=== PATIENT | male | born 1950 | race Caucasian/White ===

== ENCOUNTER → 2016-04-30 | Outpatient (CLI) | payer MEDICARE ==
[2016-04-30 11:48] LABS: Blood Urea Nitrogen 32 mg/dL (9-20); Non-African American GFR(MDRD) >60 (>60 ml/min/1.73 sqM)
--- NOTE | 2016-04-30 13:31 | CT ---
EXAMINATION TYPE: CT ChestAbdPelvis w con DATE OF EXAM: 04/30/2016 1:18 PM INDICATION: cough and LUQ pain COMPARISON: CT chest 09/12/2014, CT abdomen pelvis 06/18/2014 CT DLP: 1750.4 mGycm CONTRAST: Performed with Oral Contrast and with IV Contrast, patient injected with 100 mL of Omnipaque 300. TECHNIQUE: Axial images at 5 mm thick sections. Reconstructed images in the coronal plane. Delayed images through the kidneys. FINDINGS: CT CHEST: Portion of the thyroid visualized is normal. Very minimal subsegmental atelectasis may be present within the lung bases dependent portions. Lungs otherwise appear clear. No enlarged mediastinal or hilar adenopathy is evident. The ascending aorta diameter at the level of the main pulmonary artery is 3.5 cm. The main pulmonary artery diameter at the bifurcation is 2.[address] ABDOMEN: Liver: There is a 0.8 cm cyst superior left lobe liver medially Spleen: Normal Pancreas: Normal Adrenal glands: The adrenal glands are normal. Gallbladder: Normal Kidneys: No masses are evident. No hydronephrosis is present. No cysts are present. Delayed images were obtained through the kidneys, which remain unremarkable. Aorta: Vascular calcification is within the aorta. Inferior vena cava: Normal. CT PELVIS: Loops of bowel within the abdomen and pelvis are normal. Diverticular changes are within the sigm oid colon. There are loops of bowel without contrast limiting their evaluation. Appendix: Not visualized Urinary bladder: Normal. Genitourinary structures: Prostate is slightly prominent Osseous structures: No suspicious lytic or sclerotic lesions. IMPRESSIONS: 1. Minimal subsegmental atelectasis lung bases. 2. Diverticulosis sigmoid colon.
== END | disposition home or self-care (01) ==
LOC: RADCTMAIN 11:05
PROVIDERS: ATTEND Internal Medicine Hematology & Oncology
DX: J98.11 Atelectasis (principal); K57.30 Diverticulosis of large intestine without perforation or abscess without bleeding
CPT/HCPCS: 82565; 84520; 71260; 74177; Q9967

== ENCOUNTER → 2016-06-16 | Outpatient (CLI) | payer MEDICARE ==
[2016-06-16 12:48] LABS: Appearance,Urine Clear (Clear); Bilirubin,Urine Negative (Negative); Glucose,Urine (UA) 4+ (Negative); Ketones,Urine Negative (Negative); Leukocyte Esterase,Urine Negative (Negative); Nitrite,Urine Negative (Negative); PH, Urine 5.5 (5.0-8.0); Protein,Urine Negative (Negative); Specific Gravity,Urine 1.018 (1.001-1.035); UA Billing (MACRO vs. MICRO) CHEM; Urobilinogen,Urine <2.0 mg/dL (<2.0)
[2016-06-16 13:04] LABS: Magnesium 1.8 mg/dL (1.6-2.3); Phosphorous 3.3 mg/dL (2.5-4.5); Uric Acid 4.4 mg/dL (3.5-8.5)
== END | disposition home or self-care (01) ==
LOC: LABWHC1 11:59
PROVIDERS: ATTEND Internal Medicine
DX: N18.3 Chronic kidney disease, stage 3 (moderate) (principal); N39.0 Urinary tract infection, site not specified; R80.9 Proteinuria, unspecified; E21.3 Hyperparathyroidism, unspecified; E55.9 Vitamin D deficiency, unspecified; M10.9 Gout, unspecified
CPT/HCPCS: 36415; 81003; 82043; 82306; 83735; 83970; 84100; 84550

== ENCOUNTER 2016-10-01 23:34 | Inpatient (IN) | payer MEDICARE ==
[2016-10-02] MEDS ORDERED: SODIUM CHLORIDE 0.9% 1,000 ML IV STA (00:07)
[2016-10-02] MEDS ORDERED: IV VANCOMYCIN PER PHARMACY 1 EACH MISC MISCELLANE PRN (00:07)
[2016-10-02] MEDS ORDERED: VANCOMYCIN 1,500 MG in SODIUM CHLORIDE 0.9% 250 ML IVPB STA (00:20)
--- NOTE | 2016-10-02 00:21 | ED ---
General Adult HPI - General Chief complaint: Wound/Laceration Stated complaint: Leg Wound Time Seen by Provider: 10/01/16 23:55 Source: patient, RN notes reviewed Mode of arrival: ambulatory Limitations: no limitations - History of Present Illness Initial comments: 65-year-old male presents to the emergency department with the chief complaint of right leg wound. Patient states that on he hit his leg with an object and caused a cut. Patient states today he went to change his bandage and Dilaudid. Come out of the wound. Patient denies any fever or chills. There is some redness and swelling to the leg. Patient states that he was concerned due to the purulent discharge states that that he should be evaluated. Patient denies any other symptoms. Patient denies pain.Patient denies any recent fever, chills, shortness of breath, chest pain, back pain, abdominal pain, nausea vomiting, numbness or tingling, dysuria or hematuria, constipation or diarrhea, headaches or visual changes, or any other current symptoms. - Related Data Home Medications Medication Instructions Recorded Confirmed Unable To Assess [Unable to Assess] 06/18/14 06/18/14 Allergies Allergy/AdvReac Type Severity Reaction Status Date / Time No Known Allergies Allergy Verified 10/01/16 23:48 Review of Systems ROS Statement: Those systems with pertinent positive or pertinent negative responses have been documented in the HPI. ROS Other: All systems not noted in ROS Statement are negative. Past Medical History Past Medical History: Diabetes Mellitus History of Any Multi-Drug Resistant Organisms: None Reported Past Surgical History: No Surgical Hx Reported Past Psychological History: No Psychological Hx Reported Smoking Status: Never smoker Past Alcohol Use History: None Reported Past Drug Use History: None Reported General Exam - General Exam Comments Initial Comments: General: The patient is awake and alert, in no distress, and does not appear acutely ill. Neck: The neck is supple, there is no tenderness. Cardiovascular: There is a regular rate and rhythm. No murmur, rub or gallop is appreciated. Respiratory: Lungs are clear to auscultation, respirations are non-labored, breath sounds are equal. No wheezes, stridor, rales, or rhonchi. Musculoskeletal: Sensation intact with 2+ pulses. Right extremity. Full range of motion of right knee and ankle. Patient does appear to have a circular- sized wound to the anterior right dejesus that does show tendon visible. There is some purulent-like discharge from the area. It is this. Associated induration and swelling surrounding the area. Neurological: CN II-XII intact, There are no obvious motor or sensory deficits. Coordination appears grossly intact. Speech is normal. Skin: Skin is warm and dry and no rashes or lesions are noted. Psychiatric: Normal mood and affect. Limitations: no limitations Course Vital Signs 10/01/16 23:46 Temperature 98.9 F Pulse Rate 80 Respiratory 18 Rate Blood Pressure 215/102 O2 Sat by Pulse 96 Oximetry Medical Decision Making - Medical Decision Making 65-year-old male presents with what appears to be a wound with associated cellulitis to the right leg. At this time patient's wound does appear to be excessive and he does also appear to have a right dejesus cellulitis does appear to be open with tendon exposed. At this time we did start vancomycin. We will the patient to director of early childhood education. Patient is agree with this plan all questions have been answered. - Radiology Data Radiology results: report reviewed, image reviewed Disposition Clinical Impression: Cellulitis of right leg, Open wound of right ankle, Type II diabetes mellitus Disposition: ADMITTED IP TO THIS [facility] Condition: Stable Referrals: Madeline Aldana MD [Primary Care Provider] - 1-2 days Time of Disposition: 01:25 Decision Date: 10/02/16 Decision Time: 01:25
--- NOTE | 2016-10-02 01:02 | XR ---
EXAM: XR Right Tib/Fib CLINICAL HISTORY: Reason: Pain TECHNIQUE: X-ray right tib/fib. COMPARISON: No relevant prior studies available. FINDINGS/IMPRESSION: Soft tissue defect in the anterior calf best appreciated on lateral view. Soft tissue edema. Periosteal thickening, example distal tibia. No acute fracture is identified.
[2016-10-02] MEDS ORDERED: NALOXONE 0.4 MG/ML 1 ML VIAL IV PRN (01:26)
[2016-10-02] MEDS ORDERED: ACETAMINOPHEN TAB 325 MG TAB PO PRN (01:26)
[2016-10-02] MEDS ORDERED: ONDANSETRON 4 MG/2 ML VIAL IVP PRN (01:26)
[2016-10-02] MEDS ORDERED: IBUPROFEN 400 MG TAB PO PRN (01:26)
[2016-10-02 01:31] LABS: INR 1.1 (<1.1); Partial Thromboplastin Time 22.9 sec (22.0-30.0); Prothrombin Time 10.7 sec (9.0-12.0)
[2016-10-02 01:32] LABS: Basophils % (A) 1 %; CH 29.5; CHCM 36.4; Eosinophils # (A) 0.3 k/uL (0-0.7); Eosinophils % (A) 3 %; HCT 35.2 % (39.0-53.0); HDW 3.63; HGB 13.1 gm/dL (13.0-17.5); Hyperchromasia Slight; Luc # (Auto) 0.12; Luc % (Auto) 1; Lymphocytes # (A) 1.7 k/uL (1.0-4.8); Lymphocytes % (A) 20 %; MCH 30.4 pg (25.0-35.0); MCHC 37.3 g/dL (31.0-37.0); MCV 81.6 fL (80.0-100.0); Mean Platelet Volume 7.2; Monocytes # (A) 0.6 k/uL (0-1.0); Monocytes % (A) 7 %; Neutrophils # (A) 5.7 k/uL (1.3-7.7); Neutrophils % (A) 68 %; Poikilocytosis Slight; RBC 4.32 m/uL (4.30-5.90); RDW 14.3 % (11.5-15.5); WBC 8.3 k/uL (3.8-10.6); WBC (Perox) 7.94
[2016-10-02 01:35] LABS: ALT 34 U/L (21-72); AST 14 U/L (17-59); Alkaline Phosphatase 87 U/L (38-126); Anion Gap 12 mmol/L; Blood Urea Nitrogen 25 mg/dL (9-20); Calcium 9.5 mg/dL (8.4-10.2); Carbon Dioxide 22 mmol/L (22-30); Chloride 104 mmol/L (98-107); Glucose 228 mg/dL (74-99); Non-African American GFR(MDRD) >60 (>60 ml/min/1.73 sqM); Potassium 4.2 mmol/L (3.5-5.1); Sodium 138 mmol/L (137-145); Total Bilirubin 0.8 mg/dL (0.2-1.3); Total Protein 6.9 g/dL (6.3-8.2)
[2016-10-02] MEDS ORDERED: ENALAPRILAT 1.25 MG/ML 1 ML VIAL IVP STA (02:44)
[2016-10-02] MEDS: SODIUM CHLORIDE 0.9% 1,000 ML IV SCH ×2 (03:02→13:06)
[2016-10-02 04:31] VITALS: BMI 28.5
[2016-10-02 07:15] LABS: Glucose,Whole Blood 212 mg/dL (75-99)
[2016-10-02] MEDS: VANCOMYCIN 1,500 MG in SODIUM CHLORIDE 0.9% 250 ML IVPB SCH ×2 (08:22→21:38)
[2016-10-02] MEDS: INSULIN LISPRO (humaLOG) 300 UNIT/3 ML VIAL SQ SCH ×4 (08:23→21:38)
[2016-10-02 09:03] LABS: Hemoglobin A1C 9.1 % (4.2-6.1)
[2016-10-02 11:43] LABS: Glucose,Whole Blood 231 mg/dL (75-99)
--- NOTE | 2016-10-02 12:01 | P.HPIM ---
History of Present Illness 65-year-old male presents to the emergency department with the chief complaint of right leg wound. Patient states that on he hit his leg with an object and caused a cut. Patient does have an open wound and stays 3-4 ulcer on the right anterior aspect of the leg/dejesus ulcer is about 7X 7 cm Patient states today he went to change his bandage, is probable worsening of redness around the wound. Come out of the wound. Patient denies any fever or chills. Pain. Patient states that he was concerned due to the purulent discharge states that that he should be evaluated. Patient denies any other symptoms. Patient denies pain.Patient denies any recent fever, chills, shortness of breath , chest pain, back pain, abdominal pain, nausea vomiting, numbness or tingling, dysuria or hematuria, constipation or diarrhea, headaches or visual changes, or any other current symptoms. Patient was not on any antibiotics before admission. Patient was started on IV vancomycin. Review of Systems REVIEW OF SYSTEMS: CONSTITUTIONAL: No fever, no malaise, no fatigue. HEENT: No recent visual problems or hearing problems. Denied any sore throat. CARDIOVASCULAR: No chest pain, orthopnea, PND, no palpitations, no syncope. PULMONARY: No shortness of breath, no cough, no hemoptysis. GASTROINTESTINAL: No diarrhea, no nausea, no vomiting, no abdominal pain. Normoactive bowel sounds. NEUROLOGICAL: No headaches, no weakness, no numbness. HEMATOLOGICAL: Denies any bleeding or petechiae. GENITOURINARY: Denies any burning micturition, frequency, or urgency. MUSCULOSKELETAL/RHEUMATOLOGICAL: Denies any joint pain, swelling, or any muscle pain. ENDOCRINE: Denies any polyuria or polydipsia. The rest of the 14-point review of systems is negative. 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 Son(s) Family Medical History: Cancer Additional Family Medical History / Comment(s): Down syndrome Medications and Allergies Home Medications Medication Instructions Recorded Confirmed Type glipiZIDE [Glucotrol] 10 mg PO AC-TID 10/02/16 10/02/16 History Allergies Allergy/AdvReac Type Severity Reaction Status Date / Time No Known Allergies Allergy Verified 10/02/16 08:14 Physical Exam Vitals: Vital Signs Temp Pulse Pulse Resp BP BP Pulse Ox 10/02/16 08:00 58 L 18 10/02/16 07:00 97 F L 58 L 18 156/81 95 10/02/16 04:17 96.6 F L 66 20 169/80 96 10/02/16 03:46 97.2 F L 60 18 152/69 98 10/02/16 03:04 56 L 18 211/97 96 10/02/16 01:25 66 18 173/74 99 10/01/16 23:46 98.9 F 80 18 215/102 96 Intake and Output 10/01/16 10/02/16 10/02/16 22:59 06:59 14:59 Other: # Voids 1 Weight 109 kg PHYSICAL EXAMINATION: GENERAL: The patient is alert and oriented x3, not in any acute distress. Well developed, well nourished. HEENT: Pupils are round and equally reacting to light. EOMI. No scleral icterus. No conjunctival pallor. Normocephalic, atraumatic. No pharyngeal erythema. No thyromegaly. CARDIOVASCULAR: S1 and S2 present. No murmurs, rubs, or gallops. PULMONARY: Chest is clear to auscultation, no wheezing or crackles. ABDOMEN: Soft, nontender, nondistended, normoactive bowel sounds. No palpable organomegaly. MUSCULOSKELETAL: No joint swelling or deformity. EXTREMITIES: No cyanosis, clubbing, or pedal edema. NEUROLOGICAL: Gross neurological examination did not reveal any focal deficits. SKIN: And has stage 3-4 also in the anterior dejesus area as mentioned above 7X7 cm with a clean base with out any purulent discharge or pus pockets. Patient has redness extending few centimeters surrounding the ulcer without any localized but does have some edema. Results CBC & Chem 7: 10/02/16 01:08 10/02/16 01:08 Labs: Abnormal Lab Results - Last 24 Hours (Table) 10/02/16 10/02/16 10/02/16 Range/Units 01:08 01:08 01:08 Hct 35.2 L (39.0-53.0) % MCHC 37.3 H (31.0-37.0) g/dL BUN 25 H (9-20) mg/dL Glucose 228 H (74-99) mg/dL POC Glucose (mg/dL) (75-99) mg/dL Hemoglobin A1c 9.1 H (4.2-6.1) % AST 14 L (17-59) U/L 10/02/16 10/02/16 Range/Units 07:13 11:36 Hct (39.0-53.0) % MCHC (31.0-37.0) g/dL BUN (9-20) mg/dL Glucose (74-99) mg/dL POC Glucose (mg/dL) 212 H 231 H (75-99) mg/dL Hemoglobin A1c (4.2-6.1) % AST (17-59) U/L Thrombosis Risk Factor Assmnt - Choose All That Apply Any of the Below Risk Factors Present?: Yes Each Factor Represents 1 point: Varicose veins Other Risk Factors: Yes Each Risk Factor Represents 2 Points: Age 61-74 years Thrombosis Risk Factor Assessment Total Risk Factor Score: 3 Thrombosis Risk Factor Assessment Level: Moderate Risk Assessment and Plan Plan: 1 infected traumatic ulcer in the right anterior dejesus area: We need to rule out osteo-myelitis although I cannot appreciate any bone exposed clinically on palpation. We pain a MRI of the to rule out ostiomyelitis. Infectious disease will be consulted and IV vancomycin will be continued and IV fluids will be continued. 2 type 2 diabetes mellitus uncontrolled blood sugars for now will continue with his home regimen along with sliding scale insulin we may need to add metformin upon discharge 3 diabetes mellitus neuropathy. 4 rule out ostiomyelitis.
[2016-10-02] MEDS: COLLAGENASE 250 UNIT/GM OINTMENT 30 GM TUBE TOPICAL SCH (17:51)
--- NOTE | 2016-10-02 17:52 | CONS ---
DATE OF CONSULTATION: 10/02/2016 REASON FOR CONSULTATION: Right lower extremity wound and cellulitis. HISTORY OF PRESENT ILLNESS: The patient is a 65 year old male who did have an object fall on his right leg about four days ago that has left to ulceration of his right dejesus and some bruise to his foot and toes. The patient says he has been applying some Neosporin on it and applying some bandage. The other day when he tried to take one of the bandages off, some of the skin came off of it, ( ) ulcer formation. The area is blackish with some surrounding redness. The patient is diabetic and neuropathy, denies significant pain. The patient denies any high grade fever, rigors or chills. No significant chest pain or shortness of breath or cough. No abdominal pain or diarrhea. With these symptoms, the patient presented to [facility] ER. The patient being evaluated by the ER physician. He did have x-rays of the right leg which did show some soft tissue edema but no bony changes. The patient was started on Vancomycin. ID was consulted for further recommendations regarding antibiotic therapy. REVIEW OF SYSTEMS Constitutional: Positive for weakness but no high grade fever. EYES: No complaint. ENT: No complaint. Respiratory: No complaint. Cardiovascular: No complaint. Genitourinary: No complaint. Gastrointestinal: No complaint. Musculoskeletal: As per HPI. Integumentary: As per HPI. Psychological: No complaint. Endocrine: No complaint. Neurological: No complaint. Past medical history significant for diabetes mellitus. Past surgical history: No major surgeries. SOCIAL HISTORY: No history of smoking, drinking or drug use. FAMILY HISTORY: No pertinent findings were noticed. ALLERGIES: No known drug allergies. Medications currently include the patient is on: 1. Tylenol. 2. Motrin. 3. Humalog. 4. Narcan. 5. Zofran. 6. Vancomycin, pharmacy to dose. On examination, blood pressure is 148/72 with a pulse of 79. Temperature 97.0. He is 92% on room air. General description is an elderly male lying in bed in no distress. No tachypnea or accessory muscles of respiration use. HEENT: Examination shows ( ) scleral icterus. Oral mucous membranes dry. NECK: Trachea is central. No thyromegaly. LUNGS: Unlabored breathing. Clear to auscultation anteriorly. No wheeze or crackles. HEART: S1, S2 regular rate and rhythm ( ). ABDOMEN: Soft, no tenderness. No guarding or rigidity. EXTREMITIES: Right leg with a wound on the dejesus area with some black eschar and some surrounding erythema, very minimal foul smelling. Some bruising of the toe but no open wound. NEUROLOGICALLY: The patient is awake, alert and oriented times three. Mood and affect normal. LABS: Hemoglobin 13.1, white count 8.3 with a BUN 25, creatinine 1.10. The patient did have blood cultures obtained which are currently pending and ( ) cultures obtained. DIAGNOSTIC IMPRESSION AND PLAN: Patient with right leg wound traumatic with secondary cellulitis likely from gram positive skin jayson (Staph) and Strep in a patient who does not have any risk factors. For MRSA infection, we will continue ( ) clinical suspicion is low for gram negative infection and clinically doubt a deep bony infection. PLAN: 1. Recommend obtaining vascular surgery evaluation and the patient needs to have debridement of this wound followed by deep wound cultures. 2. Local wound care with Santyl followed by moist dressing. 3. Vancomycin pharmacy to dose, target of 15, ( ). 4. We will follow up on his clinical condition and cultures to further adjust medications if needed. Thank you for this consultation. We will follow this patient along with you. JERAMY
[2016-10-02 18:04] LABS: Glucose,Whole Blood 183 mg/dL (75-99)
[2016-10-02 20:43] LABS: Glucose,Whole Blood 171 mg/dL (75-99)
--- NOTE | 2016-10-02 21:40 | MR ---
EXAMINATION TYPE: MR tib fib RT wo/w con DATE OF EXAM: 10/02/2016 COMPARISON: NONE HISTORY: Pt is Diabetic, Open Wound Right Lower Leg CONTRAST: Standard multiplanar, multisequence MRI departmental protocol utilizing 20 mL intravenous MultiHance gadolinium contrast. FINDINGS: There is soft tissue edema involving the right lower extremity. Correlate for cellulitis. Appears to be an open ulceration or wound involving the right lower extremity epidermal thickening seen. There is periosteal thickening. There is no abnormal signal within the marrow to suggest osteomyeliti s. Numerous subcutaneous varicosities are seen in the muscular atrophy. There is enhancement along the lateral musculature of the distal lower extremity which may represent myositis. Infectious involvement not excluded. IMPRESSION: No evidence of osteomyelitis. There is chronic periosteal thickening of the distal tibia. Underlying cellulitis is with open ulceration noted. There does appear to be some enhancement of the adjacent mu sculature beneath the ulceration along the anterior lateral margin of the lower extremity. This sugge st myositis. Infectious involvement of the muscle in the differential diagnosis. Correlate clinically .
[2016-10-03] MEDS: SODIUM CHLORIDE 0.9% 1,000 ML IV SCH ×2 (00:21→09:07)
[2016-10-03 07:18] LABS: Glucose,Whole Blood 266 mg/dL (75-99)
--- NOTE | 2016-10-03 07:38 | P.GSCN ---
History of Present Illness History of present illness: 65 old white male, history of diabetes, Anastasia has easy to his right lower leg. Martines area about 4 days ago with sharp object he has a open wound of 7 x 7 cm with some ulcer formation noted with some necrotic tissue present at the base of the wound scheduled to have a wound debridement Medical history history of diabetes controlled with medication Personal history no known ALLERGY On examination neck is supple Chest is clear auscultation first and second sound normal Abdomen soft nontender vascular examination femoral pulses are palpable bilateral patient has a wound on the right lower extremity 7 was 7 with some ulceration noted with some necrotic tissue Plan is debridement of the wound risk and complication discussed thank you very much Past Medical History Past Medical History: Diabetes Mellitus Additional Past Medical History / Comment(s): Neuropathy in bilat feet and bilat hands History of Any Multi-Drug Resistant Organisms: None Reported Past Surgical History: No Surgical Hx Reported Additional Past Surgical History / Comment(s): Vericose vein surgery Past Psychological History: No Psychological Hx Reported Smoking Status: Never smoker - Past Family History Father Family Medical History: CVA/TIA Additional Family Medical History / Comment(s): Father passed from stroke at age 62. Son(s) Family Medical History: Cancer Additional Family Medical History / Comment(s): Down syndrome Medications and Allergies Home Medications Medication Instructions Recorded Confirmed Type glipiZIDE [Glucotrol] 10 mg PO AC-TID 10/02/16 10/02/16 History Allergies Allergy/AdvReac Type Severity Reaction Status Date / Time No Known Allergies Allergy Verified 10/02/16 08:14 Surgical - Exam Vital Signs Temp Pulse Resp BP Pulse Ox 98.9 F 80 18 215/102 96 10/01/16 23:46 10/01/16 23:46 10/01/16 23:46 10/01/16 23:46 10/01/16 23:46 Results - Labs 10/02/16 01:08 10/02/16 01:08 Abnormal Lab Results - Last 24 Hours (Table) 10/02/16 10/02/16 10/02/16 Range/Units 01:08 11:36 17:38 POC Glucose (mg/dL) 231 H 183 H (75-99) mg/dL Hemoglobin A1c 9.1 H (4.2-6.1) % 10/02/16 10/03/16 Range/Units 20:41 07:07 POC Glucose (mg/dL) 171 H 266 H (75-99) mg/dL Hemoglobin A1c (4.2-6.1) % Microbiology - Last 24 Hours (Table) 10/02/16 01:08 Blood Culture - Preliminary Blood No Growth after 24 hours Diabetes panel 10/02/16 Range/Units 01:08 Hemoglobin A1c 9.1 H (4.2-6.1) %
[2016-10-03] MEDS: VANCOMYCIN 1,500 MG in SODIUM CHLORIDE 0.9% 250 ML IVPB SCH ×2 (07:41→21:14)
[2016-10-03] MEDS: COLLAGENASE 250 UNIT/GM OINTMENT 30 GM TUBE TOPICAL SCH (07:44)
[2016-10-03] MEDS: INSULIN LISPRO (humaLOG) 300 UNIT/3 ML VIAL SQ SCH ×4 (08:22→21:15)
[2016-10-03 08:42] LABS: Basophils % (A) 1 %; CH 29.7; CHCM 35.3; Eosinophils # (A) 0.2 k/uL (0-0.7); Eosinophils % (A) 3 %; HCT 35.5 % (39.0-53.0); HDW 3.58; HGB 12.4 gm/dL (13.0-17.5); Luc # (Auto) 0.09; Luc % (Auto) 1; Lymphocytes # (A) 1.3 k/uL (1.0-4.8); Lymphocytes % (A) 18 %; MCH 29.5 pg (25.0-35.0); MCHC 34.8 g/dL (31.0-37.0); MCV 84.6 fL (80.0-100.0); Monocytes # (A) 0.4 k/uL (0-1.0); Monocytes % (A) 6 %; Neutrophils # (A) 5.2 k/uL (1.3-7.7); Neutrophils % (A) 72 %; Poikilocytosis Slight; RDW 14.2 % (11.5-15.5); WBC 7.3 k/uL (3.8-10.6); WBC (Perox) 6.85
[2016-10-03 09:03] LABS: ALT 28 U/L (21-72); AST 12 U/L (17-59); Alkaline Phosphatase 73 U/L (38-126); Anion Gap 7 mmol/L; Blood Urea Nitrogen 18 mg/dL (9-20); Calcium 8.9 mg/dL (8.4-10.2); Carbon Dioxide 24 mmol/L (22-30); Chloride 106 mmol/L (98-107); Glucose 256 mg/dL (74-99); Non-African American GFR(MDRD) >60 (>60 ml/min/1.73 sqM); Potassium 4.4 mmol/L (3.5-5.1); Sodium 137 mmol/L (137-145); Total Bilirubin 0.5 mg/dL (0.2-1.3); Total Protein 5.6 g/dL (6.3-8.2)
[2016-10-03 12:04] LABS: Glucose,Whole Blood 241 mg/dL (75-99)
[2016-10-03] MEDS ORDERED: LIDOCAINE 1% 20 ML VIAL (10MG/ML) FOR IV START INTRADERMA PRN (12:56)
[2016-10-03] MEDS ORDERED: HYDROmorphone 1 MG/ML 1 ML SYRINGE IVP PRN (12:56)
[2016-10-03] MEDS ORDERED: METOCLOPRAMIDE 5 MG/ML 2 ML VIAL IVP PRN (12:56)
[2016-10-03] MEDS ORDERED: LACTATED RINGERS 1,000 ML IV SCH (13:00)
[2016-10-03] MEDS ORDERED: SODIUM CHLORIDE 0.9% 1,000 ML IV ONE ×2 (13:10)
[2016-10-03] MEDS ORDERED: LIDOCAINE 1% INJ 10MG/ML (20 ML MDV) ONE (13:55)
[2016-10-03] MEDS ORDERED: fentaNYL (PF) 50 MCG/ML 2 ML AMP ONE (13:55)
[2016-10-03] MEDS ORDERED: PROPOFOL 10 MG/ML 20 ML VIAL IV ONE (13:55)
[2016-10-03] MEDS ORDERED: KETAMINE 10 MG/ML 20 ML VIAL ONE (13:55)
[2016-10-03] MEDS ORDERED: MIDAZOLAM 2 MG/2 ML VIAL ONE (13:55)
[2016-10-03] MEDS ORDERED: LIDOCAINE 1% 20 ML VIAL (10MG/ML) FOR IV START SQ ONE (14:06)
--- NOTE | 2016-10-03 14:10 | P.PN ---
Subjective Is admitted for left leg wound with cellulitis. Patient's MRA is negative for prostatitis and patient is undergoing debridement today. Patient on IV antibiotics. REVIEW OF SYSTEMS: CARDIOVASCULAR: No chest pain, no orthopnea, no PND, no palpitations. PULMONARY: Denied any shortness of breath. No cough or hemoptysis. GASTROINTESTINAL: No diarrhea, nausea or vomiting. No abdominal pain. Normoactive bowel sounds. NEUROLOGIC: No headaches, no weakness, no numbness. Objective - Vital Signs Vital signs: Vital Signs Temp 96.9 F L 10/03/16 07:00 Pulse 56 L 10/03/16 07:00 Resp 18 10/03/16 07:00 BP 162/79 10/03/16 07:00 Pulse Ox 94 L 10/03/16 07:00 Intake & Output 10/02/16 10/03/16 10/03/16 18:59 06:59 18:59 Intake Total 950 Balance 950 Weight 109 kg Intake: IV 950 Other: Voiding Method Toilet Toilet Urinal # Voids 4 1 1 - Exam GENERAL: The patient is alert and oriented x3, not in any acute distress. Well developed, well nourished. HEENT: Pupils are round and equally reacting to light. EOMI. No scleral icterus. No conjunctival pallor. Normocephalic, atraumatic. No pharyngeal erythema. No thyromegaly. CARDIOVASCULAR: S1 and S2 present. No murmurs, rubs, or gallops. PULMONARY: Chest is clear to auscultation, no wheezing or crackles. ABDOMEN: Soft, nontender, nondistended, normoactive bowel sounds. No palpable organomegaly. MUSCULOSKELETAL: No joint swelling or deformity. EXTREMITIES: No cyanosis, clubbing, or pedal edema. NEUROLOGICAL: Gross neurological examination did not reveal any focal deficits. SKIN: And has stage 3-4 also in the anterior dejesus area as mentioned above 7X7 cm with out any purulent discharge or pus pockets. Patient has redness extending few centimeters surrounding the ulcer without any localized but does have some edema. - Labs CBC & Chem 7: 10/03/16 07:51 10/03/16 07:51 Labs: Abnormal Lab Results - Last 24 Hours (Table) 10/02/16 10/02/16 10/03/16 Range/Units 17:38 20:41 07:07 RBC (4.30-5.90) m/uL Hgb (13.0-17.5) gm/dL Hct (39.0-53.0) % Glucose (74-99) mg/dL POC Glucose (mg/dL) 183 H 171 H 266 H (75-99) mg/dL AST (17-59) U/L Total Protein (6.3-8.2) g/dL Albumin (3.5-5.0) g/dL 10/03/16 10/03/16 10/03/16 Range/Units 07:51 07:51 12:01 RBC 4.20 L (4.30-5.90) m/uL Hgb 12.4 L (13.0-17.5) gm/dL Hct 35.5 L (39.0-53.0) % Glucose 256 H (74-99) mg/dL POC Glucose (mg/dL) 241 H (75-99) mg/dL AST 12 L (17-59) U/L Total Protein 5.6 L (6.3-8.2) g/dL Albumin 3.1 L (3.5-5.0) g/dL Microbiology - Last 24 Hours (Table) 10/02/16 01:08 Blood Culture - Preliminary Blood No Growth after 24 hours Assessment and Plan Plan: 1 infected traumatic ulcer in the right anterior dejesus area: . No ostiomyelitis on MRI. Infectious disease will be consulted and IV vancomycin will be continued and IV fluids will be continued. 2 type 2 diabetes mellitus uncontrolled blood sugars for now will continue with his home regimen along with sliding scale insulin we may need to add metformin upon discharge 3 diabetes mellitus neuropathy. 4 rule out ostiomyelitis.
[2016-10-03 14:34] LABS: Glucose,Whole Blood 170 mg/dL (75-99)
[2016-10-03 17:22] LABS: Glucose,Whole Blood 141 mg/dL (75-99)
--- NOTE | 2016-10-03 18:40 | PCN ---
PREOPERATIVE DIAGNOSIS: Traumatic wound right lower extremity. Measurement is 6 x 5 cm. PROCEDURE: Debridement of the wound down to subcutaneous tissue. ANESTHESIA: Local and IV sedation. This patient had traumatic wound to the right lower extremity. The patient has a wound on the anterior aspect of the right dejesus 6 x 5 with some flap necrosis of the skin. Using a sharp knife, we excised the necrotic tissue down to subcutaneous tissue and the fat. All the necrotic tissue was removed along with necrotic skin. Muscles were viable. There was some old blood clot noted under the knee which was removed by curette. The wound was irrigated with saline. Hemostasis was well controlled. Dressings applied. Plan is we will start Santyl cream. IV antibiotic. No bleeding was noted. MTDD
[2016-10-03 21:16] LABS: Glucose,Whole Blood 201 mg/dL (75-99)
[2016-10-04 07:18] LABS: Glucose,Whole Blood 256 mg/dL (75-99)
[2016-10-04] MEDS ORDERED: VANCOMYCIN TROUGH DUE 1 EACH MISC MISCELLANE ONE (08:00)
[2016-10-04] MEDS: INSULIN LISPRO (humaLOG) 300 UNIT/3 ML VIAL SQ SCH ×4 (08:10→21:51)
[2016-10-04] MEDS: COLLAGENASE 250 UNIT/GM OINTMENT 30 GM TUBE TOPICAL SCH ×2 (08:12→09:44)
[2016-10-04] MEDS: VANCOMYCIN 1,500 MG in SODIUM CHLORIDE 0.9% 250 ML IVPB SCH (08:13)
--- NOTE | 2016-10-04 08:51 | P.PN ---
Progress Note - Text 65-year-old gentleman who had a traumatic wound right lower extremity yesterday went to the wound debridement today we'll check the wound wound was subsequently no discharge noted dressing was changed central cream applied we will continue with IV antibiotic when patient goes home we'll follow in the wound clinic
[2016-10-04 12:29] LABS: Glucose,Whole Blood 271 mg/dL (75-99)
[2016-10-04] MEDS ORDERED: INSULIN LISPRO (humaLOG) 300 UNIT/3 ML VIAL SQ ONE (12:51)
--- NOTE | 2016-10-04 15:51 | P.PN ---
Subjective Is admitted for left leg wound with cellulitis. Patient's MRA is negative for prostatitis and patient is undergoing debridement today. Patient on IV antibiotics. 10/04/2016 no Overnightevents. REVIEW OF SYSTEMS: CARDIOVASCULAR: No chest pain, no orthopnea, no PND, no palpitations. PULMONARY: Denied any shortness of breath. No cough or hemoptysis. GASTROINTESTINAL: No diarrhea, nausea or vomiting. No abdominal pain. Normoactive bowel sounds. NEUROLOGIC: No headaches, no weakness, no numbness. Objective - Vital Signs Vital signs: Vital Signs Temp 98.3 F 10/04/16 14:17 Pulse 63 10/04/16 14:17 Resp 16 10/04/16 14:17 BP 143/69 10/04/16 14:17 Pulse Ox 93 L 10/04/16 14:17 Intake & Output 10/03/16 10/04/16 10/04/16 18:59 06:59 18:59 Intake Total 1100 800 Output Total 5 Balance 1095 800 Intake: IV 1100 Oral 800 Output: Estimated Blood Loss 5 Other: Voiding Method Toilet Toilet Urinal Urinal # Voids 2 1 2 - Exam GENERAL: The patient is alert and oriented x3, not in any acute distress. Well developed, well nourished. HEENT: Pupils are round and equally reacting to light. EOMI. No scleral icterus. No conjunctival pallor. Normocephalic, atraumatic. No pharyngeal erythema. No thyromegaly. CARDIOVASCULAR: S1 and S2 present. No murmurs, rubs, or gallops. PULMONARY: Chest is clear to auscultation, no wheezing or crackles. ABDOMEN: Soft, nontender, nondistended, normoactive bowel sounds. No palpable organomegaly. MUSCULOSKELETAL: No joint swelling or deformity. EXTREMITIES: No cyanosis, clubbing, or pedal edema. NEUROLOGICAL: Gross neurological examination did not reveal any focal deficits. SKIN: And has stage 3-4 also in the anterior dejesus area as mentioned above 7X7 cm with out any purulent discharge or pus pockets. Patient has redness extending few centimeters surrounding the ulcer without any localized but does have some edema. - Labs CBC & Chem 7: 10/03/16 07:51 10/03/16 07:51 Labs: Abnormal Lab Results - Last 24 Hours (Table) 10/03/16 10/03/1610/04/17 Range/Units 17:07 21:03 07:09 POC Glucose (mg/dL) 141 H 201 H 256 H (75-99) mg/dL 10/04/16 Range/Units 12:25 POC Glucose (mg/dL) 271 H (75-99) mg/dL Microbiology - Last 24 Hours (Table) 10/03/16 14:07 Gram Stain - Preliminary Leg - Right Wound Culture - Preliminary 10/03/16 14:07 Anaerobic Culture - Preliminary Leg - Right 10/02/16 01:08 Blood Culture - Preliminary Blood No Growth after 48 hours Assessment and Plan Plan: 1 infected traumatic ulcer in the right anterior dejesus area: . No ostiomyelitis on MRI. Infectious disease will be consulted and IV vancomycin will be continued and IV fluids will be continued. Patient underwent a debridement, wound cultures are positive for gram-positive cocci. 2 type 2 diabetes mellitus uncontrolled blood sugars for now will continue with his home regimen along with sliding scale insulin we may need to add metformin upon discharge 3 diabetes mellitus neuropathy. 4 rule out ostiomyelitis.
[2016-10-04] MEDS: glipiZIDE 10 MG TAB PO SCH (17:25)
[2016-10-04 17:26] LABS: Glucose,Whole Blood 110 mg/dL (75-99)
[2016-10-04 20:54] LABS: Glucose,Whole Blood 222 mg/dL (75-99)
[2016-10-05] MEDS: VANCOMYCIN 1,500 MG in SODIUM CHLORIDE 0.9% 250 ML IVPB SCH ×2 (00:01→16:55)
[2016-10-05 06:57] LABS: Glucose,Whole Blood 159 mg/dL (75-99)
[2016-10-05] MEDS: glipiZIDE 10 MG TAB PO SCH ×3 (07:44→17:36)
[2016-10-05] MEDS: INSULIN LISPRO (humaLOG) 300 UNIT/3 ML VIAL SQ SCH ×4 (07:44→22:23)
[2016-10-05] MEDS: COLLAGENASE 250 UNIT/GM OINTMENT 30 GM TUBE TOPICAL SCH (07:45)
--- NOTE | 2016-10-05 09:18 | PN ---
DATE OF SERVICE: 10/04/2016 REASON FOR FOLLOW UP: A right leg wound infection. INTERVAL HISTORY: The patient is afebrile. Patient did have bedside debridement with wound by Dr. Kramer on Wednesday. Wound culture showing presumptive staph aureus. Blood culture remains negative. The patient denies significant chest pain. No shortness of breath and no cough. No abdominal pain or any diarrhea. On examination, blood pressure 143/69 with a pulse 53, temperature 98.3. He is 93% on room air. General description is an elderly male in no distress. RESPIRATORY: Unlabored breathing. Clear to auscultation anteriorly. HEART: Regular rate and rhythm. ABDOMEN: Soft, no tenderness. Right leg wound is currently dressed up with no obvious drainage on the dressing. LABS: White count normal at 7.3. Wound culture with staph aureus. Blood culture has been negative. DIAGNOSTIC IMPRESSION AND PLAN: Patient with right leg wound infection with secondary cellulitis. culture with staph aureus. Currently on vancomycin. Will continue. Awaiting for the culture to finalize to determine his discharge antibiotics. continue Supportive care. JERAMY
--- NOTE | 2016-10-05 12:07 | P.PN ---
Progress Note - Text 65 old white male, patient has a regular grade 4 ulcer right lower extremity patient had a wound debridement and on examination today. The wound is clean and is healing we will continue with IV antibiotic and local wound care
--- NOTE | 2016-10-05 12:30 | PN ---
DATE OF SERVICE: 10/05/2016 Reason for followup is right leg infected wound. INTERVAL HISTORY: The patient is afebrile. Has been breathing comfortably. Denies any significant change. No shortness of breath, no abdominal pain or any worsening pain in the right leg area. On examination, blood pressure is 186/97 with a pulse of 62, temperature is 97.1 , he is 93% on room air. General description is an elderly male, lying in bed in no distress. RESPIRATORY SYSTEM: Unlabored breathing, clear to auscultation anteriorly. HEART: S1, S2, regular rate and rhythm. ABDOMEN: Soft, no tenderness. LABS: Wound culture with staph aureus with sensitivity is pending. Blood culture is negative. DIAGNOSTIC IMPRESSION AND PLAN: Patient with right leg infected wound with Staph aureus, status post debridement of the wound. Patient at this time will continue vancomycin. We are waiting for the culture to finalize to determine discharge antibiotic. Local wound care to continue in the form of wound VAC and continue with supportive care. JERAMY
[2016-10-05 12:40] LABS: Glucose,Whole Blood 190 mg/dL (75-99)
--- NOTE | 2016-10-05 14:43 | P.PN ---
Subjective Is admitted for left leg wound with cellulitis. Patient's MRAI is negative for Osteomyelitis and patient is undergoing debridement today. Patient on IV antibiotics. 10/05/2016 no Overnightevents. Wound cultures are positive for MRSA. Sensitivities are still pending. REVIEW OF SYSTEMS: CARDIOVASCULAR: No chest pain, no orthopnea, no PND, no palpitations. PULMONARY: Denied any shortness of breath. No cough or hemoptysis. GASTROINTESTINAL: No diarrhea, nausea or vomiting. No abdominal pain. Normoactive bowel sounds. NEUROLOGIC: No headaches, no weakness, no numbness. Objective - Vital Signs Vital signs: Vital Signs Temp 97.1 F L 10/05/16 07:00 Pulse 62 10/05/16 07:00 Resp 18 10/05/16 08:00 BP 186/97 10/05/16 07:00 Pulse Ox 93 L 10/05/16 07:00 Intake & Output 10/04/16 10/05/16 10/05/16 18:59 06:59 18:59 Intake Total 920 200 Balance 920 200 Weight 109 kg Intake: Intake, IV Titration 800 Amount Sodium Chloride 0.9% 1, 800 000 ml As IV .[employer] ONE Rx#:[id number] Oral 120 200 Other: Voiding Method Toilet Toilet Urinal Urinal # Voids 2 1 1 - Labs CBC & Chem 7: 10/03/16 07:51 10/03/16 07:51 Labs: Abnormal Lab Results - Last 24 Hours (Table) 10/04/16 10/04/16 10/05/16 Range/Units 17:14 20:48 06:46 POC Glucose (mg/dL) 110 H 222 H 159 H (75-99) mg/dL 10/05/16 Range/Units 12:26 POC Glucose (mg/dL) 190 H (75-99) mg/dL Microbiology - Last 24 Hours (Table) 10/02/16 01:08 Blood Culture - Preliminary Blood No Growth after 72 hours 10/03/16 14:07 Gram Stain - Preliminary Leg - Right Wound Culture - Preliminary Presumptive Staph aureus Assessment and Plan Plan: 1 infected traumatic ulcer in the right anterior dejesus area: . No ostiomyelitis on MRI. Infectious disease will be consulted and IV vancomycin will be continued and IV fluids will be continued. Patient underwent a debridement, wound cultures are positive for MRSA possible discharge tomorrow once we get the cultures and studies 2 type 2 diabetes mellitus uncontrolled blood sugars for now will continue with his home regimen along with sliding scale insulin we may need to add metformin upon discharge 3 diabetes mellitus neuropathy. 4 rule out ostiomyelitis.
[2016-10-05 17:28] LABS: Glucose,Whole Blood 195 mg/dL (75-99)
[2016-10-05] MEDS: ceFAZolin 2 GM in SODIUM CHLORIDE 0.9% 100 ML IVPB SCH (20:18)
[2016-10-05 21:30] LABS: Glucose,Whole Blood 144 mg/dL (75-99)
[2016-10-06] MEDS: ceFAZolin 2 GM in SODIUM CHLORIDE 0.9% 100 ML IVPB SCH ×2 (04:16→11:43)
[2016-10-06 07:15] LABS: Glucose,Whole Blood 203 mg/dL (75-99)
[2016-10-06 07:27] VITALS: BP 143/70; PULSE 62; RESP 14; TEMP 98.4
[2016-10-06] MEDS: glipiZIDE 10 MG TAB PO SCH ×2 (08:45→12:07)
[2016-10-06] MEDS: INSULIN LISPRO (humaLOG) 300 UNIT/3 ML VIAL SQ SCH ×2 (08:45→12:07)
[2016-10-06 09:00] LABS: Anion Gap 9 mmol/L; Blood Urea Nitrogen 24 mg/dL (9-20); Calcium 9.4 mg/dL (8.4-10.2); Carbon Dioxide 26 mmol/L (22-30); Chloride 103 mmol/L (98-107); Glucose 195 mg/dL (74-99); Non-African American GFR(MDRD) 58 (>60 ml/min/1.73 sqM); Potassium 4.3 mmol/L (3.5-5.1); Sodium 138 mmol/L (137-145)
[2016-10-06] MEDS: COLLAGENASE 250 UNIT/GM OINTMENT 30 GM TUBE TOPICAL SCH (10:00)
[2016-10-06 12:10] LABS: Glucose,Whole Blood 284 mg/dL (75-99)
--- NOTE | 2016-10-06 13:11 | PN ---
DATE OF SERVICE: 10/06/2016 Reason for follow up is right leg wound with significant cellulitis. INTERVAL HISTORY: The patient is afebrile. He is breathing comfortably. Denies any significant chest pain or shortness of breath. No cough, abdominal pain or any worsening pain in the right leg area. On examination, blood pressure is 143/70 with a pulse of 62, temperature 98.4. He is 93% on room air. General description is an elderly male lying in bed in no distress. RESPIRATORY SYSTEM: Unlabored breathing, clear to auscultation anteriorly. HEART: S1, S2, regular rate and rhythm. ABDOMEN: Soft, no tenderness. Right leg wound surrounding redness has improved. Would base looks clean. Labs are BUN of 24 with a creatinine of 1.24. Would cultures are with MSSA. DIAGNOSTIC IMPRESSION AND PLAN: Patient with methicillin-susceptible Staphylococcus aureus right leg infected hematoma, status post drainage of the hematoma. Culture has been positive for methicillin-susceptible Staphylococcus aureus. Antibiotics in the form of Keflex. Local wound care with Santyl. Follow up in the office next week. Continue supportive care. JERAMY
--- NOTE | 2016-10-06 15:35 | P.DS ---
Providers Date of admission: 10/02/16 01:30 Expected date of discharge: 10/06/16 Attending physician: Shirley Dooley Consults: 10/02/16 11:09 Consult Physician Routine Consulting Provider: Azra Matias Consult Reason/Comments: lower extremity wound care, antibiotics Do you want consulting provider notified?: Yes 10/02/16 13:26 Consult Physician Routine Consulting Provider: Mart Kramer Consult Reason/Comments: debridement Do you want consulting provider notified?: Yes Primary care physician: [facility] Hospital Course: Final Diagnoses: 1MSSA infected traumatic ulcer in the right anterior dejesus area with hematoma: No osteomyelitis on MRI. S/P debridement/drainage of hematoma. 2 type 2 diabetes mellitus uncontrolled blood sugars, Januvia added to med regime. 3 diabetes mellitus neuropathy. Hospital course:This is a 65year old gentleman admitted for left leg wound with cellulitis. Patient's MRI is negative for Osteomyelitis. Evaluated by surgery. Status post debridement. Evaluated by infectious disease. Wound cultures positive for MSSA . Maintained on IV antibiotics. Significant clinical improvement. Patient has been cleared by vascular surgery, infectious disease for discharge. Patient is being discharged home in a stable condition with guarded prognosis. Patient will follow-up next week in wound care center with vascular surgery. Microbiology 10/02/16 01:08 Blood Blood Culture - Preliminary No Growth after 96 hours 10/03/16 14:07 Leg - Right Gram Stain - Final 10/03/16 14:07 Leg - Right Wound Culture - Final Staphylococcus aureus 10/03/16 14:07 Leg - Right Anaerobic Culture - Preliminary The impression and plan of care has been dictated as directed as a scribe. : I performed a H&P examination of this patient and discussed the same with the dictator. I agree with the dictator's note. Any additional findings/opinions/ etc. will be noted. Patient Condition at Discharge: Stable Plan - Discharge Summary New Discharge Prescriptions: New Cephalexin [Keflex] 500 mg PO Q6HR #48 cap Collagenase [Santyl] 1 applic TOPICAL DAILY dose sitaGLIPtin PHOSPHATE [Januvia] 50 mg PO DAILY #30 tab Continue glipiZIDE [Glucotrol] 10 mg PO AC-TID Discharge Medication List glipiZIDE [Glucotrol] 10 mg PO AC-TID 10/02/16 [History] Cephalexin [Keflex] 500 mg PO Q6HR #48 cap 10/05/16 [Rx] Collagenase [Santyl] 1 applic TOPICAL DAILY dose 10/06/16 [Rx] sitaGLIPtin PHOSPHATE [Januvia] 50 mg PO DAILY #30 tab 10/06/16 [Rx] Follow up Appointment(s)/Referral(s): Madeline Aldana MD [Primary Care Provider] - 10/09/16 1:00 pm [facility] [[facility]FF] - As Needed () Azra Matias MD [STAFF PHYSICIAN] - 10/15/16 10:00 am Ambulatory/Diagnostic Orders: Complete Blood Count w/diff [LAB.AMB] Time Frame: 3 Days, Location: Determined By Patient Patient Instructions/Handouts: Type 2 Diabetes in Adults (DC), Debridement (DC) Activity/Diet/Wound Care/Special Instructions: Diet: Consistent carb Accu-Cheks before meals and at bedtime, maintain log and take to follow-up visit with PCP for further recommendations. Activity: as rec. per vascular surgery Discharge Disposition: HOME SELF-CARE
== END 2016-10-06 14:53 | disposition home or self-care (01) | DRG 571 ==
LOC: EC 23:34 → 4MS4W 10-02 01:30
PROVIDERS: ADMIT Hospitalist; ATTEND Hospitalist
PROC: 0JBN0ZZ Excision of Right Lower Leg Subcutaneous Tissue and Fascia, Open Approach (ICD-10-PCS; principal; 2016-10-03 13:00)
DX: S81.811A Laceration without foreign body, right lower leg, initial encounter (principal); L03.115 Cellulitis of right lower limb; E11.40 Type 2 diabetes mellitus with diabetic neuropathy, unspecified; E11.65 Type 2 diabetes mellitus with hyperglycemia; B95.61 Methicillin susceptible Staphylococcus aureus infection as the cause of diseases classified elsewhere; Z79.84 Long term (current) use of oral hypoglycemic drugs; W22.8XXA Striking against or struck by other objects, initial encounter
CPT/HCPCS: 36415; 80048; 80053; 80202; 83036; 83605; 85025; 85610; 85730; 87040; 87070; 87075; 87077; 87186; 87205; 96361; 96374; 99285

== ENCOUNTER → 2017-02-16 | Outpatient (CLI) | payer MEDICARE ==
[2017-02-16 10:34] LABS: Appearance,Urine Clear (Clear); Bilirubin,Urine Negative (Negative); Glucose,Urine (UA) Negative (Negative); Ketones,Urine Negative (Negative); Leukocyte Esterase,Urine Negative (Negative); Nitrite,Urine Negative (Negative); Protein,Urine Trace (Negative); Specific Gravity,Urine 1.018 (1.001-1.035); UA Billing (MACRO vs. MICRO) CHEM
[2017-02-16 10:39] LABS: CHCM 33.9; HCT 43.4 % (39.0-53.0); HDW 3.06; HGB 14.7 gm/dL (13.0-17.5); MCH 29.2 pg (25.0-35.0); MCV 86.1 fL (80.0-100.0); Mean Platelet Volume 7.7; RBC 5.04 m/uL (4.30-5.90); RDW 15.5 % (11.5-15.5); WBC 9.9 k/uL (3.8-10.6)
[2017-02-16 10:54] LABS: Anion Gap 10 mmol/L; Blood Urea Nitrogen 31 mg/dL (9-20); Calcium 9.6 mg/dL (8.4-10.2); Carbon Dioxide 28 mmol/L (22-30); Chloride 99 mmol/L (98-107); Glucose 240 mg/dL (74-99); Magnesium 1.7 mg/dL (1.6-2.3); Non-African American GFR(MDRD) 51 (>60 ml/min/1.73 sqM); Phosphorus 3.7 mg/dL (2.5-4.5); Potassium 4.8 mmol/L (3.5-5.1); Sodium 137 mmol/L (137-145); Uric Acid 5.4 mg/dL (3.5-8.5)
[2017-02-16 17:11] LABS: Iron Saturation 44.61 (15.00-50.00)
== END | disposition home or self-care (01) ==
LOC: LABWHC1 09:57
PROVIDERS: ATTEND Nurse Practitioner Family
DX: D64.9 Anemia, unspecified (principal); E11.22 Type 2 diabetes mellitus with diabetic chronic kidney disease; N18.3 Chronic kidney disease, stage 3 (moderate); N39.0 Urinary tract infection, site not specified; R80.9 Proteinuria, unspecified; E21.3 Hyperparathyroidism, unspecified; E55.9 Vitamin D deficiency, unspecified; M10.9 Gout, unspecified
CPT/HCPCS: 36415; 80048; 81003; 82040; 82043; 82306; 82570; 82728; 83036; 83540; 83550; 83735; 83970; 84100; 84550; 85027

== ENCOUNTER → 2017-06-10 | Outpatient (CLI) | payer MEDICARE ==
[2017-06-10 14:43] LABS: Appearance,Urine Clear (Clear); Bilirubin,Urine Negative (Negative); Blood,Urine Negative (Negative); Color,Urine Light Yellow; Glucose,Urine (UA) 4+ (Negative); HCT 42.4 % (39.0-53.0); HGB 14.1 gm/dL (13.0-17.5); Ketones,Urine Negative (Negative); Leukocyte Esterase,Urine Negative (Negative); MCH 28.7 pg (25.0-35.0); MCHC 33.3 g/dL (31.0-37.0); Mean Platelet Volume 7.3; Nitrite,Urine Negative (Negative); Platelet Count 197 k/uL (150-450); Protein,Urine Trace (Negative); RBC 4.93 m/uL (4.30-5.90); Specific Gravity,Urine 1.025 (1.001-1.035); Urobilinogen,Urine <2.0 mg/dL (<2.0); WBC 8.8 k/uL (3.8-10.6)
[2017-06-10 15:05] LABS: Albumin 4.1 g/dL (3.5-5.0); Calcium 9.7 mg/dL (8.4-10.2); Magnesium 1.9 mg/dL (1.6-2.3); Phosphorus 4.1 mg/dL (2.5-4.5); Uric Acid 4.2 mg/dL (3.5-8.5)
[2017-06-10 15:19] LABS: Potassium 4.8 mmol/L (3.5-5.1)
[2017-06-10 19:53] LABS: Iron Saturation 18.32 (15.00-50.00)
[2017-06-10 20:01] LABS: Vitamin D 25 Hydroxy 18.8 ng/mL (30.0-100.0)
[2017-06-10 21:25] LABS: Hemoglobin A1C 10.4 % (4.0-6.0)
== END | disposition home or self-care (01) ==
LOC: LABWHC1 14:19
PROVIDERS: ATTEND Nurse Practitioner Family
DX: R80.9 Proteinuria, unspecified (principal); E21.3 Hyperparathyroidism, unspecified; D63.1 Anemia in chronic kidney disease; N18.3 Chronic kidney disease, stage 3 (moderate); E11.22 Type 2 diabetes mellitus with diabetic chronic kidney disease
CPT/HCPCS: 36415; 80048; 81003; 82040; 82043; 82306; 82570; 82728; 83036; 83540; 83550; 83735; 83970; 84100; 84550; 85027

== ENCOUNTER 2017-06-26 10:59 | Emergency (ER) | payer MEDICARE ==
[2017-06-26] MEDS ORDERED: cloNIDine HCL 0.1 MG TAB PO STA (12:33)
--- NOTE | 2017-06-26 12:52 | ED ---
General Adult HPI - General Chief complaint: Extremity Problem,Nontraumatic Stated complaint: Rash on Leg Time Seen by Provider: 06/26/17 12:03 Source: patient, RN notes reviewed Mode of arrival: ambulatory Limitations: no limitations - History of Present Illness Initial comments: 66-year-old male presents to the emergency department for a chief complaint of redness of the right leg. Patient states he noticed this redness and swelling yesterday. Patient states he wears stockings for swelling throughout the day and takes them off at night. Usually the swelling does not occur when he is sleeping as his legs are elevated. However when he woke up this morning he states the swelling was worse. Patient states he had an infection in that leg last year for which he was admitted. He had a wound at that time. Patient denies any fevers or chills. Patient denies any pain in that leg but states he has significant neuropathy and has no feeling in the lower legs. Patient states he is a diabetic. Patient states he has been taking his insulin. - Related Data Home Medications Medication Instructions Recorded Confirmed Atenolol [Tenormin] 12.5 mg PO BID 06/26/17 06/26/17 Atorvastatin [Lipitor] 20 mg PO HS 06/26/17 06/26/17 Finasteride [Proscar] 5 mg PO DAILY 06/26/17 06/26/17 INSULIN LISPRO (HumaLOG) [HumaLOG] See Protocol SQ ACHS 06/26/17 06/26/17 Insulin Glargine [Lantus] 25 unit SQ BID 06/26/17 06/26/17 Lisinopril [Zestril] 5 mg PO DAILY 06/26/17 06/26/17 Tamsulosin HCl [Flomax] 0.4 mg PO BID 06/26/17 06/26/17 amLODIPine [Norvasc] 5 mg PO BID 06/26/17 06/26/17 Previous Rx's Medication Instructions Recorded Sulfamethox-Tmp 800-160Mg [Bactrim 2 tab PO Q12HR #40 tab 06/26/17 DS 800-160 mg] Allergies Allergy/AdvReac Type Severity Reaction Status Date / Time No Known Allergies Allergy Verified 06/26/17 13:01 Review of Systems ROS Statement: Those systems with pertinent positive or pertinent negative responses have been documented in the HPI. ROS Other: All systems not noted in ROS Statement are negative. Past Medical History Past Medical History: Diabetes Mellitus Additional Past Medical History / Comment(s): Neuropathy in bilat feet and bilat hands History of Any Multi-Drug Resistant Organisms: None Reported Past Surgical History: No Surgical Hx Reported Additional Past Surgical History / Comment(s): Vericose vein surgery, irrigation to right leg Past Psychological History: No Psychological Hx Reported Smoking Status: Never smoker Past Alcohol Use History: None Reported Past Drug Use History: None Reported - Past Family History Father Family Medical History: CVA/TIA Additional Family Medical History / Comment(s): Father passed from stroke at age 62. Son(s) Family Medical History: Cancer Additional Family Medical History / Comment(s): Down syndrome General Exam Limitations: no limitations General appearance: alert, in no apparent distress Respiratory exam: Present: normal lung sounds bilaterally. Absent: respiratory distress, wheezes, rales, rhonchi, stridor Cardiovascular Exam: Present: regular rate, normal rhythm, normal heart sounds. Absent: systolic murmur, diastolic murmur, rubs, gallop, clicks Extremities exam: Present: normal inspection, full ROM, normal capillary refill (Refill less than 2 seconds in the right lower extremity nailbeds.), pedal edema (Edema on noted of the right lower leg and foot.), other (There are no wounds or exudative drainage on the right lower leg. Right lower leg appears erythematous and edematous. There is a small wound at the distal fifth metatarsal that appears to be scabbed and healing. No drainage from this area. No redness around the small wound on the foot. Pedal pulse 2+ in the right lower extremity.). Absent: tenderness (Patient has neuropathy and has no tenderness), joint swelling, calf tenderness Neurological exam: Present: alert, oriented X3, CN II-XII intact Course Vital Signs 06/26/17 06/26/17 06/26/17 11:00 12:39 14:16 Temperature 97.9 F 98.2 F Pulse Rate 68 85 Respiratory 18 16 Rate Blood Pressure 190/80 198/97 194/80 O2 Sat by Pulse 95 98 Oximetry Medical Decision Making - Medical Decision Making 66-year-old male presents to the emergency determine for chief complaint of right lower leg redness and swelling. Patient was admitted for a wound in that leg last year. Patient has a history of diabetes and peripheral neuropathy. Patient states the swelling is worse today. Patient denies any fevers or chills. Patient is afebrile in the emergency department and is not tachycardia. Temp 97.9, pulse 68, respirations 18, blood pressure 190/80, pulse ox 95 on room air. Patient was given Catapres in the emergency department as well as labetalol. He normally takes his blood pressure medication in the morning but did not take it today. He does not remember what it is. Patient denies any spreading redness of the right lower extremity. Patient denies any history of DVT. Ultrasound was performed of the right lower extremity which was negative for DVT. Patient was told she could be admitted to the hospital for IV antibiotics. Patient declined admission because he states he has a son care for at home who is mentally ill and cannot be admitted. He has an appointment with his primary care provider next week and he will follow up with her. He will get a shot of Rocephin in the emergency department. He did not take his blood pressure medications today so it is elevated. He will take Bactrim DS for 10 days. He will return to the emergency department if he has spreading redness, drainage from the extremity, develops fevers, or has worsening symptoms. I stressed the need to return if any of these occur or any other worsening symptoms of infection. Patient understands this. Disposition Clinical Impression: Cellulitis of right leg Disposition: HOME SELF-CARE Condition: Good Instructions: Cellulitis (ED) Additional Instructions: Please take antibiotic as directed. Please follow-up with primary care provider at her scheduled appointment or earlier. Please return to the emergency department if you develop fevers, have spreading redness, have worsening signs of infection, or have worsening symptoms. Prescriptions: Sulfamethox-Tmp 800-160Mg [Bactrim DS 800-160 mg] 2 tab PO Q12HR #40 tab Referrals: Madeline Aldana MD [Primary Care Provider] - 1-2 days Time of Disposition: 14:45
--- NOTE | 2017-06-26 14:04 | US ---
EXAMINATION TYPE: US venous doppler duplex LE RT DATE OF EXAM: 06/26/2017 1:55 PM COMPARISON: Previous study dated 09/14/2013. CLINICAL HISTORY: Pain. Edema right lower leg. Redness, discoloration right lower leg, recent wound SIDE PERFORMED: Right TECHNIQUE: The lower extremity deep venous system is examined utilizing real time linear array sonog bebeto with graded compression, doppler sonography and color-flow sonography. VESSELS IMAGED: External Iliac Vein (EIV) Common Femoral Vein Deep Femoral Vein Greater Saphenous Vein * Femoral Vein Popliteal Vein Small Saphenous Vein * Proximal Calf Veins (* superficial vessels) Right Leg: No evidence of DVT. Normal-sized lymph nodes right groin No popliteal fossa lesion was identified. IMPRESSION: THIS EXAMINATION IS NEGATIVE FOR DVT WITHIN THE RIGHT LEG.
[2017-06-26] MEDS ORDERED: LABETALOL 5 MG/ML VIAL MDV IVP STA ×2 (14:26→14:36)
[2017-06-26] MEDS ORDERED: cefTRIAXone IN SWFI 1,000 MG/10 ML SYRINGE IVP STA ×2 (14:27→14:38)
[2017-06-26 15:06] VITALS: BP 157/69; PULSE 67; RESP 18; TEMP 98.1
== END 2017-06-26 15:06 | disposition home or self-care (01) ==
LOC: EC 10:59
DX: L03.115 Cellulitis of right lower limb (principal); E11.9 Type 2 diabetes mellitus without complications; Z79.4 Long term (current) use of insulin; Z79.899 Other long term (current) drug therapy
CPT/HCPCS: 93971; 99283; 96374; 96375; J0696

== ENCOUNTER → 2017-07-13 | Outpatient (CLI) | payer MEDICARE ==
[2017-07-13 14:25] LABS: Basophils % (A) 0 %; Eosinophils # (A) 0.2 k/uL (0-0.7); Eosinophils % (A) 2 %; HCT 43.2 % (39.0-53.0); HGB 14.7 gm/dL (13.0-17.5); Lymphocytes # (A) 1.3 k/uL (1.0-4.8); Lymphocytes % (A) 16 %; MCH 28.6 pg (25.0-35.0); Mean Platelet Volume 7.5; Monocytes # (A) 0.6 k/uL (0-1.0); Monocytes % (A) 7 %; Neutrophils # (A) 6.2 k/uL (1.3-7.7); Neutrophils % (A) 74 %; Platelet Count 202 k/uL (150-450); RBC 5.15 m/uL (4.30-5.90); RDW 14.2 % (11.5-15.5); WBC 8.4 k/uL (3.8-10.6)
[2017-07-13 22:51] LABS: Hemoglobin A1C 8.2 % (4.0-6.0)
== END | disposition home or self-care (01) ==
LOC: LABWHC1 13:46
PROVIDERS: ATTEND Podiatrist
DX: E11.621 Type 2 diabetes mellitus with foot ulcer (principal); L97.529 Non-pressure chronic ulcer of other part of left foot with unspecified severity; L97.519 Non-pressure chronic ulcer of other part of right foot with unspecified severity
CPT/HCPCS: 36415; 83036; 84134; 85025

== ENCOUNTER → 2017-07-22 | Outpatient (CLI) | payer MEDICARE ==
--- NOTE | 2017-07-23 14:10 | MR ---
EXAMINATION TYPE: MR foot RT wo/w con DATE OF EXAM: 07/22/2017 COMPARISON: MRI of the right tibia and fibula dated 10/02/2016 HISTORY: soft tissue lesion of foot, open wound of right foot, history of diabetes. CONTRAST: Standard multiplanar, multisequence MRI departmental protocol utilizing 11.5 mL intravenous Gadavist gadolinium contrast. FINDINGS: In the area of concern on T1 nonfat sat weighted sagittal and axial images 17 and 2 respect ively there is a focal area of plantar T1 hypointensity and minimal T2/IR hyperintensity measuring 2. 4 x 1.3 cm in anterior posterior by transverse dimension. This is seen deep to the fifth metatarsal p halangeal joint. Within the fifth metatarsal distal head there is a small subchondral cyst, however t here does not appear to be cortical osseous erosion or periosteal reaction. Additionally there is no bone marrow edema surrounding this and therefore this cyst is likely degenerative with no convincing evidence of osteomyelitis. Additionally there is no bone marrow replacing process, no T1 hypointensit y within the fifth metatarsal or proximal phalanx superficial to the abnormal subcutaneous soft tissu e focus. There is very mild enhancement of the soft tissues in this region with and without abnormal enhancement of the bone marrow. There is generalized edema of the plantar musculature and mild subcutaneous soft tissue swelling. The re is a small tibiotalar joint effusion. No gross evidence of acute fracture or dislocation. IMPRESSION: 1. Noncircumscribed focal area of subcutaneous edema in the region of the known right foot wound at t he plantar aspect of the distal fifth metatarsal and proximal metatarsal phalangeal joint. Findings a re most compatible with focal cellulitis in the area of the known ulceration without evidence of unde rlying osteomyelitis. 2. Generalized myositis of the plantar right foot musculature. 3. Small tibiotalar joint effusion. 4. Mild generalized right foot subcutaneous edema.
== END | disposition home or self-care (01) ==
LOC: RADMRIMAIN 12:28
PROVIDERS: ATTEND Family Medicine
DX: M60.871 Other myositis, right ankle and foot (principal); S91.104D Unspecified open wound of right lesser toe(s) without damage to nail, subsequent encounter; E11.65 Type 2 diabetes mellitus with hyperglycemia; Z79.4 Long term (current) use of insulin
CPT/HCPCS: 73720; A9581

== ENCOUNTER → 2017-10-08 | Outpatient (CLI) | payer MEDICARE ==
[2017-10-08 16:07] LABS: Appearance,Urine Clear (Clear); Bilirubin,Urine Negative (Negative); Blood,Urine Negative (Negative); Color,Urine Light Yellow; Glucose,Urine (UA) 4+ (Negative); Ketones,Urine Negative (Negative); Leukocyte Esterase,Urine Negative (Negative); Nitrite,Urine Negative (Negative); PH, Urine 6.5 (5.0-8.0); Protein,Urine Negative (Negative); Specific Gravity,Urine 1.016 (1.001-1.035); Urobilinogen,Urine <2.0 mg/dL (<2.0)
[2017-10-08 16:09] LABS: HCT 42.1 % (39.0-53.0); HGB 14.4 gm/dL (13.0-17.5); MCH 29.2 pg (25.0-35.0); MCHC 34.2 g/dL (31.0-37.0); MCV 85.3 fL (80.0-100.0); Mean Platelet Volume 7.4; Platelet Count 147 k/uL (150-450); RBC 4.94 m/uL (4.30-5.90); RDW 14.2 % (11.5-15.5); WBC 7.6 k/uL (3.8-10.6)
[2017-10-08 16:17] LABS: Albumin 4.5 g/dL (3.5-5.0); Calcium 9.6 mg/dL (8.4-10.2); Magnesium 1.9 mg/dL (1.6-2.3); Phosphorus 3.5 mg/dL (2.5-4.5); Potassium 5.1 mmol/L (3.5-5.1); Uric Acid 5.3 mg/dL (3.5-8.5)
[2017-10-09 00:50] LABS: Iron Saturation 26.18 (15.00-50.00)
[2017-10-09 01:13] LABS: Hemoglobin A1C 10.5 % (4.0-6.0)
== END | disposition home or self-care (01) ==
LOC: LABWHC1 15:29
PROVIDERS: ATTEND Nurse Practitioner Family
DX: E11.22 Type 2 diabetes mellitus with diabetic chronic kidney disease (principal); N18.3 Chronic kidney disease, stage 3 (moderate); D63.1 Anemia in chronic kidney disease; E55.9 Vitamin D deficiency, unspecified; N25.81 Secondary hyperparathyroidism of renal origin
CPT/HCPCS: 36415; 80048; 81003; 82040; 82043; 82306; 82570; 82728; 83036; 83540; 83550; 83735; 83970; 84100; 84550; 85027

== ENCOUNTER → 2018-01-25 | Outpatient (CLI) | payer MEDICARE ==
[2018-01-25 17:44] LABS: Basophils % (A) 0 %; Eosinophils # (A) 0.2 k/uL (0-0.7); Eosinophils % (A) 2 %; HCT 41.5 % (39.0-53.0); HGB 13.9 gm/dL (13.0-17.5); Lymphocytes # (A) 1.2 k/uL (1.0-4.8); Lymphocytes % (A) 17 %; MCH 29.3 pg (25.0-35.0); MCHC 33.5 g/dL (31.0-37.0); MCV 87.5 fL (80.0-100.0); Mean Platelet Volume 7.3; Monocytes # (A) 0.5 k/uL (0-1.0); Monocytes % (A) 6 %; Neutrophils # (A) 5.4 k/uL (1.3-7.7); Neutrophils % (A) 73 %; Platelet Count 152 k/uL (150-450); RBC 4.75 m/uL (4.30-5.90); RDW 14.1 % (11.5-15.5); WBC 7.3 k/uL (3.8-10.6)
[2018-01-25 17:52] LABS: ALT 31 U/L (21-72); AST 19 U/L (17-59); Albumin 4.2 g/dL (3.5-5.0); Albumin/Globulin Ratio 1.4; Alkaline Phosphatase 78 U/L (38-126); Anion Gap 11 mmol/L; Blood Urea Nitrogen 37 mg/dL (9-20); Calcium 9.5 mg/dL (8.4-10.2); Carbon Dioxide 25 mmol/L (22-30); Chloride 99 mmol/L (98-107); Globulin 2.9 g/dL; Potassium 5.4 mmol/L (3.5-5.1); Sodium 135 mmol/L (137-145); Total Bilirubin 0.9 mg/dL (0.2-1.3); Total Protein 7.1 g/dL (6.3-8.2)
[2018-01-25 18:00] LABS: Glucose 453 mg/dL (74-99)
[2018-01-26 04:44] LABS: Hemoglobin A1C 11.2 % (4.0-6.0)
== END | disposition home or self-care (01) ==
LOC: LABWHC1 16:16
PROVIDERS: ATTEND Family Medicine
DX: E11.65 Type 2 diabetes mellitus with hyperglycemia (principal); I10 Essential (primary) hypertension
CPT/HCPCS: 36415; 80053; 82009; 83036; 85025

== ENCOUNTER 2021-01-31 13:11 | Inpatient (IN) | payer MEDICARE ==
--- NOTE | 2021-01-31 14:07 | XR ---
EXAMINATION TYPE: XR foot complete LT DATE OF EXAM: 01/31/2021 CLINICAL HISTORY: Infected sore of left foot TECHNIQUE: Frontal, lateral, and oblique images of the left foot are obtained. COMPARISON: None FINDINGS: There is no acute fracture/dislocation evident in the left foot. There are degenerative ch anges of the first metatarsal-phalangeal joint and midfoot. Calcaneal spur is noted. Vascular calcifi cations are seen. There is a soft tissue defect adjacent to the fifth metatarsophalangeal joint. No definite plain radi ographic evidence for osteomyelitis, however, MRI is more sensitive. IMPRESSION: There is no acute fracture/dislocation evident in the left foot. There are degenerative changes of th e first metatarsal-phalangeal joint and midfoot. Calcaneal spur is noted. Vascular calcifications are seen. There is a soft tissue defect adjacent to the fifth metatarsophalangeal joint. No definite plain radi ographic evidence for osteomyelitis, however, MRI is more sensitive.
--- NOTE | 2021-01-31 19:15 | ED ---
General Adult HPI - General Chief complaint: Extremity Problem,Nontraumatic Stated complaint: L foot sore Time Seen by Provider: 01/31/21 18:45 Source: patient, family, RN notes reviewed, old records reviewed Mode of arrival: ambulatory Limitations: no limitations - History of Present Illness Initial comments: 70-year-old well-appearing male presents to the emergency room with complaints of left foot ulcer worsening over the past 4 days. He did see his primary care doctor today and she put a dressing on the wound and directed him to come to the emergency room for IV antibiotics. He does have a history of diabetes and neuropathy. He states no pain at this time. He has had increased swelling to the lower leg with some redness. He states that there was pain 8 out of 10 but it has resolved with elevation. He denies any fevers, nausea vomiting or diarrhea. He states he has had some constipation and did drink mag citrate and had a good bowel movement yesterday. -: days(s) (4) Location: left, lower extremity (Foot) Radiation: non-radiation Severity scale (1-10): 8 Consistency: now resolved Associated Symptoms: denies other symptoms Treatments Prior to Arrival: other (dressing) - Related Data Home Medications Medication Instructions Recorded Confirmed Aspirin EC [Ecotrin] 325 mg PO DAILY 01/31/21 01/31/21 Cholecalciferol [Vitamin D3 (25 25 mcg PO DAILY 01/31/21 01/31/21 Mcg = 1000 Iu)] Cranberry Fruit Extract [Cranberry] 500 mg PO DAILY 01/31/21 01/31/21 Allergies Allergy/AdvReac Type Severity Reaction Status Date / Time No Known Allergies Allergy Verified 01/31/21 20:50 Review of Systems ROS Statement: Those systems with pertinent positive or pertinent negative responses have been documented in the HPI. ROS Other: All systems not noted in ROS Statement are negative. Past Medical History Past Medical History: Diabetes Mellitus Additional Past Medical History / Comment(s): Neuropathy in bilat feet and bilat hands History of Any Multi-Drug Resistant Organisms: None Reported Past Surgical History: No Surgical Hx Reported Additional Past Surgical History / Comment(s): Vericose vein surgery, irrigation to right leg Past Psychological History: No Psychological Hx Reported Smoking Status: Never smoker Past Alcohol Use History: None Reported Past Drug Use History: None Reported - Past Family History Father Family Medical History: CVA/TIA Additional Family Medical History / Comment(s): Father passed from stroke at age 62. Son(s) Family Medical History: Cancer Additional Family Medical History / Comment(s): Down syndrome General Exam Limitations: no limitations General appearance: alert, in no apparent distress Head exam: Present: atraumatic, normocephalic, normal inspection Eye exam: Present: normal appearance, PERRL, EOMI. Absent: scleral icterus, conjunctival injection, periorbital swelling ENT exam: Present: normal exam, normal oropharynx, mucous membranes moist Neck exam: Present: normal inspection, full ROM. Absent: tenderness, meningis mus, lymphadenopathy Respiratory exam: Present: normal lung sounds bilaterally. Absent: respiratory distress, wheezes, rales, rhonchi, stridor Cardiovascular Exam: Present: regular rate, normal rhythm, normal heart sounds. Absent: systolic murmur, diastolic murmur, rubs, gallop, clicks GI/Abdominal exam: Present: soft, normal bowel sounds. Absent: distended, tenderness, guarding, rebound, rigid Left Lower Leg exam: Present: tenderness, swelling, erythema Ankle exam: Present: tenderness, swelling, erythema Foot/Toe exam: Present: tenderness, swelling, erythema (There is an open area with blistering and peeling skin to the left metatarsal with a yellow discharge) Neurovascular tendon exam: Absent: abnormal cap refill, extremity cold to touch, foot drop Back exam: Present: normal inspection, full ROM. Absent: tenderness, CVA tenderness (R), CVA tenderness (L), rash noted Neurological exam: Present: alert, oriented X3 Psychiatric exam: Present: normal affect, normal mood Skin exam: Present: warm, dry, intact, normal color. Absent: rash, cyanosis, diaphoretic Course Vital Signs 01/31/21 13:46 Temperature 98.9 F Pulse Rate 72 Respiratory 20 Rate Blood Pressure 162/80 O2 Sat by Pulse 99 Oximetry Medical Decision Making - Medical Decision Making This is a 70-year-old male, alert and oriented 4, presents to the emergency room with complaints of the left foot ulcer with left lower leg swelling and erythema. He was sent by his primary care doctor for IV antibiotics. X-ray of the left foot shows soft tissue defect adjacent to the metatarsophalangeal joint. There is no definite evidence of osteomyelitis. Patient was started on antibiotics after blood cultures and wound culture was obtained. Patient will be admitted for IV antibiotics to treat his cellulitis. Infectious disease will be placed on consult as recommended by [facility]. Patient is agreeable to this plan of care. I discussed this case with Dr. Lares. - Lab Data Result diagrams: 01/31/21 19:42 01/31/21 19:42 Lab Results 01/31/21 01/31/21 Range/Units 19:42 19:42 WBC 11.4 H (3.8-10.6) k/uL RBC 4.14 L (4.30-5.90) m/uL Hgb 12.4 L (13.0-17.5) gm/dL Hct 35.3 L (39.0-53.0) % MCV 85.2 (80.0-100.0) fL MCH 30.0 (25.0-35.0) pg MCHC 35.2 (31.0-37.0) g/dL RDW 12.8 (11.5-15.5) % Plt Count 273 (150-450) k/uL MPV 6.9 Neutrophils % 78 % Lymphocytes % 14 % Monocytes % 5 % Eosinophils % 1 % Basophils % 1 % Neutrophils # 8.9 H (1.3-7.7) k/uL Lymphocytes # 1.6 (1.0-4.8) k/uL Monocytes # 0.6 (0-1.0) k/uL Eosinophils # 0.1 (0-0.7) k/uL Basophils # 0.1 (0-0.2) k/uL Hyperchromasia Slight Poikilocytosis Slight Sodium 133 L (137-145) mmol/L Potassium 3.9 (3.5-5.1) mmol/L Chloride 96 L (98-107) mmol/L Carbon Dioxide 28 (22-30) mmol/L Anion Gap 9 mmol/L BUN 23 H (9-20) mg/dL Creatinine 1.11 (0.66-1.25) mg/dL Est GFR (CKD-EPI)AfAm 77 (>60 ml/min/1.73 sqM) Est GFR (CKD-EPI)NonAf 67 (>60 ml/min/1.73 sqM) Glucose 381 H (74-99) mg/dL Calcium 9.3 (8.4-10.2) mg/dL Total Bilirubin 0.6 (0.2-1.3) mg/dL AST 20 (17-59) U/L ALT 15 (4-49) U/L Alkaline Phosphatase 102 (38-126) U/L Total Protein 6.7 (6.3-8.2) g/dL Albumin 3.4 L (3.5-5.0) g/dL Disposition Clinical Impression: Cellulitis and abscess of foot Clinical Impression: (Ruled Out): Type II diabetes mellitus Disposition: ADMITTED IP TO THIS [facility] Condition: Good Decision Date: 01/31/21 Decision Time: 20:31
[2021-01-31 19:57] LABS: Albumin 3.4 g/dL (3.5-5.0); Calcium 9.3 mg/dL (8.4-10.2); Potassium 3.9 mmol/L (3.5-5.1); Total Bilirubin 0.6 mg/dL (0.2-1.3); Total Protein 6.7 g/dL (6.3-8.2)
[2021-01-31 20:13] LABS: Basophils # (A) 0.1 k/uL (0-0.2); Basophils % (A) 1 %; Eosinophils # (A) 0.1 k/uL (0-0.7); Eosinophils % (A) 1 %; HCT 35.3 % (39.0-53.0); HGB 12.4 gm/dL (13.0-17.5); Hyperchromasia Slight; Lymphocytes # (A) 1.6 k/uL (1.0-4.8); Lymphocytes % (A) 14 %; MCHC 35.2 g/dL (31.0-37.0); MCV 85.2 fL (80.0-100.0); Mean Platelet Volume 6.9; Monocytes # (A) 0.6 k/uL (0-1.0); Monocytes % (A) 5 %; Neutrophils # (A) 8.9 k/uL (1.3-7.7); Neutrophils % (A) 78 %; Platelet Count 273 k/uL (150-450); Poikilocytosis Slight; RBC 4.14 m/uL (4.30-5.90); RDW 12.8 % (11.5-15.5); WBC 11.4 k/uL (3.8-10.6)
[2021-01-31] MEDS ORDERED: NALOXONE 0.4 MG/ML 1 ML VIAL IV PRN (20:27)
[2021-01-31] MEDS ORDERED: IBUPROFEN 400 MG TAB PO PRN (20:27)
[2021-01-31] MEDS ORDERED: AMPICILLIN-SULBACTAM 3 GM in SODIUM CHLORIDE 0.9% 100 ML IVPB STA (20:27)
[2021-01-31] MEDS ORDERED: VANCOMYCIN IV PER PHARMACY 1 EACH MISC MISCELLANE PRN (20:27)
[2021-01-31] MEDS ORDERED: ACETAMINOPHEN TAB 325 MG TAB PO PRN (20:27)
[2021-01-31] MEDS: SODIUM CHLORIDE 0.9% 1,000 ML IV SCH (20:44)
[2021-01-31] MEDS ORDERED: VANCOMYCIN 1,750 MG in SODIUM CHLORIDE 0.9% 500 ML 500 ML IVPB ONE (21:30)
[2021-02-01] MEDS ORDERED: hydrALAZINE HCL 20 MG/ML 1 ML VIAL IVP STA (02:14)
[2021-02-01 02:51] LABS: Glucose,Whole Blood 277 mg/dL (75-99)
[2021-02-01] MEDS ORDERED: INSULIN ASPART (NovoLOG) 100 UNIT/ML VIAL SQ ONE (03:00)
[2021-02-01 07:12] LABS: African American GFR (CKD) 78 (>60 ml/min/1.73 sqM); Anion Gap 6 mmol/L; Blood Urea Nitrogen 20 mg/dL (9-20); Calcium 8.9 mg/dL (8.4-10.2); Carbon Dioxide 27 mmol/L (22-30); Chloride 102 mmol/L (98-107); Glucose 217 mg/dL (74-99); Non-African American GFR(CKD) 67 (>60 ml/min/1.73 sqM); Potassium 3.5 mmol/L (3.5-5.1); Sodium 135 mmol/L (137-145)
[2021-02-01 07:18] LABS: Glucose,Whole Blood 242 mg/dL (75-99)
[2021-02-01] MEDS: ASPIRIN 325 MG TAB PO SCH (08:20)
[2021-02-01] MEDS: amLODIPine 5 MG TAB PO SCH (08:20)
[2021-02-01] MEDS: CHOLECALCIFEROL 25 MCG (1000 IU) TABLET PO SCH (08:20)
[2021-02-01] MEDS: SODIUM CHLORIDE 0.9% 1,000 ML IV SCH ×2 (08:20→21:55)
[2021-02-01] MEDS: INSULIN ASPART (NovoLOG) 100 UNIT/ML VIAL SQ SCH ×4 (08:20→21:00)
[2021-02-01] MEDS: VANCOMYCIN 1,500 MG in SODIUM CHLORIDE 0.9% 250 ML IVPB SCH ×2 (09:11→21:01)
[2021-02-01 17:10] LABS: Glucose,Whole Blood 272 mg/dL (75-99)
[2021-02-01 20:22] LABS: Glucose,Whole Blood 398 mg/dL (75-99)
--- NOTE | 2021-02-01 21:35 | P.HPIM ---
History of Present Illness H&P Date: 02/01/21 Chief Complaint: Left foot infection Patient is a 70-year-old male with a known history of diabetes type 2, diabetic peripheral neuropathy, hypertension presents to ER with complaints of left foot ulcer. Patient states that he started with a scratch and worsened forming an ulcer in the last 4 days. Patient was seen by his primary care physician and did wound care dressing, sent to ER for possible IV antibiotics. Patient is also having increased redness of the foot, swelling around the wound. Complains of pain 8/10 in severity. Patient did have some chills. No fever at home. No complaints of chest pain or shortness breath. No cough or sputum production. No headache or dizziness or lightheadedness. No dysuria or hematuria. On admission blood pressure is 162/80 pulse 72, respiration 20 and pulse ox 99% on room air. Laboratory data showed WBC 11.2 hemoglobin 12.4 and platelets 273 Sodium 133 potassium 3.9 chloride 96 bicarb is 28 BUN 23 and creatinine 1.11 and blood sugar is 381 on admission. Liver enzymes is not elevated. Review of Systems Constitutional: Patient denies any fever or chills . No generalized weakness or weight loss. Abdomen: Patient denied nausea vomiting and diarrhea and abdominal pain. Cardiovascular: Patient denies any chest pain or short of breath no palpitations. Respiratory: patient denied any cough or sputum production. No shortness of breath Neurologic: Patient denied any numbness or tingling headache. Musculoskeletal: Patient denies any complaints of joint swelling or deformity. Patient does complain of left foot infection and pain. Skin: Negative Psychiatric: Negative Endocrine: No heat or cold intolerance. No recent weight gain. Genitourinary: No dysuria or hematuria. All other 14 point ROS negative except the above Past Medical History Past Medical History: Diabetes Mellitus Additional Past Medical History / Comment(s): Neuropathy in bilat feet and bilat hands History of Any Multi-Drug Resistant Organisms: None Reported Past Surgical History: No Surgical Hx Reported Additional Past Surgical History / Comment(s): Varicose vein surgery, irrigation to right leg Past Anesthesia/Blood Transfusion Reactions: No Reported Reaction Past Psychological History: No Psychological Hx Reported Smoking Status: Never smoker Past Alcohol Use History: None Reported Past Drug Use History: None Reported - Past Family History Father Family Medical History: CVA/TIA Additional Family Medical History / Comment(s): Father passed from stroke at age 62. Son(s) Family Medical History: Cancer Additional Family Medical History / Comment(s): Down syndrome Medications and Allergies Home Medications Medication Instructions Recorded Confirmed Type Aspirin EC [Ecotrin] 325 mg PO DAILY 01/31/21 01/31/21 History Cholecalciferol [Vitamin D3 (25 25 mcg PO DAILY 01/31/21 01/31/21 History Mcg = 1000 Iu)] Cranberry Fruit Extract [Cranberry] 500 mg PO DAILY 01/31/21 01/31/21 History Allergies Allergy/AdvReac Type Severity Reaction Status Date / Time No Known Allergies Allergy Verified 01/31/21 20:50 Physical Exam Vitals: Vital Signs Temp Pulse Pulse Resp BP BP BP 02/01/21 08:00 16 02/01/21 07:00 98 F 70 16 158/70 02/01/21 06:00 64 126/70 02/01/21 02:00 97.9 F 68 17 216/91 02/01/21 01:56 20 02/01/21 00:00 72 20 164/84 01/31/21 21:00 77 20 167/84 01/31/21 13:46 98.9 F 72 20 162/80 Pulse Ox 02/01/21 08:00 02/01/21 07:00 97 02/01/21 06:00 02/01/21 02:00 94 L 02/01/21 01:56 02/01/21 00:00 96 01/31/21 21:00 96 01/31/21 13:46 99 Intake and Output 01/31/21 02/01/21 02/01/21 22:59 06:59 14:59 Intake Total 240 Output Total 700 Balance -700 240 Intake: Oral 240 Output: Urine 700 Other: Voiding Method External Catheter External Catheter Weight 79.832 kg PHYSICAL EXAMINATION: Patient is lying in the bed comfortably, no acute distress, awake alert and oriented.. HEENT: Normocephalic. Neck is supple. Pupils reactive. Nostrils clear. Oral cavity is moist. Neck reveals no JVD, carotid bruits, or thyromegaly. CHEST EXAMINATION: Trachea is central. Symmetrical expansion. Lung curry clear to auscultation and percussion. CARDIAC: Normal S1, S2 with no gallops. No murmurs ABDOMEN: Soft. Bowel sounds normal. No organomegaly. No abdominal bruits. Extremities: reveal no edema. No clubbing or cyanosis Neurologically awake, alert, oriented x3 with well-coordinated movements. No focal deficits noted Skin: No rash or skin lesions. Left lateral diabetic foot ulcer with surrounding redness and swelling. 2 x 4 cm in size Psychiatric: Cooperative. Nonsuicidal Musculoskeletal: No joint swelling or deformity. Normal range of motion. Results CBC & Chem 7: 01/31/21 19:42 02/01/21 06:00 Labs: Abnormal Lab Results - Last 24 Hours (Table) 01/31/21 01/31/21 02/01/21 Range/Units 19:42 19:42 02:49 WBC 11.4 H (3.8-10.6) k/uL RBC 4.14 L (4.30-5.90) m/uL Hgb 12.4 L (13.0-17.5) gm/dL Hct 35.3 L (39.0-53.0) % Neutrophils # 8.9 H (1.3-7.7) k/uL Sodium 133 L (137-145) mmol/L Chloride 96 L (98-107) mmol/L BUN 23 H (9-20) mg/dL Glucose 381 H (74-99) mg/dL POC Glucose (mg/dL) 277 H (75-99) mg/dL Albumin 3.4 L (3.5-5.0) g/dL 02/01/21 02/01/21 Range/Units 06:00 06:59 WBC (3.8-10.6) k/uL RBC (4.30-5.90) m/uL Hgb (13.0-17.5) gm/dL Hct (39.0-53.0) % Neutrophils # (1.3-7.7) k/uL Sodium 135 L (137-145) mmol/L Chloride (98-107) mmol/L BUN (9-20) mg/dL Glucose 217 H (74-99) mg/dL POC Glucose (mg/dL) 242 H (75-99) mg/dL Albumin (3.5-5.0) g/dL Microbiology - Last 24 Hours (Table) 01/31/21 19:42 Wound Culture - Preliminary Foot - Left Thrombosis Risk Factor Assmnt - DVT/VTE Prophylaxis DVT/VTE Prophylaxis: Pharmacologic Prophylaxis ordered - Choose All That Apply Each Factor Represents 1 point: Swollen legs (current) Each Risk Factor Represents 2 Points: Age 61-74 years Thrombosis Risk Factor Assessment Total Risk Factor Score: 3 Thrombosis Risk Factor Assessment Level: Moderate Risk Assessment and Plan Assessment: Left diabetic foot ulcer with surrounding cellulitis Diabetes type 2 with hyperglycemia uncontrolled. Diabetic peripheral neuropathy Hypovolemic hyponatremia Hypertension uncontrolled. Previous history of right foot infection DVT prophylaxis with heparin subcu. Plan: Patient will be continued on IV hydration with normal saline and antibiotics with vancomycin. Follow-up wound culture report. A1c was ordered. Patient will be started on insulin sliding scale and titrate dose as needed. ID service will be consulted. Continue to follow closely. Time with Patient: Greater than 30
[2021-02-01] MEDS: INSULIN DETEMIR (LEVEMIR) 100 UNIT/ML SYR SQ SCH (21:55)
[2021-02-02] MEDS: HEPARIN SODIUM,PORCINE/PF 5,000 UNIT/0.5 ML SYRINGE SQ SCH ×3 (00:12→17:04)
[2021-02-02 07:00] LABS: Glucose,Whole Blood 180 mg/dL (75-99)
[2021-02-02] MEDS: INSULIN ASPART (NovoLOG) 100 UNIT/ML VIAL SQ SCH ×4 (07:07→20:56)
[2021-02-02] MEDS: amLODIPine 5 MG TAB PO SCH (07:07)
[2021-02-02] MEDS: ASPIRIN 325 MG TAB PO SCH (07:07)
[2021-02-02] MEDS: CHOLECALCIFEROL 25 MCG (1000 IU) TABLET PO SCH (07:07)
[2021-02-02 07:43] LABS: African American GFR (CKD) 84 (>60 ml/min/1.73 sqM); Anion Gap 4 mmol/L; Blood Urea Nitrogen 19 mg/dL (9-20); Calcium 8.4 mg/dL (8.4-10.2); Carbon Dioxide 27 mmol/L (22-30); Chloride 102 mmol/L (98-107); Glucose 174 mg/dL (74-99); Non-African American GFR(CKD) 72 (>60 ml/min/1.73 sqM); Potassium 3.8 mmol/L (3.5-5.1); Sodium 133 mmol/L (137-145)
[2021-02-02 07:53] LABS: Basophils % (A) 0 %; Eosinophils # (A) 0.2 k/uL (0-0.7); Eosinophils % (A) 2 %; HGB 11.2 gm/dL (13.0-17.5); Hyperchromasia Slight; Lymphocytes # (A) 1.5 k/uL (1.0-4.8); Lymphocytes % (A) 15 %; MCH 29.8 pg (25.0-35.0); MCHC 35.2 g/dL (31.0-37.0); MCV 84.9 fL (80.0-100.0); Mean Platelet Volume 6.7; Monocytes # (A) 0.5 k/uL (0-1.0); Monocytes % (A) 5 %; Neutrophils # (A) 7.8 k/uL (1.3-7.7); Neutrophils % (A) 77 %; Platelet Count 273 k/uL (150-450); Poikilocytosis Slight; RBC 3.77 m/uL (4.30-5.90); RDW 12.9 % (11.5-15.5); WBC 10.2 k/uL (3.8-10.6)
[2021-02-02] MEDS ORDERED: VANCOMYCIN TROUGH DUE 1 EACH MISC MISCELLANE ONE (08:00)
[2021-02-02] MEDS: COLLAGENASE 250 UNIT/GM OINTMENT 30 GM TUBE TOPICAL SCH (08:58)
[2021-02-02] MEDS ORDERED: LIDOCAINE 1% INJ 10MG/ML (20 ML MDV) SQ SCH (09:00)
[2021-02-02] MEDS: VANCOMYCIN 1,250 MG in SODIUM CHLORIDE 0.9% 250 ML IVPB SCH ×2 (09:18→20:56)
--- NOTE | 2021-02-02 09:31 | P.GSCN ---
History of Present Illness History of present illness: 70-year-old white male, patient has history of 4 wound left foot plantar aspect for the last 4 days. Complaining of pain and discomfort. No history of trauma patient has been admitted to an IV in divided was consulted for wound debridement. Past history patient had a similar wound on the right lower extremity which was treated primarily by her local wound care Medical history history of diabetes peripheral neuropathy Neck examination neck is supple no bruit appreciated Chest is clear first and second sound normal good entry both lungs Abdomen is soft nontender Vascular femoral pulses are palpable bilateral there is a wound on the plantar aspect of the left foot Allis formation measurement is 3 x 0.5 cm with callus formation and some drainage noted Plan is debridement of the wound and a deep culture we will arrange thank you Past Medical History Past Medical History: Diabetes Mellitus Additional Past Medical History / Comment(s): Neuropathy in bilat feet and bilat hands History of Any Multi-Drug Resistant Organisms: None Reported Past Surgical History: No Surgical Hx Reported Additional Past Surgical History / Comment(s): Varicose vein surgery, irrigation to right leg Past Anesthesia/Blood Transfusion Reactions: No Reported Reaction Past Psychological History: No Psychological Hx Reported Smoking Status: Never smoker Past Alcohol Use History: None Reported Past Drug Use History: None Reported - Past Family History Father Family Medical History: CVA/TIA Additional Family Medical History / Comment(s): Father passed from stroke at age 62. Son(s) Family Medical History: Cancer Additional Family Medical History / Comment(s): Down syndrome Medications and Allergies Home Medications Medication Instructions Recorded Confirmed Type Aspirin EC [Ecotrin] 325 mg PO DAILY 01/31/21 01/31/21 History Cholecalciferol [Vitamin D3 (25 25 mcg PO DAILY 01/31/21 01/31/21 History Mcg = 1000 Iu)] Cranberry Fruit Extract [Cranberry] 500 mg PO DAILY 01/31/21 01/31/21 History Allergies Allergy/AdvReac Type Severity Reaction Status Date / Time No Known Allergies Allergy Verified 01/31/21 20:50 Surgical - Exam Vital Signs Temp Pulse Resp BP Pulse Ox 98.9 F 72 20 162/80 99 01/31/21 13:46 01/31/21 13:46 01/31/21 13:46 01/31/21 13:46 01/31/21 13:46 Results - Labs 02/02/21 07:18 02/02/21 07:18 Abnormal Lab Results - Last 24 Hours (Table) 02/01/21 02/01/21 02/02/21 Range/Units 17:06 20:18 06:58 RBC (4.30-5.90) m/uL Hgb (13.0-17.5) gm/dL Hct (39.0-53.0) % Neutrophils # (1.3-7.7) k/uL Sodium (137-145) mmol/L Glucose (74-99) mg/dL POC Glucose (mg/dL) 272 H 398 H 180 H (75-99) mg/dL 02/02/21 02/02/21 Range/Units 07:18 07:18 RBC 3.77 L (4.30-5.90) m/uL Hgb 11.2 L (13.0-17.5) gm/dL Hct 32.0 L (39.0-53.0) % Neutrophils # 7.8 H (1.3-7.7) k/uL Sodium 133 L (137-145) mmol/L Glucose 174 H (74-99) mg/dL POC Glucose (mg/dL) (75-99) mg/dL Microbiology - Last 24 Hours (Table) 01/31/21 19:25 Blood Culture - Preliminary Blood No Growth after 24 hours 01/31/21 19:40 Blood Culture - Preliminary Blood No Growth after 24 hours Diabetes panel 02/02/21 Range/Units 07:18 Sodium 133 L (137-145) mmol/L Potassium 3.8 (3.5-5.1) mmol/L Chloride 102 (98-107) mmol/L Carbon Dioxide 27 (22-30) mmol/L BUN 19 (9-20) mg/dL Creatinine 1.04 (0.66-1.25) mg/dL Glucose 174 H (74-99) mg/dL Calcium 8.4 (8.4-10.2) mg/dL Calcium panel 02/02/21 Range/Units 07:18 Calcium 8.4 (8.4-10.2) mg/dL Pituitary panel 02/02/21 Range/Units 07:18 Sodium 133 L (137-145) mmol/L Potassium 3.8 (3.5-5.1) mmol/L Chloride 102 (98-107) mmol/L Carbon Dioxide 27 (22-30) mmol/L BUN 19 (9-20) mg/dL Creatinine 1.04 (0.66-1.25) mg/dL Glucose 174 H (74-99) mg/dL Calcium 8.4 (8.4-10.2) mg/dL Adrenal panel 02/02/21 Range/Units 07:18 Sodium 133 L (137-145) mmol/L Potassium 3.8 (3.5-5.1) mmol/L Chloride 102 (98-107) mmol/L Carbon Dioxide 27 (22-30) mmol/L BUN 19 (9-20) mg/dL Creatinine 1.04 (0.66-1.25) mg/dL Glucose 174 H (74-99) mg/dL Calcium 8.4 (8.4-10.2) mg/dL
--- NOTE | 2021-02-02 09:34 | P.PCN ---
Description of Procedure: Preoperative diagnoses is infected callus left foot plantar aspect measurement is 3 x 0.5 cm Postoperative wound measurement is 3 x 1 x 1 cm Procedure left foot was prepped and draped as a sterile manner 1% lidocaine for infected. Using knife we made elliptical incision on the plantar aspect of the foot deepened through skin fat and fascia is a callus which was excised tissue was sent for a deep culture aerobic and anaerobic hemostasis were well controlled wound was irrigated with saline central cream applied to the wound. Dressing applied patient are to the procedure well plan is we'll change the dressing with Santyl cream daily
--- NOTE | 2021-02-02 11:23 | P.CONS ---
History of Present Illness - Reason for Consult Consult date: 02/01/21 left diabetic foot infection Requesting physician: Mark Smyth - Chief Complaint left foot non healing wound x days - History of Present Illness History of present illness : Patient is 70-year-old male presenting to the ER last evening for evaluation of left foot ulcer that been getting worse for the last 4 days before presentation to the hospital patient did have history of diabetic neuropathy has denies any pain to the left foot wound area patient did have increasing swelling and redness and some drainage for the patient came to the hospital patient has a high-grade fever or chills no nausea no vomiting no abdominal pain no diarrhea or presentation the hospital patient was afebrile had no fever has been recorded subsequently patient did have white count 11.4 with a left shift kidney function was normal patient did have x-rays of the foot no acute fracture dislocation degenerative changes some soft tissue defect adjacent to the fifth metatarsal joint patient was started on vancomycin infectious was consulted for further management of antibiotic therapy Review of system: CONSTITUTIONAL: Positive for weakness denies fever. EYES: No complaint. ENT: No complaint. RESPIRATORY: No complaint. CARDIOVASCULAR: No complaint. GENITOURINARY: No complaint. GASTROINTESTINAL: No complaint. MUSCULOSKELETAL: As per history of present illness. INTEGUMENTARY: No complaint. PSYCHOLOGIC: No complaint. ENDOCRINE: No complaint. NEUROLOGIC: No complaint. Past medical history : Reviewed, documented below Past surgical history : Reviewed, documented below Social history: Reviewed, documented below Medications: Reviewed, as documented below EXAMINATION: Vital sigans= Reviewed and documented below GENERAL DESCRIPTION: Elderly male lying in bed, no distress. No tachypnea or accessory muscle of respiration use. HEENT: Shows Pallor , no scleral icterus. Oral mucous membrane is dry. NECK: Trachea central, no thyromegaly. LUNGS: Unlabored breathing. Clear to auscultation anteriorly. No wheeze or crackle. HEART: S1, S2, regular rate and rhythm. ABDOMEN: Soft, no tenderness , guarding or rigidity EXTREMITIES: No edema of feet. Left foot plantar aspect at the base of the fifth metatarsal did have a infected callus with surrounding swelling redness minimal drainage SKIN: No rash, no masses palpable. NEUROLOGICAL: The patient is awake, alert, oriented x3, mood and affect normal. LABS AND RADIOLOGY: Reviewed results see below Assessment : Patient with left diabetic foot infection with infected callus on the plantar aspect at the base of the left fifth metatarsal head likely from a gram-positive skin jayson underlying chronic infection not entirely excluded Plan: 1-we will get vascular/evaluation for debridement of the ulcer and deep culture 2-vancomycin pharmacy to dose with a target trough of 15 while watching kidney function and Vanco trough closely. 3-we will add Unasyn 3 g every 6 hours We will follow on clinical condition and cultures to further adjust medication if needed Thank you for this consultation we will follow the patient along with you Past Medical History Past Medical History: Diabetes Mellitus Additional Past Medical History / Comment(s): Neuropathy in bilat feet and bilat hands History of Any Multi-Drug Resistant Organisms: None Reported Past Surgical History: No Surgical Hx Reported Additional Past Surgical History / Comment(s): Varicose vein surgery, irrigation to right leg Past Anesthesia/Blood Transfusion Reactions: No Reported Reaction Past Psychological History: No Psychological Hx Reported Smoking Status: Never smoker Past Alcohol Use History: None Reported Past Drug Use History: None Reported - Past Family History Father Family Medical History: CVA/TIA Additional Family Medical History / Comment(s): Father passed from stroke at age 62. Son(s) Family Medical History: Cancer Additional Family Medical History / Comment(s): Down syndrome Medications and Allergies Home Medications Medication Instructions Recorded Confirmed Type Aspirin EC [Ecotrin] 325 mg PO DAILY 01/31/21 01/31/21 History Cholecalciferol [Vitamin D3 (25 25 mcg PO DAILY 01/31/21 01/31/21 History Mcg = 1000 Iu)] Cranberry Fruit Extract [Cranberry] 500 mg PO DAILY 01/31/21 01/31/21 History Allergies Allergy/AdvReac Type Severity Reaction Status Date / Time No Known Allergies Allergy Verified 01/31/21 20:50 Physical Exam Vitals: Vital Signs Temp Pulse Pulse Resp BP BP BP 02/01/21 15:00 98.3 F 69 16 163/73 02/01/21 14:04 16 02/01/21 08:00 16 02/01/21 07:00 98 F 70 16 158/70 02/01/21 06:00 64 126/70 02/01/21 02:00 97.9 F 68 17 216/91 02/01/21 01:56 20 02/01/21 00:00 72 20 164/84 01/31/21 21:00 77 20 167/84 Pulse Ox 02/01/21 15:00 99 02/01/21 14:04 02/01/21 08:00 02/01/21 07:00 97 02/01/21 06:00 02/01/21 02:00 94 L 02/01/21 01:56 02/01/21 00:00 96 01/31/21 21:00 96 Intake and Output 02/01/21 02/01/21 02/01/21 06:59 14:59 22:59 Intake Total 1163 Output Total 700 Balance -700 1163 Intake: IV 450 Sodium Chloride 0.9% 1, 450 000 ml @ 75 mls/hr IV . [id number] [facility] Rx#:[id number] Oral 713 Output: Urine 700 Other: Voiding Method External Catheter External Catheter Weight 79.832 kg Results CBC & Chem 7: 02/02/21 07:18 02/02/21 07:18 Labs: Abnormal Lab Results - Last 24 Hours (Table) 01/31/21 01/31/21 02/01/21 Range/Units 19:42 19:42 02:49 WBC 11.4 H (3.8-10.6) k/uL RBC 4.14 L (4.30-5.90) m/uL Hgb 12.4 L (13.0-17.5) gm/dL Hct 35.3 L (39.0-53.0) % Neutrophils # 8.9 H (1.3-7.7) k/uL Sodium 133 L (137-145) mmol/L Chloride 96 L (98-107) mmol/L BUN 23 H (9-20) mg/dL Glucose 381 H (74-99) mg/dL POC Glucose (mg/dL) 277 H (75-99) mg/dL Albumin 3.4 L (3.5-5.0) g/dL 02/01/21 02/01/21 Range/Units 06:00 06:59 WBC (3.8-10.6) k/uL RBC (4.30-5.90) m/uL Hgb (13.0-17.5) gm/dL Hct (39.0-53.0) % Neutrophils # (1.3-7.7) k/uL Sodium 135 L (137-145) mmol/L Chloride (98-107) mmol/L BUN (9-20) mg/dL Glucose 217 H (74-99) mg/dL POC Glucose (mg/dL) 242 H (75-99) mg/dL Albumin (3.5-5.0) g/dL Microbiology - Last 24 Hours (Table) 01/31/21 19:42 Wound Culture - Preliminary Foot - Left
[2021-02-02] MEDS: AMPICILLIN-SULBACTAM 3 GM in SODIUM CHLORIDE 0.9% 100 ML IVPB SCH ×2 (12:05→17:04)
[2021-02-02] MEDS: SODIUM CHLORIDE 0.9% 1,000 ML IV SCH (12:05)
[2021-02-02 12:07] LABS: Glucose,Whole Blood 287 mg/dL (75-99)
[2021-02-02] MEDS: lisinopriL 10 MG TAB PO SCH (13:38)
[2021-02-02 16:56] LABS: Glucose,Whole Blood 274 mg/dL (75-99)
[2021-02-02 20:26] LABS: Glucose,Whole Blood 300 mg/dL (75-99)
[2021-02-02] MEDS: INSULIN DETEMIR (LEVEMIR) 100 UNIT/ML SYR SQ SCH (20:56)
--- NOTE | 2021-02-02 22:58 | P.PN ---
Subjective Progress Note Date: 02/02/21 Patient is a 70-year-old male with a known history of diabetes type 2, diabetic peripheral neuropathy, hypertension presents to ER with complaints of left foot ulcer. Patient states that he started with a scratch and worsened forming an ulcer in the last 4 days. Patient was seen by his primary care physician and did wound care dressing, sent to ER for possible IV antibiotics. Patient is also having increased redness of the foot, swelling around the wound. Complains of pain 8/10 in severity. Patient did have some chills. No fever at home. No complaints of chest pain or shortness breath. No cough or sputum production. No headache or dizziness or lightheadedness. No dysuria or hematuria. On admission blood pressure is 162/80 pulse 72, respiration 20 and pulse ox 99% on room air. Laboratory data showed WBC 11.2 hemoglobin 12.4 and platelets 273 Sodium 133 potassium 3.9 chloride 96 bicarb is 28 BUN 23 and creatinine 1.11 and blood sugar is 381 on admission. Liver enzymes is not elevated. 02/02/2021 Patient is lying in the bed. Awake alert 1x3. Denied any complaints of fever. No cough or sputum production. Patient underwent wound debridement of the left foot. Follow-up wound culture report. Patient is being current on antibiotics involve Unasyn and vancomycin. ID is on board. Denied nausea vomiting abdominal pain diarrhea. Blood sugars elevated and preprandial dose will be added and titrate dose as needed. Follow-up A1c level. Blood pressure is also elevated. Continue with Norvasc and lisinopril was added. Current medications reviewed. Objective - Vital Signs Vital signs: Vital Signs Temp 98.4 F 02/02/21 14:00 Pulse 65 02/02/21 16:14 Resp 16 02/02/21 14:00 BP 186/92 02/02/21 16:14 Pulse Ox 98 02/02/21 14:00 Intake & Output 02/01/21 02/02/21 02/02/21 18:59 06:59 18:59 Intake Total 1163 800 Output Total 850 900 Balance 313 -100 Intake: IV 450 Sodium Chloride 0.9% 1, 450 000 ml @ 75 mls/hr IV . [id number] [facility] Rx#:[id number] Oral 713 800 Output: Urine 850 900 Other: Voiding Method External Catheter External Catheter External Catheter # Voids 1 - Exam PHYSICAL EXAMINATION: Patient is lying in the bed comfortably, no acute distress, awake alert and orie nted.. HEENT: Normocephalic. Neck is supple. Pupils reactive. Nostrils clear. Oral cavity is moist. Neck reveals no JVD, carotid bruits, or thyromegaly. CHEST EXAMINATION: Trachea is central. Symmetrical expansion. Lung curry clear to auscultation and percussion. CARDIAC: Normal S1, S2 with no gallops. No murmurs ABDOMEN: Soft. Bowel sounds normal. No organomegaly. No abdominal bruits. Extremities: reveal no edema. No clubbing or cyanosis Neurologically awake, alert, oriented x3 with well-coordinated movements. No focal deficits noted Skin: No rash or skin lesions. Left lateral diabetic foot ulcer -dressed Psychiatric: Cooperative. Nonsuicidal Musculoskeletal: No joint swelling or deformity. Normal range of motion. - Labs CBC & Chem 7: 02/02/21 07:18 02/02/21 07:18 Labs: Abnormal Lab Results - Last 24 Hours (Table) 02/01/21 02/01/21 02/02/21 Range/Units 17:06 20:18 06:58 RBC (4.30-5.90) m/uL Hgb (13.0-17.5) gm/dL Hct (39.0-53.0) % Neutrophils # (1.3-7.7) k/uL Sodium (137-145) mmol/L Glucose (74-99) mg/dL POC Glucose (mg/dL) 272 H 398 H 180 H (75-99) mg/dL Hemoglobin A1c (4.0-6.0) % 02/02/21 02/02/21 02/02/21 Range/Units 07:18 07:18 07:18 RBC 3.77 L (4.30-5.90) m/uL Hgb 11.2 L (13.0-17.5) gm/dL Hct 32.0 L (39.0-53.0) % Neutrophils # 7.8 H (1.3-7.7) k/uL Sodium 133 L (137-145) mmol/L Glucose 174 H (74-99) mg/dL POC Glucose (mg/dL) (75-99) mg/dL Hemoglobin A1c 9.9 H (4.0-6.0) % 02/02/21 Range/Units 12:05 RBC (4.30-5.90) m/uL Hgb (13.0-17.5) gm/dL Hct (39.0-53.0) % Neutrophils # (1.3-7.7) k/uL Sodium (137-145) mmol/L Glucose (74-99) mg/dL POC Glucose (mg/dL) 287 H (75-99) mg/dL Hemoglobin A1c (4.0-6.0) % Microbiology - Last 24 Hours (Table) 02/02/21 09:05 Anaerobic Culture - Preliminary Foot - Left 02/02/21 09:05 Tissue Culture - Preliminary Foot - Left 01/31/21 19:25 Blood Culture - Preliminary Blood No Growth after 24 hours 01/31/21 19:40 Blood Culture - Preliminary Blood No Growth after 24 hours Assessment and Plan Assessment: Left diabetic foot ulcer with surrounding cellulitis.Status post debridement. Diabetes type 2 with hyperglycemia uncontrolled. Diabetic peripheral neuropathy Hypovolemic hyponatremia Hypertension uncontrolled. Previous history of right foot infection DVT prophylaxis with heparin subcu. Plan: PatientStatus post debridement. will be continued on IV hydration with normal saline and antibiotics with Unasyn and vancomycin. Follow-up wound culture report. A1c was ordered. Patient will be started on insulin sliding scale and titrate dose as needed. ID service will be consulted. Continue to follow closely.
--- NOTE | 2021-02-02 23:41 | PN ---
PROGRESS NOTE DATE OF SERVICE: 02/02/2021 REASON FOR FOLLOWUP: Left foot infected callus and diabetic foot infection. INTERVAL HISTORY: The patient was evaluated by Vascular Surgery. The patient is status post left foot lateral border wound debridement. Patient tolerated the procedure. Culture has been obtained which is currently pending. The patient denies having any chest pain or shortness of breath or cough. No abdominal pain or diarrhea. PHYSICAL EXAMINATION: Blood pressure 178/78 with a pulse of 68, temperature 98.5. He is 97% on room air. General description is an elderly male lying in bed in no distress. Respiratory system: Unlabored breathing, clear to auscultation anteriorly. Heart S1, S2. Regular rate and rhythm. Abdomen soft, no tenderness. Left foot is currently dressed. No obvious drainage on the dressing. LABS: Hemoglobin is 11.2 with white count 10.2, creatinine 1.04. DIAGNOSTIC IMPRESSION AND PLAN: Patient with left diabetic foot infection with an infected callus, culture with Staph aureus. Patient is covered with vancomycin and Zosyn; to continue with discharge antibiotics based on the culture report and clinical response. Continue with supportive care. MMODL / IJN: [id number] /
[2021-02-03] MEDS: AMPICILLIN-SULBACTAM 3 GM in SODIUM CHLORIDE 0.9% 100 ML IVPB SCH ×5 (01:33→23:37)
[2021-02-03] MEDS: HEPARIN SODIUM,PORCINE/PF 5,000 UNIT/0.5 ML SYRINGE SQ SCH ×4 (01:33→23:36)
[2021-02-03] MEDS: SODIUM CHLORIDE 0.9% 1,000 ML IV SCH ×2 (03:38→16:12)
[2021-02-03 07:03] LABS: Glucose,Whole Blood 215 mg/dL (75-99)
[2021-02-03] MEDS: INSULIN ASPART (NovoLOG) 100 UNIT/ML VIAL SQ SCH ×7 (08:15→21:30)
[2021-02-03] MEDS: COLLAGENASE 250 UNIT/GM OINTMENT 30 GM TUBE TOPICAL SCH (08:16)
[2021-02-03] MEDS: lisinopriL 10 MG TAB PO SCH (08:16)
[2021-02-03] MEDS: CHOLECALCIFEROL 25 MCG (1000 IU) TABLET PO SCH (08:16)
[2021-02-03] MEDS: amLODIPine 5 MG TAB PO SCH (08:16)
[2021-02-03] MEDS: ASPIRIN 325 MG TAB PO SCH (08:16)
[2021-02-03] MEDS: VANCOMYCIN 1,250 MG in SODIUM CHLORIDE 0.9% 250 ML IVPB SCH ×2 (08:20→21:30)
[2021-02-03 12:25] LABS: Glucose,Whole Blood 164 mg/dL (75-99)
--- NOTE | 2021-02-03 13:45 | P.PN ---
Subjective Progress Note Date: 02/03/21 Patient is a 70-year-old male with a known history of diabetes type 2, diabetic peripheral neuropathy, hypertension presents to ER with complaints of left foot ulcer. Patient states that he started with a scratch and worsened forming an ulcer in the last 4 days. Patient was seen by his primary care physician and did wound care dressing, sent to ER for possible IV antibiotics. Patient is also having increased redness of the foot, swelling around the wound. Complains of pain 8/10 in severity. Patient did have some chills. No fever at home. No complaints of chest pain or shortness breath. No cough or sputum production. No headache or dizziness or lightheadedness. No dysuria or hematuria. On admission blood pressure is 162/80 pulse 72, respiration 20 and pulse ox 99% on room air. Laboratory data showed WBC 11.2 hemoglobin 12.4 and platelets 273 Sodium 133 potassium 3.9 chloride 96 bicarb is 28 BUN 23 and creatinine 1.11 and blood sugar is 381 on admission. Liver enzymes is not elevated. 02/02/2021 Patient is lying in the bed. Awake alert 1x3. Denied any complaints of fever. No cough or sputum production. Patient underwent wound debridement of the left foot. Follow-up wound culture report. Patient is being current on antibiotics involve Unasyn and vancomycin. ID is on board. Denied nausea vomiting abdominal pain diarrhea. Blood sugars elevated and preprandial dose will be added and titrate dose as needed. Follow-up A1c level. Blood pressure is also elevated. Continue with Norvasc and lisinopril was added. 02/03/2021 Patient was oriented 3, has no current complaints. He had a wound debridement yesterday, weight-bearing status per patient is to not bear totally on the left foot, and only for transferring. PT OT consultation is pending patient will most likely require rehab on discharge. He is currently on IV Unasyn and IV vancomycin per ID. We're pending finalized cultures for antibiotic recommendations on discharge. Patient states that he was not taking any medications for his diabetes at home and was not checking his blood sugar. A1c is 9.9. Vital show a blood pressure 160/84, afebrile, heart rate 59 and he is 97% on room air. Current medications reviewed. ROS Constitutional: Denied any fatigue denied any fever. Cardio vascular: denied any chest pain, palpitations Gastrointestinal denied any nausea vomiting Pulmonary: Denied any shortness of breath cough Neurologic denied any new focal deficits All inpatient medications were reviewed and appropriate changes in these medications as dictated in the interval history and assessment and plan. PHYSICAL EXAMINATION: GENERAL: The patient is alert and oriented x3, not in any acute distress. Well developed, well nourished. HEENT: Pupils are round and equally reacting to light. EOMI. No scleral icterus. No conjunctival pallor. Normocephalic, atraumatic. No pharyngeal erythema. No t hyromegaly. CARDIOVASCULAR: S1 and S2 present. No murmurs, rubs, or gallops. PULMONARY: Chest is clear to auscultation, no wheezing or crackles. ABDOMEN: Soft, nontender, nondistended, normoactive bowel sounds. No palpable organomegaly. MUSCULOSKELETAL: No joint swelling or deformity. EXTREMITIES: No cyanosis, clubbing, or pedal edema. NEUROLOGICAL: Gross neurological examination did not reveal any focal deficits. SKIN: No rashes. Wound to left foot is wrapped in Kerlix. Assessment and plan Assessment Left diabetic foot ulcer with surrounding cellulitis status post debridement. Diabetes type 2 with hyperglycemia uncontrolled. Diabetic peripheral neuropathy Hypovolemic hyponatremia Hypertension uncontrolled. Previous history of right foot infection DVT prophylaxis with heparin subcu. Plan: Continue on antibiotics with Unasyn and vancomycin. Follow-up wound culture report. Discharge antibiotics per ID PT OT consultation patient most likely require rehab on discharge probably tomorrow. Repeat labs in the morning A1c 9.9, continue Levemir and NovoLog. Objective - Vital Signs Vital signs: Vital Signs Temp 98.2 F 02/03/21 06:43 Pulse 59 L 02/03/21 06:43 Resp 16 02/03/21 06:43 BP 168/84 02/03/21 06:43 Pulse Ox 97 02/03/21 06:43 Intake & Output 02/02/21 02/03/21 02/03/21 18:59 06:59 18:59 Intake Total 950 Balance 950 Intake: IV 950 Ampicillin-Sulbactam 3 gm 100 In Sodium Chloride 0.9% 100 ml @ 200 mls/hr IVPB Q6HR [facility] Rx#:[id number] Sodium Chloride 0.9% 1, 600 000 ml @ 75 mls/hr IV . [id number] [facility] Rx#:[id number] Vancomycin 1,250 mg In 250 Sodium Chloride 0.9% 250 ml @ 125 mls/hr IVPB Q12H [facility] Rx#:[id number] Other: Voiding Method External Catheter Diaper Incontinent # Voids 1 3 - Labs CBC & Chem 7: 02/02/21 07:18 02/03/21 05:09 Labs: Abnormal Lab Results - Last 24 Hours (Table) 02/02/21 02/02/21 02/02/21 Range/Units 07:18 07:18 12:05 RBC 3.77 L (4.30-5.90) m/uL Hgb 11.2 L (13.0-17.5) gm/dL Hct 32.0 L (39.0-53.0) % Neutrophils # 7.8 H (1.3-7.7) k/uL POC Glucose (mg/dL) 287 H (75-99) mg/dL Hemoglobin A1c 9.9 H (4.0-6.0) % 02/02/21 02/02/21 02/03/21 Range/Units 16:55 20:24 06:45 RBC (4.30-5.90) m/uL Hgb (13.0-17.5) gm/dL Hct (39.0-53.0) % Neutrophils # (1.3-7.7) k/uL POC Glucose (mg/dL) 274 H 300 H 215 H (75-99) mg/dL Hemoglobin A1c (4.0-6.0) % Microbiology - Last 24 Hours (Table) 02/02/21 09:05 Gram Stain - Preliminary Foot - Left Tissue Culture - Preliminary 01/31/21 19:25 Blood Culture - Preliminary Blood No Growth after 48 hours 01/31/21 19:40 Blood Culture - Preliminary Blood No Growth after 48 hours 01/31/21 19:42 Gram Stain - Preliminary Foot - Left Wound Culture - Preliminary Beta Hemolytic Strep Group C Strep agalactiae - (group b) Presumptive Staph aureus 02/02/21 09:05 Anaerobic Culture - Preliminary Foot - Left Assessment and Plan Time with Patient: Greater than 30
[2021-02-03 14:42] VITALS: BMI 20.8
[2021-02-03 17:42] LABS: Glucose,Whole Blood 194 mg/dL (75-99)
--- NOTE | 2021-02-03 19:42 | PN ---
PROGRESS NOTE DATE OF SERVICE: 02/03/2021 REASON FOR FOLLOWUP: Left diabetic foot infection. INTERVAL HISTORY: The patient is afebrile. The patient is currently breathing comfortably. Pain to the left foot is currently controlled. No chest pain, shortness of breath or cough. No abdominal pain or diarrhea. PHYSICAL EXAMINATION: Blood pressure 164/83, pulse of 64, temperature 97.8. He is 97% on room air. General description is an elderly male lying in bed in no distress. Respiratory system: Unlabored breathing, clear to auscultation anteriorly. Heart S1, S2. Regular rate and rhythm. Abdomen soft, no tenderness. Left foot lateral wound is currently dressed. No obvious drainage on the dressing. LABS: No new labs have been obtained today. Culture with strep, presumptive Staphylococcus aureus. DIAGNOSTIC IMPRESSION AND PLAN: Patient with with left diabetic foot infection with infected callus, status post debridement. Culture shows Staph aureus and strep. Patient to continue with vancomycin, with discharge antibiotics based on the culture report. Continue with supportive care. MMODL / IJN: [id number] /
[2021-02-03 20:11] LABS: Glucose,Whole Blood 210 mg/dL (75-99)
--- NOTE | 2021-02-03 20:51 | PN ---
PROGRESS NOTE This is a 70-year-old gentleman who had an infected callus, left foot plantar aspect. Patient had excision of the callus and debridement. Patient is on IV antibiotic under care of Infectious Disease. We have been using Santyl cream. Today we have changed the dressing. No drainage noted. We continue the Santyl cream daily. MMODL / IJN: [id number] /
[2021-02-03] MEDS: INSULIN DETEMIR (LEVEMIR) 100 UNIT/ML SYR SQ SCH (21:30)
[2021-02-04] MEDS: SODIUM CHLORIDE 0.9% 1,000 ML IV SCH (05:58)
[2021-02-04] MEDS: AMPICILLIN-SULBACTAM 3 GM in SODIUM CHLORIDE 0.9% 100 ML IVPB SCH ×2 (05:58→12:01)
[2021-02-04 08:06] LABS: African American GFR (CKD) 83 (>60 ml/min/1.73 sqM); Anion Gap 5 mmol/L; Blood Urea Nitrogen 15 mg/dL (9-20); C Reactive Protein 1.6 mg/dL (<1.0); Carbon Dioxide 31 mmol/L (22-30); Chloride 101 mmol/L (98-107); Glucose 93 mg/dL (74-99); Non-African American GFR(CKD) 72 (>60 ml/min/1.73 sqM); Potassium 3.8 mmol/L (3.5-5.1); Sodium 137 mmol/L (137-145)
[2021-02-04 08:13] LABS: Glucose,Whole Blood 102 mg/dL (75-99)
[2021-02-04] MEDS: INSULIN ASPART (NovoLOG) 100 UNIT/ML VIAL SQ SCH ×5 (08:24→18:09)
[2021-02-04] MEDS: CHOLECALCIFEROL 25 MCG (1000 IU) TABLET PO SCH (08:26)
[2021-02-04] MEDS: ASPIRIN 325 MG TAB PO SCH (08:26)
[2021-02-04] MEDS: amLODIPine 5 MG TAB PO SCH (08:27)
[2021-02-04] MEDS: HEPARIN SODIUM,PORCINE/PF 5,000 UNIT/0.5 ML SYRINGE SQ SCH ×2 (08:27→16:44)
[2021-02-04] MEDS: lisinopriL 10 MG TAB PO SCH (08:27)
[2021-02-04] MEDS: COLLAGENASE 250 UNIT/GM OINTMENT 30 GM TUBE TOPICAL SCH (08:45)
[2021-02-04] MEDS: VANCOMYCIN 1,250 MG in SODIUM CHLORIDE 0.9% 250 ML IVPB SCH (09:37)
[2021-02-04 12:23] LABS: Glucose,Whole Blood 225 mg/dL (75-99)
--- NOTE | 2021-02-04 15:27 | PN ---
PROGRESS NOTE This is a 70-year-old gentleman who came in with an infected callus, left foot. We did deep debridement and sent for culture. Patient is under the care of Infectious Disease. We are using Santyl cream for the wound. Patient will be on IV antibiotic and local wound care using Santyl cream. MMODL / IJN: [id number] /
[2021-02-04 16:16] VITALS: PULSE 64; RESP 16; TEMP 97.7
[2021-02-04 16:18] VITALS: BP 164/77
[2021-02-04 17:34] LABS: Glucose,Whole Blood 201 mg/dL (75-99)
--- NOTE | 2021-02-04 19:03 | PN ---
PROGRESS NOTE DATE OF SERVICE: 02/04/2021 REASON FOR FOLLOWUP: Left diabetic foot infection. INTERVAL HISTORY: The patient is afebrile. The patient is breathing comfortably. No chest pain, shortness of breath or cough. No abdominal pain. Pain to the left foot is currently controlled. PHYSICAL EXAMINATION: Blood pressure 164/77, pulse of 54, temperature 97.7. He is 99% on room air. General description is an elderly male lying in bed in no distress. Respiratory system: Unlabored breathing, clear to auscultation anteriorly. Heart S1, S2. Regular rate and rhythm. Abdomen soft, no tenderness. Left foot is currently dressed. No obvious drainage on the dressing. LABS: Creatinine 1.05 76. CRP is 1.6. Local culture positive for MSSA strep. DIAGNOSTIC IMPRESSION AND PLAN: Patient with left diabetic foot infection with infected callus, status post debridement. Per discussion with the vascular surgeon, it was a superficial infection with no probing down to the bone. Plan is local wound care with antibiotic adjusted to Augmentin 875 b.i.d. for 2 weeks. He has been advised to follow up with me in the [facility] in one week. Questions and concerns were answered. Discussed with the nurse practitioner working on discharge. MMODL / IJN: [id number] /
[2021-02-05] MEDS ORDERED: VANCOMYCIN TROUGH DUE 1 EACH MISC MISCELLANE ONE (08:00)
--- NOTE | 2021-02-05 15:25 | P.DS ---
Providers Date of admission: 02/01/21 16:43 Attending physician: Shirley Peña Consults: 01/31/21 20:28 Consult Physician Routine Consulting Provider: Azra Lee Consult Reason/Comments: Cellulitis Do you want consulting provider notified?: Yes 02/01/21 17:01 Consult Physician Routine Consulting Provider: Mart Kramer Consult Reason/Comments: Left foot wound debridement Do you want consulting provider notified?: Already Contacted Primary care physician: Madeline Aldana [facility] Course: Final Diagnosis Left diabetic foot ulcer with surrounding cellulitis status post debridement. Diabetes type 2 with hyperglycemia uncontrolled. Diabetic peripheral neuropathy Hypovolemic hyponatremia Hypertension uncontrolled. Previous history of right foot infection Discharge Disposition Patient is discharged home with home care. Patient is provided with a walker. Patient does not have a prescription coverage. He apparently had a Lantus prescription was sent from Dr. Aldana's office has been ready for the last week that he has not picked up. Upon admission blood sugar was in the high 200s. We did discharge patient on medications that were sent to the [facility] pharmacy and we used [employer] [facility] [employer] funds to assist. He will need to follow-up with Dr. Lee in the wound care center in one week. Daily wound care dressing changes with Santyl and moist dressings. Hospital course This is a pleasant 78-year-old man presented to the with known history of diabetes mellitus type 2, noncompliant, diabetic peripheral neuropathy, hypertension. Patient has a diabetic foot ulcer to the left foot. Per patient is started as a scratch and has worsened over the last 4 days. Patient was seen by his PCP who did a dressing change there and sent the patient to the ER for possible IV antibiotics. Patient is also having increased redness of the foot, swelling around the room. He does complain of pain 8/10. Patient did have some chills he's had no fever home. Patient denies chest pain and shortness of breath. There is no cough or sputum production. There is no headache or light headedness or dizziness. Patient denies dysuria or hematuria. Blood pressure on admission is 152/80, pulse 72, respirations 20 and pulse ox is 99% on room air. Labs on admission showed white count of 11.2, hemoglobin 12.4. Sodium is 133, potassium 3.9, chloride 96, bicarb 28, BUN 27, creatinine 1.11 blood sugar on admission is 381. His liver enzymes are not elevated. Patient was seen by ID and vascular surgery. Cultures were taken which shows beta hemolytic strep group B, cervical lactate group B and staph aureus. There is some resistance. Patient was treated with IV Vanco this admission and was discharged on a 14 day course of Augmentin. Additionally patient had a wound debridement with Dr. Kramer. He is to follow-up with Dr. gee in the wound care clinic, and he willl continue with Santyl followed by moist dressings daily. Patient does not have prescription coverage this poses a problem as he is a diabetic and needs to take long-acting insulin. We did discharge the patient on Lantus, NovoLog and metformin. Additionally started the patient on lisinopril and amlodipine for blood pressures. We used [employer] funds to cover this for him. He will need assistance going forward to afford his insulin. Patient is noncompliant due to the cost of his medications and his fixed income. He does live at home and cares for a disabled son. He states that he will be compliant with the wound care clinic and PT outpatient. 02/04/2021 Patient is evaluated today sitting up in the bed. He is anxious to go home. He states that he feels well. He is minimal weight-bearing status to his left lower extremity. Medical sensitivities were available today he is cleared by ID for discharge home. We did discuss of Danielle the cost of his medications and made adjustments in order to be able to cover these prescriptions for the patient at discharge. He is also given a walker for discharge. Patient needs ongoing education regarding compliance to his diabetic medication. Patient is afebrile, sinus rhythm, blood pressure was 164/77, he is 99% pulse ox on room air. Lungs are clear to auscultation, S1-S2 auscultated, abdomen is soft nontender, patient denies nausea vomiting or diarrhea. Patient denies any chest pain, chest pressure, cough or shortness of breath. He stated the pain to his left lower extremity is improving greatly. Patient is agreeable to discharge today with follow-up in the wound care clinic. Patient Condition at Discharge: Good Plan - Discharge Summary New Discharge Prescriptions: New Amoxic-Pot Clav 875-125Mg [Augmentin 875-125] 1 tab PO Q12HR 14 Days #28 tab lisinopriL 10 mg PO DAILY #30 tablet amLODIPine [Norvasc] 5 mg PO DAILY #30 tab Pioglitazone [Actos] 15 mg PO DAILY #30 tab Insulin Glargine,Hum.rec.anlog [Lantus Solostar Pen] 15 unit SQ DAILY #3 each Insulin Aspart [NovoLOG Flexpen] 5 units SQ AC-TID #6 each Collagenase [Santyl] 1 applic TOPICAL DAILY #30 gm Continue Aspirin EC [Ecotrin] 325 mg PO DAILY Cranberry Fruit Extract [Cranberry] 500 mg PO DAILY Cholecalciferol [Vitamin D3 (25 Mcg = 1000 Iu)] 25 mcg PO DAILY Discharge Medication List Aspirin EC [Ecotrin] 325 mg PO DAILY 01/31/21 [History] Cholecalciferol [Vitamin D3 (25 Mcg = 1000 Iu)] 25 mcg PO DAILY 01/31/21 [History] Cranberry Fruit Extract [Cranberry] 500 mg PO DAILY 01/31/21 [History] Amoxic-Pot Clav 875-125Mg [Augmentin 875-125] 1 tab PO Q12HR 14 Days #28 tab 02/04/21 [Rx] Collagenase [Santyl] 1 applic TOPICAL DAILY #30 gm 02/04/21 [Rx] Insulin Aspart [NovoLOG Flexpen] 5 units SQ AC-TID #6 each 02/04/21 [Rx] Insulin Glargine,Hum.rec.anlog [Lantus Solostar Pen] 15 unit SQ DAILY #3 each 02/04/21 [Rx] Pioglitazone [Actos] 15 mg PO DAILY #30 tab 02/04/21 [Rx] amLODIPine [Norvasc] 5 mg PO DAILY #30 tab 02/04/21 [Rx] lisinopriL 10 mg PO DAILY #30 tablet 02/04/21 [Rx] Follow up Appointment(s)/Referral(s): Madeline Aldana MD [Primary Care Provider] - 1-2 days Azra Lee MD [STAFF PHYSICIAN] - 1 Week Ambulatory/Diagnostic Orders: Basic Metabolic Panel [LAB.AMB] Time Frame: 3 Days, Location: None Selected Complete Blood Count w/diff [LAB.AMB] Time Frame: 3 Days, Location: None Selected Patient Instructions/Handouts: Cellulitis (DC) Activity/Diet/Wound Care/Special Instructions: LOCAL WOUND CARE with santyl followed by moist dressing , change daily , follow up with Dr lee in wound care 1 week call [phone] to make an appointment Discharge Disposition: HOME WITH HOME HEALTH SERVICES
== END 2021-02-04 18:30 | disposition home health service (06) | DRG 623 ==
LOC: EC 13:11 → 1SOBS 20:23 → 6NMEDSUR 20:49 → OBSVTOIN 02-01 16:43
PROVIDERS: ADMIT Hospitalist; ATTEND Hospitalist
PROC: 0JBR0ZZ Excision of Left Foot Subcutaneous Tissue and Fascia, Open Approach (ICD-10-PCS; principal; 2021-02-02)
DX: E11.621 Type 2 diabetes mellitus with foot ulcer (principal); L02.619 Cutaneous abscess of unspecified foot; E87.1 Hypo-osmolality and hyponatremia; L03.116 Cellulitis of left lower limb; E11.628 Type 2 diabetes mellitus with other skin complications; E11.65 Type 2 diabetes mellitus with hyperglycemia; E11.42 Type 2 diabetes mellitus with diabetic polyneuropathy; E86.1 Hypovolemia; I10 Essential (primary) hypertension; Z20.822 Contact with and (suspected) exposure to COVID-19; G62.9 Polyneuropathy, unspecified; I83.90 Asymptomatic varicose veins of unspecified lower extremity
CPT/HCPCS: 36415; 80048; 80053; 80202; 82565; 83036; 85025; 85652; 86140; 87040; 87070; 87075; 87077; 87186; 87205; 99284

== ENCOUNTER → 2021-02-28 | Outpatient (CLI) | payer MEDICARE ==
--- NOTE | 2021-02-28 16:30 | US ---
EXAMINATION TYPE: US kidneys/renal and bladder DATE OF EXAM: 02/28/2021 COMPARISON: NONE CLINICAL HISTORY: E78.2 mixed hyperlipidemia, N18.31 CKD stage 3. EXAM MEASUREMENTS: Right Kidney: 12.1x7.1x6.6 cm Left Kidney: 12.9x6.1x6.1 cm Post Void Residual Volume: 354 mL Dilated Left ureter seen adjacent to the bladder Right Kidney: Moderate hydro Left Kidney: Moderate hydro Bladder: Very large, Trabeculation of bladder wall Bilateral Jets seen: No Normal Post Void Residual: No There is moderate bilateral hydronephrosis. Some right hydroureter appears to be present. Trabeculati on may be within the urinary bladder which suggests outlet obstruction. Additional workup is recommen ded IMPRESSION: 1. Moderate bilateral hydronephrosis. 2. trabeculation of bladder. Correlate for outlet obstruction
== END | disposition home or self-care (01) ==
LOC: RADUSWWP 13:08
PROVIDERS: ATTEND Family Medicine
DX: N13.30 Unspecified hydronephrosis (principal); N32.89 Other specified disorders of bladder; N18.31 Chronic kidney disease, stage 3a
CPT/HCPCS: 76770

== ENCOUNTER → 2021-07-11 | Outpatient (CLI) | payer MEDICARE ==
--- NOTE | 2021-07-11 10:05 | CT ---
EXAMINATION TYPE: CT abdomen pelvis wo con DATE OF EXAM: 07/11/2021 COMPARISON: CT 04/30/2016 HISTORY: Frequent UTIs CT DLP: 524.3 mGycm Automated exposure control for dose reduction was used. TECHNIQUE: Helical acquisition of images from the lung bases through the pelvis. FINDINGS: Lack of intravenous contrast could compromise the exam.There are coronary calcifications. LUNG BASES: No significant abnormality is appreciated. AORTA: No significant abnormality is appreciataed. LIVER/GB: Punctate calcification within the liver noted, no evident mass. Gallbladder unremarkable.. PANCREAS: No significant abnormality is seen. SPLEEN: No significant abnormality is seen. ADRENALS: No significant abnormality is seen. KIDNEYS: No significant abnormality is seen. REPRODUCTIVE ORGANS: No significant abnormality is seen. URINARY BLADDER: Washington catheter is in place. Urinary bladder shows a thickened wall, air is present within the bladder likely due to post catheterization change. BOWEL: Colonic interposition noted anterior to the liver. There is elevation of right hemidiaphragm. Diverticular changes associated especially in the sigmoid colon. FREE AIR: No Free Air is visible. ASCITES: None visible. PELVIC ADENOPATHY: None visualized. RETROPERITONEAL ADENOPATHY: No Retroperitoneal Adenopathy visible. OSSEOUS STRUCTURES: Slight spinal curvature. Some degenerative disc changes are present.. IMPRESSION: CORRELATE FOR CYSTITIS. DIVERTICULOSIS AND NONCONTRAST EXAM.
== END | disposition home or self-care (01) ==
LOC: RADCTMAIN 08:39
PROVIDERS: ATTEND Urology
DX: K57.30 Diverticulosis of large intestine without perforation or abscess without bleeding (principal)
CPT/HCPCS: 74176

== ENCOUNTER → 2021-09-01 | Outpatient (CLI) | payer MEDICARE ==
--- NOTE | 2021-09-01 21:52 | CT ---
EXAMINATION TYPE: CT abdomen pelvis w con DATE OF EXAM: 09/01/2021 COMPARISON: CT dated 420 HISTORY: Abnormal weight loss over past month. Pt does have a cath due to weak bladder. CT DLP: 2164 mGycm Automated exposure control for dose reduction was used. TECHNIQUE: Helical acquisition of images was performed from the lung bases through the pelvis. CONTRAST: Performed with Oral Contrast and with IV Contrast, patient injected with 80 mL of Isovue 300. FINDINGS: LUNG BASES: Left atrial enlargement, please correlate with echocardiographic results. Coronary arteri al calcifications. LIVER/GB: Left hepatic lobe cyst, appreciated previously. Tiny calcification is seen in the right hep atic dome, stable. No other definite hepatic focal lesion identified. Grossly unremarkable gallbladde r. PANCREAS: No significant abnormality is seen. SPLEEN: Increased AP dimension of the spleen measuring 15.1 cm. No definite splenic focal lesion. ADRENALS: No significant abnormality is seen. KIDNEYS: Mild dilatation of the ureters without definite obstructing radiodense stone, possibly secon jesus manuel to the urinary bladder distention/wall thickening. No hydronephrosis bilaterally. No definite re nal lesion identified. Bilateral perinephric fat stranding and reactive fluid, nonspecific. FREE AIR: No free air is visualized. RETROPERITONEAL ADENOPATHY: None visualized REPRODUCTIVE ORGANS: Markedly enlarged prostate, please correlate with PSA level. Unremarkable semina l vesicles. URINARY BLADDER: Washington catheter and air are seen within the urinary bladder. Significant wall thicke sang of the posterior aspect of the urinary bladder, urothelial lesion can't be excluded, please bryan elate with urinalysis results including cytology. Further cystoscopy can be considered. PELVIC ADENOPATHY: Prominent bilateral inguinal and external iliac lymph nodes, nonspecific and pepper sly stable. OSSEOUS STRUCTURES: No gross aggressive bone lesion. BOWEL: Grossly unremarkable stomach, duodenum and small bowel. Fecal loading of the rectum. Scattere d uncomplicated colonic diverticulosis. Scattered segments of mild colonic wall thickening, nonspecif ic. Recommend correlation with colonoscopy results. OTHER: Bilateral fat-containing inguinal hernias. Mild arterial atherosclerotic calcifications. No si zable ascites. IMPRESSION: Posterior wall thickening of the urinary bladder, underlying urothelial lesion cannot be excluded. Re commend correlation with urinalysis results including cytology. Further cystoscopy can be considered. Mild dilatation of the ureters, likely secondary to the urinary bladder wall thickening. Other incid ental findings as described above.
== END | disposition home or self-care (01) ==
LOC: RADCTMAIN 14:45
PROVIDERS: ATTEND Internal Medicine Gastroenterology
DX: N28.82 Megaloureter (principal); R63.4 Abnormal weight loss
CPT/HCPCS: 74177; Q9967 ×2

== ENCOUNTER 2021-10-03 05:59 | Day surgery (SDC) | payer MEDICARE ==
[2021-10-01 16:06] VITALS: BMI 21.3
[~2021-10-03 05:59] MED LIST: LACTATED RINGERS 1,000 ML IV SCH
[2021-10-03 06:46] VITALS: TEMP 98.1
[2021-10-03 06:54] LABS: Glucose,Whole Blood 188 mg/dL (70-110)
[2021-10-03] MEDS ORDERED: PROPOFOL 10 MG/ML 20 ML VIAL IV ONE (07:18)
[2021-10-03] MEDS ORDERED: LIDOCAINE 2% INJ 20 MG/ML (2 ML VIAL) ONE (07:18)
--- NOTE | 2021-10-03 07:47 | P.PCN ---
Date of Procedure: 10/03/21 Procedure(s) Performed: Brief history: Patient is a pleasant 70-year-old white male scheduled for an elective upper endoscopy as well as colonoscopy as a part of evaluation of abdominal pain, change in bowel habits and progressive weight loss of response in the last 1 year duration. Procedure performed: Esophagogastroduodenoscopy with biopsy Colonoscopy Preoperative diagnosis: Abdominal pain, change in bowel habits and progressive weight Anesthesia: [facility] [place] Procedure: After informed consent was obtained from the patient was brought into the endoscopy unit and IV sedation was administered by anesthesia under continuous monitoring. Initially upper endoscopy was done. The Olympus GF 160 video endoscope was inserted inserted into the mouth and esophagus intubated without any difficulty and was gradually advanced into the stomach and duodenum and carefully examined. The bulb and second part of the duodenum appeared normal. There was done from the duodenum to rule out celiac disease. The scope was then withdrawn into the stomach adequately insufflated with air and upon careful examination the antrum and body, cardia and fundus appeared normal. Large amount of food in the stomach suggestive of diabetic gastroparesis. No evidence of gastric outlet obstruction. The scope was then withdrawn into the esophagus. The GE junction was located at 40 cm to the incisors. It appeared regular with circumferential erythema consistent with LA grade a reflux esophagitis. Rest of the esophagus appeared normal. Patient tolerated the procedure well. At this time the patient continued to remain sedation. Initial digital rectal examination was normal. Olympus CF 160 video colonoscope was then inserted into the rectum and gradually advanced to the cecum without any difficulty. Careful examination was performed as the scope was gradually being withdrawn. The prep was extremely poor and several areas of the colon. Most of the cecum had solid stool. There was a 1 cm polyp noted in the cecum that was removed by snare polypectomy.in the ascending colon there was a 5 mm and a 6 mm sessile polyps removed by snare polypectomy. In the transverse colon there was a 5 mm and 7 mm polyp removed by snare polypectomy. Rest of the , transverse colon, descending colon, sigmoid colon and rectum appeared normal several areas of of the colon could not be adequately visualized because of the poor prep. Retroflexion was performed in the rectum and no lesions were noted. Patient tolerated the procedure well. Impression: 1. Upper endoscopy revealed retained food in the stomach suggestive of diabetic gastroparesis 2. Colonoscopy revealed a) 1 cm cecal polyp status post polypectomy b) 5 mm 2 ascending colon polyp status post polypecmy c) 5 mm and 7 mm ransverse polyp status post polypectomy Recommendations: Findings of this examination were discussed with the patient as well as his family. He was advised to follow with the biopsy results. he was advised to have a repeat colonoscopy in 3 years.
[2021-10-03 08:10] LABS: Glucose,Whole Blood 205 mg/dL (70-110)
[2021-10-03] MEDS ORDERED: hydrALAZINE HCL 20 MG/ML 1 ML VIAL ONE (08:25)
[2021-10-03] MEDS ORDERED: hydrALAZINE HCL 20 MG/ML 1 ML VIAL IVP ONE (08:32)
[2021-10-03] MEDS ORDERED: INSULIN ASPART (NovoLOG) 100 UNIT/ML VIAL SQ ONE (08:32)
[2021-10-03 08:53] VITALS: BP 178/91; PULSE 71; RESP 17
== END 2021-10-03 09:10 | disposition home or self-care (01) ==
LOC: ORWHC2ENDO 05:59
PROVIDERS: ATTEND Internal Medicine Gastroenterology
DX: D12.2 Benign neoplasm of ascending colon (principal); D12.0 Benign neoplasm of cecum; D12.3 Benign neoplasm of transverse colon; R10.9 Unspecified abdominal pain; R63.4 Abnormal weight loss; Z68.21 Body mass index [BMI] 21.0-21.9, adult; I10 Essential (primary) hypertension; E11.9 Type 2 diabetes mellitus without complications; G62.9 Polyneuropathy, unspecified; Z79.4 Long term (current) use of insulin; Z79.82 Long term (current) use of aspirin; Z79.899 Other long term (current) drug therapy; Z80.51 Family history of malignant neoplasm of kidney; Z82.3 Family history of stroke
CPT/HCPCS: 88305; 45385; 43239; J0360; J2704; J2001

== ENCOUNTER 2022-02-24 17:19 | Inpatient (IN) | payer MEDICARE, OTHER ==
[2022-02-24 18:52] LABS: Amorphous Sediment,Urine Few /hpf; Appearance,Urine Turbid (Clear); Bacteria,Urine Many /hpf; Bilirubin,Urine Negative (Negative); Blood,Urine Moderate (Negative); Color,Urine Yellow; Glucose,Urine (UA) Negative (Negative); Hyaline Casts,Urine 70 /lpf (0-2); Ketones,Urine Trace (Negative); Leukocyte Esterase,Urine Large (Negative); Mucus,Urine Few /hpf; Nitrite,Urine Negative (Negative); Protein,Urine 3+ (Negative); RBC,Urine 14 /hpf (0-5); Specific Gravity,Urine 1.017 (1.001-1.035); Urobilinogen,Urine <2.0 mg/dL (<2.0); WBC,Urine >182 /hpf (0-5)
[2022-02-24 19:28] LABS: Basophils # (A) 0.1 k/uL (0-0.2); Basophils % (A) 1 %; Eosinophils # (A) 0.3 k/uL (0-0.7); Eosinophils % (A) 4 %; HCT 41.3 % (39.0-53.0); HGB 14.9 gm/dL (13.0-17.5); Lymphocytes # (A) 1.3 k/uL (1.0-4.8); Lymphocytes % (A) 16 %; MCH 31.2 pg (25.0-35.0); MCHC 36.1 g/dL (31.0-37.0); MCV 86.3 fL (80.0-100.0); Mean Platelet Volume 7.6; Monocytes # (A) 0.4 k/uL (0-1.0); Monocytes % (A) 5 %; Neutrophils # (A) 5.9 k/uL (1.3-7.7); Neutrophils % (A) 73 %; Platelet Count 198 k/uL (150-450); Poikilocytosis Slight; RBC 4.78 m/uL (4.30-5.90); RDW 15.2 % (11.5-15.5); WBC 8.1 k/uL (3.8-10.6)
[2022-02-24 19:37] LABS: Albumin 3.6 g/dL (3.5-5.0); Potassium 4.9 mmol/L (3.5-5.1); Total Protein 6.3 g/dL (6.3-8.2)
--- NOTE | 2022-02-24 19:38 | XR ---
EXAMINATION TYPE: XR chest 2V DATE OF EXAM: 02/24/2022 COMPARISON: 03/30/2014 HISTORY: Short of breath TECHNIQUE: 2 views FINDINGS: There is blunting of the costophrenic angles. There is mild cardiomegaly. There are no renee r masses. Mediastinum is intact. Bony thorax is intact. IMPRESSION: There are bilateral pleural effusions and minimal congestion. This could be some mild chr onic congestive heart failure and is a change compared to the old exam.
[2022-02-24 19:50] LABS: Partial Thromboplastin Time 23.8 sec (22.0-30.0); Prothrombin Time 10.8 sec (9.0-12.0)
[2022-02-24] MEDS ORDERED: FUROSEMIDE 10 MG/ML 4 ML VIAL IV STA (20:23)
[2022-02-24] MEDS ORDERED: NITROGLYCERIN OINT 1 INCH/GM PACKET TOPICAL STA (20:23)
--- NOTE | 2022-02-24 20:28 | ED ---
SOB HPI - General Chief Complaint: Shortness of Breath Stated Complaint: SOB,Sent by PCP Time Seen by Provider: 02/24/22 20:17 Source: patient, RN notes reviewed Mode of arrival: ambulatory Limitations: no limitations - History of Present Illness Initial Comments: . This is a pleasant 71-year-old male presents arise prior complaining of shortness of breath. Patient states she started getting leg swelling on Wednesday after developing a cough on . He states he was coughing up some sputum. No fever. Denying any chest pain. No history of congestive heart failure. No headache, no fever or chills, no changes in vision or hearing, no sore throat or difficulty with speech, no neck pain, no chest pain, no abdominal pain, no nausea or vomiting, no changes in urination or bowel movements, no numbness or tingling, no extremity pain, no skin rashes or lesions. Past medical, surgical, social, and family history reviewed. Patient sent in by his PMD MD Complaint: shortness of breath - Related Data Home Medications Medication Instructions Recorded Confirmed Cranberry Fruit Extract [Cranberry] 500 mg PO DAILY 01/31/21 02/24/22 Insulin Glargine,Hum.rec.anlog 10 unit SQ DAILY@1200 09/30/21 02/24/22 [Lantus Solostar Pen] Aspirin EC [Ecotrin Low Dose] 81 mg PO DAILY 02/24/22 02/24/22 Insulin Lispro [humaLOG Kwikpen] 2 unit SQ AC-TID 02/24/22 02/24/22 Insulin Lispro [humaLOG Kwikpen] See Protocol SQ AC-TID 02/24/22 02/24/22 Metoprolol Succinate (ER) [Toprol 25 mg PO DAILY 02/24/22 02/24/22 Xl] Pioglitazone [Actos] 15 mg PO DAILY 02/24/22 02/24/22 lisinopriL [Zestril] 10 mg PO DAILY 02/24/22 02/24/22 Previous Rx's Medication Instructions Recorded amLODIPine [Norvasc] 5 mg PO DAILY #30 tab 02/04/21 Allergies Allergy/AdvReac Type Severity Reaction Status Date / Time No Known Allergies Allergy Verified 02/24/22 20:52 Review of Systems ROS Statement: Those systems with pertinent positive or pertinent negative responses have been documented in the HPI. ROS Other: All systems not noted in ROS Statement are negative. Past Medical History Past Medical History: Chest Pain / Angina, Diabetes Mellitus, Hypertension, Pneumonia Additional Past Medical History / Comment(s): Neuropathy in bilat feet and bilat hands. CHRONIC UTI History of Any Multi-Drug Resistant Organisms: None Reported Past Surgical History: No Surgical Hx Reported Additional Past Surgical History / Comment(s): Varicose vein surgery, irrigation to right leg Past Anesthesia/Blood Transfusion Reactions: No Reported Reaction Past Psychological History: No Psychological Hx Reported Smoking Status: Never smoker - Past Family History Father Family Medical History: CVA/TIA Additional Family Medical History / Comment(s): Father passed from stroke at age 62. Son(s) Family Medical History: Cancer Additional Family Medical History / Comment(s): Down syndrome, KIDNEY CANCER General Exam - General Exam Comments Initial Comments: Patient in no acute distress at rest. Capillary refill less than 2 seconds. No mottling. No increased work of breathing. Limitations: no limitations General appearance: alert, in no apparent distress Head exam: Present: atraumatic, normocephalic, normal inspection Eye exam: Present: normal appearance, PERRL, EOMI. Absent: scleral icterus, conjunctival injection, periorbital swelling ENT exam: Present: normal exam, normal oropharynx, mucous membranes moist, eugenia l external ear exam. Absent: mucous membranes dry Neck exam: Present: normal inspection, full ROM. Absent: tenderness, meningismus, lymphadenopathy Respiratory exam: Present: rales (Bibasilar). Absent: respiratory distress, wheezes, rhonchi, stridor, chest wall tenderness, accessory muscle use, decreased breath sounds, prolonged expiratory Cardiovascular Exam: Present: normal rhythm, bradycardia, normal heart sounds. Absent: systolic murmur, diastolic murmur, rubs, gallop, clicks GI/Abdominal exam: Present: soft, normal bowel sounds. Absent: distended, tenderness, guarding, rebound, rigid Extremities exam: Present: normal inspection, full ROM, normal capillary refill, pedal edema (Pitting edema bilateral lower extremities, no evidence of infectious etiology or vascular insult). Absent: tenderness, joint swelling, calf tenderness Back exam: Present: normal inspection Neurological exam: Present: alert, oriented X3, CN II-XII intact Psychiatric exam: Present: normal affect, normal mood Skin exam: Present: warm, dry, intact, normal color. Absent: rash Course Vital Signs 02/24/22 17:48 Temperature 98.7 F Pulse Rate 50 L Respiratory 20 Rate Blood Pressure 178/89 O2 Sat by Pulse 95 Oximetry - Reevaluation(s) Reevaluation #1: 02/24/22 20:53 02/24/22 20:53 Reevaluation #2: 02/24/22 21:35 Medical record is reviewed Symptoms are improved here in the emergency department Patient is informed of results and questions answered Patient in no distress Medical Decision Making - Medical Decision Making Given the patient's pleural effusions, bibasilar rales, peripheral edema, congestive heart failure exacerbation is most likely culprit. Patient also has some evidence of acute kidney injury. Creatinine 1.8, baseline was 1.0 last check. Does not appear to be consistent with cardiac ischemia. Does not appear to be consistent with pulmonary embolism. We'll plan for admission. Lasix ordered. Topical nitroglycerin ordered. Long-term Washington catheter, evidence of acute kidney injury with urinary tract infection Case discussed in detail with Mai from the . Patient admitted to that group for new-onset congestive heart failure. The case was discussed in detail with ED attending physician. Presentation, findings, treatment plan discussed in detail. Manager Drive Dr. Murphy - Lab Data Result diagrams: 02/24/22 19:18 02/24/22 19:18 Lab Results 02/24/22 02/24/22 02/24/22 Range/Units 18:21 19:18 19:18 WBC 8.1 (3.8-10.6) k/uL RBC 4.78 (4.30-5.90) m/uL Hgb 14.9 (13.0-17.5) gm/dL Hct 41.3 (39.0-53.0) % MCV 86.3 (80.0-100.0) fL MCH 31.2 (25.0-35.0) pg MCHC 36.1 (31.0-37.0) g/dL RDW 15.2 (11.5-15.5) % Plt Count 198 (150-450) k/uL MPV 7.6 Neutrophils % 73 % Lymphocytes % 16 % Monocytes % 5 % Eosinophils % 4 % Basophils % 1 % Neutrophils # 5.9 (1.3-7.7) k/uL Lymphocytes # 1.3 (1.0-4.8) k/uL Monocytes # 0.4 (0-1.0) k/uL Eosinophils # 0.3 (0-0.7) k/uL Basophils # 0.1 (0-0.2) k/uL Poikilocytosis Slight PT 10.8 (9.0-12.0) sec INR 1.0 (<1.2) APTT 23.8 (22.0-30.0) sec Sodium (137-145) mmol/L Potassium (3.5-5.1) mmol/L Chloride (98-107) mmol/L Carbon Dioxide (22-30) mmol/L Anion Gap mmol/L BUN (9-20) mg/dL Creatinine (0.66-1.25) mg/dL Est GFR (CKD-EPI)AfAm (>60 ml/min/1.73 sqM) Est GFR (CKD-EPI)NonAf (>60 ml/min/1.73 sqM) Glucose (74-99) mg/dL Calcium (8.4-10.2) mg/dL Total Bilirubin (0.2-1.3) mg/dL AST (17-59) U/L ALT (4-49) U/L Alkaline Phosphatase (38-126) U/L Troponin I (0.000-0.034) ng/mL NT-Pro-B Natriuret Pep pg/mL Total Protein (6.3-8.2) g/dL Albumin (3.5-5.0) g/dL Urine Color Yellow Urine Appearance Turbid (Clear) Urine pH 6.0 (5.0-8.0) Ur Specific Hampton 1.017 (1.001-1.035) Urine Protein 3+ H (Negative) Urine Glucose (UA) Negative (Negative) Urine Ketones Trace H (Negative) Urine Blood Moderate H (Negative) Urine Nitrite Negative (Negative) Urine Bilirubin Negative (Negative) Urine Urobilinogen <2.0 (<2.0) mg/dL Ur Leukocyte Esterase Large H (Negative) Urine RBC 14 H (0-5) /hpf Urine WBC >182 H (0-5) /hpf Urine WBC Clumps Many H (None) /hpf Amorphous Sediment Few H (None) /hpf Urine Bacteria Many H (None) /hpf Hyaline Casts 70 H (0-2) /lpf Urine Mucus Few H (None) /hpf 02/24/22 02/24/22 02/24/22 Range/Units 19:18 19:18 19:18 WBC (3.8-10.6) k/uL RBC (4.30-5.90) m/uL Hgb (13.0-17.5) gm/dL Hct (39.0-53.0) % MCV (80.0-100.0) fL MCH (25.0-35.0) pg MCHC (31.0-37.0) g/dL RDW (11.5-15.5) % Plt Count (150-450) k/uL MPV Neutrophils % % Lymphocytes % % Monocytes % % Eosinophils % % Basophils % % Neutrophils # (1.3-7.7) k/uL Lymphocytes # (1.0-4.8) k/uL Monocytes # (0-1.0) k/uL Eosinophils # (0-0.7) k/uL Basophils # (0-0.2) k/uL Poikilocytosis PT (9.0-12.0) sec INR (<1.2) APTT (22.0-30.0) sec Sodium 139 (137-145) mmol/L Potassium 4.9 (3.5-5.1) mmol/L Chloride 107 (98-107) mmol/L Carbon Dioxide 29 (22-30) mmol/L Anion Gap 3 mmol/L BUN 22 H (9-20) mg/dL Creatinine 1.80 H (0.66-1.25) mg/dL Est GFR (CKD-EPI)AfAm 43 (>60 ml/min/1.73 sqM) Est GFR (CKD-EPI)NonAf 37 (>60 ml/min/1.73 sqM) Glucose 120 H (74-99) mg/dL Calcium 9.0 (8.4-10.2) mg/dL Total Bilirubin 1.0 (0.2-1.3) mg/dL AST 27 (17-59) U/L ALT 22 (4-49) U/L Alkaline Phosphatase 101 (38-126) U/L Troponin I 0.024 (0.000-0.034) ng/mL NT-Pro-B Natriuret Pep 61052 pg/mL Total Protein 6.3 (6.3-8.2) g/dL Albumin 3.6 (3.5-5.0) g/dL Urine Color Urine Appearance (Clear) Urine pH (5.0-8.0) Ur Specific Hampton (1.001-1.035) Urine Protein (Negative) Urine Glucose (UA) (Negative) Urine Ketones (Negative) Urine Blood (Negative) Urine Nitrite (Negative) Urine Bilirubin (Negative) Urine Urobilinogen (<2.0) mg/dL Ur Leukocyte Esterase (Negative) Urine RBC (0-5) /hpf Urine WBC (0-5) /hpf Urine WBC Clumps (None) /hpf Amorphous Sediment (None) /hpf Urine Bacteria (None) /hpf Hyaline Casts (0-2) /lpf Urine Mucus (None) /hpf - EKG Data -: EKG Interpreted by Me EKG Comments: EKG done at 1807 and read by the ED attending physician reveals sinus bradycardia at a rate of 57, chloride R-wave progression. Normal intervals. Normal axis. Normal QS morphologies otherwise. No comparison study. - Radiology Data Radiology results: report reviewed, image reviewed Two-view chest x-ray interpreted by me reveals evidence of bilateral pleural effusion with cephalization. No evidence of lobar pneumonia. Radiology report reviewed. Disposition Clinical Impression: Congestive heart failure, Acute kidney injury, Urinary tract infection Narrative: New-onset congestive heart failure Disposition: ADMITTED IP TO THIS HOSP Condition: Fair Referrals: Madeline Aldana MD [Primary Care Provider] - 1-2 days Time of Disposition: 20:27 Decision to Admit Reason: Admit from EC Decision Time: 20:27
[2022-02-24] MEDS ORDERED: PIPERACILLIN-TAZOBACTAM 3.375 GM in SODIUM CHLORIDE 0.9% 100 ML IVPB STA (20:30)
[2022-02-24] MEDS ORDERED: ASPIRIN 325 MG TAB PO STA (21:29)
[2022-02-24] MEDS ORDERED: DEXTROSE 50% SYRINGE 50 ML IVP PRN ×2 (21:35)
[2022-02-24] MEDS: FUROSEMIDE 10 MG/ML 4 ML VIAL IV SCH (21:43)
[2022-02-24] MEDS ORDERED: lisinopriL 10 MG TAB PO STA (21:56)
[2022-02-24] MEDS ORDERED: METOPROLOL TARTRATE 25 MG TAB PO STA (21:57)
[2022-02-24] MEDS: NITROGLYCERIN OINT 1 INCH/GM PACKET TOPICAL SCH (22:48)
[2022-02-25] MEDS: HEPARIN SODIUM,PORCINE/PF 5,000 UNIT/0.5 ML SYRINGE SQ SCH ×3 (00:07→16:47)
[2022-02-25] MEDS: INSULIN ASPART (NovoLOG) 100 UNIT/ML VIAL SQ SCH ×4 (07:37→21:04)
[2022-02-25 07:49] LABS: Glucose,Whole Blood 122 mg/dL (70-110)
--- NOTE | 2022-02-25 08:04 | P.HPIM ---
History of Present Illness This is a pleasant 71 years old male with past medical history of hypertension, diabetes mellitus, chronic UTI Presents because of shortness of breath and increased leg swelling. Patient states that he's having shortness of breath since last , about 6 days ago. Associated with a dry cough present. He says that he has some chest pain when he comes No significant pain without coughing. Patient says that he never had heart problems before. This is an you for him. Also patient has indwelling [place] catheter for about 3 months and he follows up with Dr. Rees office. He denies any specific symptoms regarding his urinary tract. No abdominal pain or vomiting or diarrhea. No headache or dizziness or weakness or numbness He denies smoking alcohol or illicit drugs Patient's mildly bradycardic on admission, heart rate 56 this morning. Blood pressure is elevated 201/89, currently 188/74. Patient is afebrile. Labs show an unremarkable CBC, INR, liver enzymes. BNP is elevated 10 700 Creatinine is high at 1.8, baseline is 1.0-1.3 EKG showing sinus bradycardia at [address] T changes Chest x-ray: There is bilateral pleural effusion and minimal congestion. Possible mild chronic congestive heart failure which is a new change. Urine analysis suspicious for infection Patient is started on Zosyn and emergency room as well as IV Lasix Review of Systems Review of systems CONSTITUTIONAL: No fever, no malaise, no fatigue. HEENT: No recent visual problems or hearing problems. Denied any sore throat. CARDIOVASCULAR: No orthopnea, PND, no palpitations, no syncope. PULMONARY: No chest wall tenderness , no hemoptysis. GASTROINTESTINAL: No diarrhea, no nausea, no vomiting, no abdominal pain. Normoactive bowel sounds. NEUROLOGICAL: No headaches, no weakness, no numbness. HEMATOLOGICAL: Denies any bleeding or petechiae. GENITOURINARY: Denies any burning micturition, frequency, or urgency. MUSCULOSKELETAL/RHEUMATOLOGICAL: Denies any joint pain, swelling, or any muscle pain. ENDOCRINE: Denies any polyuria or polydipsia. Past Medical History Past Medical History: Chest Pain / Angina, Diabetes Mellitus, Hypertension, Pneumonia Additional Past Medical History / Comment(s): Neuropathy in bilat feet and bilat hands. CHRONIC UTI History of Any Multi-Drug Resistant Organisms: None Reported Past Surgical History: No Surgical Hx Reported Additional Past Surgical History / Comment(s): Varicose vein surgery, irrigation to right leg Past Anesthesia/Blood Transfusion Reactions: No Reported Reaction Past Psychological History: No Psychological Hx Reported Smoking Status: Never smoker - Past Family History Father Family Medical History: CVA/TIA Additional Family Medical History / Comment(s): Father passed from stroke at age 62. Son(s) Family Medical History: Cancer Additional Family Medical History / Comment(s): Down syndrome, KIDNEY CANCER Medications and Allergies Home Medications Medication Instructions Recorded Confirmed Type Cranberry Fruit Extract [Cranberry] 500 mg PO DAILY 01/31/21 02/24/22 History amLODIPine [Norvasc] 5 mg PO DAILY #30 tab 02/04/21 02/24/22 Rx Insulin Glargine,Hum.rec.anlog 10 unit SQ DAILY@1200 09/30/21 02/24/22 History [Lantus Solostar Pen] Aspirin EC [Ecotrin Low Dose] 81 mg PO DAILY 02/24/22 02/24/22 History Insulin Lispro [humaLOG Kwikpen] 2 unit SQ AC-TID 02/24/22 02/24/22 History Insulin Lispro [humaLOG Kwikpen] See Protocol SQ AC-TID 02/24/22 02/24/22 History Metoprolol Succinate (ER) [Toprol 25 mg PO DAILY 02/24/22 02/24/22 History Xl] Pioglitazone [Actos] 15 mg PO DAILY 02/24/22 02/24/22 History lisinopriL [Zestril] 10 mg PO DAILY 02/24/22 02/24/22 History Allergies Allergy/AdvReac Type Severity Reaction Status Date / Time No Known Allergies Allergy Verified 02/24/22 20:52 Physical Exam Vitals: Vital Signs Temp Pulse Resp BP Pulse Ox 02/25/22 04:28 56 L 18 188/74 93 L 02/25/22 00:06 55 L 18 201/89 95 02/24/22 21:44 55 L 20 205/95 94 L 02/24/22 17:48 98.7 F 50 L 20 178/89 95 Intake and Output 02/24/22 02/25/22 02/25/22 22:59 06:59 14:59 Other: Weight 81.647 kg GENERAL: The patient is alert and oriented x3, not in any acute distress. Well developed, well nourished. HEENT: Pupils are round and equally reacting to light. EOMI. No scleral icterus. No conjunctival pallor. Normocephalic, atraumatic. No pharyngeal erythema. No thyromegaly. CARDIOVASCULAR: S1 and S2 present. No murmurs, rubs, or gallops. -PULMONARY: Chest is clear to auscultation, no wheezing. bilaterally basal crackles. -ABDOMEN: Soft, nontender, nondistended, normoactive bowel sounds. No palpable organomegaly. Indwelling Washington catheter in place.(Patient Examination of his genital area states that everything is fine) MUSCULOSKELETAL: No joint swelling or deformity. -EXTREMITIES: No cyanosis, clubbing, bilateral pitting leg edema NEUROLOGICAL: Gross neurological examination did not reveal any focal deficits. SKIN: No rashes. no petechiae. Results CBC & Chem 7: 02/24/22 19:18 02/24/22 19:18 Labs: Abnormal Lab Results - Last 24 Hours (Table) 02/24/22 02/24/22 02/24/22 Range/Units 18:21 19:18 19:18 BUN 22 H (9-20) mg/dL Creatinine 1.80 H (0.66-1.25) mg/dL Glucose 120 H (74-99) mg/dL Hemoglobin A1c 6.7 H (0.0-6.0) % Urine Protein 3+ H (Negative) Urine Ketones Trace H (Negative) Urine Blood Moderate H (Negative) Ur Leukocyte Esterase Large H (Negative) Urine RBC 14 H (0-5) /hpf Urine WBC >182 H (0-5) /hpf Urine WBC Clumps Many H (None) /hpf Amorphous Sediment Few H (None) /hpf Urine Bacteria Many H (None) /hpf Hyaline Casts 70 H (0-2) /lpf Urine Mucus Few H (None) /hpf Microbiology - Last 24 Hours (Table) 02/24/22 18:21 Urine Culture - Preliminary Urine,Voided Assessment and Plan Assessment: Acute congestive heart failure, new onset. Unknown ejection fraction Hypertension, with urgency acute urinary tract infection associated with [place] catheter, present on admission Acute on chronic kidney injury, stage II Diabetes mellitus History of chronic UTI Plan: Continue with aspirin and cardiology. Check echocardiogram Continue with IV Lasix Monitor creatinine and input and output. Continue with antibiotic and follow-up urine culture. Currently he is on Zosyn Labs and medication were reviewed.. Continue same treatment. Continue with symptomatic treatment. Resume home medication. Monitor labs and vitals. DVT and GI prophylaxis. Further recommendations as per clinical course of the patient DVT prophylaxis: Subcutaneous heparin GI Prophylaxis: Pepcid PT/OT: Pending Prognosis is guarded
[2022-02-25] MEDS: FUROSEMIDE 10 MG/ML 4 ML VIAL IV SCH ×2 (08:38→16:47)
[2022-02-25] MEDS ORDERED: hydrALAZINE HCL 20 MG/ML 1 ML VIAL IVP PRN (08:38)
[2022-02-25] MEDS: lisinopriL 10 MG TAB PO SCH (08:38)
[2022-02-25] MEDS: NITROGLYCERIN OINT 1 INCH/GM PACKET TOPICAL SCH ×4 (08:38→21:05)
[2022-02-25] MEDS ORDERED: FAMOTIDINE 20 MG/2 ML VIAL IV SCH (09:00)
[2022-02-25] MEDS ORDERED: ASPIRIN 325 MG TAB PO SCH (09:00)
[2022-02-25] MEDS ORDERED: lisinopriL 10 MG TAB PO SCH (09:00)
[2022-02-25] MEDS ORDERED: PIPERACILLIN-TAZOBACTAM 3.375 GM in SODIUM CHLORIDE 0.9% 100 ML IVPB SCH (09:00)
[2022-02-25] MEDS ORDERED: METOPROLOL SUCCINATE (ER) 25 MG TAB.ER.24H PO SCH (09:00)
[2022-02-25] MEDS ORDERED: amLODIPine 5 MG TAB PO SCH ×2 (09:00)
[2022-02-25 12:27] LABS: Glucose,Whole Blood 166 mg/dL (70-110)
[2022-02-25] MEDS: INSULIN DETEMIR (LEVEMIR) 100 UNIT/ML SYR SQ SCH (12:48)
[2022-02-25] MEDS: hydrALAZINE HCL 25 MG TAB PO PRN ×2 (12:48→16:57)
--- NOTE | 2022-02-25 12:59 | CA ---
Transthoracic Echo Report Name: Matthew Vu Age: 71 Gender: M : 1950 Exam Date: 02/25/2022 09:21 Exam Location: [facility] Ht (in): 72 Wt (lb): 180 Ordering Physician: Shirley Peña MD Attending/Referring Phys: Loom Starter Bettina Zarco RDCS Procedure CPT: Indications: chg Cardiac Hx: Technical Quality: Contrast 1: Total Dose (mL): Contrast 2: Total Dose (mL): MEASUREMENTS (Male / Female) Normal Values 2D ECHO LV Diastolic Diameter PLAX 4.8 cm 4.2 - 5.9 / 3.9 - 5.3 cm LV Systolic Diameter PLAX 4.6 cm IVS Diastolic Thickness 1.1 cm 0.6 - 1.0 / 0.6 - 0.9 cm LVPW Diastolic Thickness 1.3 cm 0.6 - 1.0 / 0.6 - 0.9 cm LV Relative Wall Thickness 0.5 LA Systolic Diameter LX 4.8 cm 3.0 - 4.0 / 2.7 - 3.8 cm LA Volume 75.7 cm??? 18 - 58 / 22 - 52 cm??? M-MODE Aortic Root Diameter MM 3.1 cm LA Systolic Diameter MM 3.8 cm LA Ao Ratio MM 1.2 MV E Point Septal Separation 1.8 cm AV Cusp Separation MM 1.5 cm DOPPLER MV Area PHT 4.6 cm??? Mitral E Point Velocity 54.0 cm/s Mitral A Point Velocity 57.8 cm/s Mitral E to A Ratio 0.9 MV Deceleration Time 163.9 ms MV E' Velocity 5.3 cm/s Mitral E to MV E' Ratio 10.2 TR Peak Velocity 220.0 cm/s TR Peak Gradient 19.4 mmHg Right Ventricular Systolic Press 23.0 mmHg FINDINGS Left Ventricle Left ventricular ejection fraction is estimated at 55 %. Left ventricular cavity size normal. Mildly increased left ventricular wall thickness. Right Ventricle Normal right ventricular size and function. Right ventricular systolic pressure within normal limits. Right Atrium Normal right atrial size. Left Atrium Moderately increased left atrial diameter. Moderately increased left atrial volume. Mitral Valve Structurally normal mitral valve. Mild mitral regurgitation. Aortic Valve Trileaflet aortic valve. Tricuspid Valve Structurally normal tricuspid valve. Pulmonic Valve Structurally normal pulmonic valve. Pericardium Normal pericardium. Aorta Normal size aortic root and proximal ascending aorta. CONCLUSIONS Preserved LV systolic function Previewed by: Dr. Nasir Arce MD (Electronically Signed) Final Date: 25 February 2022 12:58
--- NOTE | 2022-02-25 13:21 | P.CRDCN ---
History of Present Illness History of present illness: HISTORY OF PRESENTING ILLNESS This is a pleasant 71-year-old male past medical history significant for hypertension, type 2 diabetes. He does not follow with perinatal specialist. Primary is Dr. Aldana. We have been asked to see in consultation for CHF Patient presents emergency department with worsening shortness of breath. He states he's been having symptoms of worsening shortness of breath and bilateral lower extremity edema that began on Wednesday. He presented to his primary care prov ider's office was recommended patient be evaluated in the emergency department for acute heart failure. His blood pressures were also significant elevated when he was admitted with BP 200s/90s. He states he is compliant with his medications. He states he has not compliant with a low-salt diet. He denies any history of CAD, [place], stroke. He denies any tobacco, alcohol use, illicit drug use. DIAGNOSTICS * EKG reveals sinus bradycardia, heart rate 57, St-T wave abnormalities anteriorly, non-specific, no prior EKG to compare * Telemetry tracings indicate sinus rhythm * Chest xray bilateral pleural effusions and minimal congestion. * Echocardiogram revealed EF 55%, no significant wall motion or valvular abnormalities * Laboratory reviewed, troponin negative 3, sodium 139, potassium 4.9, BUN 22, serum creatinine 1.8, hemoglobin A1c 6.7, proBNP 10,700, TSH within normal limits, CBC unremarkable * Current home cardiac medications include aspirin 81 mg daily, lisinopril 10 mg daily, metoprolol succinate 25 mg daily, amlodipine 5 mg daily REVIEW OF SYSTEMS At the time of my exam: CONSTITUTIONAL: Denies fever or chills. CARDIOVASCULAR: Denies chest pain, +shortness of breath, +LE edema Denies orthopnea, PND or palpitations. RESPIRATORY: Denies cough. GASTROINTESTINAL: Denies abdominal pain, diarrhea, constipation, nausea or vomiting. MUSCULOSKELETAL: Denies myalgias. NEUROLOGIC: Denies numbness, tingling, headacbe or weakness. ENDOCRINE: Denies fatigue, weight change, polydipsia or polyurina. GENITOURINARY: Denies burning, hematuria or urgency with micturation. HEMATOLOGIC: Denies history of anemia or bleeding. PHYSICAL EXAMINATION Vitals reviewed CONSTITUTIONAL: No apparent distress. HEENT: Head is normocephalic. Pupils are equal, round. Sclerae anicteric. Mucous membranes of the mouth are moist. No JVD. No carotid bruit. CHEST EXAMINATION: Lungs mild crackles in the bases to auscultation. No chest wall tenderness is noted on palpation or with deep breathing. HEART EXAMINATION: Regular rate and rhythm. S1, S2 heard. No murmurs, gallops or rub. ABDOMEN: Soft, nontender. Positive bowel sounds. EXTREMITIES: 2+ peripheral pulses, 1-2+ bilateral lower extremity edema and no calf tenderness. NEUROLOGIC EXAMINATION: Patient is awake, alert and oriented x3. ASSESSMENT Hypertensive Emergency Acute heart failure with preserved ejection fraction Hypertension Type 2 diabetes PLAN IV Lasix 40mg Q8hr Monitor I/Os daily weights renal function and electrolytes Amlodipine increased 10mg daily Stop metoprolol succinate and start Carvediolol 6.25mg BID Continue lisinopril Further recommendations based on clinical course Nurse practitioner note has been reviewed by physician. Signing provider agrees with the documented findings, assessment, and plan of care. Past Medical History Past Medical History: Chest Pain / Angina, Diabetes Mellitus, Hypertension, Pneumonia Additional Past Medical History / Comment(s): Neuropathy in bilat feet and bilat hands. CHRONIC UTI History of Any Multi-Drug Resistant Organisms: None Reported Past Surgical History: No Surgical Hx Reported Additional Past Surgical History / Comment(s): Varicose vein surgery, irrigation to right leg Past Anesthesia/Blood Transfusion Reactions: No Reported Reaction Past Psychological History: No Psychological Hx Reported Smoking Status: Never smoker - Past Family History Father Family Medical History: CVA/TIA Additional Family Medical History / Comment(s): Father passed from stroke at age 62. Son(s) Family Medical History: Cancer Additional Family Medical History / Comment(s): Down syndrome, KIDNEY CANCER Medications and Allergies Home Medications Medication Instructions Recorded Confirmed Type Cranberry Fruit Extract [Cranberry] 500 mg PO DAILY 01/31/21 02/24/22 History amLODIPine [Norvasc] 5 mg PO DAILY #30 tab 02/04/21 02/24/22 Rx Insulin Glargine,Hum.rec.anlog 10 unit SQ DAILY@1200 09/30/21 02/24/22 History [Lantus Solostar Pen] Aspirin EC [Ecotrin Low Dose] 81 mg PO DAILY 02/24/22 02/24/22 History Insulin Lispro [humaLOG Kwikpen] 2 unit SQ AC-TID 02/24/22 02/24/22 History Insulin Lispro [humaLOG Kwikpen] See Protocol SQ AC-TID 02/24/22 02/24/22 History Metoprolol Succinate (ER) [Toprol 25 mg PO DAILY 02/24/22 02/24/22 History Xl] Pioglitazone [Actos] 15 mg PO DAILY 02/24/22 02/24/22 History lisinopriL [Zestril] 10 mg PO DAILY 02/24/22 02/24/22 History Allergies Allergy/AdvReac Type Severity Reaction Status Date / Time No Known Allergies Allergy Verified 02/24/22 20:52 Physical Exam Vitals: Vital Signs Temp Pulse Resp BP Pulse Ox 02/25/22 04:28 56 L 18 188/74 93 L 02/25/22 00:06 55 L 18 201/89 95 02/24/22 21:44 55 L 20 205/95 94 L 02/24/22 17:48 98.7 F 50 L 20 178/89 95 Intake and Output 02/24/22 02/25/22 02/25/22 22:59 06:59 14:59 Other: Weight 81.647 kg Results 02/24/22 19:18 02/24/22 19:18 Cardiac Enzymes 02/24/22 02/24/22 02/24/22 Range/Units 19:18 19:18 22:26 AST 27 (17-59) U/L Troponin I 0.024 0.019 (0.000-0.034) ng/mL 02/25/22 Range/Units 03:42 AST (17-59) U/L Troponin I 0.023 (0.000-0.034) ng/mL Coagulation 02/24/22 Range/Units 19:18 PT 10.8 (9.0-12.0) sec APTT 23.8 (22.0-30.0) sec CBC 02/24/22 Range/Units 19:18 WBC 8.1 (3.8-10.6) k/uL RBC 4.78 (4.30-5.90) m/uL Hgb 14.9 (13.0-17.5) gm/dL Hct 41.3 (39.0-53.0) % Plt Count 198 (150-450) k/uL Comprehensive Metabolic Panel 02/24/22 Range/Units 19:18 Sodium 139 (137-145) mmol/L Potassium 4.9 (3.5-5.1) mmol/L Chloride 107 (98-107) mmol/L Carbon Dioxide 29 (22-30) mmol/L BUN 22 H (9-20) mg/dL Creatinine 1.80 H (0.66-1.25) mg/dL Glucose 120 H (74-99) mg/dL Calcium 9.0 (8.4-10.2) mg/dL AST 27 (17-59) U/L ALT 22 (4-49) U/L Alkaline Phosphatase 101 (38-126) U/L Total Protein 6.3 (6.3-8.2) g/dL Albumin 3.6 (3.5-5.0) g/dL Current Medications Generic Name Dose Route Start Last Admin Trade Name Freq PRN Reason Stop Dose Admin Amlodipine Besylate 5 mg 02/25/22 09:00 Amlodipine 5 Mg Tab PO DAILY [facility] Amlodipine Besylate 5 mg 02/25/22 09:00 Amlodipine 5 Mg Tab PO DAILY [facility] Aspirin 325 mg 02/25/22 09:00 Aspirin 325 Mg Tab PO DAILY [facility] Dextrose/Water 25 ml 02/24/22 21:35 Dextrose 50% Syringe 50 Ml IVP PER PROTOCOL PRN Hypoglycemia Protocol Dextrose/Water 50 ml 02/24/22 21:35 Dextrose 50% Syringe 50 Ml IVP PER PROTOCOL PRN Hypoglycemia Protocol Furosemide 40 mg 02/24/22 21:30 02/24/22 21:43 Furosemide 10 Mg/Ml 4 Ml Vial IV Not Given Q12H [facility] Heparin Sodium (Porcine) 5,000 unit 02/25/22 00:00 02/25/22 00:07 Heparin Sodium,Porcine/Pf 5,000 Unit/0.5 Ml Syringe SQ 5,000 unit Q8HR [facility] Administration Piperacillin Sod/Tazobactam 100 mls @ 25 mls/hr 02/25/22 09:00 Sod 3.375 gm/ Sodium Chloride IVPB Q12HR [facility] Protocol Insulin Aspart 0 unit 02/25/22 07:30 Insulin Aspart (Novolog) 100 Unit/Ml Vial SQ ACHS [facility] Protocol Insulin Detemir 10 unit 02/25/22 12:00 Insulin Detemir (Levemir) 100 Unit/Ml Syr SQ DAILY@1200 [facility] Lisinopril 10 mg 02/25/22 09:00 Lisinopril 10 Mg Tab PO DAILY [facility] Metoprolol Succinate 25 mg 02/25/22 09:00 Metoprolol Succinate (Er) 25 Mg Tab.Er.24h PO DAILY [facility] Nitroglycerin 1 inch 02/24/22 22:00 02/24/22 22:48 Nitroglycerin Oint 1 Inch/Gm Packet TOPICAL Not Given QID [facility] Intake and Output 02/24/22 02/25/22 02/25/22 22:59 06:59 14:59 Other: Weight 81.647 kg 02/24/22 19:18 02/24/22 19:18
[2022-02-25] MEDS: carvediloL 6.25 MG TAB PO SCH (16:48)
[2022-02-25] MEDS: PIPERACILLIN-TAZOBACTAM 3.375 GM in SODIUM CHLORIDE 0.9% 100 ML IVPB SCH (16:48)
[2022-02-25 16:49] LABS: Glucose,Whole Blood 131 mg/dL (70-110)
[2022-02-25 19:49] LABS: Glucose,Whole Blood 180 mg/dL (70-110)
[2022-02-26] MEDS: HEPARIN SODIUM,PORCINE/PF 5,000 UNIT/0.5 ML SYRINGE SQ SCH ×3 (00:07→16:15)
[2022-02-26] MEDS: PIPERACILLIN-TAZOBACTAM 3.375 GM in SODIUM CHLORIDE 0.9% 100 ML IVPB SCH ×3 (00:07→16:15)
[2022-02-26] MEDS: FUROSEMIDE 10 MG/ML 4 ML VIAL IV SCH ×2 (00:07→08:14)
[2022-02-26 05:58] LABS: Glucose,Whole Blood 85 mg/dL (70-110)
[2022-02-26] MEDS: INSULIN ASPART (NovoLOG) 100 UNIT/ML VIAL SQ SCH ×4 (06:28→20:29)
[2022-02-26] MEDS: carvediloL 6.25 MG TAB PO SCH ×2 (06:45→17:21)
[2022-02-26 07:54] LABS: Basophils # (A) 0.1 k/uL (0-0.2); Basophils % (A) 1 %; Eosinophils # (A) 0.2 k/uL (0-0.7); Eosinophils % (A) 3 %; HCT 34.2 % (39.0-53.0); HGB 12.7 gm/dL (13.0-17.5); Lymphocytes # (A) 1.5 k/uL (1.0-4.8); Lymphocytes % (A) 22 %; MCH 31.5 pg (25.0-35.0); MCHC 37.2 g/dL (31.0-37.0); MCV 84.6 fL (80.0-100.0); Mean Platelet Volume 7.4; Monocytes # (A) 0.5 k/uL (0-1.0); Monocytes % (A) 7 %; Neutrophils # (A) 4.4 k/uL (1.3-7.7); Neutrophils % (A) 65 %; Platelet Count 168 k/uL (150-450); Poikilocytosis Slight; RBC 4.04 m/uL (4.30-5.90); RDW 14.7 % (11.5-15.5); WBC 6.7 k/uL (3.8-10.6)
[2022-02-26] MEDS: amLODIPine 10 MG TAB PO SCH (08:14)
[2022-02-26] MEDS: NITROGLYCERIN OINT 1 INCH/GM PACKET TOPICAL SCH ×4 (08:14→21:39)
[2022-02-26] MEDS: ASPIRIN 81 MG PO SCH (08:14)
[2022-02-26] MEDS: lisinopriL 10 MG TAB PO SCH (08:14)
[2022-02-26 08:34] LABS: Calcium 7.8 mg/dL (8.4-10.2); Magnesium 1.8 mg/dL (1.6-2.3); Potassium 3.1 mmol/L (3.5-5.1)
[2022-02-26] MEDS ORDERED: Potassium Replacement Protocol 1 EACH MISC MISCELLANE PRN (08:46)
[2022-02-26] MEDS ORDERED: FAMOTIDINE 20 MG/2 ML VIAL IV SCH (09:00)
[2022-02-26] MEDS ORDERED: SPIRONOLACTONE 25 MG TAB PO SCH (09:00)
[2022-02-26] MEDS: POTASSIUM CHLORIDE ER 20 MEQ TAB.ER PO SCH ×3 (10:16→14:35)
[2022-02-26 11:06] VITALS: BMI 24.5
--- NOTE | 2022-02-26 11:17 | P.PN ---
Subjective This is a pleasant 71-year-old male past medical history significant for hypertension, type 2 diabetes. He does not follow with event marketing assistant. Primary is Dr. Aldana. We have been asked to see in consultation for CHF Patient presents emergency department with worsening shortness of breath. He states he's been having symptoms of worsening shortness of breath and bilateral lower extremity edema that began on Wednesday. He presented to his primary care provider's office was recommended patient be evaluated in the emergency department for acute heart failure. His blood pressures were also significant elevated when he was admitted with BP 200s/90s. Patient seen and examined at bedside, no acute distress. Echocardiogram revealed EF 55%, no significant wall motion or valvular abnormalities/ troponin negative 3. Acute coronary syndrome ruled out. BP has improved. His breathing has improved. He denies any chest pain or shortness of breath. Blood pressure 159/70, heart rate 55, afebrile,91% on 2L nasal cannula GENERAL: Well-appearing, well-nourished and in no acute distress. NECK: Supple without JVD LUNGS: Breath sounds diminished to auscultation bilaterally. Respiration equal and unlabored. No wheezes, rales or rhonchi. HEART: Regular rate and rhythm without murmurs, rubs or gallops. S1 and S2 heard. EXTREMITIES: Normal range of motion, mild bilateral lower extremity edema. No clubbing or cyanosis. Peripheral pulses intact. ASSESSMENT Hypertensive Emergency Acute heart failure with preserved ejection fraction Hypertension Type 2 diabetes Hypokalemia PLAN Transition to PO Lasix Add Aldactone 25mg daily Replace potassium per protocol Continue lisinopril, amlodipine, aspirin and carvedilol From a cardiology perspective, if blood pressure is stable. Ok to discharge later today and follow up outpatient. Nurse Practitioner note has been reviewed, I agree with a documented findings and plan of care. Patient was seen and examined. Objective - Vital Signs Vital signs: Vital Signs Temp 98.2 F 02/26/22 08:09 Pulse 56 L 02/26/22 08:26 Resp 20 02/26/22 08:26 BP 159/70 02/26/22 08:09 Pulse Ox 91 L 02/26/22 08:26 FiO2 2 02/26/22 08:26 Intake & Output 02/25/22 02/26/22 02/26/22 18:59 06:59 18:59 Intake Total 240 118 Output Total 1425 1600 450 Balance -2906 -2361 -035 Weight 81.647 kg 93.8 kg 93.8 kg Intake: Oral 240 118 Output: Urine 1425 1600 450 Other: Voiding Method Indwelling Catheter Indwelling Catheter Indwelling Catheter - Labs CBC & Chem 7: 02/26/22 07:05 02/26/22 07:05 Labs: Abnormal Lab Results - Last 24 Hours (Table) 02/25/22 02/25/22 02/25/22 Range/Units 12:25 16:45 19:47 RBC (4.30-5.90) m/uL Hgb (13.0-17.5) gm/dL Hct (39.0-53.0) % MCHC (31.0-37.0) g/dL Potassium (3.5-5.1) mmol/L Carbon Dioxide (22-30) mmol/L BUN (9-20) mg/dL Creatinine (0.66-1.25) mg/dL POC Glucose (mg/dL) 166 H 131 H 180 H (70-110) mg/dL Calcium (8.4-10.2) mg/dL 02/26/22 02/26/22 Range/Units 07:05 07:05 RBC 4.04 L (4.30-5.90) m/uL Hgb 12.7 L (13.0-17.5) gm/dL Hct 34.2 L (39.0-53.0) % MCHC 37.2 H (31.0-37.0) g/dL Potassium 3.1 L (3.5-5.1) mmol/L Carbon Dioxide 32 H (22-30) mmol/L BUN 23 H (9-20) mg/dL Creatinine 2.06 H (0.66-1.25) mg/dL POC Glucose (mg/dL) (70-110) mg/dL Calcium 7.8 L (8.4-10.2) mg/dL Microbiology - Last 24 Hours (Table) 02/24/22 18:21 Urine Culture - Preliminary Urine,Voided Gram Neg Bacilli
[2022-02-26 11:39] LABS: Glucose,Whole Blood 112 mg/dL (70-110)
--- NOTE | 2022-02-26 12:06 | P.PN ---
Subjective This is a pleasant 71 years old male with past medical history of hypertension, diabetes mellitus, chronic UTI Presents because of shortness of breath and increased leg swelling. Patient states that he's having shortness of breath since last , about 6 days ago. Associated with a dry cough present. He says that he has some chest pain when he comes No significant pain without coughing. Patient says that he never had heart problems before. This is an you for him. Also patient has indwelling [place] catheter for about 3 months and he follows up with Dr. Rees office. He denies any specific symptoms regarding his urinary tract. No abdominal pain or vomiting or diarrhea. No headache or dizziness or weakness or numbness He denies smoking alcohol or illicit drugs Patient's mildly bradycardic on admission, heart rate 56 this morning. Blood pressure is elevated 201/89, currently 188/74. Patient is afebrile. Labs show an unremarkable CBC, INR, liver enzymes. BNP is elevated 10 700 Creatinine is high at 1.8, baseline is 1.0-1.3 EKG showing sinus bradycardia at [address] T changes Chest x-ray: There is bilateral pleural effusion and minimal congestion. Possible mild chronic congestive heart failure which is a new change. Urine analysis suspicious for infection Patient is started on Zosyn and emergency room as well as IV Lasix 02/26/2022 Patient sitting at the bedside, does not look in distress, who was admitted with possible CHF, he was started on IV Lasix 40 mg every 8 hours, based on abnormal chest x-ray which I looked at myself, there is no recent previous chest x-ray to compare with. 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 However patient remains hypoxic about 88 on room air, went up to 91% on 2 L oxygen nasal cannula. Patient was not on home oxygen. Because of this were going to consult pulmonary service for his low oxygen level. Also with some evidence of UTI, currently on Zosyn related to his [place] catheter infection and urine culture is still pending. Hemoglobin A1c is 6.7%, ejection fraction 55%, blood pressure is better controlled after adding Norvasc. Creatinine increased 1.8 up to 2.0. Objective - Vital Signs Vital signs: Vital Signs Temp 98.2 F 02/26/22 08:09 Pulse 56 L 02/26/22 08:26 Resp 20 02/26/22 08:26 BP 159/70 02/26/22 08:09 Pulse Ox 91 L 02/26/22 08:26 FiO2 2 02/26/22 08:26 Intake & Output 02/25/22 02/26/22 02/26/22 18:59 06:59 18:59 Intake Total 240 118 Output Total 1425 1600 450 Balance -1185 -1600 -332 Weight 81.647 kg 93.8 kg Intake: Oral 240 118 Output: Urine 1425 1600 450 Other: Voiding Method Indwelling Catheter Indwelling Catheter Indwelling Catheter - Exam GENERAL: The patient is alert and oriented x3, not in any acute distress. Well developed, well nourished. HEENT: Pupils are round and equally reacting to light. EOMI. No scleral icterus. No conjunctival pallor. Normocephalic, atraumatic. No pharyngeal erythema. No thyromegaly. CARDIOVASCULAR: S1 and S2 present. No murmurs, rubs, or gallops. -PULMONARY: Chest is clear to auscultation, no wheezing. Improving bilaterally basal crackles. -ABDOMEN: Soft, nontender, nondistended, normoactive bowel sounds. No palpable organomegaly. Indwelling [place] catheter in place.(Patient refused Examination of his genital area states that everything is fine) MUSCULOSKELETAL: No joint swelling or deformity. -EXTREMITIES: No cyanosis, clubbing, improving bilateral pitting leg edema NEUROLOGICAL: Gross neurological examination did not reveal any focal deficits. SKIN: No rashes. no petechiae. - Labs CBC & Chem 7: 02/26/22 07:05 02/26/22 07:05 Labs: Abnormal Lab Results - Last 24 Hours (Table) 02/25/22 02/25/22 02/25/22 Range/Units 12:25 16:45 19:47 RBC (4.30-5.90) m/uL Hgb (13.0-17.5) gm/dL Hct (39.0-53.0) % MCHC (31.0-37.0) g/dL Potassium (3.5-5.1) mmol/L Carbon Dioxide (22-30) mmol/L BUN (9-20) mg/dL Creatinine (0.66-1.25) mg/dL POC Glucose (mg/dL) 166 H 131 H 180 H (70-110) mg/dL Calcium (8.4-10.2) mg/dL 02/26/22 02/26/22 Range/Units 07:05 07:05 RBC 4.04 L (4.30-5.90) m/uL Hgb 12.7 L (13.0-17.5) gm/dL Hct 34.2 L (39.0-53.0) % MCHC 37.2 H (31.0-37.0) g/dL Potassium 3.1 L (3.5-5.1) mmol/L Carbon Dioxide 32 H (22-30) mmol/L BUN 23 H (9-20) mg/dL Creatinine 2.06 H (0.66-1.25) mg/dL POC Glucose (mg/dL) (70-110) mg/dL Calcium 7.8 L (8.4-10.2) mg/dL Microbiology - Last 24 Hours (Table) 02/24/22 18:21 Urine Culture - Preliminary Urine,Voided Gram Neg Bacilli Assessment and Plan Assessment: Acute hypoxic respiratory failure Acute diastolic congestive heart failure, new onset. Normal ejection fraction about 55% Hypertension, with urgency acute urinary tract infection associated with [place] catheter, present on admission Acute on chronic kidney injury, stage II Diabetes mellitus History of chronic UTI Plan: Continue with aspirin and oral Lasix Cardiology team. The patient for discharge Consult pulmonary for hypoxia Continue with Zosyn and follow-up urine culture Labs and medication were reviewed.. Continue same treatment. Continue with sym ptomatic treatment. Resume home medication. Monitor labs and vitals. DVT and GI prophylaxis. Further recommendations as per clinical course of the patient DVT prophylaxis: Subcutaneous heparin GI Prophylaxis: Pepcid PT/OT: Pending Prognosis is guarded
[2022-02-26] MEDS: INSULIN DETEMIR (LEVEMIR) 100 UNIT/ML SYR SQ SCH (12:59)
[2022-02-26 16:16] LABS: Glucose,Whole Blood 148 mg/dL (70-110)
[2022-02-26 20:15] LABS: Glucose,Whole Blood 193 mg/dL (70-110)
[2022-02-27] MEDS: HEPARIN SODIUM,PORCINE/PF 5,000 UNIT/0.5 ML SYRINGE SQ SCH ×3 (00:50→17:43)
[2022-02-27] MEDS: PIPERACILLIN-TAZOBACTAM 3.375 GM in SODIUM CHLORIDE 0.9% 100 ML IVPB SCH ×2 (00:50→09:24)
[2022-02-27 06:27] LABS: Glucose,Whole Blood 142 mg/dL (70-110)
[2022-02-27] MEDS: INSULIN ASPART (NovoLOG) 100 UNIT/ML VIAL SQ SCH ×4 (06:35→20:57)
[2022-02-27] MEDS: carvediloL 6.25 MG TAB PO SCH ×2 (06:35→17:43)
[2022-02-27] MEDS ORDERED: hydrALAZINE HCL 25 MG TAB PO SCH (09:00)
[2022-02-27] MEDS ORDERED: FUROSEMIDE 40 MG TAB PO SCH (09:00)
[2022-02-27 09:12] LABS: Basophils % (A) 1 %; Eosinophils # (A) 0.3 k/uL (0-0.7); Eosinophils % (A) 4 %; HCT 35.5 % (39.0-53.0); Lymphocytes # (A) 1.8 k/uL (1.0-4.8); Lymphocytes % (A) 23 %; MCH 30.9 pg (25.0-35.0); MCHC 36.5 g/dL (31.0-37.0); MCV 84.7 fL (80.0-100.0); Mean Platelet Volume 7.7; Monocytes # (A) 0.6 k/uL (0-1.0); Monocytes % (A) 7 %; Neutrophils # (A) 4.9 k/uL (1.3-7.7); Neutrophils % (A) 64 %; Platelet Count 170 k/uL (150-450); Poikilocytosis Slight; RDW 14.5 % (11.5-15.5); WBC 7.7 k/uL (3.8-10.6)
[2022-02-27 09:16] LABS: Magnesium 1.8 mg/dL (1.6-2.3); Potassium 3.6 mmol/L (3.5-5.1)
[2022-02-27] MEDS: hydrALAZINE HCL 25 MG TAB PO SCH ×3 (09:23→20:57)
[2022-02-27] MEDS: ASPIRIN 81 MG PO SCH (09:23)
[2022-02-27] MEDS: FAMOTIDINE 20 MG TAB PO SCH (09:23)
[2022-02-27] MEDS: lisinopriL 10 MG TAB PO SCH (09:23)
[2022-02-27] MEDS: amLODIPine 10 MG TAB PO SCH (09:23)
[2022-02-27] MEDS ORDERED: POTASSIUM CHLORIDE ER 20 MEQ TAB.ER PO SCH (10:00)
[2022-02-27 12:14] LABS: Glucose,Whole Blood 151 mg/dL (70-110)
--- NOTE | 2022-02-27 12:50 | P.NPCON ---
History of Present Illness - Reason for Consult acute renal failure - History of Present Illness Reason for consultation: Acute kidney injury History of present illness: Patient is a 71-year-old male seen in consultation for acute kidney injury. Patient's creatinine and 2020 was near 1 and was elevated at 1.8 this admission. It is elevated at 2.4 today. Patient has been receiving Lasix this admission and was on 40 mg once daily as of this morning. Blood pressures have been on the higher side. Blood pressure was over 200 systolic on admission. He's on 2 L nasal cannula. Patient came to the hospital on 02/24/2022 due to short of breath. Patient states he developed edema in his lower extremity and also cough last week. He did see his primary care physician and was subsequently sent to the hospital. Patient states he has long-standing history of diabetes. UA shows E. coli UTI and is currently receiving antibiotics. he denies history of coronary artery disease. He denies regular use of nonsteroidals. Patient states he has a chronic [place] catheter due to urinary frequency and follows with urology outpatient patient states his [place] catheter was last changed 3 days ago. Nonoliguric. Echocardiogram showed preserved ejection fraction. He denies fever or chills. He is currently on 2 L nasal cannula. Oral intake is fair. He denies vomiting or diarrhea. Vital signs are stable. General: Awake. No acute distress. HEENT: Head exam is unremarkable. On nasal cannula. LUNGS: Breath sounds decreased. HEART: Rate and Rhythm are regular. ABDOMEN: Soft, no distention. EXTREMITITES: Trace edema. Past Medical History Past Medical History: Chest Pain / Angina, Diabetes Mellitus, Hypertension, Pneumonia Additional Past Medical History / Comment(s): Neuropathy in bilat feet and bilat hands. CHRONIC UTI History of Any Multi-Drug Resistant Organisms: None Reported Past Surgical History: No Surgical Hx Reported Additional Past Surgical History / Comment(s): Varicose vein surgery, irrigation to right leg Past Anesthesia/Blood Transfusion Reactions: No Reported Reaction Past Psychological History: No Psychological Hx Reported Smoking Status: Never smoker Past Alcohol Use History: None Reported Past Drug Use History: None Reported - Past Family History Father Family Medical History: CVA/TIA Additional Family Medical History / Comment(s): Father passed from stroke at age 62. Son(s) Family Medical History: Cancer Additional Family Medical History / Comment(s): Down syndrome, KIDNEY CANCER Medications and Allergies Home Medications Medication Instructions Recorded Confirmed Type Cranberry Fruit Extract [Cranberry] 500 mg PO DAILY 01/31/21 02/24/22 History amLODIPine [Norvasc] 5 mg PO DAILY #30 tab 02/04/21 02/24/22 Rx Insulin Glargine,Hum.rec.anlog 10 unit SQ DAILY@1200 09/30/21 02/24/22 History [Lantus Solostar Pen] Aspirin EC [Ecotrin Low Dose] 81 mg PO DAILY 02/24/22 02/24/22 History Insulin Lispro [humaLOG Kwikpen] 2 unit SQ AC-TID 02/24/22 02/24/22 History Insulin Lispro [humaLOG Kwikpen] See Protocol SQ AC-TID 02/24/22 02/24/22 History Metoprolol Succinate (ER) [Toprol 25 mg PO DAILY 02/24/22 02/24/22 History Xl] Pioglitazone [Actos] 15 mg PO DAILY 02/24/22 02/24/22 History lisinopriL [Zestril] 10 mg PO DAILY 02/24/22 02/24/22 History Allergies Allergy/AdvReac Type Severity Reaction Status Date / Time No Known Allergies Allergy Verified 02/24/22 20:52 Physical Exam Vitals: Vital Signs Temp Pulse Resp BP Pulse Ox 02/27/22 08:35 96 02/27/22 08:00 98.1 F 54 L 18 162/79 94 L 02/27/22 03:35 98.0 F 58 L 16 169/80 96 02/27/22 00:00 98.6 F 58 L 16 158/77 93 L 02/26/22 19:52 97.9 F 59 L 14 162/77 94 L 02/26/22 16:10 58 L 16 173/84 94 L 02/26/22 13:05 54 L 02/26/22 13:02 57 L 17 156/78 94 L Intake and Output 02/26/22 02/27/22 02/27/22 22:59 06:59 14:59 Intake Total 1000 Output Total 575 400 700 Balance -575 600 -700 Intake: Intake, IV Titration 200 Amount Piperacillin-Tazobactam 3 200 .375 gm In Sodium Chloride 0.9% 100 ml @ 25 mls/hr IVPB Q8HR [facility]PLACED [facility] Rx# :[id number] Oral 800 Output: Urine 575 400 700 Other: Voiding Method Indwelling Catheter Indwelling Catheter Indwelling Catheter Weight 93.5 kg 93.6 kg Results - Lab Results Most recent lab results Calcium 8.0 mg/dL (8.4-10.2) L 02/27/22 08:38 Magnesium 1.8 mg/dL (1.6-2.3) 02/27/22 08:38 02/27/22 08:38 02/27/22 08:38 Assessment and Plan Plan: Assessment: 1. Acute kidney injury secondary to hemodynamic ATN and component of cardiorenal syndrome. Creatinine was 1.8 on admission and is 2.4 today. Nonoliguric. Creatinine in 2020 was near 1. 2. Hypokalemia from diuresis. Replace. Better. 3. Acute on chronic diastolic CHF. 4. Volume overload. Improved with diuresis. 5. Hypertensive urgency. Improved. 6. E. coli UTI on antibiotics. 7. Chronic [place] catheter due to urinary frequency per patient. He follows with urology outpatient. Patient states [place] catheter was changed about 3 days ago. Plan: Lasix stopped this morning. Encourage oral intake. Maintain antihypertensives. Continue with lisinopril as blood pressure is on the higher side. Will need to be discontinued renal function further worsens. Hydralazine was added today. Avoid nephrotoxins. Check renal ultrasound. Repeat labs in the morning. Thank you for the consultation. I will continue to follow the patient with you during his hospital stay.
[2022-02-27] MEDS: INSULIN DETEMIR (LEVEMIR) 100 UNIT/ML SYR SQ SCH (13:10)
--- NOTE | 2022-02-27 14:28 | P.PN ---
Subjective This is a pleasant 71-year-old male past medical history significant for hypertension, type 2 diabetes. 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 Primary is Dr. Aldana. We have been asked to see in consultation for CHF Patient presents emergency department with worsening shortness of breath. He states he's been having symptoms of worsening shortness of breath and bilateral lower extremity edema that began on Wednesday. He presented to his primary care provider's office was recommended patient be evaluated in the emergency department for acute heart failure. His blood pressures were also significant elevated when he was admitted with BP 200s/90s. Patient seen and examined at bedside, no acute distress. Echocardiogram revealed EF 55%, no significant wall motion or valvular abnormalities/ troponin negative 3. Acute coronary syndrome ruled out. BP has improved. His breathing has improved. He denies any chest pain or shortness of breath. His renal function worsened yesterday and potassium low, Aldactone was added. However renal funct ion worsened today up to 2.4. Nephrology was consulted Blood pressure 159/70, heart rate 55, afebrile,91% on 2L nasal cannula GENERAL: Well-appearing, well-nourished and in no acute distress. NECK: Supple without JVD LUNGS: Breath sounds diminished to auscultation bilaterally. Respiration equal and unlabored. No wheezes, rales or rhonchi. HEART: Regular rate and rhythm without murmurs, rubs or gallops. S1 and S2 heard. EXTREMITIES: Normal range of motion, mild bilateral lower extremity edema. No clubbing or cyanosis. Peripheral pulses intact. ASSESSMENT Hypertensive Emergency Acute kidney injury Acute heart failure with preserved ejection fraction Hypertension Type 2 diabetes Hypokalemia PLAN Hold PO Lasix Discontinue Aldactone 25mg daily Continue lisinopril, amlodipine, aspirin and carvedilol Monitor renal function Patient staying overnight to evaluate improvement in renal function BP has improved Potential discharge if renal function has improved Nurse Practitioner note has been reviewed, I agree with a documented findings and plan of care. Patient was seen and examined. Objective - Vital Signs Vital signs: Vital Signs Temp 98.2 F 02/27/22 12:00 Pulse 58 L 02/27/22 12:00 Resp 18 02/27/22 12:00 BP 166/78 02/27/22 12:00 Pulse Ox 96 02/27/22 12:00 FiO2 Intake & Output 02/26/22 02/27/22 02/27/22 18:59 06:59 18:59 Intake Total 658 1000 Output Total 2225 400 700 Balance -1567 600 -700 Weight 93.5 kg 93.6 kg Intake: Intake, IV Titration 200 Amount Piperacillin-Tazobactam 3 200 .375 gm In Sodium Chloride 0.9% 100 ml @ 25 mls/hr IVPB Q8HR [facility] Rx# :[id number] Oral 658 800 Output: Urine 2225 400 700 Other: Voiding Method Indwelling Catheter Indwelling Catheter Indwelling Catheter - Labs CBC & Chem 7: 02/27/22 08:38 02/27/22 08:38 Labs: Abnormal Lab Results - Last 24 Hours (Table) 02/26/22 02/26/22 02/27/22 Range/Units 16:15 20:14 06:26 RBC (4.30-5.90) m/uL Hct (39.0-53.0) % Sodium (137-145) mmol/L Carbon Dioxide (22-30) mmol/L BUN (9-20) mg/dL Creatinine (0.66-1.25) mg/dL Glucose (74-99) mg/dL POC Glucose (mg/dL) 148 H 193 H 142 H (70-110) mg/dL Calcium (8.4-10.2) mg/dL 02/27/22 02/27/22 02/27/22 Range/Units 08:38 08:38 12:09 RBC 4.20 L (4.30-5.90) m/uL Hct 35.5 L (39.0-53.0) % Sodium 136 L (137-145) mmol/L Carbon Dioxide 33 H (22-30) mmol/L BUN 25 H (9-20) mg/dL Creatinine 2.41 H (0.66-1.25) mg/dL Glucose 126 H (74-99) mg/dL POC Glucose (mg/dL) 151 H (70-110) mg/dL Calcium 8.0 L (8.4-10.2) mg/dL Microbiology - Last 24 Hours (Table) 02/24/22 18:21 Urine Culture - Final Urine,Voided Escherichia coli
--- NOTE | 2022-02-27 14:53 | US ---
EXAMINATION TYPE: US kidneys/renal and bladder DATE OF EXAM: 02/27/2022 COMPARISON: CT September 01, 2021 & US CLINICAL HISTORY: dieter. DIETER EXAM MEASUREMENTS: Right Kidney: 12.6 x 6.1 x 5.8 cm Left Kidney: 13.1 x 5.6 x 5.5 cm Right Kidney: Appeared wnl, lower pole gassed out Left Kidney: Appeared wnl Bladder: Pt has cath in place There is no evidence for hydronephrosis at this point in time. No nephrolithiasis is seen. No lalitha s are identified. [place] catheter decompresses bladder. IMPRESSION: No hydronephrosis seen bilaterally on current study.
[2022-02-27 17:03] LABS: Glucose,Whole Blood 150 mg/dL (70-110)
[2022-02-27] MEDS: CEPHALEXIN 500 MG CAP PO SCH ×2 (17:43→20:57)
--- NOTE | 2022-02-27 17:50 | P.PN ---
Subjective Progress Note Date: 02/27/22 71 years old male with past medical history of hypertension, diabetes mellitus, chronic UTI Presents because of shortness of breath and increased leg swelling. Patient states that he's having shortness of breath since last , about 6 days ago. Associated with a dry cough present. He says that he has some chest pain when he comes No significant pain without coughing. Patient says that he never had heart problems before. This is an you for him. Also patient has indwelling [place] catheter for about 3 months and he follows up with Dr. Rees office. He denies any specific symptoms regarding his urinary tract. No abdominal pain or vomiting or diarrhea. No headache or dizziness or weakness or numbness He denies smoking alcohol or illicit drugs Patient's mildly bradycardic on admission, heart rate 56 this morning. Blood pressure is elevated 201/89, currently 188/74. Patient is afebrile. Labs show an unremarkable CBC, INR, liver enzymes. BNP is elevated 10 700 Creatinine is high at 1.8, baseline is 1.0-1.3 EKG showing sinus bradycardia at [address] T changes Chest x-ray: There is bilateral pleural effusion and minimal congestion. Possible mild chronic congestive heart failure which is a new change. Urine analysis suspicious for infection Patient is started on Zosyn and emergency room as well as IV Lasix Objective - Vital Signs Vital signs: Vital Signs Temp 98.1 F 02/27/22 08:00 Pulse 54 L 02/27/22 08:00 Resp 18 02/27/22 08:00 BP 162/79 02/27/22 08:00 Pulse Ox 96 02/27/22 08:35 FiO2 Intake & Output 02/26/22 02/27/22 02/27/22 18:59 06:59 18:59 Intake Total 658 1000 Output Total 2225 400 700 Balance -1567 600 -700 Weight 93.5 kg 93.6 kg Intake: Intake, IV Titration 200 Amount Piperacillin-Tazobactam 3 200 .375 gm In Sodium Chloride 0.9% 100 ml @ 25 mls/hr IVPB Q8HR [facility] Rx# :[id number] Oral 658 800 Output: Urine 2225 400 700 Other: Voiding Method Indwelling Catheter Indwelling Catheter Indwelling Catheter - Exam GENERAL: The patient is alert and oriented x3, not in any acute distress. Well developed, well nourished. HEENT: Pupils are round and equally reacting to light. EOMI. No scleral icterus. No conjunctival pallor. Normocephalic, atraumatic. No pharyngeal erythema. No thyromegaly. CARDIOVASCULAR: S1 and S2 present. No murmurs, rubs, or gallops. -PULMONARY: Chest is clear to auscultation, no wheezing. Improving bilaterally basal crackles. -ABDOMEN: Soft, nontender, nondistended, normoactive bowel sounds. No palpable organomegaly. Indwelling [place] catheter in place.(Patient refused Examination of his genital area states that everything is fine) MUSCULOSKELETAL: No joint swelling or deformity. -EXTREMITIES: No cyanosis, clubbing, improving bilateral pitting leg edema NEUROLOGICAL: Gross neurological examination did not reveal any focal deficits. SKIN: No rashes. no petechiae. - Labs CBC & Chem 7: 02/27/22 08:38 02/27/22 08:38 Labs: Abnormal Lab Results - Last 24 Hours (Table) 02/26/22 02/26/22 02/27/22 Range/Units 16:15 20:14 06:26 RBC (4.30-5.90) m/uL Hct (39.0-53.0) % Sodium (137-145) mmol/L Carbon Dioxide (22-30) mmol/L BUN (9-20) mg/dL Creatinine (0.66-1.25) mg/dL Glucose (74-99) mg/dL POC Glucose (mg/dL) 148 H 193 H 142 H (70-110) mg/dL Calcium (8.4-10.2) mg/dL 02/27/22 02/27/22 02/27/22 Range/Units 08:38 08:38 12:09 RBC 4.20 L (4.30-5.90) m/uL Hct 35.5 L (39.0-53.0) % Sodium 136 L (137-145) mmol/L Carbon Dioxide 33 H (22-30) mmol/L BUN 25 H (9-20) mg/dL Creatinine 2.41 H (0.66-1.25) mg/dL Glucose 126 H (74-99) mg/dL POC Glucose (mg/dL) 151 H (70-110) mg/dL Calcium 8.0 L (8.4-10.2) mg/dL Microbiology - Last 24 Hours (Table) 02/24/22 18:21 Urine Culture - Final Urine,Voided Escherichia coli Assessment and Plan Assessment: Acute hypoxic respiratory failure Acute diastolic congestive heart failure, new onset. Normal ejection fraction about 55% Hypertension, with urgency acute urinary tract infection associated with [place] catheter, present on admission Acute on chronic kidney injury, stage II Diabetes mellitus History of chronic UTI Plan: Continue with aspirin and oral Lasix Cardiology team. The patient for discharge Consult pulmonary for hypoxia Continue with Zosyn and follow-up urine culture Labs and medication were reviewed.. Continue same treatment. Continue with symptomatic treatment. Resume home medication. Monitor labs and vitals. DVT and GI prophylaxis. Further recommendations as per clinical course of the patient DVT prophylaxis: Subcutaneous heparin GI Prophylaxis: Pepcid PT/OT: Pending Prognosis is guarded
[2022-02-27 20:33] LABS: Glucose,Whole Blood 244 mg/dL (70-110)
[2022-02-28] MEDS: HEPARIN SODIUM,PORCINE/PF 5,000 UNIT/0.5 ML SYRINGE SQ SCH ×3 (00:23→17:16)
[2022-02-28] MEDS ORDERED: hydrALAZINE HCL 25 MG TAB PO SCH (05:09)
--- NOTE | 2022-02-28 05:10 | P.PN ---
Subjective Progress Note Date: 02/28/22 Principal diagnosis: Hypertension emergency The patient is a pleasant 69-year-old gentleman with diabetes and hypertension who was admitted to the hospital with hypertension emergency complicated by congestive heart failure related to heart failure with preserved ejection fracti on. February 282021 The patient was seen this morning. He remains asymptomatic. He remains eu volemic on examination. Yesterday he did have acute renal failure and for that reason was stopped her Lasix and was stopped the Aldactone. The pressure today still elevated. I'm going to increase the dose of hydralazine to 50 mg by mouth 3 times a day. Still awaiting for the results of the blood work. Potentially the patient can be discharged home in the next 12-24 hours. We'll follow-up wit h a blood work from the morning. Objective - Vital Signs Vital signs: Vital Signs Temp 97.9 F 02/28/22 04:00 Pulse 57 L 02/28/22 04:00 Resp 18 02/28/22 04:00 BP 173/76 02/28/22 04:00 Pulse Ox 95 02/28/22 04:00 FiO2 Intake & Output 02/27/22 02/27/22 02/28/22 06:59 18:59 06:59 Intake Total 1000 960 Output Total 400 1400 Balance 600 -440 Weight 93.6 kg 93.8 kg Intake: Intake, IV Titration 200 Amount Piperacillin-Tazobactam 3 200 .375 gm In Sodium Chloride 0.9% 100 ml @ 25 mls/hr IVPB Q8HR [facility] Rx# :[id number] Oral 800 960 Output: Urine 400 1400 Other: Voiding Method Indwelling Catheter Indwelling Catheter Indwelling Catheter - Constitutional General appearance: Present: no acute distress - Respiratory Respiratory: bilateral: diminished - Cardiovascular Rhythm: regular - Labs CBC & Chem 7: 02/27/22 08:38 02/27/22 08:38 Labs: Abnormal Lab Results - Last 24 Hours (Table) 02/27/22 02/27/22 02/27/22 Range/Units 06:26 08:38 08:38 RBC 4.20 L (4.30-5.90) m/uL Hct 35.5 L (39.0-53.0) % Sodium 136 L (137-145) mmol/L Carbon Dioxide 33 H (22-30) mmol/L BUN 25 H (9-20) mg/dL Creatinine 2.41 H (0.66-1.25) mg/dL Glucose 126 H (74-99) mg/dL POC Glucose (mg/dL) 142 H (70-110) mg/dL Calcium 8.0 L (8.4-10.2) mg/dL 02/27/22 02/27/22 02/27/22 Range/Units 12:09 16:59 20:32 RBC (4.30-5.90) m/uL Hct (39.0-53.0) % Sodium (137-145) mmol/L Carbon Dioxide (22-30) mmol/L BUN (9-20) mg/dL Creatinine (0.66-1.25) mg/dL Glucose (74-99) mg/dL POC Glucose (mg/dL) 151 H 150 H 244 H (70-110) mg/dL Calcium (8.4-10.2) mg/dL Assessment and Plan Assessment: Assessment #1 hypertension crisis with hypertension emergency #2 heart failure secondary to hypertension emergency. The patient had heart failure exacerbation secondary to heart failure with preserved ejection fraction #3 acute renal failure #4 diabetes Plan #1 continue holding the diuretics and Aldactone #2 follow-up with a blood work from the morning #3 increase the dose of hydralazine Possible discharge in next 12-24 hour
[2022-02-28 06:01] LABS: Glucose,Whole Blood 161 mg/dL (70-110)
[2022-02-28] MEDS: INSULIN ASPART (NovoLOG) 100 UNIT/ML VIAL SQ SCH ×4 (06:38→20:56)
[2022-02-28] MEDS: carvediloL 6.25 MG TAB PO SCH ×2 (06:38→17:17)
[2022-02-28] MEDS: CEPHALEXIN 500 MG CAP PO SCH ×3 (08:55→21:13)
[2022-02-28] MEDS: amLODIPine 10 MG TAB PO SCH (08:55)
[2022-02-28] MEDS: lisinopriL 10 MG TAB PO SCH (08:55)
[2022-02-28] MEDS: FAMOTIDINE 20 MG TAB PO SCH (08:55)
[2022-02-28] MEDS: ASPIRIN 81 MG PO SCH (08:56)
[2022-02-28] MEDS: hydrALAZINE HCL 50 MG TAB PO SCH ×3 (08:56→21:14)
[2022-02-28 10:15] LABS: Calcium 7.7 mg/dL (8.4-10.2); Magnesium 1.8 mg/dL (1.6-2.3); Potassium 3.7 mmol/L (3.5-5.1)
--- NOTE | 2022-02-28 10:34 | P.PN ---
Subjective Patient is seen in follow-up for acute kidney injury. Renal function is a little better today. Denies chest pain or shortness of breath. On 2 L nasal cannula. Has chronic [place] catheter. Nonoliguric. Complaining of loose bowel movements today. Vital signs are stable. General: Awake. No acute distress. HEENT: Head exam is unremarkable. On nasal cannula. LUNGS: Breath sounds decreased. HEART: Rate and Rhythm are regular. ABDOMEN: Soft, no distention. EXTREMITITES: No edema. Objective - Vital Signs Vital signs: Vital Signs Temp 97.9 F 02/28/22 04:00 Pulse 57 L 02/28/22 04:00 Resp 18 02/28/22 04:00 BP 173/76 02/28/22 04:00 Pulse Ox 94 L 02/28/22 08:23 FiO2 Intake & Output 02/27/22 02/28/22 02/28/22 18:59 06:59 18:59 Intake Total 960 Output Total 1400 Balance -440 Weight 93.8 kg Intake: Oral 960 Output: Urine 1400 Other: Voiding Method Indwelling Catheter Indwelling Catheter - Labs CBC & Chem 7: 02/27/22 08:38 02/28/22 08:49 Labs: Abnormal Lab Results - Last 24 Hours (Table) 02/27/22 02/27/22 02/27/22 Range/Units 12: 16:59 20:32 Sodium (137-145) mmol/L Carbon Dioxide (22-30) mmol/L BUN (9-20) mg/dL Creatinine (0.66-1.25) mg/dL Glucose (74-99) mg/dL POC Glucose (mg/dL) 151 H 150 H 244 H (70-110) mg/dL Calcium (8.4-10.2) mg/dL 02/28/22 02/28/22 Range/Units 05:59 08:49 Sodium 134 L (137-145) mmol/L Carbon Dioxide 32 H (22-30) mmol/L BUN 29 H (9-20) mg/dL Creatinine 2.24 H (0.66-1.25) mg/dL Glucose 140 H (74-99) mg/dL POC Glucose (mg/dL) 161 H (70-110) mg/dL Calcium 7.7 L (8.4-10.2) mg/dL Assessment and Plan Plan: Assessment: 1. Acute kidney injury secondary to hemodynamic ATN and component of cardiorenal syndrome. Creatinine was 1.8 on admission and peaked at 2.41 this admission - 2.24 today. Creatinine in 2020 was near 1. No hydronephrosis noted on kidney ultrasound. 2. Hypokalemia from diuresis. Replaced. Better. 3. Acute on chronic diastolic CHF. 4. Volume overload. Improved with diuresis. 5. Hypertensive urgency. Improved. 6. E. coli UTI on antibiotics. 7. Chronic [place] catheter due to urinary frequency per patient. He follows with urology outpatient. Patient states [place] catheter was changed on 2021. Plan: Encouraged oral intake. Maintain antihypertensives. Continue with lisinopril as blood pressure is on the higher side. Dose of hydralazine increased. Avoid nephrotoxins. Continue to monitor renal function and urine output. Continue to hold diuretics at this time.
[2022-02-28 12:10] LABS: Glucose,Whole Blood 180 mg/dL (70-110)
[2022-02-28] MEDS: INSULIN DETEMIR (LEVEMIR) 100 UNIT/ML SYR SQ SCH (12:59)
[2022-02-28 17:08] LABS: Glucose,Whole Blood 161 mg/dL (70-110)
[2022-02-28 20:07] LABS: Glucose,Whole Blood 126 mg/dL (70-110)
[2022-03-01] MEDS: HEPARIN SODIUM,PORCINE/PF 5,000 UNIT/0.5 ML SYRINGE SQ SCH ×3 (00:02→16:53)
[2022-03-01] MEDS ORDERED: hydrALAZINE HCL 50 MG TAB PO STA (04:10)
[2022-03-01 04:17] LABS: Calcium 7.9 mg/dL (8.4-10.2); Magnesium 1.9 mg/dL (1.6-2.3); Potassium 3.8 mmol/L (3.5-5.1)
--- NOTE | 2022-03-01 05:46 | P.PN ---
Subjective Progress Note Date: 03/01/22 Principal diagnosis: Hypertension emergency The patient is a pleasant 69-year-old gentleman with diabetes and hypertension who was admitted to the hospital with hypertension emergency complicated by congestive heart failure related to heart failure with preserved ejection fracti on. Echocardiogram was repeated and showed preserved biventricular systolic function was mild left ventricular hypertrophy/hypertensive heart disease and no significant valvular abnormalities. February [id number] The patient was seen this morning. He remains asymptomatic. He remains euvolemic on examination. Yesterday he did have acute renal failure and for that reason was stopped her Lasix and was stopped the Aldactone. The pressure today still elevated. I'm going to increase the dose of hydralazine to 50 mg by mouth 3 times a day. Still awaiting for the results of the blood work. Po tentially the patient can be discharged home in the next 12-24 hours. We'll follow-up with a blood work from the morning. March [id number] The patient was seen and evaluated this morning. He is stable from a cardiovascular standpoint of view. He is asymptomatic as well was no chest pain or shortness of breath. He has good oxygen saturation on room air. He is euvolemic on examination as well with clear breathing sounds bilaterally and no lower extremities edema. The pressure continues to be elevated but definitely has been moving in the right direction. I'm going to increase the dose of hydralazine to 75 mg by mouth 3 times a day and continue the rest of the current medical regimen. The creatinine has been trending in the right direction. The patient can be discharged home in the next 12-24 hours. Objective - Vital Signs Vital signs: Vital Signs Temp 97.7 F 03/01/22 04:00 Pulse 56 L 03/01/22 04:00 Resp 16 03/01/22 04:00 BP 181/79 03/01/22 04:00 Pulse Ox 94 L 03/01/22 04:00 FiO2 Intake & Output 02/28/22 02/28/22 03/01/22 06:59 18:59 06:59 Intake Total 720 540 Output Total 600 1400 Balance 120 -860 Weight 93.8 kg 94.8 kg Intake: Oral 720 540 Output: Urine 600 1400 Other: Voiding Method Indwelling Catheter Indwelling Catheter Indwelling Catheter - Constitutional General appearance: Present: no acute distress - Respiratory Respiratory: bilateral: CTA - Cardiovascular Rhythm: regular Heart sounds: normal: S1, S2 - Labs CBC & Chem 7: 02/27/22 08:38 03/01/22 03:22 Labs: Abnormal Lab Results - Last 24 Hours (Table) 02/28/22 02/28/22 02/28/22 Range/Units 05:59 08:49 11:59 Sodium 134 L (137-145) mmol/L Carbon Dioxide 32 H (22-30) mmol/L BUN 29 H (9-20) mg/dL Creatinine 2.24 H (0.66-1.25) mg/dL Glucose 140 H (74-99) mg/dL POC Glucose (mg/dL) 161 H 180 H (70-110) mg/dL Calcium 7.7 L (8.4-10.2) mg/dL 02/28/22 02/28/22 03/01/22 Range/Units 16:47 20:06 03:22 Sodium 130 L (137-145) mmol/L Carbon Dioxide (22-30) mmol/L BUN 30 H (9-20) mg/dL Creatinine 2.18 H (0.66-1.25) mg/dL Glucose 173 H (74-99) mg/dL POC Glucose (mg/dL) 161 H 126 H (70-110) mg/dL Calcium 7.9 L (8.4-10.2) mg/dL Assessment and Plan Assessment: Assessment #1 hypertension crisis with hypertension emergency #2 heart failure secondary to hypertension emergency. The patient had heart failure exacerbation secondary to heart failure with preserved ejection fraction #3 acute renal failure which has been improved #4 diabetes Plan #1 continue holding the diuretics and Aldactone #2 increase the dose of hydralazine #3 discharged home in the next 12-24 hour
[2022-03-01 05:53] LABS: Glucose,Whole Blood 162 mg/dL (70-110)
[2022-03-01] MEDS: carvediloL 6.25 MG TAB PO SCH ×2 (06:14→18:13)
[2022-03-01] MEDS: INSULIN ASPART (NovoLOG) 100 UNIT/ML VIAL SQ SCH ×4 (06:14→21:17)
[2022-03-01] MEDS: ASPIRIN 81 MG PO SCH (08:58)
[2022-03-01] MEDS: CEPHALEXIN 500 MG CAP PO SCH ×3 (08:58→21:18)
[2022-03-01] MEDS: FAMOTIDINE 20 MG TAB PO SCH (08:59)
[2022-03-01] MEDS: amLODIPine 10 MG TAB PO SCH (08:59)
[2022-03-01] MEDS: lisinopriL 10 MG TAB PO SCH (08:59)
[2022-03-01] MEDS ORDERED: hydrALAZINE HCL 25 MG TAB PO SCH (09:00)
--- NOTE | 2022-03-01 10:19 | P.PN ---
Subjective Patient is seen in follow-up for acute kidney injury. Renal function fairly stable. Denies chest pain or shortness of breath. Currently on room air. Has chronic [place] catheter. Nonoliguric. Vital signs are stable. General: Awake. No acute distress. HEENT: Head exam is unremarkable. LUNGS: Breath sounds decreased. HEART: Rate and Rhythm are regular. ABDOMEN: Soft, no distention. EXTREMITITES: No edema. Objective - Vital Signs Vital signs: Vital Signs Temp 97.8 F 03/01/22 08:50 Pulse 58 L 03/01/22 08:50 Resp 16 03/01/22 08:50 BP 154/74 03/01/22 08:50 Pulse Ox 92 L 03/01/22 08:50 FiO2 Intake & Output 02/28/22 03/01/22 03/01/22 18:59 06:59 18:59 Intake Total 720 540 118 Output Total 600 1400 Balance 120 -860 118 Weight 94.8 kg Intake: Oral 720 540 118 Output: Urine 600 1400 Other: Voiding Method Indwelling Catheter Indwelling Catheter - Labs CBC & Chem 7: 02/27/22 08:38 03/01/22 03:22 Labs: Abnormal Lab Results - Last 24 Hours (Table) 02/28/22 02/28/22 02/28/22 Range/Units 11:59 16:47 20:06 Sodium (137-145) mmol/L BUN (9-20) mg/dL Creatinine (0.66-1.25) mg/dL Glucose (74-99) mg/dL POC Glucose (mg/dL) 180 H 161 H 126 H (70-110) mg/dL Calcium (8.4-10.2) mg/dL 03/01/22 03/01/22 Range/Units 03:22 05:52 Sodium 130 L (137-145) mmol/L BUN 30 H (9-20) mg/dL Creatinine 2.18 H (0.66-1.25) mg/dL Glucose 173 H (74-99) mg/dL POC Glucose (mg/dL) 162 H (70-110) mg/dL Calcium 7.9 L (8.4-10.2) mg/dL Assessment and Plan Plan: Assessment: 1. Acute kidney injury secondary to hemodynamic ATN and component of cardiorenal syndrome. Creatinine was 1.8 on admission and peaked at 2.41 this admission - 2.18 today. Creatinine in 2020 was near 1. No hydronephrosis noted on kidney ultrasound. 2. Hypokalemia from diuresis. Replaced. Better. 3. Acute on chronic diastolic CHF. 4. Volume overload. Improved with diuresis. 5. Hypertensive urgency. Improved. 6. E. coli UTI on antibiotics. 7. Chronic [place] catheter due to urinary frequency per patient. [facility]. Patient states [place] catheter was changed on 02/24/2022. Plan: Encouraged oral intake. Maintain antihypertensives. Continue with lisinopril as blood pressure is on the higher side. Increase dose of hydralazine to 100 mg 3 times daily. Avoid nephrotoxins. Continue to monitor renal function and urine output. Continue to hold diuretics at this time.
[2022-03-01 11:34] LABS: Glucose,Whole Blood 165 mg/dL (70-110)
--- NOTE | 2022-03-01 11:36 | P.PN ---
Subjective Progress Note Date: 02/28/22 Principal diagnosis: Acute hypoxic respiratory failure Acute diastolic congestive heart failure, new onset. Normal ejection fraction about 55% Hypertension, with urgency acute urinary tract infection associated with [place] catheter, present on admission Acute on chronic kidney injury, stage II 71 years old male with past medical history of hypertension, diabetes mellitus, chronic UTI Presents because of shortness of breath and increased leg swelling. Patient states that he's having shortness of breath since last , about 6 days ago. Associated with a dry cough present. He says that he has some chest pain when he comes No significant pain without coughing. Patient says that he never had heart problems before. This is an you for him. Also patient has indwelling [place] catheter for about 3 months and he follows up with Dr. Rees office. He denies any specific symptoms regarding his urinary tract. No abdominal pain or vomiting or diarrhea. No headache or dizziness or weakness or numbness He denies smoking alcohol or illicit drugs Patient's mildly bradycardic on admission, heart rate 56 this morning. Blood pressure is elevated 201/89, currently 188/74. Patient is afebrile. Labs show an unremarkable CBC, INR, liver enzymes. BNP is elevated 10 700 Creatinine is high at 1.8, baseline is 1.0-1.3 EKG showing sinus bradycardia at [address] T changes Chest x-ray: There is bilateral pleural effusion and minimal congestion. Possible mild chronic congestive heart failure which is a new change. Urine analysis suspicious for infection Patient is started on Zosyn and emergency room as well as IV Lasix 02/28/2022 Patient is seen and evaluated in room at bedside; reports stable breathing; no new complaints of chest shortness of breath Vital signs are reviewed and stable with temperature of 97.9, pulse 57,patient 18 and blood pressure 173/76 with O2 saturation above 95% Cardiology and board; patient is currently euvolemic and diuretics were held due to worsening renal injury; Lasix and Aldactone remain on hold Cardiology recommending to increase hydralazine to 50 mg 3 times a day with close observation and plan to make further adjustments as needed Objective - Vital Signs Vital signs: Vital Signs Temp 97.9 F 02/28/22 04:00 Pulse 57 L 02/28/22 04:00 Resp 18 02/28/22 04:00 BP 173/76 02/28/22 04:00 Pulse Ox 94 L 02/28/22 08:23 FiO2 Intake & Output 02/27/22 02/28/22 02/28/22 18:59 06:59 18:59 Intake Total 960 Output Total 1400 Balance -440 Weight 93.8 kg Intake: Oral 960 Output: Urine 1400 Other: Voiding Method Indwelling Catheter Indwelling Catheter - Exam GENERAL: The patient is alert and oriented x3, not in any acute distress. Well developed, well nourished. HEENT: Pupils are round and equally reacting to light. EOMI. No scleral icterus. No conjunctival pallor. Normocephalic, atraumatic. No pharyngeal erythema. No thyromegaly. CARDIOVASCULAR: S1 and S2 present. No murmurs, rubs, or gallops. -PULMONARY: Chest is clear to auscultation, no wheezing. Improving bilaterally basal crackles. -ABDOMEN: Soft, nontender, nondistended, normoactive bowel sounds. No palpable organomegaly. Indwelling Washington catheter in place.(Patient refused Examination of his genital area states that everything is fine) MUSCULOSKELETAL: No joint swelling or deformity. -EXTREMITIES: No cyanosis, clubbing, improving bilateral pitting leg edema NEUROLOGICAL: Gross neurological examination did not reveal any focal deficits. SKIN: No rashes. no petechiae. - Labs CBC & Chem 7: 02/27/22 08:38 03/01/22 03:22 Labs: Abnormal Lab Results - Last 24 Hours (Table) 02/27/22 02/27/22 02/27/22 Range/Units 12: 16:59 20:32 Sodium (137-145) mmol/L Carbon Dioxide (22-30) mmol/L BUN (9-20) mg/dL Creatinine (0.66-1.25) mg/dL Glucose (74-99) mg/dL POC Glucose (mg/dL) 151 H 150 H 244 H (70-110) mg/dL Calcium (8.4-10.2) mg/dL 02/28/22 02/28/22 Range/Units 05:59 08:49 Sodium 134 L (137-145) mmol/L Carbon Dioxide 32 H (22-30) mmol/L BUN 29 H (9-20) mg/dL Creatinine 2.24 H (0.66-1.25) mg/dL Glucose 140 H (74-99) mg/dL POC Glucose (mg/dL) 161 H (70-110) mg/dL Calcium 7.7 L (8.4-10.2) mg/dL Assessment and Plan Assessment: Acute hypoxic respiratory failure Acute diastolic congestive heart failure, new onset. Normal ejection fraction about 55% Hypertension, with urgency acute urinary tract infection associated with [place] catheter, present on admission Acute on chronic kidney injury, stage II Diabetes mellitus History of chronic UTI Plan: Continue with aspirin and oral Lasix Cardiology team. The patient for discharge Consult pulmonary for hypoxia Continue with Zosyn and follow-up urine culture Labs and medication were reviewed.. Continue same treatment. Continue with symptomatic treatment. Resume home medication. Monitor labs and vitals. DVT and GI prophylaxis. Further recommendations as per clinical course of the patient DVT prophylaxis: Subcutaneous heparin GI Prophylaxis: Pepcid PT/OT: Pending Prognosis is guarded
[2022-03-01] MEDS: INSULIN DETEMIR (LEVEMIR) 100 UNIT/ML SYR SQ SCH (12:37)
[2022-03-01] MEDS ORDERED: CYCLOBENZAPRINE 5 MG TAB PO PRN (16:35)
[2022-03-01 16:38] LABS: Glucose,Whole Blood 140 mg/dL (70-110)
[2022-03-01] MEDS: hydrALAZINE HCL 50 MG TAB PO SCH ×2 (16:53→21:18)
--- NOTE | 2022-03-01 17:16 | XR ---
Lumbar spine HISTORY: Sudden onset back pain COMPARISON: None. TECHNIQUE: 3 views lumbar spine were obtained. FINDINGS: The lumbar vertebral segments are normal in height and alignment and there is no fracture or subluxat ion. The disc spaces are well-maintained. There is mild spondylosis indicating mild degenerative disc dise ase. Facet joints appear grossly intact. Visualized sacrum and SI joints normal. IMPRESSION: Minimal degenerative disc disease with no other significant abnormality seen.
--- NOTE | 2022-03-01 17:32 | P.PN ---
Subjective Progress Note Date: 03/01/22 Principal diagnosis: Acute hypoxic respiratory failure Acute diastolic congestive heart failure, new onset. Normal ejection fraction about 55% Hypertension, with urgency acute urinary tract infection associated with [place] catheter, present on admission Acute on chronic kidney injury, stage II 71 years old male with past medical history of hypertension, diabetes mellitus, chronic UTI Presents because of shortness of breath and increased leg swelling. Patient states that he's having shortness of breath since last , about 6 days ago. Associated with a dry cough present. He says that he has some chest pain when he comes No significant pain without coughing. Patient says that he never had heart problems before. This is an you for him. Also patient has indwelling [place] catheter for about 3 months and he follows up with Dr. Rees office. He denies any specific symptoms regarding his urinary tract. No abdominal pain or vomiting or diarrhea. No headache or dizziness or weakness or numbness He denies smoking alcohol or illicit drugs Patient's mildly bradycardic on admission, heart rate 56 this morning. Blood pressure is elevated 201/89, currently 188/74. Patient is afebrile. Labs show an unremarkable CBC, INR, liver enzymes. BNP is elevated 10 700 Creatinine is high at 1.8, baseline is 1.0-1.3 EKG showing sinus bradycardia at [address] T changes Chest x-ray: There is bilateral pleural effusion and minimal congestion. Possible mild chronic congestive heart failure which is a new change. Urine analysis suspicious for infection Patient is started on Zosyn and emergency room as well as IV Lasix 02/28/2022 Patient is seen and evaluated in room at bedside; reports stable breathing; no new complaints of chest shortness of breath Vital signs are reviewed and stable with temperature of 97.9, pulse 57,patient 18 and blood pressure 173/76 with O2 saturation above 95% Cardiology and board; patient is currently euvolemic and diuretics were held due to worsening renal injury; Lasix and Aldactone remain on hold Cardiology recommending to increase hydralazine to 50 mg 3 times a day with close observation and plan to make further adjustments as needed 03/01/2022 The patient was seen and evaluated in room at bedside. Patient denies any complaint of chest pain or shortness of breath with stable oxygen saturation on room air. He is euvolemic on examination as well with clear breathing sounds bilaterally and no lower extremities edema. The pressure continues to be elevated but definitely has been moving in the right direction. Cardiology recommending to increase the dose of hydralazine to 75 mg by mouth 3 times a day and continue the rest of the current medical regimen. The creatinine has been trending in the right direction. The patient can be discharged home in the next 12-24 hours. Objective - Vital Signs Vital signs: Vital Signs Temp 97.8 F 03/01/22 08:50 Pulse 58 L 03/01/22 08:50 Resp 16 03/01/22 08:50 BP 154/74 03/01/22 08:50 Pulse Ox 92 L 03/01/22 08:50 FiO2 Intake & Output 02/28/22 03/01/22 03/01/22 18:59 06:59 18:59 Intake Total 720 540 118 Output Total 600 1400 550 Balance 120 860 -432 Weight 94.8 kg Intake: Oral 720 540 118 Output: Urine 600 1400 550 Other: Voiding Method Indwelling Catheter Indwelling Catheter - Exam GENERAL: The patient is alert and oriented x3, not in any acute distress. Well developed, well nourished. HEENT: Pupils are round and equally reacting to light. EOMI. No scleral icterus. No conjunctival pallor. Normocephalic, atraumatic. No pharyngeal erythema. No thyromegaly. CARDIOVASCULAR: S1 and S2 present. No murmurs, rubs, or gallops. -PULMONARY: Chest is clear to auscultation, no wheezing. Improving bilaterally basal crackles. -ABDOMEN: Soft, nontender, nondistended, normoactive bowel sounds. No palpable organomegaly. Indwelling [place] catheter in place.(Patient refused Examination of his genital area states that everything is fine) MUSCULOSKELETAL: No joint swelling or deformity. -EXTREMITIES: No cyanosis, clubbing, improving bilateral pitting leg edema NEUROLOGICAL: Gross neurological examination did not reveal any focal deficits. SKIN: No rashes. no petechiae. - Labs CBC & Chem 7: 02/27/22 08:38 03/01/22 03:22 Labs: Abnormal Lab Results - Last 24 Hours (Table) 02/28/22 02/28/22 02/28/22 Range/Units 11:59 16:47 20:06 Sodium (137-145) mmol/L BUN (9-20) mg/dL Creatinine (0.66-1.25) mg/dL Glucose (74-99) mg/dL POC Glucose (mg/dL) 180 H 161 H 126 H (70-110) mg/dL Calcium (8.4-10.2) mg/dL 03/01/22 03/01/22 03/01/22 Range/Units 03:22 05:52 11:32 Sodium 130 L (137-145) mmol/L BUN 30 H (9-20) mg/dL Creatinine 2.18 H (0.66-1.25) mg/dL Glucose 173 H (74-99) mg/dL POC Glucose (mg/dL) 162 H 165 H (70-110) mg/dL Calcium 7.9 L (8.4-10.2) mg/dL Assessment and Plan Assessment: Acute hypoxic respiratory failure Acute diastolic congestive heart failure, new onset. Normal ejection fraction about 55% Hypertension, with urgency acute urinary tract infection associated with [place] catheter, present on admission Acute on chronic kidney injury, stage II Diabetes mellitus History of chronic UTI Plan: Continue with aspirin and oral Lasix Cardiology team. The patient for discharge Consult pulmonary for hypoxia Continue with Zosyn and follow-up urine culture Labs and medication were reviewed.. Continue same treatment. Continue with symptomatic treatment. Resume home medication. Monitor labs and vitals. DVT and GI prophylaxis. Further recommendations as per clinical course of the patient DVT prophylaxis: Subcutaneous heparin GI Prophylaxis: Pepcid PT/OT: Pending Prognosis is guarded
[2022-03-01 20:34] LABS: Glucose,Whole Blood 188 mg/dL (70-110)
[2022-03-01 21:25] LABS: Amorphous Sediment,Urine Occasional /hpf; Appearance,Urine Cloudy (Clear); Bacteria,Urine Rare /hpf; Bilirubin,Urine Negative (Negative); Blood,Urine Negative (Negative); Color,Urine Yellow; Glucose,Urine (UA) 2+ (Negative); Hyaline Casts,Urine 25 /lpf (0-2); Ketones,Urine Negative (Negative); Leukocyte Esterase,Urine Negative (Negative); Mucus,Urine Rare /hpf; Nitrite,Urine Negative (Negative); Protein,Urine 4+ (Negative); RBC,Urine 3 /hpf (0-5); Specific Gravity,Urine 1.018 (1.001-1.035); Squamous Epithelial Cell,Urine <1 /hpf (0-4); WBC,Urine 5 /hpf (0-5)
[2022-03-02] MEDS: HEPARIN SODIUM,PORCINE/PF 5,000 UNIT/0.5 ML SYRINGE SQ SCH ×4 (00:04→23:45)
[2022-03-02 06:08] LABS: Glucose,Whole Blood 176 mg/dL (70-110)
[2022-03-02] MEDS: carvediloL 6.25 MG TAB PO SCH ×2 (06:31→16:39)
[2022-03-02] MEDS: INSULIN ASPART (NovoLOG) 100 UNIT/ML VIAL SQ SCH ×4 (06:31→20:39)
[2022-03-02] MEDS: CEPHALEXIN 500 MG CAP PO SCH ×3 (09:34→20:17)
[2022-03-02] MEDS: ASPIRIN 81 MG PO SCH (09:34)
[2022-03-02] MEDS: lisinopriL 10 MG TAB PO SCH ×2 (09:34→20:17)
[2022-03-02] MEDS: FAMOTIDINE 20 MG TAB PO SCH (09:34)
[2022-03-02] MEDS: hydrALAZINE HCL 50 MG TAB PO SCH ×3 (09:34→22:28)
[2022-03-02] MEDS: amLODIPine 10 MG TAB PO SCH (09:34)
--- NOTE | 2022-03-02 10:30 | P.PN ---
Subjective Progress Note Date: 03/02/22 PROGRESS NOTE The patient is a 71-year-old male who presented with acute dyspnea, elevated blood pressure and congestive heart failure with preserved systolic function. He continues to have mild dyspnea but he denies any chest discomfort or dizziness. He continues to be in sinus mechanism. He denies any nausea or vomiting. His echocardiogram showed an ejection fraction of 55% with mild LVH and mild mitral regurgitation. Medications: Coreg 6.25 mg twice a day, hydralazine 100 mg 3 times a day, lisinopril 10 mg daily, amlodipine 5 mg daily, aspirin once a day. PHYSICAL EXAMINATION: Blood pressure 160/70 heart rate 60 LUNGS: Clear to auscultation HEART: Regular rate and rhythm, S1, S2. No S3. systolic ejection murmur ABDOMEN: Soft, nontender, no organomegaly EXTREMETIES: No edema LAB: Pending IMPRESSION: 1. Uncontrolled hypertension 2. Heart failure with preserved systolic function 3. Acute renal injury, improving 4. History of diabetes PLAN: 1. Add nitrate 2. Add Farxiga 3. Follow renal functions 4. Increase physical activity and depending on his progress further recommendations will be made. Objective - Vital Signs Vital signs: Vital Signs Temp 98.3 F 03/02/22 08:00 Pulse 61 03/02/22 08:00 Resp 16 03/02/22 08:00 BP 160/71 03/02/22 08:00 Pulse Ox 90 L 03/02/22 08:00 FiO2 Intake & Output 03/01/22 03/02/22 03/02/22 18:59 06:59 18:59 Intake Total 736 300 0 Output Total 970 800 500 Balance -234 -500 -500 Weight 94.3 kg Intake: Oral 736 300 0 Output: Urine 970 800 500 Other: Voiding Method Indwelling Catheter Indwelling Catheter - Labs CBC & Chem 7: 02/27/22 08:38 03/01/22 03:22 Labs: Abnormal Lab Results - Last 24 Hours (Table) 03/01/22 03/01/22 03/01/22 Range/Units 11:32 16:34 19:49 POC Glucose (mg/dL) 165 H 140 H (70-110) mg/dL Urine Protein 4+ H (Negative) Urine Glucose (UA) 2+ H (Negative) Amorphous Sediment Occasional H (None) /hpf Urine Bacteria Rare H (None) /hpf Hyaline Casts 25 H (0-2) /lpf Urine Mucus Rare H (None) /hpf 03/01/22 03/02/22 Range/Units 20:34 06:07 POC Glucose (mg/dL) 188 H 176 H (70-110) mg/dL Urine Protein (Negative) Urine Glucose (UA) (Negative) Amorphous Sediment (None) /hpf Urine Bacteria (None) /hpf Hyaline Casts (0-2) /lpf Urine Mucus (None) /hpf
[2022-03-02] MEDS ORDERED: HYDROcodone/APAP 5-325MG 1 EACH TAB PO PRN (11:11)
--- NOTE | 2022-03-02 11:33 | P.PN ---
Subjective Patient is seen in follow-up for acute kidney injury. Renal function fairly stable as of yesterday. Denies chest pain or shortness of breath. Currently on room air. Has chronic [place] catheter. Nonoliguric. No active complaints. Vital signs are stable. General: Awake. No acute distress. HEENT: Head exam is unremarkable. LUNGS: Breath sounds decreased. HEART: Rate and Rhythm are regular. ABDOMEN: Soft, no distention. EXTREMITITES: No edema. Objective - Vital Signs Vital signs: Vital Signs Temp 98.3 F 03/02/22 08:00 Pulse 61 03/02/22 08:00 Resp 16 03/02/22 08:00 BP 160/71 03/02/22 08:00 Pulse Ox 90 L 03/02/22 08:00 FiO2 Intake & Output 03/01/22 03/02/22 03/02/22 18:59 06:59 18:59 Intake Total 736 300 0 Output Total 970 800 500 Balance -234 -500 -500 Weight 94.3 kg Intake: Oral 736 300 0 Output: Urine 970 800 500 Other: Voiding Method Indwelling Catheter Indwelling Catheter Indwelling Catheter - Labs CBC & Chem 7: 02/27/22 08:38 03/01/22 03:22 Labs: Abnormal Lab Results - Last 24 Hours (Table) 03/01/22 03/01/22 03/01/22 Range/Units 11:32 16:34 19:49 POC Glucose (mg/dL) 165 H 140 H (70-110) mg/dL Urine Protein 4+ H (Negative) Urine Glucose (UA) 2+ H (Negative) Amorphous Sediment Occasional H (None) /hpf Urine Bacteria Rare H (None) /hpf Hyaline Casts 25 H (0-2) /lpf Urine Mucus Rare H (None) /hpf 03/01/22 03/02/22 Range/Units 20:34 06:07 POC Glucose (mg/dL) 188 H 176 H (70-110) mg/dL Urine Protein (Negative) Urine Glucose (UA) (Negative) Amorphous Sediment (None) /hpf Urine Bacteria (None) /hpf Hyaline Casts (0-2) /lpf Urine Mucus (None) /hpf Assessment and Plan Plan: Assessment: 1. Acute kidney injury secondary to hemodynamic ATN and component of cardiorenal syndrome. Creatinine was 1.8 on admission and peaked at 2.41 this admission - 2.18 yesterday. Creatinine in 2020 was near 1. No hydronephrosis noted on kidney ultrasound. 2. Hypokalemia from diuresis. Replaced. Better. 3. Acute on chronic diastolic CHF. 4. Volume overload. Improved with diuresis. 5. Hypertensive urgency. Improved. 6. E. coli UTI on antibiotics. 7. Chronic [place] catheter due to urinary frequency per patient. He follows with urology outpatient. Patient states [place] catheter was changed on 02/24/2022. Plan: Encouraged oral intake. Maintain antihypertensives. Avoid nephrotoxins. Continue to monitor renal function and urine output. Continue to hold diuretics at this time. Increase lisinopril dose to 10 mg twice a day.
[2022-03-02 11:36] LABS: Glucose,Whole Blood 203 mg/dL (70-110)
[2022-03-02] MEDS: ISOSORBIDE MONONITRATE ER 30 MG TAB.ER.24H PO SCH (11:48)
[2022-03-02] MEDS: DAPAGLIFLOZIN PROPANEDIOL 10 MG TABLET PO SCH (11:48)
[2022-03-02] MEDS: ATORVASTATIN 40 MG TAB PO SCH (11:48)
[2022-03-02] MEDS: INSULIN DETEMIR (LEVEMIR) 100 UNIT/ML SYR SQ SCH (12:27)
[2022-03-02 16:30] LABS: Glucose,Whole Blood 154 mg/dL (70-110)
[2022-03-02 20:40] LABS: Glucose,Whole Blood 134 mg/dL (70-110)
--- NOTE | 2022-03-03 05:14 | P.PN ---
Subjective Progress Note Date: 03/02/22 Acute hypoxic respiratory failure Acute diastolic congestive heart failure, new onset. Normal ejection fraction about 55% Hypertension, with urgency acute urinary tract infection associated with [place] catheter, present on admission Acute on chronic kidney injury, stage II 71 years old male with past medical history of hypertension, diabetes mellitus, chronic UTI Presents because of shortness of breath and increased leg swelling. Patient states that he's having shortness of breath since last , about 6 days ago. Associated with a dry cough present. He says that he has some chest pain when he comes No significant pain without coughing. Patient says that he never had heart problems before. This is an you for him. Also patient has indwelling [place] catheter for about 3 months and he follows up with Dr. Rees office. He denies any specific symptoms regarding his urinary tract. No abdominal pain or vomiting or diarrhea. No headache or dizziness or weakness or numbness He denies smoking alcohol or illicit drugs Patient's mildly bradycardic on admission, heart rate 56 this morning. Blood pressure is elevated 201/89, currently 188/74. Patient is afebrile. Labs show an unremarkable CBC, INR, liver enzymes. BNP is elevated 10 700 Creatinine is high at 1.8, baseline is 1.0-1.3 EKG showing sinus bradycardia at [address] T changes Chest x-ray: There is bilateral pleural effusion and minimal congestion. Possible mild chronic congestive heart failure which is a new change. Urine analysis suspicious for infection Patient is started on Zosyn and emergency room as well as IV Lasix 02/28/2022 Patient is seen and evaluated in room at bedside; reports stable breathing; no new complaints of chest shortness of breath Vital signs are reviewed and stable with temperature of 97.9, pulse 57,patient 18 and blood pressure 173/76 with O2 saturation above 95% Cardiology and board; patient is currently euvolemic and diuretics were held due to worsening renal injury; Lasix and Aldactone remain on hold Cardiology recommending to increase hydralazine to 50 mg 3 times a day with close observation and plan to make further adjustments as needed 03/01/2022 The patient was seen and evaluated in room at bedside. Patient denies any complaint of chest pain or shortness of breath with stable oxygen saturation on room air. He is euvolemic on examination as well with clear breathing sounds bilaterally and no lower extremities edema. The pressure continues to be elevated but definitely has been moving in the right direction. Cardiology recommending to increase the dose of hydralazine to 75 mg by mouth 3 times a day and continue the rest of the current medical regimen. The creatinine has been trending in the right direction. The patient can be discharged home in the next 12-24 hours. 03/02/2022 Patient is seen and evaluated in follow-up reporting some pain. Patient reports he had some right-sided lower back pain and lumbar imaging was done which was negative for any acute fracture or process noted. Nephrology and cardiology following monitoring renal functions closely. Lisinopril being increased to twice daily and also cardiology making adjustments to medications. Patient with weakness will need PT/OT evaluation. Patient is to continue with [place] as this is chronic. Patient is afebrile denies chest pain or worsening shortness of breath. No reports of nausea or vomiting noted and patient is tolerating diet. Review of systems: Constitutional: No reports of fatigue, fever, or chills Cardiovascular: No reports of chest pain or palpitations Respiratory: No reports of worsening shortness of breath GI: No reports of nausea, vomiting, reports loose stools : No reports of dysuria or retention Neurovascular: reports of generalized weakness , reports back pain All medications have been reviewed Active Medications Hydrocodone Bitart/Acetaminophen (Hydrocodone/Apap 5-325mg 1 Each Tab) 1 each PO Q6HR PRN PRN Reason: Pain Last Admin: 03/02/22 11:47 Dose: 1 each Amlodipine Besylate (Amlodipine 10 Mg Tab) 10 mg PO DAILY [facility] Last Admin: 03/02/22 09:34 Dose: 10 mg Aspirin (Aspirin 81 Mg) 81 mg PO DAILY [facility] Last Admin: 03/02/22 09:34 Dose: 81 mg Atorvastatin Calcium (Atorvastatin 40 Mg Tab) 40 mg PO DAILY [facility] Last Admin: 03/02/22 11:48 Dose: 40 mg Carvedilol (Carvedilol 6.25 Mg Tab) 6.25 mg PO BID-W/MEALS [facility] Last Admin: 03/02/22 06:31 Dose: 6.25 mg Cephalexin (Cephalexin 500 Mg Cap) 500 mg PO TID [facility]; Protocol Last Admin: 03/02/22 09:34 Dose: 500 mg Cyclobenzaprine HCl (Cyclobenzaprine 5 Mg Tab) 5 mg PO TID PRN PRN Reason: Pain Last Admin: 03/01/22 18:13 Dose: 5 mg Dapagliflozin (Dapagliflozin Propanediol 10 Mg Tablet) 10 mg PO DAILY [facility] Last Admin: 03/02/22 11:48 Dose: 10 mg Dextrose/Water (Dextrose 50% Syringe 50 Ml) 25 ml IVP PER PROTOCOL PRN; Protocol PRN Reason: Hypoglycemia Dextrose/Water (Dextrose 50% Syringe 50 Ml) 50 ml IVP PER PROTOCOL PRN; Protocol PRN Reason: Hypoglycemia Famotidine (Famotidine 20 Mg Tab) 20 mg PO DAILY [facility] Last Admin: 03/02/22 09:34 Dose: 20 mg Heparin Sodium (Porcine) (Heparin Sodium,Porcine/Pf 5,000 Unit/0.5 Ml Syringe) 5,000 unit SQ Q8HR [facility] Last Admin: 03/02/22 09:33 Dose: 5,000 unit Hydralazine HCl (Hydralazine Hcl 50 Mg Tab) 100 mg PO TID [facility] Last Admin: 03/02/22 09:34 Dose: 100 mg Insulin Aspart (Insulin Aspart (Novolog) 100 Unit/Ml Vial) 0 unit SQ ACHS [facility]; Protocol Last Admin: 03/02/22 12:27 Dose: 6 unit Insulin Detemir (Insulin Detemir (Levemir) 100 Unit/Ml Syr) 10 unit SQ DAILY@1200 [facility] Last Admin: 03/02/22 12:27 Dose: 10 unit Isosorbide Mononitrate (Isosorbide Mononitrate Er 30 Mg Tab.Er.24h) 30 mg PO DAILY [facility] Last Admin: 03/02/22 11:48 Dose: 30 mg Lisinopril (Lisinopril 10 Mg Tab) 10 mg PO BID [facility] Miscellaneous Information (Potassium Replacement Protocol 1 Each Misc) 1 each MISCELLANE DAILY PRN; Protocol PRN Reason: Per Protocol Physical exam: GENERAL: The patient is alert and oriented x3, Well developed, well nourished. Elderly-appearing male HEENT: Pupils are round and equally reacting to light. EOMI. No scleral icterus. No conjunctival pallor. Normocephalic, atraumatic. No pharyngeal erythema. No thyromegaly. CARDIOVASCULAR: S1 and S2 muffled PULMONARY: Diminished breath sounds bilaterally with no wheezing. Improving bilaterally basal crackles. Some scattered rhonchi ABDOMEN: Soft, nontender, nondistended, normoactive bowel sounds. No palpable organomegaly. Indwelling [place] catheter in place MUSCULOSKELETAL: No joint swelling or deformity. EXTREMITIES: No cyanosis, clubbing, improving bilateral pitting leg edema NEUROLOGICAL: Gross neurological examination did not reveal any focal deficits. Diffusely weak SKIN: No rashes. no petechiae. Assessment: Acute hypoxic respiratory failure secondary to CHF exacerbation Acute diastolic congestive heart failure, new onset. Normal ejection fraction about 55% Hypertension, with urgency acute urinary tract infection associated with [place] catheter, present on admission Acute on chronic kidney injury, stage II Diabetes mellitus History of chronic UTI DVT prophylaxis: Subcutaneous heparin GI Prophylaxis: Pepcid Plan: Recommend continue with current medications per cardiology recommendations Cardiology following recommending outpatient follow-up Urine culture positive for E. coli and currently maintained on Keflex and will continue Patient did report some left lower back pain yesterday and an x-ray was done which was negative for any acute fractures Patient continues to report weakness recommending PT/OT evaluation Recommend follow-up labs in a.m. to monitor kidney functions closely Recommend to replace electrolytes per protocol Due to multiple complex medical issues, prognosis is guarded Possible discharge in the next 24-48 hours The impression and plan of care has been dictated by Mai Williamson, Nurse Practitioner as directed. Dr. Casey MD I have performed a history and examination and MDM of this patient, discussed the same with the dictator, and agree with the dictator's assessment and plan as written ,documented as a scribe. Based on total visit time, I have performed more than 50% of the visit. Objective - Vital Signs Vital signs: Vital Signs Temp 98.3 F 03/02/22 08:00 Pulse 61 03/02/22 08:00 Resp 16 03/02/22 08:00 BP 160/71 03/02/22 08:00 Pulse Ox 90 L 03/02/22 08:00 FiO2 Intake & Output 03/01/22 03/02/22 03/02/22 18:59 06:59 18:59 Intake Total 736 300 0 Output Total 970 800 500 Balance -234 -500 -500 Weight 94.3 kg Intake: Oral 736 300 0 Output: Urine 970 800 500 Other: Voiding Method Indwelling Catheter Indwelling Catheter - Labs CBC & Chem 7: 02/27/22 08:38 03/01/22 03:22 Labs: Abnormal Lab Results - Last 24 Hours (Table) 03/01/22 03/01/22 03/01/22 Range/Units 11:32 16:34 19:49 POC Glucose (mg/dL) 165 H 140 H (70-110) mg/dL Urine Protein 4+ H (Negative) Urine Glucose (UA) 2+ H (Negative) Amorphous Sediment Occasional H (None) /hpf Urine Bacteria Rare H (None) /hpf Hyaline Casts 25 H (0-2) /lpf Urine Mucus Rare H (None) /hpf 03/01/22 03/02/22 Range/Units 20:34 06:07 POC Glucose (mg/dL) 188 H 176 H (70-110) mg/dL Urine Protein (Negative) Urine Glucose (UA) (Negative) Amorphous Sediment (None) /hpf Urine Bacteria (None) /hpf Hyaline Casts (0-2) /lpf Urine Mucus (None) /hpf
[2022-03-03 06:08] LABS: Glucose,Whole Blood 128 mg/dL (70-110)
[2022-03-03] MEDS: INSULIN ASPART (NovoLOG) 100 UNIT/ML VIAL SQ SCH ×4 (06:09→21:04)
[2022-03-03] MEDS: carvediloL 6.25 MG TAB PO SCH ×2 (06:13→16:49)
[2022-03-03] MEDS: lisinopriL 10 MG TAB PO SCH ×2 (09:05→21:03)
[2022-03-03] MEDS: FAMOTIDINE 20 MG TAB PO SCH (09:05)
[2022-03-03] MEDS: ISOSORBIDE MONONITRATE ER 30 MG TAB.ER.24H PO SCH (09:05)
[2022-03-03] MEDS: ASPIRIN 81 MG PO SCH (09:05)
[2022-03-03] MEDS: hydrALAZINE HCL 50 MG TAB PO SCH ×3 (09:05→21:04)
[2022-03-03] MEDS: HEPARIN SODIUM,PORCINE/PF 5,000 UNIT/0.5 ML SYRINGE SQ SCH ×2 (09:05→16:49)
[2022-03-03] MEDS: CEPHALEXIN 500 MG CAP PO SCH ×3 (09:05→21:03)
[2022-03-03] MEDS: amLODIPine 10 MG TAB PO SCH (09:05)
[2022-03-03] MEDS: ATORVASTATIN 40 MG TAB PO SCH (09:05)
[2022-03-03] MEDS: DAPAGLIFLOZIN PROPANEDIOL 10 MG TABLET PO SCH (09:07)
[2022-03-03 11:21] LABS: Calcium 8.3 mg/dL (8.4-10.2); Magnesium 2.1 mg/dL (1.6-2.3); Potassium 4.2 mmol/L (3.5-5.1)
--- NOTE | 2022-03-03 11:28 | P.PN ---
Subjective Patient is seen for follow-up for acute kidney injury, mostly cardiorenal and component of hemodynamic ATN, He is status post diuresis for volume overload Patient has a chronic indwelling [place] catheter Serum creatinine staying stable at 2.1 mg/dL. No significant complaints today. Objective - Vital Signs Vital signs: Vital Signs Temp 98 F 03/03/22 09:01 Pulse 61 03/03/22 09:01 Resp 18 03/03/22 09:01 BP 154/96 03/03/22 09:01 Pulse Ox 96 03/03/22 09:01 FiO2 Intake & Output 03/02/22 03/03/22 03/03/22 18:59 06:59 18:59 Intake Total 1000 Output Total 900 750 400 Balance 100 -750 -400 Weight 93.9 kg Intake: Oral 1000 Output: Urine 900 750 400 Uretheral ([place]) 750 400 Other: Voiding Method Indwelling Catheter Indwelling Catheter Indwelling Catheter - Exam awake, comfortable, no acute distress Examination of the heart S1 and S2 Examination lungs bilateral breath sounds are heard Abdomen is soft nontender obese Examination of lower extremity shows chronic skin changes trace edema bilaterally [employer] exam grossly intact - Labs CBC & Chem 7: 02/27/22 08:38 03/03/22 10:11 Labs: Abnormal Lab Results - Last 24 Hours (Table) 03/02/22 03/02/22 03/02/22 Range/Units 11:33 16:29 20:36 Sodium (137-145) mmol/L BUN (9-20) mg/dL Creatinine (0.66-1.25) mg/dL Glucose (74-99) mg/dL POC Glucose (mg/dL) 203 H 154 H 134 H (70-110) mg/dL Calcium (8.4-10.2) mg/dL 03/03/22 03/03/22 Range/Units 06:07 10:11 Sodium 135 L (137-145) mmol/L BUN 35 H (9-20) mg/dL Creatinine 2.18 H (0.66-1.25) mg/dL Glucose 158 H (74-99) mg/dL POC Glucose (mg/dL) 128 H (70-110) mg/dL Calcium 8.3 L (8.4-10.2) mg/dL Assessment and Plan Assessment: 1. Acute kidney injury secondary to hemodynamic ATN and component of cardiorenal syndrome. Creatinine was 1.8 on admission and peaked at 2.41 this admission - 2.18 now. Creatinine in 2020 was near 1. No hydronephrosis noted on kidney ultrasound. 2. Hypokalemia from diuresis. Replaced. Better. 3. Acute on chronic diastolic CHF. 4. Volume overload. Improved with diuresis. 5. Hypertensive urgency. Improved. 6. E. coli UTI on antibiotics. 7. Chronic [place] catheter due to urinary frequency per patient. He follows [facility] urology outpatient. Patient states [place] catheter was changed on 02/24/2022. Plan: Continue with the KRISS inhibitors Continue to monitor for resuming loop diuretics.
[2022-03-03 11:35] LABS: Glucose,Whole Blood 170 mg/dL (70-110)
[2022-03-03] MEDS: INSULIN DETEMIR (LEVEMIR) 100 UNIT/ML SYR SQ SCH (12:27)
--- NOTE | 2022-03-03 13:45 | P.PN ---
Subjective Progress Note Date: 03/03/22 PROGRESS NOTE The patient is a 71-year-old male who presented with acute dyspnea, elevated blood pressure and congestive heart failure with preserved systolic function. He continues to have mild dyspnea but he denies any chest discomfort or dizziness. He continues to be in sinus mechanism. He denies any nausea or vomiting. His echocardiogram showed an ejection fraction of 55% with mild LVH and mild mitral regurgitation. March 03: He feels better today, his breathing is improving, he denies any chest discomfort, dizziness or palpitations. His blood pressure is under better control. He denies any nausea or vomiting. Medications: Coreg 6.25 mg twice a day, hydralazine 100 mg 3 times a day, lisinopril 10 mg twice a day, amlodipine 10 mg daily, aspirin once a day. Lipitor 40 mg daily, Imdur 30 mg daily, Farxiga 10 mg daily PHYSICAL EXAMINATION: Blood pressure 155/60 heart rate 63 LUNGS: Clear to auscultation HEART: Regular rate and rhythm, S1, S2. No S3. systolic ejection murmur ABDOMEN: Soft, nontender, no organomegaly EXTREMETIES: Chronic discoloration was trace edema on the right side LAB: BUN 35, creatinine 2.18 IMPRESSION: 1. Uncontrolled hypertension, improved 2. Heart failure with preserved systolic function 3. Acute renal injury, improving 4. History of diabetes PLAN: 1. Continue present therapy 2. Increase physical activity 3. Follow blood pressure and renal functions 4. Probable discharge in the next 24-48 hours Objective - Vital Signs Vital signs: Vital Signs Temp 97.9 F 03/03/22 12:27 Pulse 63 03/03/22 12:27 Resp 18 03/03/22 12:27 BP 155/69 03/03/22 12:27 Pulse Ox 95 03/03/22 12:27 FiO2 Intake & Output 03/02/22 03/03/22 03/03/22 18:59 06:59 18:59 Intake Total 1000 Output Total 900 750 400 Balance 100 -750 -400 Weight 93.9 kg Intake: Oral 1000 Output: Urine 900 750 400 Uretheral ([place]) 750 400 Other: Voiding Method Indwelling Catheter Indwelling Catheter Indwelling Catheter - Labs CBC & Chem 7: 02/27/22 08:38 03/03/22 10:11 Labs: Abnormal Lab Results - Last 24 Hours (Table) 03/02/22 03/02/22 03/03/22 Range/Units 16:29 20:36 06:07 Sodium (137-145) mmol/L BUN (9-20) mg/dL Creatinine (0.66-1.25) mg/dL Glucose (74-99) mg/dL POC Glucose (mg/dL) 154 H 134 H 128 H (70-110) mg/dL Calcium (8.4-10.2) mg/dL 03/03/22 03/03/22 Range/Units 10:11 11:33 Sodium 135 L (137-145) mmol/L BUN 35 H (9-20) mg/dL Creatinine 2.18 H (0.66-1.25) mg/dL Glucose 158 H (74-99) mg/dL POC Glucose (mg/dL) 170 H (70-110) mg/dL Calcium 8.3 L (8.4-10.2) mg/dL
--- NOTE | 2022-03-03 15:58 | P.PN ---
Subjective Progress Note Date: 03/03/22 Acute hypoxic respiratory failure Acute diastolic congestive heart failure, new onset. Normal ejection fraction about 55% Hypertension, with urgency acute urinary tract infection associated with Washington catheter, present on admission Acute on chronic kidney injury, stage II 71 years old male with past medical history of hypertension, diabetes mellitus, chronic UTI Presents because of shortness of breath and increased leg swelling. Patient states that he's having shortness of breath since last , about 6 days ago. Associated with a dry cough present. He says that he has some chest pain when he comes No significant pain without coughing. Patient says that he never had heart problems before. This is an you for him. Also patient has indwelling Washington catheter for about 3 months and he follows up with Dr. Rees office. He denies any specific symptoms regarding his urinary tract. No abdominal pain or vomiting or diarrhea. No headache or dizziness or weakness or numbness He denies smoking alcohol or illicit drugs Patient's mildly bradycardic on admission, heart rate 56 this morning. Blood pressure is elevated 201/89, currently 188/74. Patient is afebrile. Labs show an unremarkable CBC, INR, liver enzymes. BNP is elevated 10 700 Creatinine is high at 1.8, baseline is 1.0-1.3 EKG showing sinus bradycardia at [address] T changes Chest x-ray: There is bilateral pleural effusion and minimal congestion. Possible mild chronic congestive heart failure which is a new change. Urine analysis suspicious for infection Patient is started on Zosyn and emergency room as well as IV Lasix 02/28/2022 Patient is seen and evaluated in room at bedside; reports stable breathing; no new complaints of chest shortness of breath Vital signs are reviewed and stable with temperature of 97.9, pulse 57,patient 18 and blood pressure 173/76 with O2 saturation above 95% Cardiology and board; patient is currently euvolemic and diuretics were held due to worsening renal injury; Lasix and Aldactone remain on hold Cardiology recommending to increase hydralazine to 50 mg 3 times a day with close observation and plan to make further adjustments as needed 03/01/2022 The patient was seen and evaluated in room at bedside. Patient denies any complaint of chest pain or shortness of breath with stable oxygen saturation on room air. He is euvolemic on examination as well with clear breathing sounds bilaterally and no lower extremities edema. The pressure continues to be elevated but definitely has been moving in the right direction. Cardiology recommending to increase the dose of hydralazine to 75 mg by mouth 3 times a day and continue the rest of the current medical regimen. The creatinine has been trending in the right direction. The patient can be discharged home in the next 12-24 hours. 03/02/2022 Patient is seen and evaluated in follow-up reporting some pain. Patient reports he had some right-sided lower back pain and lumbar imaging was done which was negative for any acute fracture or process noted. Nephrology and cardiology following monitoring renal functions closely. Lisinopril being increased to twice daily and also cardiology making adjustments to medications. Patient with weakness will need PT/OT evaluation. Patient is to continue with [place] as this is chronic. Patient is afebrile denies chest pain or worsening shortness of breath. No reports of nausea or vomiting noted and patient is tolerating diet. 03/03/2022 Patient is seen and evaluated in follow-up today currently sitting up in the chair. Patient reports he did not work with physical therapy and has been up a nd walking on his own. Weakness is improving. Patient being followed by cardiology and adjustments to medications being done along with including starting farxiga. Encouraged increased activity as tolerated and encouraged oral intake. Patient also continued on oral Keflex for urinary tract infection and will continue short course outpatient to complete the course. Arrangements are being made to have Homecare in the outpatient setting. Patient is afebrile denies chest pain or worsening shortness of breath. No reports of nausea or vomiting noted and patient is tolerating diet. Review of systems: Constitutional: No reports of fatigue, fever, or chills Cardiovascular: No reports of chest pain or palpitations Respiratory: No reports of worsening shortness of breath GI: No reports of nausea, vomiting, reports less frequent loose stools : No reports of dysuria or retention Neurovascular: reports of generalized weakness , reports back pain that is improved All medications have been reviewed Active Medications Hydrocodone Bitart/Acetaminophen (Hydrocodone/Apap 5-325mg 1 Each Tab) 1 each PO Q6HR PRN PRN Reason: Pain Last Admin: 03/02/22 11:47 Dose: 1 each Amlodipine Besylate (Amlodipine 10 Mg Tab) 10 mg PO DAILY RISSA Last Admin: 03/03/22 09:05 Dose: 10 mg Aspirin (Aspirin 81 Mg) 81 mg PO DAILY ON LICENSE OF [facility] Last Admin: 03/03/22 09:05 Dose: 81 mg Atorvastatin Calcium (Atorvastatin 40 Mg Tab) 40 mg PO DAILY ON LICENSE OF [facility] Last Admin: 03/03/22 09:05 Dose: 40 mg Carvedilol (Carvedilol 6.25 Mg Tab) 6.25 mg PO BID-W/MEALS ON LICENSE OF [facility] Last Admin: 03/03/22 06:13 Dose: 6.25 mg Cephalexin (Cephalexin 500 Mg Cap) 500 mg PO TID ON LICENSE OF [facility]; Protocol Last Admin: 03/03/22 09:05 Dose: 500 mg Cyclobenzaprine HCl (Cyclobenzaprine 5 Mg Tab) 5 mg PO TID PRN PRN Reason: Pain Last Admin: 03/01/22 18:13 Dose: 5 mg Dapagliflozin (Dapagliflozin Propanediol 10 Mg Tablet) 10 mg PO DAILY ON LICENSE OF [facility] Last Admin: 03/03/22 09:07 Dose: 10 mg Dextrose/Water (Dextrose 50% Syringe 50 Ml) 25 ml IVP PER PROTOCOL PRN; Protocol PRN Reason: Hypoglycemia Dextrose/Water (Dextrose 50% Syringe 50 Ml) 50 ml IVP PER PROTOCOL PRN; Protocol PRN Reason: Hypoglycemia Famotidine (Famotidine 20 Mg Tab) 20 mg PO DAILY ON LICENSE OF [facility] Last Admin: 03/03/22 09:05 Dose: 20 mg Heparin Sodium (Porcine) (Heparin Sodium,Porcine/Pf 5,000 Unit/0.5 Ml Syringe) 5,000 unit SQ Q8HR ON LICENSE OF [facility] Last Admin: 03/03/22 09:05 Dose: 5,000 unit Hydralazine HCl (Hydralazine Hcl 50 Mg Tab) 100 mg PO TID ON LICENSE OF [facility] Last Admin: 03/03/22 09:05 Dose: 100 mg Insulin Aspart (Insulin Aspart (Novolog) 100 Unit/Ml Vial) 0 unit SQ ACHS ON LICENSE OF [facility]; Protocol Last Admin: 03/03/22 12:27 Dose: 3 unit Insulin Detemir (Insulin Detemir (Levemir) 100 Unit/Ml Syr) 10 unit SQ DAILY@1200 ON LICENSE OF [facility] Last Admin: 03/03/22 12:27 Dose: 10 unit Isosorbide Mononitrate (Isosorbide Mononitrate Er 30 Mg Tab.Er.24h) 30 mg PO DAILY ON LICENSE OF [facility] Last Admin: 03/03/22 09:05 Dose: 30 mg Lisinopril (Lisinopril 10 Mg Tab) 10 mg PO BID RISSA Last Admin: 03/03/22 09:05 Dose: 10 mg Miscellaneous Information (Potassium Replacement Protocol [facility] 1 each MISCELLANE DAILY PRN; Protocol PRN Reason: Per Protocol Physical exam: GENERAL: The patient is alert and oriented x3, Well developed, well nourished. Elderly-appearing male HEENT: Pupils are round and equally reacting to light. EOMI. No scleral icterus. No conjunctival pallor. Normocephalic, atraumatic. No pharyngeal erythema. No thyromegaly. CARDIOVASCULAR: S1 and S2 muffled PULMONARY: Diminished breath sounds bilaterally with no wheezing. Improving bilaterally basal crackles. Some scattered rhonchi ABDOMEN: Soft, nontender, nondistended, normoactive bowel sounds. No palpable organomegaly. Indwelling Washington catheter in place MUSCULOSKELETAL: No joint swelling or deformity. EXTREMITIES: No cyanosis, clubbing, improving bilateral pitting leg edema NEUROLOGICAL: Gross neurological examination did not reveal any focal deficits. Diffusely weak SKIN: No rashes. no petechiae. Assessment: Acute hypoxic respiratory failure secondary to CHF exacerbation Acute diastolic congestive heart failure, new onset. Normal ejection fraction about 55% Hypertension, with urgency acute urinary tract infection associated with [place] catheter, present on admission Acute on chronic kidney injury, stage II Diabetes mellitus History of chronic UTI DVT prophylaxis: Subcutaneous heparin GI Prophylaxis: Pepcid Plan: Recommend continue with current medications per cardiology recommendations, adjustments being made and patient has been started on farxiga and recommend monitoring overnight with possible discharge in 24 hours Cardiology following recommending outpatient follow-up Urine culture positive for E. coli and currently maintained on Keflex and will continue to complete the course Patient continues to report weakness although feeling slightly more strong and reports to being up and walking Recommend follow-up labs in a.m. to monitor kidney functions closely Recommend to replace electrolytes per protocol Due to multiple complex medical issues, prognosis is guarded Possible discharge in the next 24 hours The impression and plan of care has been dictated by Mai Williamson, Nurse Practitioner as directed. Dr. Casey MD I have performed a history and examination and MDM of this patient, discussed the same with the dictator, and agree with the dictator's assessment and plan as written ,documented as a scribe. Based on total visit time, I have performed more than 50% of the visit. Objective - Vital Signs Vital signs: Vital Signs Temp 97.9 F 03/03/22 12:27 Pulse 63 03/03/22 12:27 Resp 18 03/03/22 12:27 BP 155/69 03/03/22 12:27 Pulse Ox 95 03/03/22 12:27 FiO2 Intake & Output 03/02/22 03/03/22 03/03/22 18:59 06:59 18:59 Intake Total 1000 120 Output Total 900 750 550 Balance 100 -750 -430 Weight 93.9 kg Intake: Oral 1000 120 Output: Urine 900 750 550 Uretheral ([place]) 750 Other: Voiding Method Indwelling Catheter Indwelling Catheter Indwelling Catheter - Labs CBC & Chem 7: 02/27/22 08:38 03/03/22 10:11 Labs: Abnormal Lab Results - Last 24 Hours (Table) 03/02/22 03/02/22 03/03/22 Range/Units 16:29 20:36 06:07 Sodium (137-145) mmol/L BUN (9-20) mg/dL Creatinine (0.66-1.25) mg/dL Glucose (74-99) mg/dL POC Glucose (mg/dL) 154 H 134 H 128 H (70-110) mg/dL Calcium (8.4-10.2) mg/dL 03/03/22 03/03/22 Range/Units 10:11 11:33 Sodium 135 L (137-145) mmol/L BUN 35 H (9-20) mg/dL Creatinine 2.18 H (0.66-1.25) mg/dL Glucose 158 H (74-99) mg/dL POC Glucose (mg/dL) 170 H (70-110) mg/dL Calcium 8.3 L (8.4-10.2) mg/dL
[2022-03-03 16:29] LABS: Glucose,Whole Blood 122 mg/dL (70-110)
[2022-03-03 20:12] LABS: Glucose,Whole Blood 164 mg/dL (70-110)
[2022-03-04] MEDS: HEPARIN SODIUM,PORCINE/PF 5,000 UNIT/0.5 ML SYRINGE SQ SCH ×2 (00:06→09:12)
[2022-03-04 06:12] LABS: Glucose,Whole Blood 151 mg/dL (70-110)
[2022-03-04] MEDS: carvediloL 6.25 MG TAB PO SCH (06:23)
[2022-03-04] MEDS: INSULIN ASPART (NovoLOG) 100 UNIT/ML VIAL SQ SCH ×2 (06:23→11:58)
[2022-03-04 08:19] LABS: Calcium 8.3 mg/dL (8.4-10.2)
[2022-03-04] MEDS: CEPHALEXIN 500 MG CAP PO SCH (09:13)
[2022-03-04] MEDS: lisinopriL 10 MG TAB PO SCH (09:13)
[2022-03-04] MEDS: ISOSORBIDE MONONITRATE ER 30 MG TAB.ER.24H PO SCH (09:13)
[2022-03-04] MEDS: hydrALAZINE HCL 50 MG TAB PO SCH (09:13)
[2022-03-04] MEDS: ASPIRIN 81 MG PO SCH (09:13)
[2022-03-04] MEDS: DAPAGLIFLOZIN PROPANEDIOL 10 MG TABLET PO SCH (09:13)
[2022-03-04] MEDS: amLODIPine 10 MG TAB PO SCH (09:13)
[2022-03-04] MEDS: ATORVASTATIN 40 MG TAB PO SCH (09:13)
[2022-03-04] MEDS: FAMOTIDINE 20 MG TAB PO SCH (09:14)
[2022-03-04 11:44] LABS: Glucose,Whole Blood 170 mg/dL (70-110)
[2022-03-04] MEDS: INSULIN DETEMIR (LEVEMIR) 100 UNIT/ML SYR SQ SCH (11:59)
[2022-03-04 13:34] VITALS: BP 156/74; PULSE 61; RESP 18; TEMP 97.9
--- NOTE | 2022-03-04 14:12 | P.PN ---
Subjective Progress Note Date: 03/04/22 PROGRESS NOTE The patient is a 71-year-old male who presented with acute dyspnea, elevated blood pressure and congestive heart failure with preserved systolic function. He continues to have mild dyspnea but he denies any chest discomfort or dizziness. He continues to be in sinus mechanism. He denies any nausea or vomiting. His echocardiogram showed an ejection fraction of 55% with mild LVH and mild mitral regurgitation. March 03: He feels better today, his breathing is improving, he denies any chest discomfort, dizziness or palpitations. His blood pressure is under better control. He denies any nausea or vomiting. March 04: The patient is feeling better, he continues to have some elevation in blood pressure but better overall. His breathing is better. He denies any dizziness or palpitation, he denies any nausea. Medications: Coreg 6.25 mg twice a day, hydralazine 100 mg 3 times a day, lisinopril 10 mg twice a day, amlodipine 10 mg daily, aspirin once a day. Lipitor 40 mg daily, Imdur 30 mg daily, Farxiga 10 mg daily PHYSICAL EXAMINATION: Blood pressure 156/70 heart rate 60 LUNGS: Clear to auscultation HEART: Regular rate and rhythm, S1, S2. No S3. systolic ejection murmur ABDOMEN: Soft, nontender, no organomegaly EXTREMETIES: Chronic discoloration was trace edema on the right side LAB: BUN 38, creatinine 2.24 IMPRESSION: 1. Uncontrolled hypertension, improved 2. Heart failure with preserved systolic function 3. Acute renal injury, stable 4. History of diabetes PLAN: 1. Increase isosorbide 2. Increase physical activity 3. Follow blood pressure and renal functions 4. Probable discharge home soon and follow-up as an outpatient Objective - Vital Signs Vital signs: Vital Signs Temp 97.9 F 03/04/22 12:00 Pulse 61 03/04/22 12:00 Resp 18 03/04/22 12:00 BP 156/74 03/04/22 12:00 Pulse Ox 95 03/04/22 12:00 FiO2 Intake & Output 03/03/22 03/04/22 03/04/22 18:59 06:59 18:59 Intake Total 120 540 Output Total 550 1000 Balance -430 -1000 540 Weight 94.7 kg Intake: Oral 120 540 Output: Urine 550 1000 Uretheral ([place]) 1000 Other: Voiding Method Indwelling Catheter Indwelling Catheter Indwelling Catheter - Labs CBC & Chem 7: 02/27/22 08:38 03/04/22 07:21 Labs: Abnormal Lab Results - Last 24 Hours (Table) 03/03/22 03/03/22 03/04/22 Range/Units 16:28 20:11 06:10 Sodium (137-145) mmol/L BUN (9-20) mg/dL Creatinine (0.66-1.25) mg/dL Glucose (74-99) mg/dL POC Glucose (mg/dL) 122 H 164 H 151 H (70-110) mg/dL Calcium (8.4-10.2) mg/dL 03/04/22 03/04/22 Range/Units 07:21 11:42 Sodium 136 L (137-145) mmol/L BUN 38 H (9-20) mg/dL Creatinine 2.24 H (0.66-1.25) mg/dL Glucose 151 H (74-99) mg/dL POC Glucose (mg/dL) 170 H (70-110) mg/dL Calcium 8.3 L (8.4-10.2) mg/dL
--- NOTE | 2022-03-04 16:06 | P.PN ---
Subjective Patient is seen for follow-up for acute kidney injury, mostly cardiorenal and component of hemodynamic ATN, He is status post diuresis for volume overload Patient has a chronic indwelling [place] catheter Serum creatinine staying stable at 2.1-2.2 mg/dL. No significant complaints today. Objective - Vital Signs Vital signs: Vital Signs Temp 97.9 F 03/04/22 12:00 Pulse 61 03/04/22 12:00 Resp 18 03/04/22 12:00 BP 156/74 03/04/22 12:00 Pulse Ox 95 03/04/22 12:00 FiO2 Intake & Output 03/03/22 03/04/22 03/04/22 18:59 06:59 18:59 Intake Total 120 540 Output Total 550 1000 Balance -430 -1000 540 Weight 94.7 kg Intake: Oral 120 540 Output: Urine 550 1000 Uretheral ([place]) 1000 Other: Voiding Method Indwelling Catheter Indwelling Catheter Indwelling Catheter - Exam awake, comfortable, no acute distress Examination of the heart S1 and S2 Examination lungs bilateral breath sounds are heard Abdomen is soft nontender obese Examination of lower extremity shows chronic skin changes trace edema bilaterally CELL LEAD exam grossly intact - Labs CBC & Chem 7: 02/27/22 08:38 03/04/22 07:21 Labs: Abnormal Lab Results - Last 24 Hours (Table) 03/03/22 03/03/22 03/04/22 Range/Units 16:28 20:11 06:10 Sodium (137-145) mmol/L BUN (9-20) mg/dL Creatinine (0.66-1.25) mg/dL Glucose (74-99) mg/dL POC Glucose (mg/dL) 122 H 164 H 151 H (70-110) mg/dL Calcium (8.4-10.2) mg/dL 03/04/22 03/04/22 Range/Units 07:21 11:42 Sodium 136 L (137-145) mmol/L BUN 38 H (9-20) mg/dL Creatinine 2.24 H (0.66-1.25) mg/dL Glucose 151 H (74-99) mg/dL POC Glucose (mg/dL) 170 H (70-110) mg/dL Calcium 8.3 L (8.4-10.2) mg/dL Assessment and Plan Assessment: 1. Acute kidney injury secondary to hemodynamic ATN and component of cardiorenal syndrome. Creatinine was 1.8 on admission and peaked at 2.41 this admission - 2.1-2.2 now. Creatinine in 2020 was near 1. No hydronephrosis no sandy on kidney ultrasound. 2. Hypokalemia from diuresis. Replaced. Better. 3. Acute on chronic diastolic CHF. 4. Volume overload. Improved with diuresis. 5. Hypertensive urgency. Improved. 6. E. coli UTI on antibiotics. 7. Chronic [place] catheter due to urinary frequency per patient. He follows with urology outpatient. Patient states [place] catheter was changed on 02/24/2022. Plan: Continue with the KRISS inhibitors Continue to monitor for resuming loop diuretics. Follow up as op in 1-2 weeks
--- NOTE | 2022-03-05 03:06 | P.DS ---
Providers Date of admission: 02/24/22 21:52 Attending physician: Shirley Peña Consults: 02/24/22 21:29 Consult Physician Urgent Consulting Provider: Anastasia Fernandez Consult Reason/Comments: Congestive heart failure Do you want consulting provider notified?: Yes, Notify in am 02/27/22 12:15 Consult Physician Routine Consulting Provider: Edinson Wang Consult Reason/Comments: Ac on CKD/ CHF Do you want consulting provider notified?: Yes Primary care physician: Madeline Aldana Hospital Course: Final diagnosis Acute hypoxic respiratory failure secondary to CHF exacerbation Acute diastolic congestive heart failure, new onset. Normal ejection fraction about 55% Hypertension, with urgency acute urinary tract infection associated with [place] catheter, present on admission Acute on chronic kidney injury, stage II Diabetes mellitus History of chronic UTI DVT prophylaxis: Subcutaneous heparin GI Prophylaxis: Pepcid Discharge disposition Patient is being discharged in a stable condition with guarded prognosis to home with home care. Patient will follow-up with Dr. Anton Peña in the outpatient setting upon discharge. Patient is to also follow-up with consultations as scheduled. Patient will continue on oral Keflex for the next one week to complete the course. Total time taken is greater than 35 minutes. Hospital course This is a 71-year-old male who was recently admitted with increasing shortness of breath secondary to CHF exacerbation being closely monitored. Patient was also evaluated for an acute urinary tract infection secondary to chronic indwelling [place] catheter which was replaced and patient will continue on oral Keflex for 1 week to complete the course. Patient with generalized weakness and seen by physical therapy recommending home with home care. Home care is being arranged patient will be discharged today. Patient has been cleared by consultations with close outpatient follow-up with cardiology. Currently no reports of chest pain, shortness of breath, or palpitations. Patient is afebrile. No reports of nausea or vomiting and patient is tolerating diet. Patient will be discharged home today. Guarded prognosis and high risk for readmission Physical exam: Gen: This is a 71-year-old male awake, alert and oriented 3, thin built, elderly appearing HEENT: Head is atraumatic, normocephalic. Pupils equal, round. Sclerae is anicteric. NECK: Supple. No JVD. No lymphadenopathy. No thyromegaly. LUNGS: Clear to auscultation. No wheezes or rhonchi. No intercostal retractions. HEART: S1, S2 are muffled ABDOMEN: Soft. Bowel sounds are present. No masses. No tenderness. EXTREMITIES: No pedal edema. No calf tenderness. NEUROLOGICAL: Patient is awake, alert and oriented x3. Cranial nerves 2 through 12 are grossly intact. Please refer to medication reconciliation sheet for a list of medications. The impression and plan of care has been dictated by Mai Williamson, Nurse Practitioner as directed. Dr. Casey MD I have performed a history and examination and MDM of this patient, discussed the same with the dictator, and agree with the dictator's assessment and plan as written ,documented as a scribe. Based on total visit time, I have performed more than 50% of the visit. Patient Condition at Discharge: Fair Plan - Discharge Summary Discharge Rx Participant: No New Discharge Prescriptions: New Dapagliflozin Propanediol [Farxiga] 10 mg PO DAILY 30 Days #30 tab Cephalexin [Keflex] 500 mg PO TID 7 Days #21 cap Atorvastatin [Lipitor] 40 mg PO DAILY 30 Days #30 tab amLODIPine [Norvasc] 10 mg PO DAILY 30 Days #30 tab lisinopriL [Zestril] 10 mg PO BID 30 Days #60 tab Meclizine [Antivert] 6.25 mg PO TID #6 tablet hydrALAZINE HCL [Apresoline] 100 mg PO TID 30 Days #180 tab carvediloL [Coreg] 6.25 mg PO BID-W/MEALS 30 Days #60 tab Isosorbide Mononitrate ER [Imdur] 30 mg PO DAILY #30 tab Continue Cranberry Fruit Extract [Cranberry] 500 mg PO DAILY Insulin Glargine,Hum.rec.anlog [Lantus Solostar Pen] 10 unit SQ DAILY@1200 Aspirin EC [Ecotrin Low Dose] 81 mg PO DAILY Insulin Lispro [humaLOG Kwikpen] 2 unit SQ AC-TID Insulin Lispro [humaLOG Kwikpen] See Protocol SQ AC-TID Discontinued amLODIPine [Norvasc] 5 mg PO DAILY #30 tab Pioglitazone [Actos] 15 mg PO DAILY lisinopriL [Zestril] 10 mg PO DAILY Metoprolol Succinate (ER) [Toprol Xl] 25 mg PO DAILY Discharge Medication List Cranberry Fruit Extract [Cranberry] 500 mg PO DAILY 01/31/21 [History] Insulin Glargine,Hum.rec.anlog [Lantus Solostar Pen] 10 unit SQ DAILY@1200 09/30/21 [History] Aspirin EC [Ecotrin Low Dose] 81 mg PO DAILY 02/24/22 [History] Insulin Lispro [humaLOG Kwikpen] 2 unit SQ AC-TID 02/24/22 [History] Insulin Lispro [humaLOG Kwikpen] See Protocol SQ AC-TID 02/24/22 [History] Atorvastatin [Lipitor] 40 mg PO DAILY 30 Days #30 tab 03/03/22 [Rx] Cephalexin [Keflex] 500 mg PO TID 7 Days #21 cap 03/03/22 [Rx] Dapagliflozin Propanediol [Farxiga] 10 mg PO DAILY 30 Days #30 tab 03/03/22 [Rx] Isosorbide Mononitrate ER [Imdur] 30 mg PO DAILY #30 tab 03/03/22 [Rx] amLODIPine [Norvasc] 10 mg PO DAILY 30 Days #30 tab 03/03/22 [Rx] carvediloL [Coreg] 6.25 mg PO BID-W/MEALS 30 Days #60 tab 03/03/22 [Rx] hydrALAZINE HCL [Apresoline] 100 mg PO TID 30 Days #180 tab 03/03/22 [Rx] lisinopriL [Zestril] 10 mg PO BID 30 Days #60 tab 03/03/22 [Rx] Meclizine [Antivert] 6.25 mg PO TID #6 tablet 03/04/22 [Rx] Follow up Appointment(s)/Referral(s): Marilee Post MD [STAFF PHYSICIAN] - 04/13/22 2:20 pm Anastasia Fernandez MD [STAFF PHYSICIAN] - 1 Week (Office will call you to schedule follow up appoitment) Madeline Aldana MD [Primary Care Provider] - 1-2 days (PLEASE CALL AND MAKE APPOINMENT.) [facility] Visiting Nurse, [NON-STAFF] - (AGENCY WILL CONTACT YOU.) Ambulatory/Diagnostic Orders: Basic Metabolic Panel [LAB.AMB] Time Frame: 3 Days, Location: None Selected Patient Instructions/Handouts: Cephalexin (By mouth), Lisinopril (By mouth), Meclizine (By mouth), Amlodipine (By mouth), Isosorbide Mononitrate (By mouth), Atorvastatin (By mouth), Carvedilol (By mouth), Hydralazine (By injection), Dapagliflozin (By mouth), Heart Failure (DC), Urinary Tract Infection in Men (DC) Activity/Diet/Wound Care/Special Instructions: Activity Limited until follow-up Follow-up with cardiology outpatient Follow-up with nephrology outpatient Continue taking antibiotics until finished Continue monitoring blood sugars before meals and at bedtime and keep a diary of all readings for follow-up If blood sugars are 100 or less hold insulin Recommend repeat labs in the next 2-3 days Discharge Disposition: HOME WITH HOME HEALTH SERVICES
[2022-03-05] MEDS ORDERED: ISOSORBIDE MONONITRATE ER 60 MG TAB.ER.24H PO SCH (09:00)
== END 2022-03-04 15:50 | disposition home health service (06) | DRG 698 ==
LOC: EC 17:19 → 3SCARD 21:52
PROVIDERS: ADMIT Hospitalist; ATTEND Hospitalist
DX: T83.511A Infection and inflammatory reaction due to indwelling urethral catheter, initial encounter (principal); I50.33 Acute on chronic diastolic (congestive) heart failure; J96.01 Acute respiratory failure with hypoxia; N17.0 Acute kidney failure with tubular necrosis; I13.0 Hypertensive heart and chronic kidney disease with heart failure and stage 1 through stage 4 chronic kidney disease, or unspecified chronic kidney disease; E87.1 Hypo-osmolality and hyponatremia; I16.1 Hypertensive emergency; E11.22 Type 2 diabetes mellitus with diabetic chronic kidney disease; E11.42 Type 2 diabetes mellitus with diabetic polyneuropathy; I34.0 Nonrheumatic mitral (valve) insufficiency; B96.20 Unspecified Escherichia coli [E. coli] as the cause of diseases classified elsewhere; N18.2 Chronic kidney disease, stage 2 (mild); R00.1 Bradycardia, unspecified; E87.6 Hypokalemia; N39.0 Urinary tract infection, site not specified; M51.36 Other intervertebral disc degeneration, lumbar region; Y84.6 Urinary catheterization as the cause of abnormal reaction of the patient, or of later complication, without mention of misadventure at the time of the procedure; Z87.440 Personal history of urinary (tract) infections; Z79.4 Long term (current) use of insulin; Z79.82 Long term (current) use of aspirin; Z79.84 Long term (current) use of oral hypoglycemic drugs; Z79.899 Other long term (current) drug therapy
CPT/HCPCS: 36415; 71046; 72100; 76770; 80048; 80053; 81001; 83036; 83735; 83880; 84443; 84484; 85025; 85610; 85730; 87077; 87086; 87186; 93005; 93306; 94760; 96365; 96366; 96375; 96376; 99285

== ENCOUNTER 2022-03-23 10:29 | Emergency (ER) | payer MEDICARE, OTHER ==
[2022-03-23 10:40] VITALS: BP 166/74; PULSE 65; RESP 20; TEMP 98.4
--- NOTE | 2022-03-23 11:24 | XR ---
EXAMINATION TYPE: XR chest 2V DATE OF EXAM: 03/23/2022 11:14 AM COMPARISON: Chest radiographs from 02/24/2022 TECHNIQUE: XR chest 2V Frontal and lateral views of the chest. CLINICAL INDICATION:Male, 71 years old with history of Cough; FINDINGS: Lungs/Pleura: Prominent interstitial lung markings are seen scattered throughout the lungs. No eviden ce of focal consolidation, pneumothorax. Trace bilateral pleural effusions which have decreased from prior imaging. Pulmonary vascularity: Unremarkable. Heart/mediastinum: Cardiomediastinal silhouette is unremarkable. Musculoskeletal: No acute osseous pathology. IMPRESSION: 1. Coarsened interstitial lung markings without evidence for acute heart failure. Focal consolidatio n. 2. Decrease in bilateral pleural effusions compared to prior. Remains blunting of the costophrenic a ngles with small pleural effusion suggested.
--- NOTE | 2022-03-23 11:51 | ED ---
URI HPI - General Source: patient, RN notes reviewed Mode of arrival: ambulatory Limitations: no limitations <Edmund Sinha - Last Filed: 03/23/22 11:32> <Zane Gatica - Last Filed: 03/23/22 12:50> - General Chief Complaint: Upper Respiratory Infection Stated Complaint: cough, sob Time Seen by Provider: 03/23/22 11:32 - History of Present Illness Initial Comments: 71-year-old male presents emergency Department chief complaint of cough congestion. Patient states he's been sick for 4 days. Patient's complaint of body aches, possible fever. No chest pain. Patient states his breathing has been improving since his recent CHF exacerbation. Patient denies any GI symptoms. Patient offers no complaints. (Edmund Sinha) This is a 71-year-old male presents emergency Department complaining that he's had a four-day history of congestion and cough. Patient states he might of had a fever but never took his temperature. Patient also complains of body. Patient states when he is coughing and short of breath but other than that he is not short of breath. Patient states sitting here in the bed he is not short of breath. Patient states she has a history congestive heart failure but has been doing well since his last exacerbation. Patient denies any chest pain palpitations. He denies any abdominal pain patient denies any vomiting but states he is occasionally nauseous. Patient states currently he is mildly nauseated. Patient denies headache patient denies numbness weakness. Patient denies any lightheadedness or dizziness. (Zane Gatica) - Related Data Home Medications Medication Instructions Recorded Confirmed Cranberry Fruit Extract [Cranberry] 500 mg PO DAILY 01/31/21 02/24/22 Insulin Glargine,Hum.rec.anlog 10 unit SQ DAILY@1200 09/30/21 02/24/22 [Lantus Solostar Pen] Aspirin EC [Ecotrin Low Dose] 81 mg PO DAILY 02/24/22 02/24/22 Insulin Lispro [humaLOG Kwikpen] 2 unit SQ AC-TID 02/24/22 02/24/22 Insulin Lispro [humaLOG Kwikpen] See Protocol SQ AC-TID 02/24/22 02/24/22 Previous Rx's Medication Instructions Recorded Atorvastatin [Lipitor] 40 mg PO DAILY 30 Days #30 tab 03/03/22 Cephalexin [Keflex] 500 mg PO TID 7 Days #21 cap 03/03/22 Dapagliflozin Propanediol [Farxiga] 10 mg PO DAILY 30 Days #30 tab 03/03/22 Isosorbide Mononitrate ER [Imdur] 30 mg PO DAILY #30 tab 03/03/22 amLODIPine [Norvasc] 10 mg PO DAILY 30 Days #30 tab 03/03/22 carvediloL [Coreg] 6.25 mg PO BID-W/MEALS 30 Days #60 03/03/22 tab hydrALAZINE HCL [Apresoline] 100 mg PO TID 30 Days #180 tab 03/03/22 lisinopriL [Zestril] 10 mg PO BID 30 Days #60 tab 03/03/22 Meclizine [Antivert] 6.25 mg PO TID #6 tablet 03/04/22 Allergies Allergy/AdvReac Type Severity Reaction Status Date / Time No Known Allergies Allergy Verified 03/23/22 10:40 Review of Systems ROS Other: All systems not noted in ROS Statement are negative. <Edmund Sinha - Last Filed: 03/23/22 11:32> ROS Other: All systems not noted in ROS Statement are negative. <Zane Gatica - Last Filed: 03/23/22 12:50> ROS Statement: Those systems with pertinent positive or pertinent negative responses have been documented in the HPI. Past Medical History Past Medical History: Chest Pain / Angina, Diabetes Mellitus, Hypertension, Pneumonia Additional Past Medical History / Comment(s): Neuropathy in bilat feet and bilat hands. CHRONIC UTI History of Any Multi-Drug Resistant Organisms: None Reported Past Surgical History: No Surgical Hx Reported Additional Past Surgical History / Comment(s): Varicose vein surgery, irrigation to right leg Past Anesthesia/Blood Transfusion Reactions: No Reported Reaction Past Psychological History: No Psychological Hx Reported Smoking Status: Never smoker Past Alcohol Use History: None Reported Past Drug Use History: None Reported - Past Family History Father Family Medical History: CVA/TIA Additional Family Medical History / Comment(s): Father passed from stroke at age 62. Son(s) Family Medical History: Cancer Additional Family Medical History / Comment(s): Down syndrome, KIDNEY CANCER <Edmund Sinha - Last Filed: 03/23/22 11:32> General Exam Limitations: no limitations <Edmund Sinha - Last Filed: 03/23/22 11:32> <Zane Gatica - Last Filed: 03/23/22 12:50> - General Exam Comments Initial Comments: GENERAL: Patient is well-developed and well-nourished. Patient is nontoxic and well- hydrated and is in no acute distress. ENT: Neck is soft and supple. No significant lymphadenopathy is noted. Oropharynx is clear. Moist mucous membranes. Neck has full range of motion without eliciting any pain. EYES: The sclera were anicteric and conjunctiva were pink and moist. Extraocular movements were intact and pupils were equal round and reactive to light. Eyelids were unremarkable. PULMONARY: Unlabored respirations. Good breath sounds bilaterally. No audible rales rhonchi or wheezing was noted. CARDIOVASCULAR: There is a regular rate and rhythm without any murmurs gallops or rubs. ABDOMEN: Soft and nontender with normal bowel sounds. No palpable organomegaly was noted. There is no palpable pulsatile mass. SKIN: Skin is clear with no lesions or rashes and otherwise unremarkable. NEUROLOGIC: Patient is alert and oriented x3. Cranial nerves II through XII are grossly intact. Motor and sensory are also intact. Normal speech, volume and content. Symmetrical smile. MUSCULOSKELETAL: Normal extremities with adequate strength and full range of motion. Patient has edema bilateral legs right greater than left but patient states this isn't baseline is no worse than normal. LYMPHATICS: No significant lymphadenopathy is noted PSYCHIATRIC: Normal psychiatric evaluation. (Zane Gatica) Course Vital Signs 03/23/22 03/23/22 03/23/22 10:37 12:14 12:18 Temperature 98.4 F Pulse Rate 65 65 Respiratory 20 20 Rate Blood Pressure 166/74 O2 Sat by Pulse 95 94 L Oximetry Medical Decision Making <Zane Gatica - Last Filed: 03/23/22 12:50> - Medical Decision Making Was pt. sent in by a medical professional or institution? @ -No Did you speak to anyone other than the patient for history? @ -No Did you review nursing and triage notes? @ -I agree with the triage no Were old charts reviewed? @ -Old x-rays were looked at to compare Differential Diagnosis? @ -COVID, RSV, influenza A, B, upper respiratory infection, bronchitis, pneumonia EKG interpreted by me (3pts min.)? @ -None X-rays interpreted by me (1pt min.) @ -Chest x-ray was interpreted by myself. Chest x-ray shows no acute abnormality CHF or pulmonary edema CT interpreted by me (1pt min.)? @ - None U/S interpreted by me (1pt. min.)? @ -None What testing was considered but not performed? (CT, X-rays, U/S, labs)? Why? @ -None What meds were considered but not given? Why? @ -Known Did you discuss the management of the patient with other professionals? @ -None Did you reconcile home meds? @ -No Was smoking cessation discussed for >3mins.? @ -No Was critical care preformed (if so, how long)? @ -No Were th [facility] social determinants of health that impacted care today? How? (Homelessness, low income, unemployed, alcoholism, drug addiction, transportation, low edu. Level, literacy, decrease access to med. care, correction, rehab)? @ -No Was there de-escalation of care discussed even if they declined? (Discuss DNR or withdrawal of care, Hospice)? @ -No What co-morbidities impacted this encounter? (DM, HTN, Smoking, COPD, CAD, Cancer, CVA, Hep., AIDS, mental health diagnosis, sleep apnea, morbid obesity)? @ -Patient has a history of congestive heart failure which he to be taken into consideration since he was having hard time breathing and x-rays were done to evaluate that. Was patient admitted / discharged? @ -Patient be discharged home he was given Zofran for his nausea in the ER. Patient be giving some Zofran pills to take home. Undiagnosed new problem with uncertain prognosis? @ -No Drug Therapy requiring intensive monitoring for toxicity (Heparin, Nitro, Insulin, Cardizem)? @ -No Were any procedures done? @ -No Diagnosis/symptom? @ -Upper respiratory infection Acute, or Chronic, or Acute on Chronic? @ -Acute Uncomplicated (without systemic symptoms) or Complicated (systemic symptoms)? @ -Uncomplicated Side effects of treatment? @ -No Exacerbation, Progression, or Severe Exacerbation] @ -No Poses a threat to life or bodily function? @ -No Diagnosis/symptom? @ -Nausea Acute, or Chronic, or Acute on Chronic? @ -Acute Uncomplicated (without systemic symptoms) or Complicated (systemic symptoms)? @ -Uncomplicated Side effects of treatment? @ -None Exacerbation, Progression, or Severe Exacerbation] @ -No Poses a threat to life or bodily function? @ -No (Zane Gatica) - Lab Data Lab Results 03/23/22 Range/Units 10:42 Influenza Type A (PCR) Not Detected (Not Detectd) Influenza Type B (PCR) Not Detected (Not Detectd) RSV (PCR) Not Detected (Not Detectd) SARS-CoV-2 (PCR) Not Detected (Not Detectd) Disposition <Edmund Sinha - Last Filed: 03/23/22 11:32> Is patient prescribed a controlled substance at d/c from ED?: No Time of Disposition: 12:43 <Zane Gatica - Last Filed: 03/23/22 12:50> Clinical Impression: Acute upper respiratory infection, Acute nausea with nonbilious vomiting Disposition: HOME SELF-CARE Instructions (If sedation given, give patient instructions): Upper Respiratory Infection (ED) Additional Instructions: Patient will be given some Zofran pills to take home for any nausea. Referrals: Madeline Aldana MD [Primary Care Provider] - 1-2 days
[2022-03-23] MEDS ORDERED: ONDANSETRON ODT 4 MG TAB PO STA (12:45)
[2022-03-23] MEDS ORDERED: ONDANSETRON 4 MG ODT STARTER PACK 2 TAB BTL PO STA (12:45)
== END 2022-03-23 13:37 | disposition home or self-care (01) ==
LOC: EC 10:29
DX: J06.9 Acute upper respiratory infection, unspecified (principal); J90 Pleural effusion, not elsewhere classified; R11.2 Nausea with vomiting, unspecified; E11.40 Type 2 diabetes mellitus with diabetic neuropathy, unspecified; I11.0 Hypertensive heart disease with heart failure; I50.9 Heart failure, unspecified; Z20.822 Contact with and (suspected) exposure to COVID-19; Z79.4 Long term (current) use of insulin; Z79.82 Long term (current) use of aspirin; Z79.84 Long term (current) use of oral hypoglycemic drugs
CPT/HCPCS: 87636; 71046; 99285; S0119

== ENCOUNTER 2022-11-06 14:09 | Emergency (ER) | payer OTHER, MEDICARE ==
[2022-11-06] MEDS ORDERED: KETOROLAC 15 MG/ML 1 ML VIAL IM STA (16:13)
[2022-11-06] MEDS ORDERED: Acetaminophen-Codeine 300-30mg TAB PO STA (16:13)
--- NOTE | 2022-11-06 16:14 | ED ---
Neck Injury/Pain HPI - General Chief Complaint: Neck Pain/Injury Stated Complaint: Neck injury-Dizziness Time Seen by Provider: 11/06/22 15:22 Source: RN notes reviewed, old records reviewed Mode of arrival: ambulatory Limitations: no limitations - History of Present Illness Initial Comments: This is a 71-year-old male to the emergency department for evaluation today. Patient presents today for evaluation regards to neck pain. This occurred well doing his daily activities of cutting the grass. Patient does work for [employer] went over a bump and did feel control to the back of his neck. Pain is consistent and persistent here in the ER no neurological complaints no numbness and tingling of extremities. Patient is able to ambulate without headache or specific trauma MD Complaint: neck pain, neck injury -: minutes(s) Place: home Radiation: right lateral, left lateral (Midline) Severity: moderate Severity scale (1-10): 3 Quality: sharp Consistency: constant Improves With: none Worsens With: none Context: turning/bending Associated Symptoms: none Treatments Prior to Arrival: none - Related Data Home Medications Medication Instructions Recorded Confirmed Insulin Glargine,Hum.rec.anlog 10 unit SQ DAILY@1200 09/30/21 04/30/22 [Lantus Solostar Pen] Aspirin EC [Ecotrin Low Dose] 81 mg PO DAILY 02/24/22 04/30/22 Insulin Lispro [humaLOG Kwikpen] 2 unit SQ AC-TID 02/24/22 04/30/22 Insulin Lispro [humaLOG Kwikpen] See Protocol SQ AC-TID 02/24/22 04/30/22 Previous Rx's Medication Instructions Recorded Atorvastatin [Lipitor] 40 mg PO DAILY 30 Days #30 tab 03/03/22 carvediloL [Coreg] 6.25 mg PO BID-W/MEALS 30 Days #60 03/03/22 tab hydrALAZINE HCL [Apresoline] 100 mg PO TID 30 Days #180 tab 03/03/22 lisinopriL [Zestril] 10 mg PO BID 30 Days #60 tab 03/03/22 Cyanocobalamin [Vitamin B-12] 1,000 mcg PO DAILY #90 tablet 05/07/22 Isosorbide Mononitrate ER [Imdur] 60 mg PO DAILY 30 Days #30 tab 02/19/23 Torsemide [Demadex] 40 mg PO DAILY 30 Days #30 tab 05/10/22 amLODIPine [Norvasc] 5 mg PO DAILY 30 Days #30 tab 05/10/22 Allergies Allergy/AdvReac Type Severity Reaction Status Date / Time No Known Allergies Allergy Verified 11/06/22 14:22 Review of Systems ROS Statement: Those systems with pertinent positive or pertinent negative responses have been documented in the HPI. ROS Other: All systems not noted in ROS Statement are negative. Past Medical History Past Medical History: Heart Failure, Diabetes Mellitus, Hypertension, Pneumonia Additional Past Medical History / Comment(s): Neuropathy in bilat feet and bilat hands. CHRONIC UTI History of Any Multi-Drug Resistant Organisms: None Reported Past Surgical History: No Surgical Hx Reported Additional Past Surgical History / Comment(s): Varicose vein surgery, irrigation to right leg Past Anesthesia/Blood Transfusion Reactions: No Reported Reaction Past Psychological History: No Psychological Hx Reported Smoking Status: Never smoker Past Alcohol Use History: None Reported Past Drug Use History: None Reported - Past Family History Father Family Medical History: CVA/TIA Additional Family Medical History / Comment(s): Father passed from stroke at age 62. Son(s) Family Medical History: Cancer Additional Family Medical History / Comment(s): Down syndrome, KIDNEY CANCER General Exam - General Exam Comments Initial Comments: Midline C-spine tenderness Limitations: no limitations General appearance: alert, in no apparent distress Head exam: Present: atraumatic, normocephalic, normal inspection Eye exam: Present: normal appearance, PERRL, EOMI. Absent: scleral icterus, conjunctival injection, periorbital swelling ENT exam: Present: normal exam, mucous membranes moist Neck exam: Present: normal inspection. Absent: tenderness, meningismus, lymphadenopathy Respiratory exam: Present: normal lung sounds bilaterally. Absent: respiratory distress, wheezes, rales, rhonchi, stridor Cardiovascular Exam: Present: regular rate, normal rhythm, normal heart sounds. Absent: systolic murmur, diastolic murmur, rubs, gallop, clicks GI/Abdominal exam: Present: soft, normal bowel sounds. Absent: distended, tenderness, guarding, rebound, rigid Extremities exam: Present: normal inspection, full ROM, normal capillary refill. Absent: tenderness, pedal edema, joint swelling, calf tenderness Back exam: Present: normal inspection Neurological exam: Present: alert, oriented X3, CN II-XII intact Psychiatric exam: Present: normal affect, normal mood Skin exam: Present: warm, dry, intact, normal color. Absent: rash Course Vital Signs 11/06/22 11/06/22 11/06/22 14:17 14:45 15:00 Temperature 97.3 F L Pulse Rate 63 57 L 58 L Respiratory 18 17 18 Rate Blood Pressure 84/55 108/75 152/80 O2 Sat by Pulse 100 100 100 Oximetry 11/06/22 11/06/22 11/06/22 15:15 15:30 15:50 Temperature 97.4 F L Pulse Rate 59 L 57 L 61 Respiratory 16 17 16 Rate Blood Pressure 163/85 170/90 184/87 O2 Sat by Pulse 99 99 99 Oximetry 11/06/22 11/06/22 16:48 17:34 Temperature 97.6 F 97.7 F Pulse Rate 61 60 Respiratory 16 18 Rate Blood Pressure 170/74 168/91 O2 Sat by Pulse 100 99 Oximetry - Reevaluation(s) Reevaluation #1: 11/06/22 17:14 Record is reviewed Reevaluation #2: 11/06/22 17:14 Patient's pain is improved Reevaluation #3: 11/06/22 17:14 Patient informed results and questions answered Reevaluation #4: 11/06/22 17:14 Was pt. sent in by a medical professional or institution (, PA, LACROSSE COACH, urgent care, hospital, or usp...) When possible be specific @ -no Did you speak to anyone other than the patient for history (EMS, parent, family, police, friend...)? What history was obtained from this source @ -no Did you review nursing and triage notes (agree or disagree)? Why? @ -agree Are old charts reviewed (outside hosp., previous admission, EMS record, old EKG, old radiological studies, urgent care reports/EKG's, usp records)? Report findings @ -yes Differential Diagnosis (chest pain, altered mental status, abdominal pain women, abdominal pain men, vaginal bleeding, weakness, fever, dyspnea, syncope, headache, dizziness, GI bleed, back pain, seizure, CVA, palpatations, mental health, musculoskeletal)? @ -prior EKG interpreted by me (3pts min.). @ -no X-rays interpreted by me (1pt min.). @ -no CT interpreted by me (1pt min.). @ -yes U/S interpreted by me (1pt. min.). @ -no What testing was considered but not performed or refused? (CT, X-rays, U/S, labs)? Why? @ -none What meds were considered but not given or refused? Why? @ -none Did you discuss the management of the patient with other professionals (professionals i.e. , PA, LACROSSE COACH, lab, RT, psych nurse, social work case manager, jewel hole rough opener, teacher, rating officer, correctional case manager)? Give summary @ -no Was smoking cessation discussed for >3mins.? @ -no Was critical care preformed (if so, how long)? @ -no Were there social determinants of health that impacted care today? How? (Homelessness, low income, unemployed, alcoholism, drug addiction, transportation, low edu. Level, literacy, decrease access to med. care, assisted, rehab)? @ -none Was there de-escalation of care discussed even if they declined (Discuss DNR or withdrawal of care, Hospice)? DNR status @ -no What co-morbidities impacted this encounter? (DM, HTN, Smoking, COPD, CAD, Cancer, CVA, ARF, Chemo, Hep., AIDS, mental health diagnosis, sleep apnea, morbid obesity)? @ -none Was patient admitted / discharged? Hospital course, mention meds given and route, prescriptions, significant lab abnormalities, going to OR and other pertinent info. @ - 71 male to the emergency department for evaluation of neck sprain strain. No acute findings here in the ER pain is improved patient can be discharged home Discharge Undiagnosed new problem with uncertain prognosis? @ -no Drug Therapy requiring intensive monitoring for toxicity (Heparin, Nitro, Insulin, Cardizem)? @ -no Were any procedures done? @ -no Diagnosis/symptom? @ -Neck sprain Acute, or Chronic, or Acute on Chronic? @ -Acute Uncomplicated (without systemic symptoms) or Complicated (systemic symptoms)? @ -Complicated Side effects of treatment? @ -no Exacerbation, Progression, or Severe Exacerbation? @ -exacerbation Poses a threat to life or bodily function? How? (Chest pain, [place], [place], pneumonia, PE, COPD, DKA, ARF, appy, cholecystitis, CVA, Diverticulitis, Homicidal, Suicidal, threat to staff... and all critical care pts) @ -no Medical Decision Making - Medical Decision Making 71 male to the emergency department for evaluation of neck sprain strain. No acute findings here in the ER pain is improved patient can be discharged home - Radiology Data Radiology results: report reviewed (CT brain CT a had neck negative for acute disease), image reviewed Disposition Clinical Impression: Strain of neck muscle Disposition: HOME SELF-CARE Condition: Good Instructions (If sedation given, give patient instructions): Cervical Strain (ED), Cervical Sprain (ED) Is patient prescribed a controlled substance at d/c from ED?: No Referrals: Madeline Aldana MD [Primary Care Provider] - 1-2 days Time of Disposition: 17:05
--- NOTE | 2022-11-06 16:43 | CT ---
EXAMINATION TYPE: CT brain cspine wo con CT DLP: 1359.5 mGycm, Automated exposure control for dose reduction was used. DATE OF EXAM: 11/06/2022 4:36 PM COMPARISON: 06/01/2022 CLINICAL INDICATION:Male, 71 years old with history of pain; fall TECHNIQUE: Brain: Multiple axial CT images of the brain were obtained without IV contrast. Cspine: Axial CT images from the skull base to the inferior aspect of T2 we obtained without intraven ous contrast. Coronal and sagittal reformatted images were also reviewed. FINDINGS: Brain: Extra-axial spaces: No abnormal extra-axial fluid collections. Ventricular system: Within normal limits Cerebral parenchyma: No acute intraparenchymal hemorrhage or mass effect. The zapata-white junction is well differentiated. Scattered hypoattenuating areas are seen within the white matter. Cerebellum: Unremarkable. Mass effect: No evidence of midline shift. Intracranial vasculature: Atherosclerotic calcifications of the intracranial vessels. Soft tissues: Normal. Calvarium/osseous structures: No depressed skull fracture. Paranasal sinuses and mastoid air cells: Clear. Visualized orbits: Bilateral aphakia Cervical spine: Fracture: None. Osseous structures: Multilevel degenerative disc disease changes with endplate spurring and disc oste ophyte complex's. Large osteophytes anterior to the vertebral bodies impress upon the esophagus. Vertebral alignment: Within normal limits. Spinal canal/Neural Foramina: Disc osteophyte complexes at C3 C4 C5 C6 C6 C7 and C7-T1. With at least mild spinal canal stenosis. No evidence for significant neural foraminal stenosis. Neck soft tissues: Prevertebral soft tissues are within normal limits. Other: The airway is patent. The lung apices are clear. Atherosclerosis of the carotid bifurcations. IMPRESSION: 1. No acute intracranial process. 2. Nonspecific white matter changes, likely secondary to chronic small vessel ischemic disease. 3. No evidence of cervical spine fracture. 4. Mild multilevel degenerative disc disease.
[2022-11-06 17:31] VITALS: RESP 18; TEMP 97.7
[2022-11-06 17:34] VITALS: BP 168/91; PULSE 60
== END 2022-11-06 18:06 | disposition home or self-care (01) ==
LOC: EC 14:09
DX: S16.1XXA Strain of muscle, fascia and tendon at neck level, initial encounter (principal); I11.0 Hypertensive heart disease with heart failure; I50.9 Heart failure, unspecified; E11.40 Type 2 diabetes mellitus with diabetic neuropathy, unspecified; Z79.82 Long term (current) use of aspirin; Z79.4 Long term (current) use of insulin; X50.9XXA Other and unspecified overexertion or strenuous movements or postures, initial encounter; Y93.H2 Activity, gardening and landscaping
CPT/HCPCS: 72125; 70450; 99284; 96372; J1885

== ENCOUNTER → 2022-12-05 | Outpatient (CLI) | payer OTHER, MEDICARE ==
[2022-12-05 22:55] LABS: Basophils # (A) 0.08 X 10*3/uL (0.00-0.10); Basophils % (A) 0.8 %; Eosinophils # (A) 1.06 X 10*3/uL (0.04-0.35); HCT 27.2 % (39.6-50.0); HGB 9.1 d/dL (13.0-17.0); Lymphocytes # (A) 1.29 X 10*3/uL (0.90-5.00); Lymphocytes % (A) 13.4 %; MCH 29.4 pg (27.0-32.0); MCHC 33.5 d/dL (32.0-37.0); MCV 87.7 FL (80.0-97.0); Mean Platelet Volume 9.6 FL (9.5-12.2); Monocytes # (A) 0.76 X 10*3/uL (0.20-1.00); Monocytes % (A) 7.9 %; NRBC Per 100 WBC 0 X 10*3/uL (0.00-0.01); Neutrophils # (A) 6.43 X 10*3/uL (1.80-7.70); Neutrophils % (A) 66.5 %; Platelet Count 168 X 10*3/uL (140-440); RDW 15.4 % (11.5-14.5); WBC 9.66 X 10*3/uL (4.50-10.00)
[2022-12-05 23:37] LABS: % Iron Saturation 25.93 (15.00-50.00); ALT 24 U/L (10-49); AST 21 U/L (14-35); Albumin 3.7 d/dL (3.8-4.9); Albumin/Globulin Ratio 1.76 Ratio (1.60-3.17); Alkaline Phosphatase 91 U/L (41-126); BUN/Creat Ratio 21.09 Ratio (12.00-20.00); Blood Urea Nitrogen 48.5 mg/dL (9.0-27.0); Calcium 9.4 mg/dL (8.7-10.3); Carbon Dioxide 24.1 mmol/L (21.6-31.8); Chloride 110 mmol/L (96-109); Globulin 2.1 d/dL (1.6-3.3); Glucose 196 mg/dL (70-110); Iron 77 UG/DL (65-175); Phosphorus 3.7 mg/dL (2.4-5.1); Potassium 5.5 mmol/L (3.5-5.5); Sodium 144 mmol/L (135-145); Total Bilirubin 0.4 mg/dL (0.3-1.2); Total Iron Binding Capacity 297 UG/DL (228-460); Total Protein 5.8 d/dL (6.2-8.2); Uric Acid 7.3 mg/dL (3.7-8.7)
[2022-12-06 07:11] LABS: Appearance,Urine Cloudy (Clear); Bilirubin,Urine Negative (Negative); Blood,Urine Small (Negative); Color,Urine Yellow (Yellow); Ketones,Urine Negative (Negative); Nitrite,Urine Negative (Negative); PH, Urine 7.5; Specific Gravity,Urine 1.011 (1.001-1.030); Urobilinogen,Urine 0.2 E.U./DL
[2022-12-06 07:32] LABS: Urine Creatinine 35.5 mg/dL (39.0-259.0)
[2022-12-06 07:43] LABS: Bacteria,Urine 4+ (None Seen); UA Coarse Granular Casts 0-5 /LPF (None Seen)
== END | disposition home or self-care (01) ==
LOC: LABWHC1 11:40
PROVIDERS: ATTEND Internal Medicine
DX: E55.9 Vitamin D deficiency, unspecified (principal); N25.89 Other disorders resulting from impaired renal tubular function; N39.0 Urinary tract infection, site not specified; N18.4 Chronic kidney disease, stage 4 (severe); D63.1 Anemia in chronic kidney disease; R80.9 Proteinuria, unspecified; M10.9 Gout, unspecified
CPT/HCPCS: 36415; 80053; 81001; 82043; 82306; 82570; 82728; 83540; 83550; 83735; 83970; 84100; 84550; 85025

== ENCOUNTER → 2023-01-07 | Outpatient (CLI) | payer MEDICARE, OTHER ==
--- NOTE | 2023-01-08 10:57 | CT ---
EXAMINATION TYPE: CT abdomen pelvis wo con DATE OF EXAM: 01/07/2023 COMPARISON: May 01, 2022 HISTORY: Right groin pain x 1 week, r/o inguinal hernia CT DLP: 728.0 mGycm Examination of the solid and hollow viscera is limited given the lack of contrast. FINDINGS: LUNG BASES: No evidence for nodule. No evidence for infiltrate. Chronic elevation right hemidiaphragm . Cardiomegaly noted. LIVER/GB: The gallbladder is unremarkable. No space-occupying hepatic lesion. PANCREAS: No pancreatic mass identified. No inflammatory process seen. SPLEEN: No evidence for splenomegaly. No intrasplenic lesions seen. ADRENALS: No adrenal nodules identified. No evidence for thickening. KIDNEYS: No evidence for renal mass. No nephrolithiasis. No hydronephrosis. [place] catheter is noted t o be in place. BOWEL: Appendix has a normal appearance. No evidence of bowel obstruction. No inflammatory process. Lymph nodes: No evidence for adenopathy greater than 1 cm. Abdominal aorta: Atheromatous changes seen. No evidence for aneurysm. Genital organs: No significant abnormality. Other: Clinically. Small fat-containing left inguinal hernia seen. IMPRESSION: 1. Right inguinal hernia with a segment of small bowel noted. No evidence for strangulation.
== END | disposition home or self-care (01) ==
LOC: RADCTMAIN 16:46
PROVIDERS: ATTEND Family Medicine
DX: K40.90 Unilateral inguinal hernia, without obstruction or gangrene, not specified as recurrent (principal)
CPT/HCPCS: 74176

== ENCOUNTER 2023-01-14 17:29 | Inpatient (IN) | payer MEDICARE, OTHER ==
--- NOTE | 2023-01-14 17:59 | ED ---
General Adult HPI <Prabhjot Lares - Last Filed: 01/14/23 21:17> - General Source: RN notes reviewed <Ria Decker - Last Filed: 01/14/23 23:26> - General Stated complaint: Covid+ Time Seen by Provider: 01/14/23 17:58 - History of Present Illness Initial comments: Patient was sent in by Dr. Aldana for admission for dehydration, poor intake, coronavirus. She has had cough, sore throat, poor appetite over the past 4 days. He states he hasn't had much to eat or drink at all over the past 4 days. No chest pain or abdominal pain. (LudaPrabhjot Shalonda) 72 year old male with a past medical history significant for HTN, hyperlipidemia, and DM presents to the emergency department for COVID positive. Patient sent in by Dr. Pham. (Ria Decker) - Related Data Home Medications Medication Instructions Recorded Confirmed Insulin Glargine,Hum.rec.anlog 10 unit SQ DAILY@1200 09/30/21 01/14/23 [Lantus Solostar Pen] Insulin Lispro [humaLOG Kwikpen] See Protocol SQ TID-W/MEALS 02/24/22 01/14/23 Acetaminophen Tab [Tylenol Tab] 500 mg PO Q6H PRN 01/14/23 01/14/23 Ergocalciferol (Vitamin D2) 1,250 mcg PO COLEMAN 01/14/23 01/14/23 [Drisdol (50,000 Iu)] Isosorbide Mononitrate ER [Imdur] 30 mg PO DAILY 01/14/23 01/14/23 Magnesium Oxide [Mag-Ox] 400 mg PO BID 01/14/23 01/14/23 Potassium Chloride ER [K-Dur 10] 10 meq PO DAILY 01/14/23 01/14/23 Tamsulosin [Flomax] 0.4 mg PO DAILY 01/14/23 01/14/23 Torsemide [Demadex] 20 mg PO BID 01/14/23 01/14/23 amLODIPine [Norvasc] 10 mg PO DAILY 01/14/23 01/14/23 hydrALAZINE HCL [Apresoline] 50 mg PO TID 01/14/23 01/14/23 metOLazone [Zaroxolyn] 2.5 mg PO COLEMAN 01/14/23 01/14/23 Previous Rx's Medication Instructions Recorded Atorvastatin [Lipitor] 40 mg PO DAILY 30 Days #30 tab 03/03/22 carvediloL [Coreg] 6.25 mg PO BID-W/MEALS 30 Days #60 03/03/22 tab Allergies Allergy/AdvReac Type Severity Reaction Status Date / Time No Known Allergies Allergy Verified 01/14/23 22:35 Review of Systems ROS Other: All systems not noted in ROS Statement are negative. <Prabhjot Laers - Last Filed: 01/14/23 21:17> ROS Other: All systems not noted in ROS Statement are negative. <Ria Decker - Last Filed: 01/14/23 23:26> ROS Statement: Those systems with pertinent positive or pertinent negative responses have been documented in the HPI. Past Medical History Past Medical History: Heart Failure, Diabetes Mellitus, Hyperlipidemia, Hypertension, Pneumonia Additional Past Medical History / Comment(s): Neuropathy in bilat feet and bilat hands. CHRONIC UTI, CHF History of Any Multi-Drug Resistant Organisms: None Reported Past Surgical History: No Surgical Hx Reported Additional Past Surgical History / Comment(s): Varicose vein surgery, irrigation to right leg Past Anesthesia/Blood Transfusion Reactions: No Reported Reaction Smoking Status: Never smoker - Past Family History Father Family Medical History: CVA/TIA Additional Family Medical History / Comment(s): Father passed from stroke at age 62. Son(s) Family Medical History: Cancer Additional Family Medical History / Comment(s): Down syndrome, KIDNEY CANCER <Ria Decker - Last Filed: 01/14/23 23:26> General Exam General appearance: alert, in no apparent distress Head exam: Present: atraumatic, normocephalic Eye exam: Present: normal appearance, PERRL Neck exam: Present: normal inspection. Absent: meningismus Respiratory exam: Present: rhonchi. Absent: respiratory distress Cardiovascular Exam: Present: regular rate, normal rhythm GI/Abdominal exam: Present: soft. Absent: distended, tenderness, guarding Neurological exam: Present: alert. Absent: motor sensory deficit Psychiatric exam: Present: normal affect, normal mood Skin exam: Present: warm, dry, intact. Absent: cyanosis, diaphoretic <Prabhjot Lares - Last Filed: 01/14/23 21:17> <Ria Decker - Last Filed: 01/14/23 23:26> - General Exam Comments Initial Comments: Visual Physical Exam Vital signs reviewed General: Well-appearing, nontoxic, no acute distress. Head: Normocephalic, atraumatic Eyes: PERRLA, EOMI ENT: Airway patent Chest: Nonlabored breathing Skin: No visual rash, normal skin tone Neuro: Alert and oriented 3 Musculoskeletal: No gross abnormalities I performed the quick note portion of this exam, verbal signature Ria Decker PA-C (iRa Decker) Course Vital Signs 01/14/23 01/14/23 01/14/23 17:56 21:23 22:10 Temperature 98.4 F 98.8 F Pulse Rate 72 72 71 Respiratory 16 20 20 Rate Blood Pressure 116/68 178/81 166/67 O2 Sat by Pulse 94 L 95 94 L Oximetry Medical Decision Making - Lab Data Result diagrams: 01/14/23 19:16 01/14/23 19:16 <Prabhjot Lares - Last Filed: 01/14/23 21:17> - Lab Data Result diagrams: 01/14/23 19:16 01/14/23 19:16 <Ria Decker - Last Filed: 01/14/23 23:26> - Medical Decision Making Was pt. sent in by a medical professional or institution ([facility], [employer]INEER, urgent care, hospital, or [facility]...) When possible be specific @ -[No] Did you speak to anyone other than the patient for history (EMS, parent, family, police, friend...)? What history was obtained from this source @ -[No] Did you review nursing and triage notes (agree or disagree)? Why? @ -[I reviewed and agree with nursing and triage notes] Were old charts reviewed (outside hosp., previous admission, EMS record, old EKG, old radiological studies, urgent care reports/EKG's, [facility] records)? Report findings @ -[No old charts were reviewed] Differential Diagnosis (chest pain, altered mental status, abdominal pain women, abdominal pain men, vaginal bleeding, weakness, fever, dyspnea, syncope, headache, dizziness, GI bleed, back pain, seizure, CVA, palpatations, mental health, musculoskeletal)? @Coronavirus, influenza, dehydration EKG interpreted by me (3pts min.). @EKG: Sinus rhythm rate 71, NV interval 159, QS duration 97, QTC [address] segm ent elevation. X-rays interpreted by me (1pt min.). @ -Chest x-ray negative for focal pneumonia, no pneumothorax, no acute findings. CT interpreted by me (1pt min.). @ -[None done] U/S interpreted by me (1pt. min.). @ -[None done] What testing was considered but not performed or refused? (CT, X-rays, U/S, labs)? Why? @ -[None] What meds were considered but not given or refused? Why? @ -[None] Did you discuss the management of the patient with other professionals (professionals i.e. , PA, ORACLE ENGINEER, lab, RT, psych nurse, nursing home social worker, title i director, teacher, customs and immigration officer, case briefer)? Give summary @ -[No] Was smoking cessation discussed for >3mins.? @ -[No] Was critical care preformed (if so, how long)? @ -[No] Were there social determinants of health that impacted care today? How? (Homelessness, low income, unemployed, alcoholism, drug addiction, transportation, low edu. Level, literacy, decrease access to med. care, long-term, rehab)? @ -[No] Was there de-escalation of care discussed even if they declined (Discuss DNR or withdrawal of care, Hospice)? DNR status @ -[No] What co-morbidities impacted this encounter? (DM, HTN, Smoking, COPD, CAD, Cancer, CVA, ARF, Chemo, Hep., AIDS, mental health diagnosis, sleep apnea, morbid obesity)? @ -[Chronic kidney disease, hypertension, diabetes. Was patient admitted / discharged? Hospital course, mention meds given and route, prescriptions, significant lab abnormalities, going to OR and other pertinent info. @ -72-year-old male sent in by primary care provider with plan for admission for dehydration, current coronavirus per patient has been symptomatic for proximally for 5 days. He has no respiratory distress, no hypoxia. He has rhonchorous breath sounds bilaterally which I suspect his upper airway. There is no focal pneumonia on x-ray. His laboratory testing reveals mild leukocyt osis, mild worsening of chronic kidney disease. He'll be admitted to this institution for hydration. Undiagnosed new problem with uncertain prognosis? @ -[No] Drug Therapy requiring intensive monitoring for toxicity (Heparin, Nitro, Insulin, Cardizem)? @ -[No] Were any procedures done? @ -[No] Diagnosis/symptom? @Coronavirus, dehydration Acute, or Chronic, or Acute on Chronic? @Acute Uncomplicated (without systemic symptoms) or Complicated (systemic symptoms)? @ -[default] Side effects of treatment? @ -[No] Exacerbation, Progression, or Severe Exacerbation? @ -[No] Poses a threat to life or bodily function? How? (Chest pain, [place], [place], pneumonia, PE, COPD, DKA, ARF, appy, cholecystitis, CVA, Diverticulitis, Homicidal, Suicidal, threat to staff... and all critical care pts) @ -Low risk at this time. (Prabhjot Lares) - Lab Data Lab Results 01/14/23 01/14/23 01/14/23 Range/Units 19:16 19:16 19:16 WBC 13.5 H (3.8-10.6) k/uL RBC 3.47 L (4.30-5.90) m/uL Hgb 10.9 L (13.0-17.5) gm/dL Hct 31.1 L (39.0-53.0) % MCV 89.6 (80.0-100.0) fL MCH 31.5 (25.0-35.0) pg MCHC 35.1 (31.0-37.0) g/dL RDW 14.8 (11.5-15.5) % Plt Count 170 (150-450) k/uL MPV 8.1 Neutrophils % 88 % Lymphocytes % 6 % Monocytes % 5 % Eosinophils % 0 % Basophils % 0 % Neutrophils # 11.8 H (1.3-7.7) k/uL Lymphocytes # 0.8 L (1.0-4.8) k/uL Monocytes # 0.7 (0-1.0) k/uL Eosinophils # 0.1 (0-0.7) k/uL Basophils # 0.0 (0-0.2) k/uL Poikilocytosis Slight Sodium 137 (137-145) mmol/L Potassium 3.9 (3.5-5.1) mmol/L Chloride 102 (98-107) mmol/L Carbon Dioxide 20 L (22-30) mmol/L Anion Gap 15 mmol/L BUN 50 H (9-20) mg/dL Creatinine 2.80 H (0.66-1.25) mg/dL Est GFR (CKD-EPI)AfAm 25 (>60 ml/min/1.73 sqM) Est GFR (CKD-EPI)NonAf 21 (>60 ml/min/1.73 sqM) Glucose 186 H (74-99) mg/dL Calcium 8.7 (8.4-10.2) mg/dL Total Bilirubin 0.9 (0.2-1.3) mg/dL AST 23 (17-59) U/L ALT 19 (4-49) U/L Alkaline Phosphatase 111 (38-126) U/L Total Protein 6.3 (6.3-8.2) g/dL Albumin 3.5 (3.5-5.0) g/dL Influenza Type A (PCR) Not Detected (Not Detectd) Influenza Type B (PCR) Not Detected (Not Detectd) RSV (PCR) Not Detected (Not Detectd) SARS-CoV-2 (PCR) Detected A (Not Detectd) Disposition Is patient prescribed a controlled substance at d/c from ED?: No Time of Disposition: 21:22 <Prabhjot Lares - Last Filed: 01/14/23 21:17> <Ria Decker - Last Filed: 01/14/23 23:26> Clinical Impression: Acute kidney injury, COVID-19 Disposition: ADMITTED IP TO THIS HOSP Condition: Stable
[2023-01-14 19:28] LABS: Basophils % (A) 0 %; Eosinophils # (A) 0.1 k/uL (0-0.7); Eosinophils % (A) 0 %; HCT 31.1 % (39.0-53.0); HGB 10.9 gm/dL (13.0-17.5); Lymphocytes # (A) 0.8 k/uL (1.0-4.8); Lymphocytes % (A) 6 %; MCH 31.5 pg (25.0-35.0); MCHC 35.1 g/dL (31.0-37.0); MCV 89.6 fL (80.0-100.0); Mean Platelet Volume 8.1; Monocytes # (A) 0.7 k/uL (0-1.0); Monocytes % (A) 5 %; Neutrophils # (A) 11.8 k/uL (1.3-7.7); Neutrophils % (A) 88 %; Platelet Count 170 k/uL (150-450); Poikilocytosis Slight; RBC 3.47 m/uL (4.30-5.90); RDW 14.8 % (11.5-15.5); WBC 13.5 k/uL (3.8-10.6)
--- NOTE | 2023-01-14 19:32 | XR ---
EXAMINATION TYPE: XR chest 2V DATE OF EXAM: 01/14/2023 7:25 PM CLINICAL INDICATION:Male, 72 years old with history of cough; [facility] COMPARISON: Chest radiograph 04/29/2022. TECHNIQUE: XR chest 2V Frontal and lateral views of the chest. FINDINGS: Lungs/Pleura: There is no evidence of pleural effusion, focal consolidation, or pneumothorax. Pulmonary vascularity: Mildly prominent but stable compared to prior. Heart/mediastinum: Cardiomediastinal silhouette is unremarkable. Musculoskeletal: No acute osseous pathology. IMPRESSION: No acute cardiopulmonary disease/process.
[2023-01-14 19:40] LABS: ALT 19 U/L (4-49); AST 23 U/L (17-59); African American GFR (CKD) 25 (>60 ml/min/1.73 sqM); Albumin 3.5 g/dL (3.5-5.0); Alkaline Phosphatase 111 U/L (38-126); Anion Gap 15 mmol/L; Blood Urea Nitrogen 50 mg/dL (9-20); Calcium 8.7 mg/dL (8.4-10.2); Carbon Dioxide 20 mmol/L (22-30); Chloride 102 mmol/L (98-107); Glucose 186 mg/dL (74-99); Non-African American GFR(CKD) 21 (>60 ml/min/1.73 sqM); Potassium 3.9 mmol/L (3.5-5.1); Sodium 137 mmol/L (137-145); Total Bilirubin 0.9 mg/dL (0.2-1.3); Total Protein 6.3 g/dL (6.3-8.2)
[2023-01-14] MEDS ORDERED: SODIUM CHLORIDE 0.9% 500 ML 500 ML IV ONE (21:14)
[2023-01-14] MEDS ORDERED: NALOXONE 0.4 MG/ML 1 ML VIAL IV PRN (21:14)
[2023-01-14] MEDS ORDERED: ACETAMINOPHEN TAB 325 MG TAB PO PRN (21:14)
[2023-01-14] MEDS: SODIUM CHLORIDE 0.9% 1,000 ML IV SCH (21:23)
[2023-01-15 05:46] LABS: Glucose,Whole Blood 190 mg/dL (70-110)
[2023-01-15] MEDS ORDERED: DEXTROSE 50% SYRINGE 50 ML IVP PRN ×2 (07:45)
[2023-01-15] MEDS: ISOSORBIDE MONONITRATE ER 30 MG TAB.ER.24H PO SCH (09:09)
[2023-01-15] MEDS: TAMSULOSIN 0.4 MG CAP.ER.24H PO SCH (09:10)
[2023-01-15] MEDS: ATORVASTATIN 40 MG TAB PO SCH (09:10)
[2023-01-15] MEDS: amLODIPine 10 MG TAB PO SCH (09:10)
[2023-01-15] MEDS: ZINC SULFATE 220 MG CAP PO SCH (09:10)
[2023-01-15] MEDS: CHOLECALCIFEROL 25 MCG (1000 IU) TABLET PO SCH (09:10)
[2023-01-15] MEDS: hydrALAZINE HCL 50 MG TAB PO SCH ×3 (09:10→20:35)
[2023-01-15] MEDS: ASCORBIC ACID 500 MG TAB PO SCH (09:10)
[2023-01-15] MEDS: DEXAMETHASONE SOD PHOSPHATE 10 MG/ML 1 ML VIAL IVP SCH (09:11)
[2023-01-15] MEDS: FAMOTIDINE 20 MG/2 ML VIAL IV SCH ×2 (09:11→20:35)
[2023-01-15] MEDS: MAGNESIUM OXIDE 400 MG TAB PO SCH ×2 (09:11→20:35)
[2023-01-15] MEDS: ENOXAPARIN 30 MG/0.3 ML SYRINGE SQ SCH (09:12)
[2023-01-15] MEDS: SODIUM CHLORIDE 0.9% 1,000 ML IV SCH ×2 (09:13→23:34)
[2023-01-15] MEDS: BENZOCAINE/MENTHOL LOZENG 1 EACH LOZENGE MUCOUS MEM PRN (09:25)
[2023-01-15 09:30] LABS: C Reactive Protein 25.3 mg/dL (<1.0)
[2023-01-15 11:37] LABS: Glucose,Whole Blood 242 mg/dL (70-110)
[2023-01-15] MEDS: INSULIN ASPART (NovoLOG) 100 UNIT/ML VIAL SQ SCH ×3 (11:46→20:50)
--- NOTE | 2023-01-15 11:46 | P.HPIM ---
History of Present Illness This is a pleasant 72 years old male with multiple medical problems including Heart Failure, Diabetes Mellitus, Hyperlipidemia, Hypertension, Neuropathy in bilat feet and bilat hands. CHRONIC UTI Presents because of sore throat and achiness. Was sent from his PCP Dr. tarango for covid positive test. Patient states he wants to see Dr. tarango because of his sore throat severe that it javier and affects his is swallowing. He complains from little dyspnea and cough with phlegm but he denies chest pain. Diarrhea vomiting or abdominal pain. Has indwelling [place] catheter in the urinary bladder, his urologist is Dr. Oscar no dizziness weakness or numbness. Has mild headache. Denies smoking alcohol or illicit drug use Patient has fever of 102 this morning admission He is saturating 93% on room air. Blood pressure elevated 165/73 Labs showing leukocytosis of 13.5, hemoglobin 10.9 Creatinine mildly elevated at 2.8 with baseline 2.2-2.4 Liver enzymes not elevated Covid virus detected, however this is not EKG: Normal sinus rhythm at [address]-T changes Chest x-ray: No acute infiltrate Review of Systems Review of systems CONSTITUTIONAL: No fever, no malaise, no fatigue. HEENT: No recent visual problems or hearing problems. Denied any sore throat. CARDIOVASCULAR: No orthopnea, PND, no palpitations, no syncope. PULMONARY: No chest wall tenderness, no hemoptysis. GASTROINTESTINAL: No diarrhea, no nausea, no vomiting, no abdominal pain. Normoactive bowel sounds. NEUROLOGICAL: No headaches, no weakness, no numbness. HEMATOLOGICAL: Denies any bleeding or petechiae. GENITOURINARY: Denies any burning micturition, frequency, or urgency. MUSCULOSKELETAL/RHEUMATOLOGICAL: Denies any joint pain, swelling, or any muscle pain. ENDOCRINE: Denies any polyuria or polydipsia. Past Medical History Past Medical History: Heart Failure, Diabetes Mellitus, Hyperlipidemia, Hypertension, Pneumonia Additional Past Medical History / Comment(s): Neuropathy in bilat feet and bilat hands. CHRONIC UTI, CHF History of Any Multi-Drug Resistant Organisms: None Reported Past Surgical History: No Surgical Hx Reported Additional Past Surgical History / Comment(s): Varicose vein surgery, irrigation to right leg Past Anesthesia/Blood Transfusion Reactions: No Reported Reaction Smoking Status: Never smoker - Past Family History Father Family Medical History: CVA/TIA Additional Family Medical History / Comment(s): Father passed from stroke at age 62. Son(s) Family Medical History: Cancer Additional Family Medical History / Comment(s): Down syndrome, KIDNEY CANCER Medications and Allergies Home Medications Medication Instructions Recorded Confirmed Type Insulin Glargine,Hum.rec.anlog 10 unit SQ DAILY@1200 09/30/21 01/14/23 History [Lantus Solostar Pen] Insulin Lispro [humaLOG Kwikpen] See Protocol SQ TID-W/MEALS 02/24/22 01/14/23 History Atorvastatin [Lipitor] 40 mg PO DAILY 30 Days #30 tab 03/03/22 01/14/23 Rx carvediloL [Coreg] 6.25 mg PO BID-W/MEALS 30 Days #60 03/03/22 01/14/23 Rx tab Acetaminophen Tab [Tylenol Tab] 500 mg PO Q6H PRN 01/14/23 01/14/23 History Ergocalciferol (Vitamin D2) 1,250 mcg PO COLEMAN 01/14/23 01/14/23 History [Drisdol (50,000 Iu)] Isosorbide Mononitrate ER [Imdur] 30 mg PO DAILY 01/14/23 01/14/23 History Magnesium Oxide [Mag-Ox] 400 mg PO BID 01/14/23 01/14/23 History Potassium Chloride ER [K-Dur 10] 10 meq PO DAILY 01/14/23 01/14/23 History Tamsulosin [Flomax] 0.4 mg PO DAILY 01/14/23 01/14/23 History Torsemide [Demadex] 20 mg PO BID 01/14/23 01/14/23 History amLODIPine [Norvasc] 10 mg PO DAILY 01/14/23 01/14/23 History hydrALAZINE HCL [Apresoline] 50 mg PO TID 01/14/23 01/14/23 History metOLazone [Zaroxolyn] 2.5 mg PO COLEMAN 01/14/23 01/14/23 History Allergies Allergy/AdvReac Type Severity Reaction Status Date / Time No Known Allergies Allergy Verified 01/14/23 22:35 Physical Exam Vitals: Vital Signs Temp Pulse Pulse Resp BP BP Pulse Ox 01/15/23 02:34 100.2 F H 66 18 164/73 93 L 01/14/23 22:37 98.9 F 75 20 176/70 93 L 01/14/23 22:10 71 20 166/67 94 L 01/14/23 21:23 98.8 F 72 20 178/81 95 01/14/23 17:56 98.4 F 72 16 116/68 94 L Intake and Output 01/14/23 01/15/23 01/15/23 22:59 06:59 14:59 Output Total 500 Balance -500 Output: Urine 500 Other: Voiding Method Indwelling Catheter Weight 89.811 kg -GENERAL: The patient is alert and oriented x3, not in any acute distress. Well developed, well nourished. Generally HEENT: Pupils are round and equally reacting to light. EOMI. No scleral icterus. No conjunctival pallor. Normocephalic, atraumatic. No pharyngeal erythema. No thyromegaly. CARDIOVASCULAR: S1 and S2 present. No murmurs, rubs, or gallops. PULMONARY: Chest is clear to auscultation, no wheezing , no crackles. ABDOMEN: Soft, nontender, nondistended, normoactive bowel sounds. No palpable organomegaly. MUSCULOSKELETAL: No joint swelling or deformity. EXTREMITIES: No cyanosis, clubbing, or pedal edema. NEUROLOGICAL: Gross neurological examination did not reveal any focal deficits. SKIN: No rashes. no petechiae. Results CBC & Chem 7: 01/14/23 19:16 01/14/23 19:16 Labs: Abnormal Lab Results - Last 24 Hours (Table) 01/14/23 01/14/23 01/14/23 Range/Units 19:16 19:16 19:16 WBC 13.5 H (3.8-10.6) k/uL RBC 3.47 L (4.30-5.90) m/uL Hgb 10.9 L (13.0-17.5) gm/dL Hct 31.1 L (39.0-53.0) % Neutrophils # 11.8 H (1.3-7.7) k/uL Lymphocytes # 0.8 L (1.0-4.8) k/uL Carbon Dioxide 20 L (22-30) mmol/L BUN 50 H (9-20) mg/dL Creatinine 2.80 H (0.66-1.25) mg/dL Glucose 186 H (74-99) mg/dL POC Glucose (mg/dL) (70-110) mg/dL SARS-CoV-2 (PCR) Detected A (Not Detectd) 01/15/23 Range/Units 05:45 WBC (3.8-10.6) k/uL RBC (4.30-5.90) m/uL Hgb (13.0-17.5) gm/dL Hct (39.0-53.0) % Neutrophils # (1.3-7.7) k/uL Lymphocytes # (1.0-4.8) k/uL Carbon Dioxide (22-30) mmol/L BUN (9-20) mg/dL Creatinine (0.66-1.25) mg/dL Glucose (74-99) mg/dL POC Glucose (mg/dL) 190 H (70-110) mg/dL SARS-CoV-2 (PCR) (Not Detectd) Thrombosis Risk Factor Assmnt - Choose All That Apply Any of the Below Risk Factors Present?: No Other Risk Factors: Yes Each Risk Factor Represents 2 Points: Age 61-74 years Thrombosis Risk Factor Assessment Total Risk Factor Score: 2 Thrombosis Risk Factor Assessment Level: Low Risk Assessment and Plan Assessment: Bilateral Covid pneumonia Acute hypoxic respiratory failure, mild Increased inflammatory markers sepsis with fever and leukocytosis Mild acute kidney injury on chronic kidney disease stage III Chronic urinary retention status post indwelling [place] catheter Diabetes mellitus Hypertension, uncontrolled on admission Hyperlipidemia CHF History of osteoarthritis Hypothyroidism Plan: Start dexamethasone Continue with vitamin C, vitamin D and zinc Infectious disease consult Check and monitor her inflammatory markers, potential calcitonin Continue with IV hydration hold metalozone and demedex change in diet to soft Labs and medication were reviewed.. Continue same treatment. Continue with symptomatic treatment. Resume home medication. Monitor lytes and vitals. DVT and GI prophylaxis. Further recommendations depends on the clinical course of the patient DVT prophylaxis: Subcutaneous Lovenox GI Prophylaxis: Pepcid PT/OT: Pending Prognosis is guarded
[2023-01-15] MEDS ORDERED: BUTALB/APAP/CAFF 50-325-40MG TAB PO PRN (12:05)
[2023-01-15] MEDS ORDERED: HYDROcodone/APAP 5-325MG 1 EACH TAB PO PRN (12:05)
[2023-01-15] MEDS ORDERED: HYDROcodone/APAP 5-325MG 1 EACH TAB PO STA (12:05)
[2023-01-15 13:59] VITALS: BMI 23.4
[2023-01-15 16:12] LABS: Glucose,Whole Blood 254 mg/dL (70-110)
[2023-01-15] MEDS: carvediloL 6.25 MG TAB PO SCH (16:41)
[2023-01-15 20:34] LABS: Glucose,Whole Blood 374 mg/dL (70-110)
[2023-01-15] MEDS ORDERED: AZITHROMYCIN 500 MG TAB PO STA (22:19)
--- NOTE | 2023-01-15 22:19 | P.CONS ---
History of Present Illness - Reason for Consult Consult date: 01/15/23 - History of Present Illness Patient is a 72-year-old male with a past medical history significant for diabetes mellitus hypertension hyperlipidemia pneumonia patient presenting to the ER for evaluation of weakness decreased oral intake cough and sore throat patient symptom has been going on for about 4 days and the patient has not eaten much or drink over the same duration patient did tested positive for COVID-19 in the outpatient setting about 4 days ago with the same and the patient was brought to the hospital on presentation to hospital patient was afebrile however he did spike a fever 100.2 F after midnight patient was not tachycardic hypotensive and no significant hypoxemia or need for supplemental oxygen patient did have white count of 13.5 with a left shift did have elevated BUN/creatinine levels are normal patient did tested positive for COVID-19 chest x-ray no acute cardiopulmonary disease process patient was admitted to hospital started on dexamethasone zinc ascorbic acid infectious disease was consulted for further management Past Medical History Past Medical History: Heart Failure, Diabetes Mellitus, Hyperlipidemia, Hypertension, Pneumonia Additional Past Medical History / Comment(s): Neuropathy in bilat feet and bilat hands. CHRONIC UTI, CHF History of Any Multi-Drug Resistant Organisms: None Reported Past Surgical History: No Surgical Hx Reported Additional Past Surgical History / Comment(s): Varicose vein surgery, irrigation to right leg Past Anesthesia/Blood Transfusion Reactions: No Reported Reaction Smoking Status: Never smoker - Past Family History Father Family Medical History: CVA/TIA Additional Family Medical History / Comment(s): Father passed from stroke at age 62. Son(s) Family Medical History: Cancer Additional Family Medical History / Comment(s): Down syndrome, KIDNEY CANCER Medications and Allergies Home Medications Medication Instructions Recorded Confirmed Type Insulin Glargine,Hum.rec.anlog 10 unit SQ DAILY@1200 09/30/21 01/14/23 History [Lantus Solostar Pen] Insulin Lispro [humaLOG Kwikpen] See Protocol SQ TID-W/MEALS 02/24/22 01/14/23 History Atorvastatin [Lipitor] 40 mg PO DAILY 30 Days #30 tab 03/03/22 01/14/23 Rx carvediloL [Coreg] 6.25 mg PO BID-W/MEALS 30 Days #60 03/03/22 01/14/23 Rx tab Acetaminophen Tab [Tylenol Tab] 500 mg PO Q6H PRN 01/14/23 01/14/23 History Ergocalciferol (Vitamin D2) 1,250 mcg PO COLEMAN 01/14/23 01/14/23 History [Drisdol (50,000 Iu)] Isosorbide Mononitrate ER [Imdur] 30 mg PO DAILY 01/14/23 01/14/23 History Magnesium Oxide [Mag-Ox] 400 mg PO BID 01/14/23 01/14/23 History Potassium Chloride ER [K-Dur 10] 10 meq PO DAILY 01/14/23 01/14/23 History Tamsulosin [Flomax] 0.4 mg PO DAILY 01/14/23 01/14/23 History Torsemide [Demadex] 20 mg PO BID 01/14/23 01/14/23 History amLODIPine [Norvasc] 10 mg PO DAILY 01/14/23 01/14/23 History hydrALAZINE HCL [Apresoline] 50 mg PO TID 01/14/23 01/14/23 History metOLazone [Zaroxolyn] 2.5 mg PO COLEMAN 01/14/23 01/14/23 History Allergies Allergy/AdvReac Type Severity Reaction Status Date / Time No Known Allergies Allergy Verified 01/14/23 22:35 Physical Exam Vitals: Vital Signs Temp Pulse Pulse Resp BP BP Pulse Ox 01/15/23 07:21 99.9 F H 63 16 165/73 93 L 01/15/23 02:34 100.2 F H 66 18 164/73 93 L 01/14/23 22:37 98.9 F 75 20 176/70 93 L 01/14/23 22:10 71 20 166/67 94 L 01/14/23 21:23 98.8 F 72 20 178/81 95 01/14/23 17:56 98.4 F 72 16 116/68 94 L Intake and Output 01/14/23 01/15/23 01/15/23 22:59 06:59 14:59 Output Total 500 Balance -500 Output: Urine 500 Other: Voiding Method Indwelling Catheter Indwelling Catheter Weight 89.811 kg Results CBC & Chem 7: 01/14/23 19:16 01/14/23 19:16 Labs: Abnormal Lab Results - Last 24 Hours (Table) 10/01/14/23 01/14/23 Range/Units 19:16 19:16 19:16 WBC 13.5 H (3.8-10.6) k/uL RBC 3.47 L (4.30-5.90) m/uL Hgb 10.9 L (13.0-17.5) gm/dL Hct 31.1 L (39.0-53.0) % Neutrophils # 11.8 H (1.3-7.7) k/uL Lymphocytes # 0.8 L (1.0-4.8) k/uL D-Dimer (<0.60) mg/L FEU Carbon Dioxide 20 L (22-30) mmol/L BUN 50 H (9-20) mg/dL Creatinine 2.80 H (0.66-1.25) mg/dL Glucose 186 H (74-99) mg/dL POC Glucose (mg/dL) (70-110) mg/dL C-Reactive Protein (<1.0) mg/dL SARS-CoV-2 (PCR) Detected A (Not Detectd) 01/15/23 01/15/23 01/15/23 Range/Units 05:45 07:57 07:57 WBC (3.8-10.6) k/uL RBC (4.30-5.90) m/uL Hgb (13.0-17.5) gm/dL Hct (39.0-53.0) % Neutrophils # (1.3-7.7) k/uL Lymphocytes # (1.0-4.8) k/uL D-Dimer 1.25 H (<0.60) mg/L FEU Carbon Dioxide (22-30) mmol/L BUN (9-20) mg/dL Creatinine (0.66-1.25) mg/dL Glucose (74-99) mg/dL POC Glucose (mg/dL) 190 H (70-110) mg/dL C-Reactive Protein 25.3 H (<1.0) mg/dL SARS-CoV-2 (PCR) (Not Detectd) Assessment and Plan Plan: 1patient was in the hospital with generalized weakness not feeling well did have some sore throat and a cough and this patient has been diagnosed with COVID-19 about 4 days ago patient is currently not requiring any supplemental oxygen chest x-ray was reported negative for acute infiltrate both these factors will disqualify him for remdesivir per [facility] policy 2-we will wait for the procalcitonin and CRP to be finalized 3-continue with Lovenox zinc and ascorbic acid 4-droplet isolation We will follow on clinical condition and cultures to further adjust medication if needed Thank you for this consultation we will follow the patient along with you Dictation was produced using [employer] dictation software. please excuse any grammatical, word or spelling errors. Time with Patient: Greater than 30
[2023-01-16 06:12] LABS: Glucose,Whole Blood 248 mg/dL (70-110)
[2023-01-16] MEDS: INSULIN ASPART (NovoLOG) 100 UNIT/ML VIAL SQ SCH ×4 (06:57→22:03)
[2023-01-16] MEDS: INSULIN DETEMIR (LEVEMIR) 100 UNIT/ML SYR SQ SCH (06:57)
[2023-01-16] MEDS: carvediloL 6.25 MG TAB PO SCH ×2 (06:58→17:27)
[2023-01-16] MEDS: ENOXAPARIN 30 MG/0.3 ML SYRINGE SQ SCH (09:41)
[2023-01-16] MEDS: TAMSULOSIN 0.4 MG CAP.ER.24H PO SCH (09:41)
[2023-01-16] MEDS: ZINC SULFATE 220 MG CAP PO SCH (09:41)
[2023-01-16] MEDS: hydrALAZINE HCL 50 MG TAB PO SCH ×3 (09:41→22:07)
[2023-01-16] MEDS: ASCORBIC ACID 500 MG TAB PO SCH (09:41)
[2023-01-16] MEDS: amLODIPine 10 MG TAB PO SCH (09:41)
[2023-01-16] MEDS: ATORVASTATIN 40 MG TAB PO SCH (09:42)
[2023-01-16] MEDS: MAGNESIUM OXIDE 400 MG TAB PO SCH ×2 (09:42→22:02)
[2023-01-16] MEDS: ISOSORBIDE MONONITRATE ER 30 MG TAB.ER.24H PO SCH (09:42)
[2023-01-16] MEDS: CHOLECALCIFEROL 25 MCG (1000 IU) TABLET PO SCH (09:42)
[2023-01-16] MEDS: FAMOTIDINE 20 MG/2 ML VIAL IV SCH ×2 (09:57→22:03)
[2023-01-16] MEDS: DEXAMETHASONE SOD PHOSPHATE 10 MG/ML 1 ML VIAL IVP SCH (09:57)
--- NOTE | 2023-01-16 10:01 | NM ---
EXAMINATION TYPE: NM pul perfusion DATE OF EXAM: 01/16/2023 COMPARISON: 2V chest x-ray 01/14/2023 CLINICAL INDICATION: Male, 72 years old with history of high d-dimer; TECHNIQUE: Following IV administration of 5.1 mCi Tc 99m MAA. Perfusion images obtained post injectio n in various projections. FINDINGS: Slightly heterogeneous radiotracer distribution, could be related to background COPD. No definite foc al perfusion defect is seen. If there is persistent clinical concern, CTA chest may be considered for further evaluation. IMPRESSION: No definite focal pulmonary perfusion defect is seen.
[2023-01-16 10:13] LABS: Basophils # (A) 0.01 X 10*3/uL (0.00-0.10); Basophils % (A) 0.1 %; Eosinophils # (A) 0 X 10*3/uL (0.04-0.35); Eosinophils % (A) 0 %; HCT 25.7 % (39.6-50.0); HGB 8.6 d/dL (13.0-17.0); Lymphocytes # (A) 0.68 X 10*3/uL (0.90-5.00); Lymphocytes % (A) 7.7 %; MCH 29.9 pg (27.0-32.0); MCHC 33.5 d/dL (32.0-37.0); MCV 89.2 FL (80.0-97.0); Mean Platelet Volume 9.6 FL (9.5-12.2); Monocytes # (A) 0.61 X 10*3/uL (0.20-1.00); Monocytes % (A) 6.9 %; NRBC Per 100 WBC 0 X 10*3/uL (0.00-0.01); Neutrophils # (A) 7.47 X 10*3/uL (1.80-7.70); Neutrophils % (A) 84.5 %; Platelet Count 154 X 10*3/uL (140-440); RBC 2.88 X 10*6/uL (4.40-5.60); RDW 14.6 % (11.5-14.5); WBC 8.84 X 10*3/uL (4.50-10.00)
--- NOTE | 2023-01-16 10:13 | P.PN ---
Subjective This is a pleasant 72 years old male with multiple medical problems including Heart Failure, Diabetes Mellitus, Hyperlipidemia, Hypertension, Neuropathy in bilat feet and bilat hands. CHRONIC UTI Presents because of sore throat and achiness. Was sent from his PCP Dr. tarango for covid positive test. Patient states he wants to see Dr. tarango because of his sore throat severe that it javier and affects his is swallowing. He complains from little dyspnea and cough with phlegm but he denies chest pain. Diarrhea vomiting or abdominal pain. Has indwelling [place] catheter in the urinary bladder, his urologist is Dr. Oscar no dizziness weakness or numbness. Has mild headache. Denies smoking alcohol or illicit drug use Patient has fever of 102 this morning admission He is saturating 93% on room air. Blood pressure elevated 165/73 Labs showing leukocytosis of 13.5, hemoglobin 10.9 Creatinine mildly elevated at 2.8 with baseline 2.2-2.4 Liver enzymes not elevated Covid virus detected, however this is not EKG: Normal sinus rhythm at [address]-T changes Chest x-ray: No acute infiltrate 01/16/2023 Patient's is mildly tachypneic only at rest. She still complaining of from coughing. No chest pain. History have fair appetite but still has diarrhea about 4 times yesterday. His production, snoring is elevated 0.96 and most likely patient has bacterial pneumonia and she is covered with Zithromax and ceftriaxone. Is currently on room air and saturation 96% therefore we going to lower his dexamethasone 4 mg and for 2 more days and then can be stopped. We'll give Norvasc for 3 days while he is on steroids. Repeat labs from this morning is pending. This allowed normal saline 75 mL/h, diuretics on hold. 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 Case was discussed with the staff and bedside nurse Active Medications Generic Name Dose Route Start Last Admin Trade Name Freq PRN Reason Stop Dose Admin Acetaminophen 650 mg 01/14/23 21:14 Acetaminophen Tab 325 Mg Tab PO Q6HR PRN Mild Pain or Fever > 100.5 Amlodipine Besylate 10 mg 01/15/23 09:00 01/16/23 09:41 Amlodipine 10 Mg Tab PO 10 mg DAILY RISSA Administration Ascorbic Acid 1,000 mg 01/15/23 09:00 01/16/23 09:41 Ascorbic Acid 500 Mg Tab PO 1,000 mg DAILY RISSA Administration Atorvastatin Calcium 40 mg 01/15/23 09:00 01/16/23 09:42 Atorvastatin 40 Mg Tab PO 40 mg DAILY RISSA Administration Azithromycin 250 mg 01/16/23 21:00 Azithromycin 250 Mg Tab PO 01/19/23 21:01 HS RISSA Protocol Benzocaine/Menthol 1 each 01/15/23 08:58 01/15/23 09:25 Benzocaine/Menthol Lozeng 1 Each Lozenge MUCOUS MEM 1 each Q4HR PRN Administration Sore Throat Carvedilol 6.25 mg 01/15/23 17:30 01/16/23 06:58 Carvedilol 6.25 Mg Tab PO 6.25 mg BID-W/MEALS RISSA Administration Cholecalciferol 50 mcg 01/15/23 09:00 01/16/23 09:42 Cholecalciferol 25 Mcg (1000 Iu) Tablet PO 50 mcg DAILY RISSA Administration Dexamethasone Sodium Phosphate 4 mg 01/17/23 09:00 Dexamethasone Sod Phosphate 10 Mg/Ml 1 Ml Vial IVP 01/19/23 09:01 DAILY RISSA Dextrose/Water 25 ml 01/15/23 07:45 Dextrose 50% Syringe 50 Ml IVP PER PROTOCOL PRN Hypoglycemia Protocol Dextrose/Water 50 ml 01/15/23 07:45 Dextrose 50% Syringe 50 Ml IVP PER PROTOCOL PRN Hypoglycemia Protocol Enoxaparin Sodium 30 mg 01/15/23 09:00 01/16/23 09:41 Enoxaparin 30 Mg/0.3 Ml Syringe SQ 30 mg DAILY RISSA Administration Famotidine 10 mg 01/15/23 09:00 01/16/23 09:57 Famotidine 20 Mg/2 Ml Vial IV 10 mg Q12HR RISSA Administration Hydralazine HCl 50 mg 01/15/23 09:00 01/16/23 09:41 Hydralazine Hcl 50 Mg Tab PO 50 mg TID RISSA Administration Sodium Chloride 1,000 mls @ 75 mls/hr 01/14/23 21:15 01/15/23 23:34 Saline 0.9% IV Not Given .[id number] [facility] Ceftriaxone Sodium 1 gm/ 50 mls @ 100 mls/hr 01/15/23 22:30 01/15/23 23:33 Sodium Chloride IVPB 100 mls/hr HS RISSA Administration Protocol Insulin Aspart 0 unit 01/15/23 12:30 01/16/23 06:57 Insulin Aspart (Novolog) 100 Unit/Ml Vial SQ 2 unit ACHS RISSA Administration Protocol Insulin Detemir 10 unit 01/16/23 07:00 01/16/23 06:57 Insulin Detemir (Levemir) 100 Unit/Ml Syr SQ 10 unit DAILY@0700 RISSA Administration Isosorbide Mononitrate 30 mg 01/15/23 09:00 01/16/23 09:42 Isosorbide Mononitrate Er 30 Mg Tab.Er.24h PO 30 mg DAILY RISSA Administration Magnesium Oxide 400 mg 01/15/23 09:00 01/16/23 09:42 Magnesium Oxide 400 Mg Tab PO 400 mg BID RISSA Administration Naloxone HCl 0.2 mg 01/14/23 21:14 Naloxone 0.4 Mg/Ml 1 Ml Vial IV Q2M PRN Opioid Reversal Ondansetron HCl 4 mg 01/14/23 21:14 Ondansetron 4 Mg/2 Ml Vial IVP Q8HR PRN Nausea And Vomiting Tamsulosin HCl 0.4 mg 01/15/23 09:00 01/16/23 09:41 Tamsulosin 0.4 Mg Cap.Er.24h PO 0.4 mg DAILY RISSA Administration Zinc Sulfate 220 mg 01/15/23 09:00 01/16/23 09:41 Zinc Sulfate 220 Mg Cap PO 220 mg DAILY RISSA Administration Objective - Vital Signs Vital signs: Vital Signs Temp 98.6 F 01/16/23 07:40 Pulse 62 01/16/23 07:40 Resp 16 01/16/23 07:40 BP 170/69 01/16/23 07:40 Pulse Ox 96 01/16/23 07:40 FiO2 Intake & Output 01/15/23 01/16/23 01/16/23 18:59 06:59 18:59 Output Total 800 650 Balance -800 -650 Weight 89.811 kg Output: Urine 800 650 Other: Voiding Method Indwelling Catheter Indwelling Catheter - Exam GENERAL: The patient is alert and oriented x3, not in any acute distress. Well developed, well nourished. HEENT: Pupils are round and equally reacting to light. EOMI. No scleral icterus. No conjunctival pallor. Normocephalic, atraumatic. No pharyngeal erythema. No thyromegaly. CARDIOVASCULAR: S1 and S2 present. No murmurs, rubs, or gallops. -PULMONARY: Chest is clear to auscultation, no wheezing ,bilateral crackles. ABDOMEN: Soft, nontender, nondistended, normoactive bowel sounds. No palpable organomegaly. MUSCULOSKELETAL: No joint swelling or deformity. EXTREMITIES: No cyanosis, clubbing, or pedal edema. NEUROLOGICAL: Gross neurological examination did not reveal any focal deficits. SKIN: No rashes. no petechiae. - Labs CBC & Chem 7: 01/14/23 19:16 01/14/23 19:16 Labs: Abnormal Lab Results - Last 24 Hours (Table) 01/15/23 01/15/23 01/15/23 Range/Units 07:57 11:35 16:10 POC Glucose (mg/dL) 242 H 254 H (70-110) mg/dL Procalcitonin 0.96 H (0.02-0.09) ng/mL 01/15/23 01/16/23 Range/Units 20:32 06:11 POC Glucose (mg/dL) 374 H 248 H (70-110) mg/dL Procalcitonin (0.02-0.09) ng/mL Assessment and Plan Assessment: Bilateral Covid pneumonia (mild) with bacterial superinfection and pneumonia Acute hypoxic respiratory failure, mild, improving Increased inflammatory markers sepsis with fever and leukocytosis Mild acute kidney injury on chronic kidney disease stage III Chronic urinary retention status post indwelling [place] catheter Diabetes mellitus Hypertension, uncontrolled on admission Hyperlipidemia CHF History of osteoarthritis Hypothyroidism Plan: Continue with ceftriaxone and Zithromax Start dexamethasone , 4 mg for 2 more days Continue with vitamin C, vitamin D and zinc Infectious disease consult Check and monitor her inflammatory markers, potential calcitonin Continue with IV hydration hold metalozone and demedex change in diet to soft Labs and medication were reviewed.. Continue same treatment. Continue with symptomatic treatment. Resume home medication. Monitor lytes and vitals. DVT and GI prophylaxis. Further recommendations depends on the clinical course of the patient DVT prophylaxis: Subcutaneous Lovenox GI Prophylaxis: Pepcid PT/OT: Pending Prognosis is guarded
[2023-01-16 10:22] LABS: BUN/Creat Ratio 22.71 Ratio (12.00-20.00); Blood Urea Nitrogen 70.4 mg/dL (9.0-27.0); Calcium 7.9 mg/dL (8.7-10.3); Carbon Dioxide 20.2 mmol/L (21.6-31.8); Chloride 105 mmol/L (96-109); Glucose 240 mg/dL (70-110); Potassium 3.8 mmol/L (3.5-5.5); Sodium 139 mmol/L (135-145)
[2023-01-16] MEDS: hydrALAZINE HCL 25 MG TAB PO SCH ×2 (11:46→22:02)
[2023-01-16 11:49] LABS: Glucose,Whole Blood 338 mg/dL (70-110)
[2023-01-16] MEDS: SODIUM CHLORIDE 0.9% 1,000 ML IV SCH (13:30)
--- NOTE | 2023-01-16 13:56 | P.PN ---
Subjective Progress Note Date: 01/16/23 Principal diagnosis: covid 19 and pneumonia Patient is a 72-year-old male with a past medical history significant for diabetes mellitus hypertension hyperlipidemia pneumonia patient presenting to the ER for evaluation of weakness decreased oral intake cough and sore throat , patient has been diagnosed with covid19 patient also have elevated procalcitonin On today's evaluation that is 01/16/2023, the patient remains to be afebrile, the patient is breathing comfortably on room air and denies any shortness of breath, the patient denies any chest pain cough is decreased intensity however bring up some sputum, patient denies Abdominal pain and no nausea/vomiting or d iarrhea . Patient white count normalized to 8.84 this morning creatinine is 3.1, procalcitonin is 0.96 Objective - Vital Signs Vital signs: Vital Signs Temp 98.6 F 01/16/23 07:40 Pulse 62 01/16/23 07:40 Resp 16 01/16/23 07:40 BP 170/69 01/16/23 07:40 Pulse Ox 96 01/16/23 07:40 FiO2 Intake & Output 01/15/23 01/16/23 01/16/23 18:59 06:59 18:59 Output Total 800 650 Balance -800 -650 Weight 89.811 kg Output: Urine 800 650 Other: Voiding Method Indwelling Catheter Indwelling Catheter Indwelling Catheter - Exam GENERAL DESCRIPTION: An elderly male lying in bed in no distress RESPIRATORY SYSTEM: Unlabored breathing , decreased breath sounds at the base HEART: S1 S2 regular rate and rhythm , ABDOMEN: Soft , no tenderness EXTREMITIES: No edema feet - Labs CBC & Chem 7: 01/16/23 05:58 01/16/23 05:58 Labs: Abnormal Lab Results - Last 24 Hours (Table) 01/15/23 01/15/23 01/15/23 Range/Units 07:57 16:10 20:32 RBC (4.40-5.60) X 10*6/uL Hgb (13.0-17.0) d/dL Hct (39.6-50.0) % RDW (11.5-14.5) % Lymphocytes # (0.90-5.00) X 10*3/uL Eosinophils # (0.04-0.35) X 10*3/uL Carbon Dioxide (21.6-31.8) mmol/L Anion Gap (4.00-12.00) mmol/L BUN (9.0-27.0) mg/dL Creatinine (0.6-1.5) mg/dL Est GFR (CKD-EPI) (>=60) BUN/Creatinine Ratio (12.00-20.00) Ratio Glucose (70-110) mg/dL POC Glucose (mg/dL) 254 H 374 H (70-110) mg/dL Hemoglobin A1c (<=6.0) % Calcium (8.7-10.3) mg/dL Procalcitonin 0.96 H (0.02-0.09) ng/mL 01/16/23 01/16/23 01/16/23 Range/Units 05:58 05:58 05:58 RBC 2.88 L (4.40-5.60) X 10*6/uL Hgb 8.6 L (13.0-17.0) d/dL Hct 25.7 L (39.6-50.0) % RDW 14.6 H (11.5-14.5) % Lymphocytes # 0.68 L (0.90-5.00) X 10*3/uL Eosinophils # 0 L (0.04-0.35) X 10*3/uL Carbon Dioxide 20.2 L (21.6-31.8) mmol/L Anion Gap 13.80 H (4.00-12.00) mmol/L BUN 70.4 H (9.0-27.0) mg/dL Creatinine 3.1 H (0.6-1.5) mg/dL Est GFR (CKD-EPI) 20 L (>=60) BUN/Creatinine Ratio 22.71 H (12.00-20.00) Ratio Glucose 240 H (70-110) mg/dL POC Glucose (mg/dL) (70-110) mg/dL Hemoglobin A1c 6.1 H (<=6.0) % Calcium 7.9 L (8.7-10.3) mg/dL Procalcitonin (0.02-0.09) ng/mL 01/16/23 01/16/23 Range/Units 06:11 11:48 RBC (4.40-5.60) X 10*6/uL Hgb (13.0-17.0) d/dL Hct (39.6-50.0) % RDW (11.5-14.5) % Lymphocytes # (0.90-5.00) X 10*3/uL Eosinophils # (0.04-0.35) X 10*3/uL Carbon Dioxide (21.6-31.8) mmol/L Anion Gap (4.00-12.00) mmol/L BUN (9.0-27.0) mg/dL Creatinine (0.6-1.5) mg/dL Est GFR (CKD-EPI) (>=60) BUN/Creatinine Ratio (12.00-20.00) Ratio Glucose (70-110) mg/dL POC Glucose (mg/dL) 248 H 338 H (70-110) mg/dL Hemoglobin A1c (<=6.0) % Calcium (8.7-10.3) mg/dL Procalcitonin (0.02-0.09) ng/mL Assessment and Plan (1) Elevated procalcitonin Current Visit: Yes Status: Acute Code(s): R79.89 - OTHER SPECIFIED ABNORMAL FINDINGS OF BLOOD CHEMISTRY SNOMED Code(s): 636430779 (2) COVID-19 Current Visit: Yes Status: Acute Code(s): U07.1 - COVID-19 SNOMED Code(s): 164141459 Plan: 1patient was in the hospital with generalized weakness not feeling well did have some sore throat and a cough and this patient has been diagnosed with C OVID-19 about 4 days ago patient is currently not requiring any supplemental oxygen chest x-ray was reported negative for acute infiltrate both these factors will disqualify him for remdesivir per [facility] policy 2-patient did have procalcitonin and CRP to be finalized 3-patient to continue with Lovenox zinc and ascorbic acid along with Rocephin and Zithromax we will try to obtain a sputum 4-droplet isolation Dictation was produced using [employer] dictation software. please excuse any grammatical, word or spelling errors. Time with Patient: Less than 30
[2023-01-16 16:40] LABS: Glucose,Whole Blood 308 mg/dL (70-110)
[2023-01-16] MEDS: BENZOCAINE/MENTHOL LOZENG 1 EACH LOZENGE MUCOUS MEM PRN (16:43)
[2023-01-16 19:50] LABS: Glucose,Whole Blood 341 mg/dL (70-110)
[2023-01-16] MEDS: AZITHROMYCIN 250 MG TAB PO SCH (22:02)
[2023-01-17] MEDS: SODIUM CHLORIDE 0.9% 1,000 ML IV SCH ×2 (01:07→17:18)
[2023-01-17 06:10] LABS: Glucose,Whole Blood 377 mg/dL (70-110)
[2023-01-17] MEDS: INSULIN ASPART (NovoLOG) 100 UNIT/ML VIAL SQ SCH ×4 (06:47→21:45)
[2023-01-17] MEDS: carvediloL 6.25 MG TAB PO SCH ×2 (06:47→16:26)
[2023-01-17] MEDS: INSULIN DETEMIR (LEVEMIR) 100 UNIT/ML SYR SQ SCH (06:47)
[2023-01-17] MEDS ORDERED: DEXAMETHASONE SOD PHOSPHATE 4 MG/ML 1 ML VIAL IVP SCH (09:00)
[2023-01-17] MEDS: TAMSULOSIN 0.4 MG CAP.ER.24H PO SCH (09:20)
[2023-01-17] MEDS: ASCORBIC ACID 500 MG TAB PO SCH (09:20)
[2023-01-17] MEDS: ENOXAPARIN 30 MG/0.3 ML SYRINGE SQ SCH (09:20)
[2023-01-17] MEDS: CHOLECALCIFEROL 25 MCG (1000 IU) TABLET PO SCH (09:20)
[2023-01-17] MEDS: hydrALAZINE HCL 25 MG TAB PO SCH ×2 (09:21→20:19)
[2023-01-17] MEDS: MAGNESIUM OXIDE 400 MG TAB PO SCH ×2 (09:21→20:19)
[2023-01-17] MEDS: ZINC SULFATE 220 MG CAP PO SCH (09:21)
[2023-01-17] MEDS: hydrALAZINE HCL 50 MG TAB PO SCH ×3 (09:21→22:57)
[2023-01-17] MEDS: ISOSORBIDE MONONITRATE ER 30 MG TAB.ER.24H PO SCH (09:21)
[2023-01-17] MEDS: ATORVASTATIN 40 MG TAB PO SCH (09:21)
[2023-01-17] MEDS: amLODIPine 10 MG TAB PO SCH (09:21)
[2023-01-17] MEDS: FAMOTIDINE 20 MG/2 ML VIAL IV SCH ×2 (09:21→20:19)
--- NOTE | 2023-01-17 10:49 | P.PN ---
Subjective This is a pleasant 72 years old male with multiple medical problems including Heart Failure, Diabetes Mellitus, Hyperlipidemia, Hypertension, Neuropathy in bilat feet and bilat hands. CHRONIC UTI Presents because of sore throat and achiness. Was sent from his PCP Dr. tarango for covid positive test. Patient states he wants to see Dr. tarango because of his sore throat severe that it javier and affects his is swallowing. He complains from little dyspnea and cough with phlegm but he denies chest pain. Diarrhea vomiting or abdominal pain. Has indwelling [place] catheter in the urinary bladder, his urologist is Dr. Oscar no dizziness weakness or numbness. Has mild headache. Denies smoking alcohol or illicit drug use Patient has fever of 102 this morning admission He is saturating 93% on room air. Blood pressure elevated 165/73 Labs showing leukocytosis of 13.5, hemoglobin 10.9 Creatinine mildly elevated at 2.8 with baseline 2.2-2.4 Liver enzymes not elevated Covid virus detected, however this is not EKG: Normal sinus rhythm at [address]-T changes Chest x-ray: No acute infiltrate 01/16/2023 Patient's is mildly tachypneic only at rest. She still complaining of from coughing. No chest pain. History have fair appetite but still has diarrhea about 4 times yesterday. His production, snoring is elevated 0.96 and most likely patient has bacterial pneumonia and she is covered with Zithromax and ceftriaxone. Is currently on room air and saturation 96% therefore we going to lower his dexamethasone 4 mg and for 2 more days and then can be stopped. We'll give Norvasc for 3 days while he is on steroids. Repeat labs from this morning is pending. This allowed normal saline 75 mL/h, diuretics on hold. 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 Case was discussed with the staff and bedside nurse 01/17/2023 Patient breathing is all right, his only when the tachypneic. He feels fatigued. The area is also improving, had 3 bouts yesterday compared to force day before. No abdominal pain. He has poor appetite. BCs back to normal 8.4, hemoglobin 8.6 with possible elements of hemodilution. Creatinine up to 3.1 and patient has evidence of chronic kidney disease. No more fever. Remains on Zithromax and ceftriaxone. Diuretics with torsemide and Zaroxolyn are on hold. Also he is on normal saline 75 mL/h. Repeat labs from today are pending. Data Modeling Specialist scan is negative for pulmonary embolism repeat chest x-ray from today pending final report, are reviewed the x-ray by myself showing no significant change from prior with some evidence with COPD Objective - Vital Signs Vital signs: Vital Signs Temp 98.1 F 01/17/23 07:16 Pulse 60 01/17/23 07:16 Resp 16 01/17/23 07:16 BP 165/71 01/17/23 07:16 Pulse Ox 94 L 01/17/23 07:16 FiO2 Intake & Output 01/16/23 01/17/23 01/17/23 18:59 06:59 18:59 Output Total 850 950 Balance -850 -950 Output: Urine 850 950 Other: Voiding Method Indwelling Catheter Indwelling Catheter Indwelling Catheter # Bowel Movements 1 - Exam GENERAL: The patient is alert and oriented x3, not in any acute distress. Well developed, well nourished. HEENT: Pupils are round and equally reacting to light. EOMI. No scleral icterus. No conjunctival pallor. Normocephalic, atraumatic. No pharyngeal erythema. No thyromegaly. CARDIOVASCULAR: S1 and S2 present. No murmurs, rubs, or gallops. -PULMONARY: Chest is clear to auscultation, no wheezing ,bilateral crackles. ABDOMEN: Soft, nontender, nondistended, normoactive bowel sounds. No palpable organomegaly. MUSCULOSKELETAL: No joint swelling or deformity. EXTREMITIES: No cyanosis, clubbing, or pedal edema. NEUROLOGICAL: Gross neurological examination did not reveal any focal deficits. SKIN: No rashes. no petechiae. - Labs CBC & Chem 7: 01/16/23 05:58 01/16/23 05:58 Labs: Abnormal Lab Results - Last 24 Hours (Table) 01/16/23 01/16/23 01/16/23 Range/Units 11:48 16:39 19:49 POC Glucose (mg/dL) 338 H 308 H 341 H (70-110) mg/dL 01/17/23 Range/Units 06:08 POC Glucose (mg/dL) 377 H (70-110) mg/dL Assessment and Plan Assessment: Bilateral Covid pneumonia (mild) with bacterial superinfection and pneumonia Acute hypoxic respiratory failure, mild, improving Increased inflammatory markers sepsis with fever and leukocytosis Mild acute kidney injury on chronic kidney disease stage III Chronic urinary retention status post indwelling [place] catheter Diabetes mellitus Hypertension, uncontrolled on admission Hyperlipidemia CHF History of osteoarthritis Hypothyroidism Plan: Continue with ceftriaxone and Zithromax DC dexamethasone , 4 patient hyperglycemic and he is currently on room air Continue with vitamin C, vitamin D and zinc Infectious disease consult Check and monitor her inflammatory markers, potential calcitonin Continue with IV hydration hold metalozone and demedex change in diet to soft Labs and medication were reviewed.. Continue same treatment. Continue with symptomatic treatment. Resume home medication. Monitor lytes and vitals. DVT and GI prophylaxis. Further recommendations depends on the clinical course of the patient DVT prophylaxis: Subcutaneous Lovenox GI Prophylaxis: Pepcid PT/OT: Pending Prognosis is guarded
[2023-01-17 11:56] LABS: Glucose,Whole Blood 282 mg/dL (70-110)
[2023-01-17 12:07] LABS: HCT 28.7 % (39.0-53.0); HGB 9.9 gm/dL (13.0-17.5); MCH 31.1 pg (25.0-35.0); MCHC 34.3 g/dL (31.0-37.0); MCV 90.7 fL (80.0-100.0); Mean Platelet Volume 7.9; Platelet Count 188 k/uL (150-450); Poikilocytosis Slight; RBC 3.17 m/uL (4.30-5.90); RDW 14.5 % (11.5-15.5); WBC 6.5 k/uL (3.8-10.6)
[2023-01-17 12:20] LABS: African American GFR (CKD) 27 (>60 ml/min/1.73 sqM); Non-African American GFR(CKD) 23 (>60 ml/min/1.73 sqM)
--- NOTE | 2023-01-17 15:33 | XR ---
EXAM: XR chest 1V portable CLINICAL INDICATION:Male, 72 years old with history of Pneumonia; [facility] COMPARISON: 01/14/2023 FINDINGS: Lungs/Pleura: There is no evidence of pleural effusion, focal consolidation, or pneumothorax. Slight ly increased small focus of stranding in the right lung base suggestive of subsegmental atelectasis. Pulmonary vascularity: Mildly prominent but stable. Heart/mediastinum: Cardiomediastinal silhouette is stable. Heart size upper normal. Mildly tortuous p artially calcified aorta. Musculoskeletal: No acute osseous abnormality suggested. Degenerative changes of the spine noted. . IMPRESSION: Slightly increased small focus of stranding in the right lung base suggestive of subsegmental atelect asis.
--- NOTE | 2023-01-17 16:03 | P.PN ---
Subjective Progress Note Date: 01/17/23 Principal diagnosis: covid 19 and pneumonia Patient is a 72-year-old male with a past medical history significant for diabetes mellitus hypertension hyperlipidemia pneumonia patient presenting to the ER for evaluation of weakness decreased oral intake cough and sore throat , patient has been diagnosed with covid19 patient also have elevated procalcitonin On today's evaluation that is 01/17/2023, the patient denies any fever or chills, the patient is breathing comfortably on room air and no need for supplemental oxygen, the patient denies any chest pain , cough has decreased in intensity with minimal sputum production, patient denies nausea/vomiting or diarrhea and no abdominal pain Patient white count normalized to 6.5 and creatinine is 2.64, procalcitonin is 0.96 Objective - Vital Signs Vital signs: Vital Signs Temp 97.7 F 01/17/23 14:00 Pulse 54 L 01/17/23 14:00 Resp 18 01/17/23 14:00 BP 127/57 01/17/23 14:00 Pulse Ox 93 L 01/17/23 14:00 FiO2 Intake & Output 01/16/23 01/17/23 01/17/23 18:59 06:59 18:59 Output Total 850 950 Balance -850 -950 Output: Urine 850 950 Other: Voiding Method Indwelling Catheter Indwelling Catheter Indwelling Catheter # Bowel Movements 1 - Exam GENERAL DESCRIPTION: An elderly male lying in bed in no distress RESPIRATORY SYSTEM: Unlabored breathing , decreased breath sounds at the base HEART: S1 S2 regular rate and rhythm , ABDOMEN: Soft , no tenderness EXTREMITIES: No edema feet - Labs CBC & Chem 7: 01/17/23 11:49 01/17/23 11:49 Labs: Abnormal Lab Results - Last 24 Hours (Table) 01/16/23 01/16/23 01/17/23 Range/Units 16:39 19:49 06:08 RBC (4.30-5.90) m/uL Hgb (13.0-17.5) gm/dL Hct (39.0-53.0) % Creatinine (0.66-1.25) mg/dL POC Glucose (mg/dL) 308 H 341 H 377 H (70-110) mg/dL 01/17/23 01/17/23 01/17/23 Range/Units 11:49 11:49 11:54 RBC 3.17 L (4.30-5.90) m/uL Hgb 9.9 L (13.0-17.5) gm/dL Hct 28.7 L (39.0-53.0) % Creatinine 2.64 H (0.66-1.25) mg/dL POC Glucose (mg/dL) 282 H (70-110) mg/dL Assessment and Plan (1) Elevated procalcitonin Current Visit: Yes Status: Acute Code(s): R79.89 - OTHER SPECIFIED ABNORMAL FINDINGS OF BLOOD CHEMISTRY SNOMED Code(s): 206231313 (2) COVID-19 Current Visit: Yes Status: Acute Code(s): U07.1 - COVID-19 SNOMED Code(s): 435014192 Plan: 1patient was in the hospital with generalized weakness not feeling well did have some sore throat and a cough and this patient has been diagnosed with COVID-19 about 4 days ago patient is currently not requiring any supplemental oxygen chest x-ray was reported negative for acute infiltrate both these factors will disqualify him for remdesivir per [facility] policy 2-patient did have procalcitonin and CRP to be finalized 3-patient has shown clinical improvement and will continue with Lovenox zinc and ascorbic acid along with Rocephin and Zithromax and monitor clinical course closely Dictation was produced using [employer] dictation software. please excuse any grammatical, word or spelling errors. Time with Patient: Less than 30
[2023-01-17 16:20] LABS: Glucose,Whole Blood 272 mg/dL (70-110)
[2023-01-17 20:15] LABS: Glucose,Whole Blood 339 mg/dL (70-110)
[2023-01-17] MEDS: AZITHROMYCIN 250 MG TAB PO SCH (20:18)
[2023-01-18] MEDS: SODIUM CHLORIDE 0.9% 1,000 ML IV SCH ×2 (05:24→21:38)
[2023-01-18 05:51] LABS: Glucose,Whole Blood 321 mg/dL (70-110)
[2023-01-18] MEDS: INSULIN ASPART (NovoLOG) 100 UNIT/ML VIAL SQ SCH ×4 (06:16→21:36)
[2023-01-18] MEDS: INSULIN DETEMIR (LEVEMIR) 100 UNIT/ML SYR SQ SCH (06:16)
[2023-01-18] MEDS: carvediloL 6.25 MG TAB PO SCH ×2 (06:16→18:22)
[2023-01-18 09:01] LABS: BUN/Creat Ratio 25.81 Ratio (12.00-20.00); Blood Urea Nitrogen 67.1 mg/dL (9.0-27.0); Calcium 7.5 mg/dL (8.7-10.3); Carbon Dioxide 20.2 mmol/L (21.6-31.8); Chloride 102 mmol/L (96-109); Glucose 319 mg/dL (70-110); Potassium 4.3 mmol/L (3.5-5.5); Sodium 132 mmol/L (135-145)
[2023-01-18] MEDS ORDERED: guaiFENesin-DM 100-10MG/5ML 10 ML CUP PO PRN (09:44)
[2023-01-18] MEDS: ASCORBIC ACID 500 MG TAB PO SCH (09:46)
[2023-01-18] MEDS: ISOSORBIDE MONONITRATE ER 30 MG TAB.ER.24H PO SCH (09:46)
[2023-01-18] MEDS: amLODIPine 10 MG TAB PO SCH (09:46)
[2023-01-18] MEDS: MAGNESIUM OXIDE 400 MG TAB PO SCH ×2 (09:46→20:59)
[2023-01-18] MEDS: TAMSULOSIN 0.4 MG CAP.ER.24H PO SCH (09:46)
[2023-01-18] MEDS: hydrALAZINE HCL 50 MG TAB PO SCH ×3 (09:46→21:37)
[2023-01-18] MEDS: CHOLECALCIFEROL 25 MCG (1000 IU) TABLET PO SCH (09:46)
[2023-01-18] MEDS: ZINC SULFATE 220 MG CAP PO SCH (09:46)
[2023-01-18] MEDS: ATORVASTATIN 40 MG TAB PO SCH (09:46)
[2023-01-18] MEDS: hydrALAZINE HCL 25 MG TAB PO SCH ×2 (09:46→21:39)
[2023-01-18] MEDS: ENOXAPARIN 30 MG/0.3 ML SYRINGE SQ SCH (09:48)
--- NOTE | 2023-01-18 09:48 | CDI ---
Documentation Clarification Form Date: 01/18/2023 09:24:05 AM From: Yumiko Healy RN CCDS Phone: [phone] Admit Date: 01/15/2023 01:02:00 PM Patient Name: Matthew Vu Visit Number: [id number] Discharge Date: ATTENTION: The Clinical Documentation Specialists (CDI) and [facility] Coding Staff appreciate your assistance in clarifying documentation. Please respond to the clarification below the line at the bottom and electronically sign. The CDI & [facility] Coding staff will review the response and follow-up if needed. Please note: Queries are made part of the Legal Health Record. If you have any questions, please contact the author of this message via ITS. Dr. Perez E Sheet Acute Hypoxic Respiratory Failure is documented 01/15, H&P, which may lack sufficient clinical evidence/support in the medical record. Additional clarification is requested. History/Risk Factors: 72-year-old male sent to the ED from [facility] for COVID 19 test, severe throat severe and affects his swallowing. Medical History: DM, Heart Failure, HTN and chronic uti. 01/15 H&P. Clinical Indicators: VSS, 01/15: B/P 164/73; HR 66; Temp 100.2 F Oral; RR 18; SpO2 93% room air SpO2, 01/15 94% room air; 01/15 96% room air CXR, 01/14: Pulmonary vascularity, mildly prominent but stable compared to prior. H&P,01/15: Pulmonary assessment: Chest is clear to auscultation, no wheezing, no crackles. H&P, 01/15: He is saturating 93% on room air Treatment: 01/15 01/16 Decadron 6mg IV Daily Please clarify if Acute Hypoxic respiratory is a valid diagnosis? [ ] Yes, Acute hypoxic respiratory failure is present as evidence by (additional clinical support): [ ] No, Acute hypoxic respiratory failure is ruled out [ ] Other (please specify diagnosis) [ ] Unable to determine (Template Last Revised: May 2020) no acute hypoxic resp failure MTDD
[2023-01-18] MEDS: FAMOTIDINE 20 MG/2 ML VIAL IV SCH ×2 (10:13→20:59)
[2023-01-18] MEDS: guaiFENesin-DM 100-10MG/5ML 10 ML CUP PO SCH ×2 (10:13→18:20)
[2023-01-18] MEDS: ONDANSETRON 4 MG/2 ML VIAL IVP PRN (10:23)
--- NOTE | 2023-01-18 10:23 | XR ---
EXAMINATION TYPE: XR chest 1V portable DATE OF EXAM: 01/18/2023 10:03 AM COMPARISON: Chest radiographs from 01/17/2023 TECHNIQUE: XR chest 1V portable Portable AP radiograph of the chest. CLINICAL INDICATION:Male, 72 years old with history of sob; FINDINGS: Lungs/Pleura: There is no evidence of pleural effusion, focal consolidation, or pneumothorax. Hyperi nflation compatible with COPD. Chronic senescent parenchymal change. Pulmonary vascularity: Unremarkable. Heart/mediastinum: Cardiomediastinal silhouette is unremarkable. Musculoskeletal: No acute osseous pathology. Dextrocurvature of the thoracic spine. IMPRESSION: Chronic changes without acute pulmonary process. No significant change from prior.
[2023-01-18] MEDS: HYDROcodone/APAP 5-325MG 1 EACH TAB PO PRN ×2 (10:57→18:22)
[2023-01-18 12:04] LABS: Glucose,Whole Blood 166 mg/dL (70-110)
--- NOTE | 2023-01-18 12:25 | P.PN ---
Subjective Progress Note Date: 01/18/23 Principal diagnosis: covid 19 and pneumonia Patient is a 72-year-old male with a past medical history significant for diabetes mellitus hypertension hyperlipidemia pneumonia patient presenting to the ER for evaluation of weakness decreased oral intake cough and sore throat , patient has been diagnosed with covid19 patient also have elevated procalcitonin On today's evaluation that is 01/18/2023, the patient continues to be afebrile , the patient is breathing comfortably on room air and denies any shortness of breath, the patient denies any chest pain continued to have a cough with occasional sputum production, patient denies abdominal pain and no nausea/vomiting or diarrhea , patient mentioned not feeling very good today Patient white count normalized to 6.5 as of yesterday and creatinine is 2.6, procalcitonin is 0.96, sputum cultures are pending Objective - Vital Signs Vital signs: Vital Signs Temp 97.5 F L 01/18/23 07:45 Pulse 63 01/18/23 07:45 Resp 16 01/18/23 07:45 BP 175/80 01/18/23 07:45 Pulse Ox 96 01/18/23 07:45 FiO2 Intake & Output 01/17/23 01/18/23 01/18/23 18:59 06:59 18:59 Output Total 600 900 Balance -600 -900 Output: Urine 600 900 Other: Voiding Method Indwelling Catheter Indwelling Catheter Indwelling Catheter - Exam GENERAL DESCRIPTION: An elderly male lying in bed in no distress RESPIRATORY SYSTEM: Unlabored breathing , coarse breath sounds at the base HEART: S1 S2 regular rate and rhythm , ABDOMEN: Soft , no tenderness EXTREMITIES: No edema feet - Labs CBC & Chem 7: 01/17/23 11:49 01/18/23 04:03 Labs: Abnormal Lab Results - Last 24 Hours (Table) 01/17/23 01/17/23 01/18/23 Range/Units 16:19 20:14 04:03 Sodium 132 L (135-145) mmol/L Carbon Dioxide 20.2 L (21.6-31.8) mmol/L BUN 67.1 H (9.0-27.0) mg/dL Creatinine 2.6 H (0.6-1.5) mg/dL Est GFR (CKD-EPI) 25 L (>=60) BUN/Creatinine Ratio 25.81 H (12.00-20.00) Ratio Glucose 319 H (70-110) mg/dL POC Glucose (mg/dL) 272 H 339 H (70-110) mg/dL Calcium 7.5 L (8.7-10.3) mg/dL 01/18/23 01/18/23 Range/Units 05:50 12:02 Sodium (135-145) mmol/L Carbon Dioxide (21.6-31.8) mmol/L BUN (9.0-27.0) mg/dL Creatinine (0.6-1.5) mg/dL Est GFR (CKD-EPI) (>=60) BUN/Creatinine Ratio (12.00-20.00) Ratio Glucose (70-110) mg/dL POC Glucose (mg/dL) 321 H 166 H (70-110) mg/dL Calcium (8.7-10.3) mg/dL Microbiology - Last 24 Hours (Table) 01/17/23 08:23 Gram Stain - Preliminary Sputum Assessment and Plan (1) Elevated procalcitonin Current Visit: Yes Status: Acute Code(s): R79.89 - OTHER SPECIFIED ABNORMAL FINDINGS OF BLOOD CHEMISTRY SNOMED Code(s): 954728850 (2) COVID-19 Current Visit: Yes Status: Acute Code(s): U07.1 - COVID-19 SNOMED Code(s): 657834496 Plan: 1patient was in the hospital with generalized weakness not feeling well did have some sore throat and a cough and this patient has been diagnosed with COVID-19 about 4 days ago patient is currently not requiring any supplemental oxygen chest x-ray was reported negative for acute infiltrate both these factors will disqualify him for remdesivir per [facility] policy 2-patient did have procalcitonin and CRP to be finalized 3-patient has shown clinical improvement , however mention not feeling that good and his sputum cultures are pending, will continue with Lovenox zinc and ascorbic acid along with Rocephin and Zithromax while waiting for the cultures to finalize Dictation was produced using [employer] software. please excuse any grammatical, word or spelling errors. Time with Patient: Less than 30
--- NOTE | 2023-01-18 12:59 | P.GSCN ---
History of Present Illness Consult date: 01/18/23 History of present illness: CHIEF COMPLAINT: Cough HISTORY OF PRESENT ILLNESS: This is a 72-year-old male who presented with cough, sore throat and decreased appetite. He was diagnosed with Covid. Patient is currently on room air. Patient has a known right inguinal hernia that has been present for about 2 weeks. Patient reports that when he stands the hernia does bulge out. And he has had increasing pain at hernia site since he's been coughing. Hernia does bulge with coughing. Hernia is reducible. He reports he's been having stools mostly diarrhea. Denies any nausea or vomiting. He did report some nausea earlier after medications. Patient denies any prior abdominal surgeries. Patient denies being on any blood thinners. PAST MEDICAL HISTORY: Congestive heart failure, diabetes mellitus, hyperlipidemia, hypertension, pneumonia PAST SURGICAL HISTORY: See below MEDICATIONS: See below ALLERGIES: See below SOCIAL HISTORY: No illicit drug use. REVIEW OF SYSTEMS: CONSTITUTIONAL: Denies fever or chills. HEENT: Denies blurred vision, vision changes, or eye pain. Denies hemoptysis CARDIOVASCULAR: Denies chest pain or pressure. RESPIRATORY: No shortness of breath. GASTROINTESTINAL: See HPI for pertinent findings HEMATOLOGIC: Denies bleeding disorders. GENITOURINARY: Denies any blood in urine or increased urinary frequency. SKIN: Denies pruitis. Denies rash. PHYSICAL EXAM: VITAL SIGNS: Reviewed GENERAL: Well-developed in no acute distress. ABDOMEN: Soft. Nondistended. Right inguinal hernia bulge that is reducible when laying down. Area is tender with palpation. NEUROLOGIC: Alert and oriented. Cranial nerves II through XII grossly intact. LABORATORY DATA: WBC is 6.5 Hgb 9.9 platelets 188 Sodium is 132 potassium 4.3 creatinine 2.6 IMAGING: Computed tomography scan abdomen and pelvis from 01/08/2023 reports right inguinal hernia with a segment of small bowel noted. No evidence for strangulation. ASSESSMENT: 1. Right inguinal hernia that is reducible. Computed tomography scan from 01/08/2023 showed evidence of right inguinal hernia with a segment of small bowel noted. No evidence for strangulation 2. COVID-19 positive PLAN: -Computed tomography scan abdomen and pelvis with oral contrast ordered for further evaluation of right inguinal hernia -Continue supportive care -Further recommendations forthcoming depending on computed tomography scan results Physician Director Supplier Quality note has been reviewed by physician. Signing provider agrees with the documented findings, assessment, and plan of care. Past Medical History Past Medical History: Heart Failure, Diabetes Mellitus, Hyperlipidemia, Hypertension, Pneumonia Additional Past Medical History / Comment(s): Neuropathy in bilat feet and bilat hands. CHRONIC UTI, CHF History of Any Multi-Drug Resistant Organisms: None Reported Past Surgical History: No Surgical Hx Reported Additional Past Surgical History / Comment(s): Varicose vein surgery, irrigation to right leg Past Anesthesia/Blood Transfusion Reactions: No Reported Reaction Smoking Status: Never smoker - Past Family History Father Family Medical History: CVA/TIA Additional Family Medical History / Comment(s): Father passed from stroke at age 62. Son(s) Family Medical History: Cancer Additional Family Medical History / Comment(s): Down syndrome, KIDNEY CANCER Medications and Allergies Home Medications Medication Instructions Recorded Confirmed Type Insulin Glargine,Hum.rec.anlog 10 unit SQ DAILY@1200 09/30/21 01/14/23 History [Lantus Solostar Pen] Insulin Lispro [humaLOG Kwikpen] See Protocol SQ TID-W/MEALS 02/24/22 01/14/23 History Atorvastatin [Lipitor] 40 mg PO DAILY 30 Days #30 tab 03/03/22 01/14/23 Rx carvediloL [Coreg] 6.25 mg PO BID-W/MEALS 30 Days #60 03/03/22 01/14/23 Rx tab Acetaminophen Tab [Tylenol Tab] 500 mg PO Q6H PRN 01/14/23 01/14/23 History Ergocalciferol (Vitamin D2) 1,250 mcg PO COLEMAN 01/14/23 01/14/23 History [Drisdol (50,000 Iu)] Isosorbide Mononitrate ER [Imdur] 30 mg PO DAILY 01/14/23 01/14/23 History Magnesium Oxide [Mag-Ox] 400 mg PO BID 01/14/23 01/14/23 History Potassium Chloride ER [K-Dur 10] 10 meq PO DAILY 01/14/23 01/14/23 History Tamsulosin [Flomax] 0.4 mg PO DAILY 01/14/23 01/14/23 History Torsemide [Demadex] 20 mg PO BID 01/14/23 01/14/23 History amLODIPine [Norvasc] 10 mg PO DAILY 01/14/23 01/14/23 History hydrALAZINE HCL [Apresoline] 50 mg PO TID 01/14/23 01/14/23 History metOLazone [Zaroxolyn] 2.5 mg PO COLEMAN 01/14/23 01/14/23 History Allergies Allergy/AdvReac Type Severity Reaction Status Date / Time No Known Allergies Allergy Verified 01/14/23 22:35 Surgical - Exam Vital Signs Temp Pulse Resp BP Pulse Ox 98.4 F 72 16 116/68 94 L 01/14/23 17:56 01/14/23 17:56 01/14/23 17:56 01/14/23 17:56 01/14/23 17:56 Results - Labs 01/17/23 11:49 01/18/23 04:03 Abnormal Lab Results - Last 24 Hours (Table) 01/17/23 01/17/23 01/17/23 Range/Units 11:49 16:19 20:14 Sodium (135-145) mmol/L Carbon Dioxide (21.6-31.8) mmol/L BUN (9.0-27.0) mg/dL Creatinine 2.64 H (0.66-1.25) mg/dL Est GFR (CKD-EPI) (>=60) BUN/Creatinine Ratio (12.00-20.00) Ratio Glucose (70-110) mg/dL POC Glucose (mg/dL) 272 H 339 H (70-110) mg/dL Calcium (8.7-10.3) mg/dL 01/18/23 01/18/23 01/18/23 Range/Units 04:03 05:50 12:02 Sodium 132 L (135-145) mmol/L Carbon Dioxide 20.2 L (21.6-31.8) mmol/L BUN 67.1 H (9.0-27.0) mg/dL Creatinine 2.6 H (0.66-1.25) mg/dL Est GFR (CKD-EPI) 25 L (>=60) BUN/Creatinine Ratio 25.81 H (12.00-20.00) Ratio Glucose 319 H (70-110) mg/dL POC Glucose (mg/dL) 321 H 166 H (70-110) mg/dL Calcium 7.5 L (8.7-10.3) mg/dL Microbiology - Last 24 Hours (Table) 01/17/23 08:23 Gram Stain - Preliminary Sputum Diabetes panel 01/17/23 01/18/23 Range/Units 11:49 04:03 Sodium 132 L (135-145) mmol/L Potassium 4.3 (3.5-5.5) mmol/L Chloride 102 (96-109) mmol/L Carbon Dioxide 20.2 L (21.6-31.8) mmol/L BUN 67.1 H (9.0-27.0) mg/dL Creatinine 2.64 H 2.6 H (0.66-1.25) mg/dL Glucose 319 H (70-110) mg/dL Calcium 7.5 L (8.7-10.3) mg/dL Calcium panel 01/18/23 Range/Units 04:03 Calcium 7.5 L (8.7-10.3) mg/dL Pituitary panel 01/17/23 01/18/23 Range/Units 11:49 04:03 Sodium 132 L (135-145) mmol/L Potassium 4.3 (3.5-5.5) mmol/L Chloride 102 (96-109) mmol/L Carbon Dioxide 20.2 L (21.6-31.8) mmol/L BUN 67.1 H (9.0-27.0) mg/dL Creatinine 2.64 H 2.6 H (0.66-1.25) mg/dL Glucose 319 H (70-110) mg/dL Calcium 7.5 L (8.7-10.3) mg/dL Adrenal panel 01/17/23 01/18/23 Range/Units 11:49 04:03 Sodium 132 L (135-145) mmol/L Potassium 4.3 (3.5-5.5) mmol/L Chloride 102 (96-109) mmol/L Carbon Dioxide 20.2 L (21.6-31.8) mmol/L BUN 67.1 H (9.0-27.0) mg/dL Creatinine 2.64 H 2.6 H (0.66-1.25) mg/dL Glucose 319 H (70-110) mg/dL Calcium 7.5 L (8.7-10.3) mg/dL
[2023-01-18] MEDS: IOPAMIDOL CONTRAST (ORAL USE) VIAL PO PRN ×2 (15:14→16:22)
[2023-01-18 17:17] LABS: Glucose,Whole Blood 134 mg/dL (70-110)
--- NOTE | 2023-01-18 17:23 | CT ---
EXAMINATION TYPE: CT abdomen pelvis wo con CT DLP: 705.7 mGycm, Automated exposure control for dose reduction was used. DATE OF EXAM: 01/18/2023 5:04 PM COMPARISON: CT abdomen pelvis most recent from 01/07/2023. CLINICAL INDICATION:Male, 72 years old with history of RLQ abdominal pain, inguinal hernia; abdominal pain, hernia TECHNIQUE: Axial CT of the ;CT abdomen pelvis wo con;Sagittal and coronal reformats were created on a separate workstation. Contrast used: mL of , (none if empty) Oral contrast used: with Oral Contrast (none if empty) FINDINGS: LOWER CHEST: Airspace opacities are seen in the lung bases bilaterally. There is small pleural effusi on. Heart is mildly enlarged for size there is severe coronary artery calcifications. ABDOMEN LIVER: Unremarkable GALLBLADDER AND BILE DUCTS: Unremarkable. PANCREAS: Unremarkable. SPLEEN: Unremarkable. ADRENAL GLANDS: Unremarkable. KIDNEYS AND URETERS: No evidence of hydronephrosis or renal calculus. The ureters are unremarkable. PELVIS BLADDER: Nondistended with [place] catheter in place. There is thought to be bladder wall thickening [place] perimposed even though the bladder is nondistended. REPRODUCTIVE: Calcifications along the dorsal cavernosa of the penis. The prostate is enlarged measur ing up to 6.1 cm. ABDOMEN & PELVIS STOMACH AND BOWEL: No evidence of bowel obstruction. Scattered colonic diverticula. There is large am ount stool throughout the colon with small bowel feces in the distal ileum. The appendix is not defin itively visualized. PERITONEUM/RETROPERITONEUM: No evidence of pneumoperitoneum. Trace free fluid throughout the abdomen. VASCULATURE: No evidence of aortic aneurysm. MUSCULOSKELETAL: No acute osseous abnormalities LYMPH NODES: No gross evidence for lymphadenopathy. SOFT TISSUE/ABDOMINAL WALL: Fat-containing right inguinal hernia containing possibly a loop of small bowel. Hard to differentiate from simple abdominal fluid. There is contrast near the bowel loops in t he right lower quadrant however there is no contrast within the right inguinal canal. Subcutaneous ga s foci along the anterior wall likely secondary to medicine injection. Left fat-containing inguinal h ernia. IMPRESSION: 1. Large amount stool throughout the colon with small bowel feces in the distal ileum in the right l ower quadrant correlate for ileus/stasis. 2. Right inguinal hernia with what is thought to be fluid within the canal at this time, previously small bowel was within the right inguinal hernia with associated trace amount of fluid. Findings can be confirmed with ultrasound. 3. Colonic diverticulosis. 4. Bibasilar airspace opacities correlate for pneumonia/aspiration. 5. Mild cardiomegaly. 6. Severe coronary artery atherosclerosis. 7. Prostatomegaly correlate with serum PSA. 8. Bladder wall thickening correlate for chronic bladder outlet obstruction. 9. Trace/small bilateral pleural effusions.
[2023-01-18 21:26] LABS: Glucose,Whole Blood 243 mg/dL (70-110)
[2023-01-18] MEDS: DOCUSATE 100 MG CAP PO SCH (21:37)
[2023-01-18] MEDS: AZITHROMYCIN 250 MG TAB PO SCH (21:37)
[2023-01-18] MEDS: SENNOSIDES 8.6 MG TAB PO SCH (21:37)
[2023-01-19] MEDS: guaiFENesin-DM 100-10MG/5ML 10 ML CUP PO SCH ×5 (00:37→23:56)
[2023-01-19 06:26] LABS: Glucose,Whole Blood 195 mg/dL (70-110)
[2023-01-19] MEDS: carvediloL 6.25 MG TAB PO SCH ×2 (06:31→17:19)
[2023-01-19] MEDS: INSULIN DETEMIR (LEVEMIR) 100 UNIT/ML SYR SQ SCH (06:31)
[2023-01-19] MEDS: INSULIN ASPART (NovoLOG) 100 UNIT/ML VIAL SQ SCH ×4 (06:31→22:42)
[2023-01-19] MEDS: SODIUM CHLORIDE 0.9% 1,000 ML IV SCH (06:42)
[2023-01-19] MEDS: ZINC SULFATE 220 MG CAP PO SCH (08:39)
[2023-01-19] MEDS: MAGNESIUM OXIDE 400 MG TAB PO SCH ×2 (08:39→20:49)
[2023-01-19] MEDS: ASCORBIC ACID 500 MG TAB PO SCH (08:39)
[2023-01-19] MEDS: FAMOTIDINE 20 MG/2 ML VIAL IV SCH ×2 (08:39→20:49)
[2023-01-19] MEDS: hydrALAZINE HCL 50 MG TAB PO SCH ×3 (08:39→20:49)
[2023-01-19] MEDS: ENOXAPARIN 30 MG/0.3 ML SYRINGE SQ SCH (08:39)
[2023-01-19] MEDS: DOCUSATE 100 MG CAP PO SCH ×2 (08:39→20:49)
[2023-01-19] MEDS: TAMSULOSIN 0.4 MG CAP.ER.24H PO SCH (08:39)
[2023-01-19] MEDS: ISOSORBIDE MONONITRATE ER 30 MG TAB.ER.24H PO SCH (08:39)
[2023-01-19] MEDS: amLODIPine 10 MG TAB PO SCH (08:39)
[2023-01-19] MEDS: CHOLECALCIFEROL 25 MCG (1000 IU) TABLET PO SCH (08:39)
[2023-01-19] MEDS: ATORVASTATIN 40 MG TAB PO SCH (08:40)
[2023-01-19] MEDS ORDERED: LACTULOSE 20 GM/30 ML CUP PO ONE (11:17)
[2023-01-19 13:05] LABS: Glucose,Whole Blood 170 mg/dL (70-110)
--- NOTE | 2023-01-19 13:46 | P.PN ---
Subjective Progress Note Date: 01/19/23 CHIEF COMPLAINT: Right inguinal hernia HISTORY OF PRESENT ILLNESS: Patient lying in bed comfortably. He still has a cough. Hernia does bulge out with coughing. However, it is reducible. Repeat abdominal computed tomography scan with contrast to show large amount of stool throughout the colon with small bowel feces in the distal ileum in the right lower quadrant correlate for ileus/stasis. Right inguinal hernia with what is thought to be fluid within the canal at this time, previously small bowel was within the right inguinal hernia with associated trace amount of fluid. Colonic diverticulosis. Patient does complain of pain at times in the right lower quadrant. He denies any nausea vomiting. Patient did have bowel movements yesterday. PHYSICAL EXAM: VITAL SIGNS: Reviewed. GENERAL: Well-developed in no acute distress. ABDOMEN: Soft. Nondistended. Reducible right inguinal hernia NEUROLOGIC: Alert and oriented. Cranial nerves II through XII grossly intact. ASSESSMENT: 1. Right inguinal hernia that is reducible 2. COVID-19 positive PLAN: -Continue to monitor -Continue regular diet -Continue supportive care Physician Gradall Operator note has been reviewed by physician. Signing provider agrees with the documented findings, assessment, and plan of care. Objective - Vital Signs Vital signs: Vital Signs Temp 98.4 F 01/19/23 07:30 Pulse 65 01/19/23 07:30 Resp 16 01/19/23 07:30 BP 164/62 01/19/23 07:30 Pulse Ox 91 L 01/19/23 07:30 FiO2 Intake & Output 01/18/23 01/19/23 01/19/23 18:59 06:59 18:59 Output Total 850 800 Balance -850 -800 Output: Urine 850 800 Other: Voiding Method Indwelling Catheter Indwelling Catheter - Labs CBC & Chem 7: 01/17/23 11:49 01/18/23 04:03 Labs: Abnormal Lab Results - Last 24 Hours (Table) 01/18/23 01/18/23 01/18/23 Range/Units 12:02 17:13 21:24 POC Glucose (mg/dL) 166 H 134 H 243 H (70-110) mg/dL 01/19/23 Range/Units 06:24 POC Glucose (mg/dL) 195 H (70-110) mg/dL Microbiology - Last 24 Hours (Table) 01/17/23 08:23 Gram Stain - Final Sputum Sputum Culture - Final
--- NOTE | 2023-01-19 15:25 | P.PN ---
Subjective Progress Note Date: 01/19/23 Principal diagnosis: covid 19 and pneumonia Patient is a 72-year-old male with a past medical history significant for diabetes mellitus hypertension hyperlipidemia pneumonia patient presenting to the ER for evaluation of weakness decreased oral intake cough and sore throat , patient has been diagnosed with covid19 patient also have elevated procalcitonin On today's evaluation that is 01/19/2023, the patient remains to be afebrile , the patient is breathing comfortably on room air without need for supplemental oxygen, the patient denies any chest pain and no significant cough or sputum production, patient has been complaining of some abdominal pain and nausea but no vomiting Patient white count of 6.5 as of 01/17/2023 and creatinine is 2.6, procalcitonin is 0.96, sputum cultures are negative for resistant pathogen Objective - Vital Signs Vital signs: Vital Signs Temp 97.9 F 01/19/23 13:33 Pulse 56 L 01/19/23 13:33 Resp 18 01/19/23 13:33 BP 142/66 01/19/23 13:33 Pulse Ox 91 L 01/19/23 13:33 FiO2 Intake & Output 01/18/23 01/19/23 01/19/23 18:59 06:59 18:59 Output Total 850 800 Balance -850 -800 Weight 89.811 kg Output: Urine 850 800 Other: Voiding Method Indwelling Catheter Indwelling Catheter Indwelling Catheter - Exam GENERAL DESCRIPTION: An elderly male lying in bed in no distress RESPIRATORY SYSTEM: Unlabored breathing , coarse breath sounds at the base HEART: S1 S2 regular rate and rhythm , ABDOMEN: Soft , no tenderness EXTREMITIES: No edema feet - Labs CBC & Chem 7: 01/17/23 11:49 01/18/23 04:03 Labs: Abnormal Lab Results - Last 24 Hours (Table) 01/18/23 01/18/23 01/19/23 Range/Units 17:13 21:24 06:24 POC Glucose (mg/dL) 134 H 243 H 195 H (70-110) mg/dL 01/19/23 Range/Units 13:04 POC Glucose (mg/dL) 170 H (70-110) mg/dL Microbiology - Last 24 Hours (Table) 01/17/23 08:23 Gram Stain - Final Sputum Sputum Culture - Final Assessment and Plan (1) Elevated procalcitonin Current Visit: Yes Status: Acute Code(s): R79.89 - OTHER SPECIFIED ABNORMAL FINDINGS OF BLOOD CHEMISTRY SNOMED Code(s): 525276306 (2) COVID-19 Current Visit: Yes Status: Acute Code(s): U07.1 - COVID-19 SNOMED Code(s): 929192093 Plan: 1patient was in the hospital with generalized weakness not feeling well did have some sore throat and a cough and this patient has been diagnosed with COVID-19 about 4 days ago patient is currently not requiring any supplemental oxygen chest x-ray was reported negative for acute infiltrate both these factors will disqualify him for remdesivir per [facility] policy 2-patient did have CT of abdominal pelvis for surgery, had did have significant finding on the abdominal pelvis CT and concern for possible aspiration pneumonia we will discontinue Rocephin and Zithromax and start patient on Zosyn Dictation was produced using [employer] dictation software. please excuse any grammatical, word or spelling errors. Time with Patient: Less than 30
[2023-01-19 16:31] LABS: Glucose,Whole Blood 179 mg/dL (70-110)
[2023-01-19] MEDS: PIPERACILLIN-TAZOBACTAM 3.375 GM in SODIUM CHLORIDE 0.9% 100 ML IVPB SCH ×2 (17:19→23:56)
[2023-01-19] MEDS: SENNOSIDES 8.6 MG TAB PO SCH (20:49)
[2023-01-19] MEDS: AZITHROMYCIN 250 MG TAB PO SCH (20:49)
[2023-01-19 21:19] LABS: Glucose,Whole Blood 176 mg/dL (70-110)
[2023-01-20 06:30] LABS: Glucose,Whole Blood 181 mg/dL (70-110)
[2023-01-20] MEDS: carvediloL 6.25 MG TAB PO SCH ×2 (06:33→17:12)
[2023-01-20] MEDS: guaiFENesin-DM 100-10MG/5ML 10 ML CUP PO SCH ×2 (06:33→11:36)
[2023-01-20] MEDS: INSULIN DETEMIR (LEVEMIR) 100 UNIT/ML SYR SQ SCH (06:33)
[2023-01-20] MEDS: INSULIN ASPART (NovoLOG) 100 UNIT/ML VIAL SQ SCH ×4 (06:34→21:30)
[2023-01-20] MEDS: ONDANSETRON 4 MG/2 ML VIAL IVP PRN (06:34)
--- NOTE | 2023-01-20 06:43 | P.PN ---
Subjective Progress Note Date: 01/19/23 This is a pleasant 72 years old male with multiple medical problems including Heart Failure, Diabetes Mellitus, Hyperlipidemia, Hypertension, Neuropathy in bilat feet and bilat hands. CHRONIC UTI Presents because of sore throat and achiness. Was sent from his PCP Dr. tarango for covid positive test. Patient states he wants to see Dr. tarango because of his sore throat severe that it javier and affects his is swallowing. He complains from little dyspnea and cough with phlegm but he denies chest pain. Diarrhea vomiting or abdominal pain. Has indwelling [place] catheter in the urinary bladder, his urologist is Dr. Oscar no dizziness weakness or numbness. Has mild headache. Denies smoking alcohol or illicit drug use Patient has fever of 102 this morning admission He is saturating 93% on room air. Blood pressure elevated 165/73 Labs showing leukocytosis of 13.5, hemoglobin 10.9 Creatinine mildly elevated at 2.8 with baseline 2.2-2.4 Liver enzymes not elevated Covid virus detected, however this is not EKG: Normal sinus rhythm at [address]-T changes Chest x-ray: No acute infiltrate 01/16/2023 Patient's is mildly tachypneic only at rest. She still complaining of from coughing. No chest pain. History have fair appetite but still has diarrhea about 4 times yesterday. His production, snoring is elevated 0.96 and most likely patient has bacterial pneumonia and she is covered with Zithromax and ceftriaxone. Is currently on room air and saturation 96% therefore we going to lower his dexamethasone 4 mg and for 2 more days and then can be stopped. We'll give Norvasc for 3 days while he is on steroids. Repeat labs from this morning is pending. This allowed normal saline 75 mL/h, diuretics on hold. Collar Shaper Operator scan showed no evidence of pulmonary embolism. Case was discussed with the staff and bedside nurse 01/17/2023 Patient breathing is all right, his only when the tachypneic. He feels fatigued. The area is also improving, had 3 bouts yesterday compared to force day before. No abdominal pain. He has poor appetite. BCs back to normal 8.4, hemoglobin 8.6 with possible elements of hemodilution. Creatinine up to 3.1 and patient has evidence of chronic kidney disease. No more fever. Remains on Zithromax and ceftriaxone. Diuretics with torsemide and Zaroxolyn are on hold. Also he is on normal saline 75 mL/h. Repeat labs from today are pending. Collar Shaper Operator scan is negative for pulmonary embolism repeat chest x-ray from today pending final report, are reviewed the x-ray by myself showing no significant change from prior with some evidence with COPD 01/19/2023 Patient is seen and evaluated in follow-up today reporting he does not feel well and does not feel ready for going home. Patient reports he is not eating very well and requesting specific soft foods. Patient denies any nausea or vomiting and reports no diarrhea in the last 2 days. Patient did undergo CT abdomen showing large stool burden and will give lactulose and bowel regimen. Patient is afebrile currently on room air denies any worsening shortness of breath. Patient is having a cough that sounds wet and congested on chest x-ray from yesterday shows no significant change from previous with no acute process. CT abdomen showed some trace effusions bilaterally and also infiltrate concerning for aspiration. Antibiotics being adjusted to Zosyn per infectious disease. Patient was continued on Zithromax and ceftriaxone. Patient is currently been in bed mostly encourage the patient to get up out of the bed and sit up in the chair for meals. Patient with chronic [place]. Review of systems: Constitutional: reports of fatigue, no fever, or chills Cardiovascular: No reports of chest pain or palpitations Respiratory: No reports of shortness of breath , reports cough GI: No reports of nausea, vomiting, or diarrhea : No reports of dysuria or retention Neurovascular: reports of generalized weakness and continued body aches All medications have been reviewed Physical exam: GENERAL: The patient is alert and oriented x3, not in any acute distress. Well developed, well nourished. Elderly-appearing, ill-appearing HEENT: Pupils are round and equally reacting to light. EOMI. No scleral icterus. No conjunctival pallor. Normocephalic, atraumatic. No pharyngeal erythema. No thyromegaly. CARDIOVASCULAR: S1 and S2 present. No murmurs, rubs, or gallops. PULMONARY: Diminished breath sounds bilaterally with some scattered crackles noted at the bases and faint forced expiratory wheezing. ABDOMEN: Soft,tender, nondistended, normoactive bowel sounds. No palpable organomegaly. MUSCULOSKELETAL: No joint swelling or deformity. EXTREMITIES: No cyanosis, clubbing, or pedal edema. NEUROLOGICAL: Gross neurological examination did not reveal any focal deficits. Diffusely weak SKIN: No rashes. no petechiae. Pale Assessment: Bilateral Covid pneumonia (mild) with bacterial superinfection and pneumonia. Acute hypoxic respiratory failure, ruled out Increased inflammatory markers sepsis with fever and leukocytosis secondary to bilateral Covid pneumonia Mild acute kidney injury on chronic kidney disease stage III Chronic urinary retention status post indwelling [place] catheter Diabetes mellitus Hypertension, uncontrolled on admission Hyperlipidemia CHF History of osteoarthritis Hypothyroidism GI prophylaxis DVT prophylaxis Full code Plan: Continue with antibiotics per infectious disease although transitioning to Zosyn as there was concern for aspiration on CT Patient is maintaining oxygen saturation above 90% on room air and is not requiring oxygen Continue with vitamin C, vitamin D and zinc, as well as Lovenox Recommend fluid restrictions and will discontinue IV fluids. Repeat labs ordered for a.m. to monitor kidney functions Patient continues with chronic indwelling [place] catheter Encouraged increased activity as tolerated and getting up out of the bed more often and sitting in the chair Patient continues to report he is not feeling well and not ready for going home and continues with body aches and generalized weakness with decreased appetite CT abdomen is concerning for large stool burden and will continue on lactulose. Patient reports has not had a bowel movement in 2 days Prognosis is guarded The impression and plan of care has been dictated by Mai Williamson, Nurse Practitioner as directed. Dr. Haja MD I have performed a history and examination and MDM of this patient, discussed the same with the dictator, and agree with the dictator's assessment and plan as written ,documented as a scribe. Based on total visit time, I have performed more than 50% of the visit. Objective - Vital Signs Vital signs: Vital Signs Temp 98.4 F 01/19/23 07:30 Pulse 65 01/19/23 07:30 Resp 16 01/19/23 07:30 BP 164/62 01/19/23 07:30 Pulse Ox 91 L 01/19/23 07:30 FiO2 Intake & Output 01/18/23 01/19/23 01/19/23 18:59 06:59 18:59 Output Total 850 800 Balance -850 -800 Output: Urine 850 800 Other: Voiding Method Indwelling Catheter Indwelling Catheter - Labs CBC & Chem 7: 01/17/23 11:49 01/18/23 04:03 Labs: Abnormal Lab Results - Last 24 Hours (Table) 01/18/23 01/18/23 01/18/23 Range/Units 12:02 17:13 21:24 POC Glucose (mg/dL) 166 H 134 H 243 H (70-110) mg/dL 01/19/23 Range/Units 06:24 POC Glucose (mg/dL) 195 H (70-110) mg/dL Microbiology - Last 24 Hours (Table) 01/17/23 08:23 Gram Stain - Final Sputum Sputum Culture - Final
[2023-01-20] MEDS: ENOXAPARIN 30 MG/0.3 ML SYRINGE SQ SCH (08:51)
[2023-01-20] MEDS: MAGNESIUM OXIDE 400 MG TAB PO SCH ×2 (08:53→21:30)
[2023-01-20] MEDS: ASCORBIC ACID 500 MG TAB PO SCH (08:53)
[2023-01-20] MEDS: CHOLECALCIFEROL 25 MCG (1000 IU) TABLET PO SCH (08:53)
[2023-01-20] MEDS: ZINC SULFATE 220 MG CAP PO SCH (08:53)
[2023-01-20] MEDS: hydrALAZINE HCL 50 MG TAB PO SCH ×3 (08:53→21:30)
[2023-01-20] MEDS: FAMOTIDINE 20 MG/2 ML VIAL IV SCH ×2 (08:53→22:02)
[2023-01-20] MEDS: PIPERACILLIN-TAZOBACTAM 3.375 GM in SODIUM CHLORIDE 0.9% 100 ML IVPB SCH ×3 (08:54→23:09)
[2023-01-20] MEDS: TAMSULOSIN 0.4 MG CAP.ER.24H PO SCH (08:54)
[2023-01-20] MEDS: amLODIPine 10 MG TAB PO SCH (08:54)
[2023-01-20] MEDS: DOCUSATE 100 MG CAP PO SCH ×2 (08:54→21:30)
[2023-01-20] MEDS: ATORVASTATIN 40 MG TAB PO SCH (08:54)
[2023-01-20] MEDS: LACTULOSE 20 GM/30 ML CUP PO SCH ×2 (08:54→21:30)
[2023-01-20] MEDS: ISOSORBIDE MONONITRATE ER 30 MG TAB.ER.24H PO SCH (08:54)
[2023-01-20 11:17] LABS: ALT 20 U/L (10-49); AST 18 U/L (14-35); Albumin 2.4 d/dL (3.8-4.9); Albumin/Globulin Ratio 1.26 Ratio (1.60-3.17); Alkaline Phosphatase 81 U/L (41-126); BUN/Creat Ratio 22.52 Ratio (12.00-20.00); Blood Urea Nitrogen 56.3 mg/dL (9.0-27.0); Calcium 7.7 mg/dL (8.7-10.3); Carbon Dioxide 19.2 mmol/L (21.6-31.8); Chloride 105 mmol/L (96-109); Globulin 1.9 d/dL (1.6-3.3); Glucose 163 mg/dL (70-110); Magnesium 2.3 mg/dL (1.5-2.4); Potassium 4.9 mmol/L (3.5-5.5); Sodium 134 mmol/L (135-145); Total Bilirubin 0.3 mg/dL (0.3-1.2); Total Protein 4.3 d/dL (6.2-8.2)
[2023-01-20 11:44] LABS: Glucose,Whole Blood 228 mg/dL (70-110)
--- NOTE | 2023-01-20 12:27 | P.PN ---
Subjective This is a pleasant 72 years old male with multiple medical problems including Heart Failure, Diabetes Mellitus, Hyperlipidemia, Hypertension, Neuropathy in bilat feet and bilat hands. CHRONIC UTI Presents because of sore throat and achiness. Was sent from his PCP Dr. tarango for covid positive test. Patient states he wants to see Dr. tarango because of his sore throat severe that it javier and affects his is swallowing. He complains from little dyspnea and cough with phlegm but he denies chest pain. Diarrhea vomiting or abdominal pain. Has indwelling [place] catheter in the urinary bladder, his urologist is Dr. Oscar no dizziness weakness or numbness. Has mild headache. Denies smoking alcohol or illicit drug use Patient has fever of 102 this morning admission He is saturating 93% on room air. Blood pressure elevated 165/73 Labs showing leukocytosis of 13.5, hemoglobin 10.9 Creatinine mildly elevated at 2.8 with baseline 2.2-2.4 Liver enzymes not elevated Covid virus detected, however this is not EKG: Normal sinus rhythm at [address]-T changes Chest x-ray: No acute infiltrate 01/16/2023 Patient's is mildly tachypneic only at rest. She still complaining of from coughing. No chest pain. History have fair appetite but still has diarrhea about 4 times yesterday. His production, snoring is elevated 0.96 and most likely patient has bacterial pneumonia and she is covered with Zithromax and ceftriaxone. Is currently on room air and saturation 96% therefore we going to lower his dexamethasone 4 mg and for 2 more days and then can be stopped. We'll give Norvasc for 3 days while he is on steroids. Repeat labs from this morning is pending. This allowed normal saline 75 mL/h, diuretics on hold. Trend Investigator scan showed no evidence of pulmonary embolism. Case was discussed with the staff and bedside nurse 01/17/2023 Patient breathing is all right, his only when the tachypneic. He feels fatigued. The area is also improving, had 3 bouts yesterday compared to force day before. No abdominal pain. He has poor appetite. BCs back to normal 8.4, hemoglobin 8.6 with possible elements of hemodilution. Creatinine up to 3.1 and patient has evidence of chronic kidney disease. No more fever. Remains on Zithromax and ceftriaxone. Diuretics with torsemide and Zaroxolyn are on hold. Also he is on normal saline 75 mL/h. Repeat labs from today are pending. Trend Investigator scan is negative for pulmonary embolism repeat chest x-ray from today pending final report, are reviewed the x-ray by myself showing no significant change from prior with some evidence with COPD 01/18/2023 pt is breathing quietly today , no tachyphnea and no dyspnea , no other significant resp symptoms, he looks fatigued and tired and this is expected with his viral illness,repeat cxr today shows chronic changes , no acute process , i reviewed the cxr and i agree with his finding he had little diarrhea or loose stool and complains from RLQ abd pain , he thinks it is due to his hernia , his abdomen is soft and hernia is reproducible we consulted surgery team and ct of the abdomen is ordered showing stool in bowel and pt therefore we started him on colace and senna with close monitoring we will continue to monitor the pt i called the daughter yung upon pt request and discussed with her his problems and management plan and she verbalized understanding and acceptance Active Medications Generic Name Dose Route Start Last Admin Trade Name Freq PRN Reason Stop Dose Admin Acetaminophen 650 mg 01/14/23 21:14 Acetaminophen Tab 325 Mg Tab PO Q6HR PRN Mild Pain or Fever > 100.5 Hydrocodone Bitart/Acetaminophen 1 each 01/18/23 10:35 01/18/23 18:22 Hydrocodone/Apap 5-325mg 1 Each Tab PO 1 each Q6HR PRN Administration Pain Amlodipine Besylate 10 mg 01/15/23 09:00 01/20/23 08:54 Amlodipine 10 Mg Tab PO 10 mg DAILY RISSA Administration Ascorbic Acid 1,000 mg 01/15/23 09:00 01/20/23 08:53 Ascorbic Acid 500 Mg Tab PO 1,000 mg DAILY RISSA Administration Atorvastatin Calcium 40 mg 01/15/23 09:00 01/20/23 08:54 Atorvastatin 40 Mg Tab PO 40 mg DAILY RISSA Administration Benzocaine/Menthol 1 each 01/15/23 08:58 01/16/23 16:43 Benzocaine/Menthol Lozeng 1 Each Lozenge MUCOUS MEM 1 each Q4HR PRN Administration Sore Throat Carvedilol 6.25 mg 01/15/23 17:30 01/20/23 06:33 Carvedilol 6.25 Mg Tab PO 6.25 mg BID-W/MEALS RISSA Administration Cholecalciferol 50 mcg 01/15/23 09:00 01/20/23 08:53 Cholecalciferol 25 Mcg (1000 Iu) Tablet PO 50 mcg DAILY RISSA Administration Dextrose/Water 25 ml 01/15/23 07:45 Dextrose 50% Syringe 50 Ml IVP PER PROTOCOL PRN Hypoglycemia Protocol Dextrose/Water 50 ml 01/15/23 07:45 Dextrose 50% Syringe 50 Ml IVP PER PROTOCOL PRN Hypoglycemia Protocol Docusate Sodium 100 mg 01/18/23 21:30 01/20/23 08:54 Docusate 100 Mg Cap PO 100 mg BID RISSA Administration Enoxaparin Sodium 30 mg 01/15/23 09:00 01/20/23 08:51 Enoxaparin 30 Mg/0.3 Ml Syringe SQ 30 mg DAILY RISSA Administration Famotidine 10 mg 01/15/23 09:00 01/20/23 08:53 Famotidine 20 Mg/2 Ml Vial IV 10 mg Q12HR RISSA Administration Guaifenesin/Dextromethorphan 10 ml 01/18/23 12:00 01/20/23 11:36 Guaifenesin-Dm 100-10mg/5ml 10 Ml Cup PO Not Given Q6HR [facility] Hydralazine HCl 50 mg 01/15/23 09:00 01/20/23 08:53 Hydralazine Hcl 50 Mg Tab PO 50 mg TID RISSA Administration Piperacillin Sod/Tazobactam 100 mls @ 25 mls/hr 01/19/23 16:00 01/20/23 08:54 Sod 3.375 gm/ Sodium Chloride IVPB 25 mls/hr Q8HR RISSA Administration Protocol Insulin Aspart 0 unit 01/15/23 12:30 01/20/23 11:47 Insulin Aspart (Novolog) 100 Unit/Ml Vial SQ 2 unit ACHS [facility] Administration Protocol Insulin Detemir 10 unit 01/16/23 07:00 01/20/23 06:33 Insulin Detemir (Levemir) 100 Unit/Ml Syr SQ 10 unit DAILY@0700 RISSA Administration Isosorbide Mononitrate 30 mg 01/15/23 09:00 01/20/23 08:54 Isosorbide Mononitrate Er 30 Mg Tab.Er.24h PO 30 mg DAILY RISSA Administration Lactulose 20 gm 01/20/23 09:00 01/20/23 08:54 Lactulose 20 Gm/30 Ml Cup PO Not Given BID RISSA Magnesium Oxide 400 mg 01/15/23 09:00 01/20/23 08:53 Magnesium Oxide 400 Mg Tab PO 400 mg BID RISSA Administration Naloxone HCl 0.2 mg 01/14/23 21:14 Naloxone 0.4 Mg/Ml 1 Ml Vial IV Q2M PRN Opioid Reversal Ondansetron HCl 4 mg 01/14/23 21:14 01/20/23 06:34 Ondansetron 4 Mg/2 Ml Vial IVP 4 mg Q8HR PRN Administration Nausea And Vomiting Senna 17.2 mg 01/18/23 21:30 01/19/23 20:49 Sennosides 8.6 Mg Tab PO 17.2 mg HS RISSA Administration Tamsulosin HCl 0.4 mg 01/15/23 09:00 01/20/23 08:54 Tamsulosin 0.4 Mg Cap.Er.24h PO 0.4 mg DAILY RISSA Administration Zinc Sulfate 220 mg 01/15/23 09:00 01/20/23 08:53 Zinc Sulfate 220 Mg Cap PO 220 mg DAILY RISSA Administration Objective - Vital Signs Vital signs: Vital Signs Temp 98.9 F 01/18/23 14:16 Pulse 57 L 01/18/23 14:16 Resp 19 01/18/23 14:16 BP 142/55 01/18/23 14:16 Pulse Ox 94 L 01/18/23 14:16 FiO2 Intake & Output 01/17/23 01/18/23 01/18/23 18:59 06:59 18:59 Output Total 600 900 850 Balance -600 -900 -850 Output: Urine 600 900 850 Other: Voiding Method Indwelling Catheter Indwelling Catheter Indwelling Catheter - Exam GENERAL: The patient is alert and oriented x3, not in any acute distress. Well developed, well nourished. HEENT: Pupils are round and equally reacting to light. EOMI. No scleral icterus. No conjunctival pallor. Normocephalic, atraumatic. No pharyngeal erythema. No thyromegaly. CARDIOVASCULAR: S1 and S2 present. No murmurs, rubs, or gallops. -PULMONARY: Chest is clear to auscultation, no wheezing ,bilateral crackles. ABDOMEN: Soft, nontender, nondistended, normoactive bowel sounds. No palpable organomegaly. MUSCULOSKELETAL: No joint swelling or deformity. EXTREMITIES: No cyanosis, clubbing, or pedal edema. NEUROLOGICAL: Gross neurological examination did not reveal any focal deficits. SKIN: No rashes. no petechiae. - Labs CBC & Chem 7: 01/17/23 11:49 01/20/23 06:07 Labs: Abnormal Lab Results - Last 24 Hours (Table) 01/17/23 01/17/23 01/18/23 Range/Units 16:19 20:14 04:03 Sodium 132 L (135-145) mmol/L Carbon Dioxide 20.2 L (21.6-31.8) mmol/L BUN 67.1 H (9.0-27.0) mg/dL Creatinine 2.6 H (0.6-1.5) mg/dL Est GFR (CKD-EPI) 25 L (>=60) BUN/Creatinine Ratio 25.81 H (12.00-20.00) Ratio Glucose 319 H (70-110) mg/dL POC Glucose (mg/dL) 272 H 339 H (70-110) mg/dL Calcium 7.5 L (8.7-10.3) mg/dL 01/18/23 01/18/23 Range/Units 05:50 12:02 Sodium (135-145) mmol/L Carbon Dioxide (21.6-31.8) mmol/L BUN (9.0-27.0) mg/dL Creatinine (0.6-1.5) mg/dL Est GFR (CKD-EPI) (>=60) BUN/Creatinine Ratio (12.00-20.00) Ratio Glucose (70-110) mg/dL POC Glucose (mg/dL) 321 H 166 H (70-110) mg/dL Calcium (8.7-10.3) mg/dL Microbiology - Last 24 Hours (Table) 01/17/23 08:23 Gram Stain - Preliminary Sputum Assessment and Plan Assessment: Bilateral Covid pneumonia (mild) with bacterial superinfection and pneumonia is suspected , procalcitonin is elevated Increased inflammatory markers sepsis with fever and leukocytosis, mild improved Mild acute kidney injury on chronic kidney disease stage III right inguinal hernia large stool burden in the colon Chronic urinary retention status post indwelling [place] catheter Diabetes mellitus Hypertension, uncontrolled on admission Hyperlipidemia CHF History of osteoarthritis Hypothyroidism Plan: Continue with ceftriaxone and Zithromax per id team DC dexamethasone , 4 patient hyperglycemic and he is currently on room air Continue with vitamin C, vitamin D and zinc Infectious disease consult Check and monitor her inflammatory markers, potential calcitonin Continue with IV hydration hold metalozone and demedex change in diet to soft Labs and medication were reviewed.. Continue same treatment. Continue with symptomatic treatment. Resume home medication. Monitor lytes and vitals. DVT and GI prophylaxis. Further recommendations depends on the clinical course of the patient DVT prophylaxis: Subcutaneous Lovenox GI Prophylaxis: Pepcid PT/OT: Pending Prognosis is guarded
[2023-01-20] MEDS ORDERED: BENZONATATE 100 MG CAP PO PRN (13:57)
[2023-01-20] MEDS ORDERED: guaiFENesin-DM 100-10MG/5ML 10 ML CUP PO PRN (13:57)
[2023-01-20] MEDS ORDERED: TEMAZEPAM 7.5 MG CAP PO PRN (13:58)
--- NOTE | 2023-01-20 14:02 | P.PN ---
Subjective Progress Note Date: 01/20/23 This is a pleasant 72 years old male with multiple medical problems including Heart Failure, Diabetes Mellitus, Hyperlipidemia, Hypertension, Neuropathy in bilat feet and bilat hands. CHRONIC UTI Presents because of sore throat and achiness. Was sent from his PCP Dr. tarango for covid positive test. Patient states he wants to see Dr. tarango because of his sore throat severe that it javier and affects his is swallowing. He complains from little dyspnea and cough with phlegm but he denies chest pain. Diarrhea vomiting or abdominal pain. Has indwelling [place] catheter in the urinary bladder, his urologist is Dr. Oscar no dizziness weakness or numbness. Has mild headache. Denies smoking alcohol or illicit drug use Patient has fever of 102 this morning admission He is saturating 93% on room air. Blood pressure elevated 165/73 Labs showing leukocytosis of 13.5, hemoglobin 10.9 Creatinine mildly elevated at 2.8 with baseline 2.2-2.4 Liver enzymes not elevated Covid virus detected, however this is not EKG: Normal sinus rhythm at [address]-T changes Chest x-ray: No acute infiltrate 01/16/2023 Patient's is mildly tachypneic only at rest. She still complaining of from coughing. No chest pain. History have fair appetite but still has diarrhea about 4 times yesterday. His production, snoring is elevated 0.96 and most likely patient has bacterial pneumonia and she is covered with Zithromax and ceftriaxone. Is currently on room air and saturation 96% therefore we going to lower his dexamethasone 4 mg and for 2 more days and then can be stopped. We'll give Norvasc for 3 days while he is on steroids. Repeat labs from this morning is pending. This allowed normal saline 75 mL/h, diuretics on hold. [employer] scan showed no evidence of pulmonary embolism. Case was discussed with the staff and bedside nurse 01/17/2023 Patient breathing is all right, his only when the tachypneic. He feels fatigued. The area is also improving, had 3 bouts yesterday compared to force day before. No abdominal pain. He has poor appetite. BCs back to normal 8.4, hemoglobin 8.6 with possible elements of hemodilution. Creatinine up to 3.1 and patient has evidence of chronic kidney disease. No more fever. Remains on Zithromax and ceftriaxone. Diuretics with torsemide and Zaroxolyn are on hold. Also he is on normal saline 75 mL/h. Repeat labs from today are pending. [employer] scan is negative for pulmonary embolism repeat chest x-ray from today pending final report, are reviewed the x-ray by myself showing no significant change from prior with some evidence with COPD 01/19/2023 Patient is seen and evaluated in follow-up today reporting he does not feel well and does not feel ready for going home. Patient reports he is not eating very well and requesting specific soft foods. Patient denies any nausea or vomiting and reports no diarrhea in the last 2 days. Patient did undergo CT abdomen showing large stool burden and will give lactulose and bowel regimen. Patient is afebrile currently on room air denies any worsening shortness of breath. Patient is having a cough that sounds wet and congested on chest x-ray from yesterday shows no significant change from previous with no acute process. CT abdomen showed some trace effusions bilaterally and also infiltrate concerning for aspiration. Antibiotics being adjusted to Zosyn per infectious disease. Patient was continued on Zithromax and ceftriaxone. Patient is currently been in bed mostly encourage the patient to get up out of the bed and sit up in the chair for meals. Patient with chronic Washington. 01/20/2023 Patient is seen in follow-up today reports feeling minimally improved. Patient reports his cough is keeping him up at night and not sleeping well and Robitussin is not helping. Patient tolerating diet with no reported nausea or vomiting and did have a bowel movement. Patient denies abdominal pain. Infectious disease following and has transitioned to Zosyn and will continue. Awaiting a.m. labs. Encouraged oral intake and increased activity as tolerated. Review of systems: Constitutional: reports of fatigue, no fever, or chills Cardiovascular: No reports of chest pain or palpitations Respiratory: No reports of shortness of breath , reports cough that is keeping him up at night GI: No reports of nausea, vomiting, or diarrhea : No reports of dysuria or retention Neurovascular: reports of generalized weakness and continued body aches All medications have been reviewed Physical exam: GENERAL: The patient is alert and oriented x3, not in any acute distress. Well developed, well nourished. Elderly-appearing, ill-appearing HEENT: Pupils are round and equally reacting to light. EOMI. No scleral icterus. No conjunctival pallor. Normocephalic, atraumatic. No pharyngeal erythema. No thyromegaly. CARDIOVASCULAR: S1 and S2 present. No murmurs, rubs, or gallops. PULMONARY: Diminished breath sounds bilaterally with some scattered rhonchi ABDOMEN: Soft, non-tender, non-distended, normoactive bowel sounds. No palpable organomegaly. MUSCULOSKELETAL: No joint swelling or deformity. EXTREMITIES: No cyanosis, clubbing, or pedal edema. NEUROLOGICAL: Gross neurological examination did not reveal any focal deficits. Diffusely weak SKIN: No rashes. no petechiae. Pale Assessment: Bilateral Covid pneumonia (mild) with bacterial superinfection and pneumonia. Acute hypoxic respiratory failure, ruled out Increased inflammatory markers sepsis with fever and leukocytosis secondary to bilateral Covid pneumonia Mild acute kidney injury on chronic kidney disease stage III Chronic urinary retention status post indwelling [place] catheter Diabetes mellitus Hypertension, uncontrolled on admission Hyperlipidemia CHF History of osteoarthritis Hypothyroidism GI prophylaxis DVT prophylaxis Full code Plan: Continue with antibiotics per infectious disease and has been transitioned to Zosyn Patient is maintaining oxygen saturation above 90% on room air and is not requiring oxygen Continue with vitamin C, vitamin D and zinc, as well as Lovenox Recommend fluid restrictions and labs show stable kidney functions and sodium slightly improved at 134 today Patient continues with chronic indwelling [place] catheter Encouraged increased activity as tolerated and getting up out of the bed more often and sitting in the chair Patient continues to report he is not feeling well , but reports slight improvement today Possible discharge planning in the next 24 hours Prognosis is guarded The impression and plan of care has been dictated by Mai Williamson, Nurse Practitioner as directed. Dr. Haja MD I have performed a history and examination and MDM of this patient, discussed the same with the dictator, and agree with the dictator's assessment and plan as written ,documented as a scribe. Based on total visit time, I have performed more than 50% of the visit. Objective - Vital Signs Vital signs: Vital Signs Temp 98.5 F 01/20/23 07:39 Pulse 59 L 01/20/23 07:39 Resp 18 01/20/23 07:39 BP 163/69 01/20/23 07:39 Pulse Ox 93 L 01/20/23 07:39 FiO2 Intake & Output 01/19/23 01/20/23 01/20/23 18:59 06:59 18:59 Output Total 750 700 Balance -750 -700 Weight 89.811 kg Output: Urine 750 700 Other: Voiding Method Indwelling Catheter Indwelling Catheter Indwelling Catheter # Bowel Movements 1 - Labs CBC & Chem 7: 01/17/23 11:49 01/20/23 06:07 Labs: Abnormal Lab Results - Last 24 Hours (Table) 01/19/23 01/19/23 01/19/23 Range/Units 13:04 16:30 21:18 POC Glucose (mg/dL) 170 H 179 H 176 H (70-110) mg/dL 01/20/23 Range/Units 06:28 POC Glucose (mg/dL) 181 H (70-110) mg/dL Microbiology - Last 24 Hours (Table) 01/17/23 08:23 Gram Stain - Final Sputum Sputum Culture - Final
--- NOTE | 2023-01-20 14:19 | P.PN ---
Subjective Progress Note Date: 01/20/23 CHIEF COMPLAINT: Right inguinal hernia HISTORY OF PRESENT ILLNESS: Patient has been having bowel movements after started on lactulose. He does report tenderness in the right inguinal hernia. He reports that the hernia is reducible. He denies any nausea vomiting. Tolerating diet. Afebrile. PHYSICAL EXAM: VITAL SIGNS: Reviewed. GENERAL: Well-developed in no acute distress. ABDOMEN: Soft. Nondistended. Reducible right inguinal hernia NEUROLOGIC: Alert and oriented. Cranial nerves II through XII grossly intact. ASSESSMENT: 1. Right inguinal hernia that is reducible 2. COVID-19 positive PLAN: -Plan for outpatient repair of right inguinal hernia when Covid symptoms have improved -Continue regular diet -Continue supportive care Physician [employer] Bever[employer] Server note has been reviewed by physician. Signing provider agrees with the documented findings, assessment, and plan of care. Objective - Vital Signs Vital signs: Vital Signs Temp 98.5 F 01/20/23 07:39 Pulse 59 L 01/20/23 07:39 Resp 18 01/20/23 07:39 BP 163/69 01/20/23 07:39 Pulse Ox 93 L 01/20/23 07:39 FiO2 Intake & Output 01/19/23 01/20/23 01/20/23 18:59 06:59 18:59 Output Total 750 700 425 Balance -750 -700 -425 Weight 89.811 kg Output: Urine 750 700 425 Other: Voiding Method Indwelling Catheter Indwelling Catheter Indwelling Catheter # Bowel Movements 1 1 - Labs CBC & Chem 7: 01/17/23 11:49 01/20/23 06:07 Labs: Abnormal Lab Results - Last 24 Hours (Table) 01/19/23 01/19/23 01/20/23 Range/Units 16:30 21:18 06:07 Sodium 134 L (135-145) mmol/L Carbon Dioxide 19.2 L (21.6-31.8) mmol/L BUN 56.3 H (9.0-27.0) mg/dL Creatinine 2.5 H (0.6-1.5) mg/dL Est GFR (CKD-EPI) 26 L (>=60) BUN/Creatinine Ratio 22.52 H (12.00-20.00) Ratio Glucose 163 H (70-110) mg/dL POC Glucose (mg/dL) 179 H 176 H (70-110) mg/dL Calcium 7.7 L (8.7-10.3) mg/dL Total Protein 4.3 L (6.2-8.2) d/dL Albumin 2.4 L (3.8-4.9) d/dL Albumin/Globulin Ratio 1.26 L (1.60-3.17) Ratio 01/20/23 01/20/23 Range/Units 06:28 11:42 Sodium (135-145) mmol/L Carbon Dioxide (21.6-31.8) mmol/L BUN (9.0-27.0) mg/dL Creatinine (0.6-1.5) mg/dL Est GFR (CKD-EPI) (>=60) BUN/Creatinine Ratio (12.00-20.00) Ratio Glucose (70-110) mg/dL POC Glucose (mg/dL) 181 H 228 H (70-110) mg/dL Calcium (8.7-10.3) mg/dL Total Protein (6.2-8.2) d/dL Albumin (3.8-4.9) d/dL Albumin/Globulin Ratio (1.60-3.17) Ratio Microbiology - Last 24 Hours (Table) 01/17/23 08:23 Gram Stain - Final Sputum Sputum Culture - Final
[2023-01-20 16:58] LABS: Glucose,Whole Blood 148 mg/dL (70-110)
[2023-01-20 20:51] LABS: Glucose,Whole Blood 184 mg/dL (70-110)
[2023-01-20] MEDS: SENNOSIDES 8.6 MG TAB PO SCH (21:30)
[2023-01-21 06:18] LABS: Glucose,Whole Blood 200 mg/dL (70-110)
[2023-01-21] MEDS: carvediloL 6.25 MG TAB PO SCH (06:32)
[2023-01-21] MEDS: INSULIN ASPART (NovoLOG) 100 UNIT/ML VIAL SQ SCH ×2 (06:33→12:22)
[2023-01-21] MEDS: INSULIN DETEMIR (LEVEMIR) 100 UNIT/ML SYR SQ SCH (06:33)
[2023-01-21 07:41] VITALS: PULSE 60
[2023-01-21] MEDS: ZINC SULFATE 220 MG CAP PO SCH (08:37)
[2023-01-21] MEDS: TAMSULOSIN 0.4 MG CAP.ER.24H PO SCH (08:37)
[2023-01-21] MEDS: DOCUSATE 100 MG CAP PO SCH (08:37)
[2023-01-21] MEDS: MAGNESIUM OXIDE 400 MG TAB PO SCH (08:37)
[2023-01-21] MEDS: ISOSORBIDE MONONITRATE ER 30 MG TAB.ER.24H PO SCH (08:38)
[2023-01-21] MEDS: PIPERACILLIN-TAZOBACTAM 3.375 GM in SODIUM CHLORIDE 0.9% 100 ML IVPB SCH (08:38)
[2023-01-21] MEDS: hydrALAZINE HCL 50 MG TAB PO SCH (08:38)
[2023-01-21] MEDS: CHOLECALCIFEROL 25 MCG (1000 IU) TABLET PO SCH (08:38)
[2023-01-21] MEDS: ATORVASTATIN 40 MG TAB PO SCH (08:38)
[2023-01-21] MEDS: ASCORBIC ACID 500 MG TAB PO SCH (08:38)
[2023-01-21] MEDS: amLODIPine 10 MG TAB PO SCH (08:38)
[2023-01-21] MEDS: ENOXAPARIN 30 MG/0.3 ML SYRINGE SQ SCH (08:39)
[2023-01-21] MEDS: FAMOTIDINE 20 MG/2 ML VIAL IV SCH (08:39)
[2023-01-21] MEDS: LACTULOSE 20 GM/30 ML CUP PO SCH (08:39)
[2023-01-21] MEDS: HYDROcodone/APAP 5-325MG 1 EACH TAB PO PRN (09:10)
[2023-01-21 11:41] LABS: Glucose,Whole Blood 222 mg/dL (70-110)
[2023-01-21] MEDS ORDERED: FUROSEMIDE 10 MG/ML 4 ML VIAL IV STA (13:18)
--- NOTE | 2023-01-21 13:36 | P.PN ---
Subjective Progress Note Date: 01/21/23 CHIEF COMPLAINT: Right inguinal hernia HISTORY OF PRESENT ILLNESS: Patient does report tenderness in the right inguinal hernia. It is reducible. He has been having bowel movements. He is tolerating diet. He is likely being discharged later today. Afebrile PHYSICAL EXAM: VITAL SIGNS: Reviewed. GENERAL: Well-developed in no acute distress. ABDOMEN: Soft. Nondistended. Reducible right inguinal hernia NEUROLOGIC: Alert and oriented. Cranial nerves II through XII grossly intact. ASSESSMENT: 1. Right inguinal hernia that is reducible 2. COVID-19 positive PLAN: -Plan for outpatient repair of right inguinal hernia when Covid symptoms have improved -Continue regular diet -Continue supportive care Physician Commissioner [employer] note has been reviewed by physician. Signing provider agrees with the documented findings, assessment, and plan of care. Objective - Vital Signs Vital signs: Vital Signs Temp 97.7 F 01/21/23 07:15 Pulse 60 01/21/23 07:15 Resp 17 01/21/23 07:15 BP 166/70 01/21/23 07:15 Pulse Ox 94 L 01/21/23 07:15 FiO2 Intake & Output 01/20/23 01/21/23 01/21/23 18:59 06:59 18:59 Output Total 925 800 700 Balance -925 -800 -700 Output: Urine 925 800 700 Other: Voiding Method Indwelling Catheter Indwelling Catheter Indwelling Catheter # Bowel Movements 1 1 - Labs CBC & Chem 7: 01/17/23 11:49 01/20/23 06:07 Labs: Abnormal Lab Results - Last 24 Hours (Table) 01/20/23 01/20/23 01/21/23 Range/Units 16:57 20:50 06:12 POC Glucose (mg/dL) 148 H 184 H 200 H (70-110) mg/dL 01/21/23 Range/Units 11:39 POC Glucose (mg/dL) 222 H (70-110) mg/dL
--- NOTE | 2023-01-21 14:55 | P.PN ---
Subjective Progress Note Date: 01/20/23 Principal diagnosis: covid 19 and pneumonia Patient is a 72-year-old male with a past medical history significant for diabetes mellitus hypertension hyperlipidemia pneumonia patient presenting to the ER for evaluation of weakness decreased oral intake cough and sore throat , patient has been diagnosed with covid19 patient also have elevated procalcitonin On today's evaluation that is 01/20/2023, the patient continues to be afebrile , the patient is breathing comfortably on room air and denies any shortness of breath, the patient denies any chest pain and no cough or sputum production, patient denies abdominal pain and no nausea/vomiting or diarrhea , feeling bet ter no new symptoms Patient white count of 6.5 as of 01/17/2023 and creatinine is 2.5, procalcitonin is 0.96, sputum cultures are negative for resistant pathogen Objective - Vital Signs Vital signs: Vital Signs Temp 98.5 F 01/20/23 07:39 Pulse 59 L 01/20/23 07:39 Resp 18 01/20/23 07:39 BP 163/69 01/20/23 07:39 Pulse Ox 93 L 01/20/23 07:39 FiO2 Intake & Output 01/19/23 01/20/23 01/20/23 18:59 06:59 18:59 Output Total 750 700 425 Balance -750 -700 -425 Weight 89.811 kg Output: Urine 750 700 425 Other: Voiding Method Indwelling Catheter Indwelling Catheter Indwelling Catheter # Bowel Movements 1 1 - Exam GENERAL DESCRIPTION: An elderly male lying in bed in no distress RESPIRATORY SYSTEM: Unlabored breathing , coarse breath sounds at the base HEART: S1 S2 regular rate and rhythm , ABDOMEN: Soft , no tenderness EXTREMITIES: No edema feet - Labs CBC & Chem 7: 01/17/23 11:49 01/20/23 06:07 Labs: Abnormal Lab Results - Last 24 Hours (Table) 01/19/23 01/19/23 01/19/23 Range/Units 13:04 16:30 21:18 Sodium (135-145) mmol/L Carbon Dioxide (21.6-31.8) mmol/L BUN (9.0-27.0) mg/dL Creatinine (0.6-1.5) mg/dL Est GFR (CKD-EPI) (>=60) BUN/Creatinine Ratio (12.00-20.00) Ratio Glucose (70-110) mg/dL POC Glucose (mg/dL) 170 H 179 H 176 H (70-110) mg/dL Calcium (8.7-10.3) mg/dL Total Protein (6.2-8.2) d/dL Albumin (3.8-4.9) d/dL Albumin/Globulin Ratio (1.60-3.17) Ratio 01/20/23 01/20/23 01/20/23 Range/Units 06:07 06:28 11:42 Sodium 134 L (135-145) mmol/L Carbon Dioxide 19.2 L (21.6-31.8) mmol/L BUN 56.3 H (9.0-27.0) mg/dL Creatinine 2.5 H (0.6-1.5) mg/dL Est GFR (CKD-EPI) 26 L (>=60) BUN/Creatinine Ratio 22.52 H (12.00-20.00) Ratio Glucose 163 H (70-110) mg/dL POC Glucose (mg/dL) 181 H 228 H (70-110) mg/dL Calcium 7.7 L (8.7-10.3) mg/dL Total Protein 4.3 L (6.2-8.2) d/dL Albumin 2.4 L (3.8-4.9) d/dL Albumin/Globulin Ratio 1.26 L (1.60-3.17) Ratio Microbiology - Last 24 Hours (Table) 01/17/23 08:23 Gram Stain - Final Sputum Sputum Culture - Final Assessment and Plan (1) Elevated procalcitonin Current Visit: Yes Status: Acute Code(s): R79.89 - OTHER SPECIFIED ABNORMAL FINDINGS OF BLOOD CHEMISTRY SNOMED Code(s): 269164709 (2) COVID-19 Current Visit: Yes Status: Acute Code(s): U07.1 - COVID-19 SNOMED Code(s): 708728594 Plan: 1patient was in the hospital with generalized weakness not feeling well did have some sore throat and a cough and this patient has been diagnosed with COVID-19 about 4 days ago patient is currently not requiring any supplemental oxygen chest x-ray was reported negative for acute infiltrate both these factors will disqualify him for remdesivir per [facility] policy 2-patient did have CT of abdominal pelvis for surgery, had did have significant finding on the abdominal pelvis CT and concern for possible aspiration pneumonia patient continue with Zosyn and monitor his clinical course closely Dictation was produced using [employer] dictation software. please excuse any grammatical, word or spelling errors. Time with Patient: Less than 30
--- NOTE | 2023-01-21 14:56 | P.PN ---
Subjective Progress Note Date: 01/21/23 Principal diagnosis: covid 19 and pneumonia Patient is a 72-year-old male with a past medical history significant for diabetes mellitus hypertension hyperlipidemia pneumonia patient presenting to the ER for evaluation of weakness decreased oral intake cough and sore throat , patient has been diagnosed with covid19 patient also have elevated procalcitonin On today's evaluation that is 01/21/2023, the patient denies any fever or any chills , the patient is breathing comfortably on room air and no need for supplemental oxygen, the patient denies any chest pain, denies any worsening cough or sputum production, patient has been complaining of some pain to the right groin area no further nausea vomiting or diarrhea Patient white count of 6.5 as of 01/17/2023 and creatinine is 2.5 as of yesterday, procalcitonin is 0.96, sputum cultures are negative for resistant pa thogen Objective - Vital Signs Vital signs: Vital Signs Temp 97.7 F 01/21/23 07:15 Pulse 60 01/21/23 07:15 Resp 17 01/21/23 07:15 BP 166/70 01/21/23 07:15 Pulse Ox 94 L 01/21/23 07:15 FiO2 Intake & Output 01/20/23 01/21/23 01/21/23 18:59 06:59 18:59 Output Total 925 800 700 Balance -925 -800 -700 Weight 89.811 kg Output: Urine 925 800 700 Other: Voiding Method Indwelling Catheter Indwelling Catheter Indwelling Catheter # Bowel Movements 1 1 - Exam GENERAL DESCRIPTION: An elderly male lying in bed in no distress RESPIRATORY SYSTEM: Unlabored breathing , coarse breath sounds at the base HEART: S1 S2 regular rate and rhythm , ABDOMEN: Soft , no tenderness EXTREMITIES: No edema feet - Labs CBC & Chem 7: 01/17/23 11:49 01/20/23 06:07 Labs: Abnormal Lab Results - Last 24 Hours (Table) 01/20/23 01/20/23 01/21/23 Range/Units 16:57 20:50 06:12 POC Glucose (mg/dL) 148 H 184 H 200 H (70-110) mg/dL 01/21/23 Range/Units 11:39 POC Glucose (mg/dL) 222 H (70-110) mg/dL Assessment and Plan (1) Elevated procalcitonin Current Visit: Yes Status: Acute Code(s): R79.89 - OTHER SPECIFIED ABNORMAL FINDINGS OF BLOOD CHEMISTRY SNOMED Code(s): 984330974 (2) COVID-19 Current Visit: Yes Status: Acute Code(s): U07.1 - COVID-19 SNOMED Code(s): 104842796 Plan: 1patient was in the hospital with generalized weakness not feeling well did have some sore throat and a cough and this patient has been diagnosed with COVID-19 about 4 days ago patient is currently not requiring any supplemental oxygen chest x-ray was reported negative for acute infiltrate both these factors will disqualify him for remdesivir per [facility] policy 2-patient did have CT of abdominal pelvis for surgery, had did have significant finding on the abdominal pelvis CT and concern for possible aspiration pneumonia 3- patient has shown clinical improvement and continue with Zosyn with a plan to finish therapy with oral Augmentin Dictation was produced using [employer] dictation software. please excuse any grammatical, word or spelling errors. Time with Patient: Less than 30
[2023-01-21 15:22] VITALS: BP 148/61; RESP 18; TEMP 98.3
--- NOTE | 2023-01-24 06:37 | P.DS ---
Providers Date of admission: 01/15/23 13:02 Expected date of discharge: 01/21/23 Attending physician: Shirley Peña Consults: 01/15/23 07:43 Consult Physician Urgent Consulting Provider: Azra Matias Consult Reason/Comments: COVID PNA Do you want consulting provider notified?: Yes 01/18/23 10:24 Consult Physician Urgent Consulting Provider: Remy Castro Consult Reason/Comments: abd pain Do you want consulting provider notified?: Yes Primary care physician: Madeline Aldana [place] Course: Final diagnosis Bilateral Covid pneumonia (mild) with bacterial superinfection and pneumonia. Acute hypoxic respiratory failure, ruled out Increased inflammatory markers sepsis with fever and leukocytosis secondary to bilateral Covid pneumonia Mild acute kidney injury on chronic kidney disease stage III Chronic urinary retention status post indwelling [place] catheter Diabetes mellitus Hypertension, uncontrolled on admission Hyperlipidemia CHF History of osteoarthritis Hypothyroidism GI prophylaxis DVT prophylaxis Full code Discharge disposition Patient is being discharged in a stable condition with guarded prognosis to home. Patient will follow-up with Dr. Anton Peña in the outpatient setting upon discharge. Patient is to continue with oral Augmentin twice daily for the next 1 week per ID recommendations and close outpatient follow-up with nephrology as scheduled. Prescription for repeat labs ordered. Total time taken is greater than 35 minutes. Hospital course This is a 72-year-old male who was recently admitted with weakness and fever with elevated white count with concerns of sepsis, present on admission secondary to bilateral Covid pneumonia. Patient was maintained on antibiotics with infectious disease following and was clinically slow to improve. Patient with chronic kidney disease although numbers are stable and patient was hydrated initially as patient had dehydration on admission. Patient to resume diuretics and continue with fluid restrictions. Prescription provided for repeat labs in the next few days and instructed patient to follow-up with primary care provider as well as nephrology outpatient. Patient is on room air with no reports of shortness of breath. Patient has been cleared by consultations. Please refer to consultation notes for further HPI. Currently no reports of chest pain, shortness of breath, or palpitations. Patient is afebrile. No reports of nausea or vomiting and patient is tolerating diet. Patient will be discharged home today. Physical exam: Gen: This is a 72-year-old male who is awake, alert and oriented 3, thin built, elderly appearing, well-developed HEENT: Head is atraumatic, normocephalic. Pupils equal, round. Sclerae is anicteric. NECK: Supple. No JVD. No lymphadenopathy. No thyromegaly. LUNGS: Diminished breath sounds bilaterally with some scattered rhonchi. No intercostal retractions. HEART: Regular rate and rhythm. No murmur. ABDOMEN: Soft. Bowel sounds are present. No masses. No tenderness. EXTREMITIES: No pedal edema. No calf tenderness. NEUROLOGICAL: Patient is awake, alert and oriented x3. Cranial nerves 2 through 12 are grossly intact. Please refer to medication reconciliation sheet for a list of medications. The impression and plan of care has been dictated by Mai Williamson, Nurse Practitioner as directed. Dr. Miah MD I have performed a history and examination and MDM of this patient, discussed the same with the dictator, and agree with the dictator's assessment and plan as written ,documented as a scribe. Based on total visit time, I have performed more than 50% of the visit. Patient Condition at Discharge: Stable Plan - Discharge Summary Discharge Rx Participant: No New Discharge Prescriptions: New Zinc Sulfate [Orazinc] 220 mg PO DAILY #15 cap Sennosides [Senokot] 17.2 mg PO HS PRN #30 tab PRN Reason: Constipation Amoxic-Pot Clav 875-125Mg [Augmentin 875-125] 1 tab PO Q12HR 7 Days #14 tab Benzocaine/Menthol Lozeng [Cepacol lozenge] 1 each MUCOUS MEM Q4HR PRN lozenge PRN Reason: Sore Throat Lactulose [Cephulac] 20 gm PO BID PRN #240 ml PRN Reason: Constipation HYDROcodone/APAP 5-325MG [[place] 5-325] 1 each PO Q6HR PRN #6 tab PRN Reason: Pain Benzonatate [Tessalon Perles] 200 mg PO TID PRN #20 cap PRN Reason: Cough Ascorbic Acid [Vitamin C] 1,000 mg PO DAILY #60 tab Continue Insulin Glargine,Hum.rec.anlog [Lantus Solostar Pen] 10 unit SQ DAILY@1200 Atorvastatin [Lipitor] 40 mg PO DAILY 30 Days #30 tab Acetaminophen Tab [Tylenol] 500 mg PO Q6H PRN PRN Reason: Pain Or Fever > 100.5 Ergocalciferol (Vitamin D2) [Drisdol (50,000 Iu)] 1,250 mcg PO COLEMAN hydrALAZINE HCL [Apresoline] 50 mg PO TID Isosorbide Mononitrate ER [Imdur] 30 mg PO DAILY metOLazone [Zaroxolyn] 2.5 mg PO COLEMAN Insulin Lispro [humaLOG Kwikpen] See Protocol SQ TID-W/MEALS carvediloL [Coreg] 6.25 mg PO BID-W/MEALS 30 Days #60 tab amLODIPine [Norvasc] 10 mg PO DAILY Potassium Chloride ER [K-Dur 10] 10 meq PO DAILY Tamsulosin [Flomax] 0.4 mg PO DAILY Torsemide [Demadex] 20 mg PO BID Magnesium Oxide [Mag-Ox] 400 mg PO BID Discharge Medication List Insulin Glargine,Hum.rec.anlog [Lantus Solostar Pen] 10 unit SQ DAILY@1200 09/30/21 [History] Insulin Lispro [humaLOG Kwikpen] See Protocol SQ TID-W/MEALS 02/24/22 [History] Atorvastatin [Lipitor] 40 mg PO DAILY 30 Days #30 tab 03/03/22 [Rx] carvediloL [Coreg] 6.25 mg PO BID-W/MEALS 30 Days #60 tab 03/03/22 [Rx] Acetaminophen Tab [Tylenol] 500 mg PO Q6H PRN 01/14/23 [History] Ergocalciferol (Vitamin D2) [Drisdol (50,000 Iu)] 1,250 mcg PO COLEMAN 01/14/23 [History] Isosorbide Mononitrate ER [Imdur] 30 mg PO DAILY 01/14/23 [History] Magnesium Oxide [Mag-Ox] 400 mg PO BID 01/14/23 [History] Potassium Chloride ER [K-Dur 10] 10 meq PO DAILY 01/14/23 [History] Tamsulosin [Flomax] 0.4 mg PO DAILY 01/14/23 [History] Torsemide [Demadex] 20 mg PO BID 01/14/23 [History] amLODIPine [Norvasc] 10 mg PO DAILY 01/14/23 [History] hydrALAZINE HCL [Apresoline] 50 mg PO TID 01/14/23 [History] metOLazone [Zaroxolyn] 2.5 mg PO COLEMAN 01/14/23 [History] Amoxic-Pot Clav 875-125Mg [Augmentin 875-125] 1 tab PO Q12HR 7 Days #14 tab 01/21/23 [Rx] Ascorbic Acid [Vitamin C] 1,000 mg PO DAILY #60 tab 01/21/23 [Rx] Benzocaine/Menthol Lozeng [Cepacol lozenge] 1 each MUCOUS MEM Q4HR PRN lozenge 01/21/23 [Rx] Benzonatate [Tessalon Perles] 200 mg PO TID PRN #20 cap 01/21/23 [Rx] HYDROcodone/APAP 5-325MG [[place] 5-325] 1 each PO Q6HR PRN #6 tab 01/21/23 [Rx] Lactulose [Cephulac] 20 gm PO BID PRN #240 ml 01/21/23 [Rx] Sennosides [Senokot] 17.2 mg PO HS PRN #30 tab 01/21/23 [Rx] Zinc Sulfate [Orazinc] 220 mg PO DAILY #15 cap 01/21/23 [Rx] Follow up Appointment(s)/Referral(s): Madeline Aldana MD [Primary Care Provider] - 01/28/23 3:15 pm Edinson Wang DO [STAFF PHYSICIAN] - 1 Week [facility] Visiting Nurse, [NON-STAFF] - As Needed Remy Castro MD [STAFF PHYSICIAN] - 02/02/23 2:50 pm Ambulatory/Diagnostic Orders: Basic Metabolic Panel [LAB.AMB] Time Frame: 3 Days, Location: None Selected Patient Instructions/Handouts: COVID-19 (Coronavirus Disease 2019) (DC) Activity/Diet/Wound Care/Special Instructions: Activity Limited until follow-up Follow-up with primary care provider and discharge Follow-up with nephrology in one week Continue taking medications as prescribed Continue antibiotics until finished Continue fluid restrictions of 45 ounces daily including all liquid intake (pop, tea, water, coffee ) Repeat labs in 2-3 days to monitor kidney function Discharge Disposition: HOME WITH HOME HEALTH SERVICES
--- NOTE | 2023-01-24 21:06 | CDI ---
Documentation Clarification Form Date: 01/24/2023 08:52:38 PM From: Chrissie Le Phone: Admit Date: 01/15/2023 01:02:00 PM Patient Name: Matthew Vu Visit Number: [id number] Discharge Date: 01/21/2023 02:14:00 PM ATTENTION: The Clinical Documentation Specialists (CDI) and [facility] Coding Staff appreciate your assistance in clarifying documentation. Please respond to the clarification below the line at the bottom and electronically sign. The CDI & [facility] Coding staff will review the response and follow-up if needed. Please note: Queries are made part of the Legal Health Record. If you have any questions, please contact the author of this message via ITS. Dr. Chris Naranjo Sheet Your patient has the documented diagnosis of unspecified CHF. Additional information regarding the type of CHF is requested. History/Risk Factors: 72yo M, Shine COVID wbacterial PNA, sepsis, DIETER on CKDIII, chronicurinary retentionwindwellingFoley, DMII, HTN uncontrolled POA, HLD, OA, hypothyroidism Clinical Indicators: VS/Pulse OX: 93-95 Chest x ray: Heart/mediastinum: Cardiomediastinal silhouette is unremarkable. Heart/mediastinum: Cardiomediastinal silhouette is stable. Heart size upper normal. Mildlytortuouspartiallycalcified aorta. 01/17 Treatment: Pt withCKDalthough numbers are stable and patient was hydrated initially as Pt. haddehydrationon admission. Pt to resume diuretics and continue with fluid restrictions. Rx provided for repeat labs in the next few days and instructed Pt. tof/uwith PCP as well as nephrology OP. Patient is on room airwith noreports of shortness of breath. In your professional opinion, can you please clarify the type of CHF if known? [ ] Chronic Systolic Heart Failure (reduced EF) [ ] Chronic Diastolic Heart Failure (preserved EF) [ ] Chronic Systolic & Diastolic Heart Failure [ ] Other, please specify [ ] Unable to determine (Template Last Revised: April 2020) no chf is documented in the above note JERAMY
== END 2023-01-21 14:14 | disposition home health service (06) | DRG 871 ==
LOC: EC 17:29 → 6NMEDSUR 21:14 → 4SSUR 21:56 → OBSVTOIN 01-15 13:02
PROVIDERS: ADMIT Hospitalist; ATTEND Hospitalist
PROC: 3E0333Z Introduction of Anti-inflammatory into Peripheral Vein, Percutaneous Approach (ICD-10-PCS; principal; 2023-01-15)
DX: A41.89 Other specified sepsis (principal); J12.82 Pneumonia due to coronavirus disease 2019; U07.1 COVID-19; J15.9 Unspecified bacterial pneumonia; I13.0 Hypertensive heart and chronic kidney disease with heart failure and stage 1 through stage 4 chronic kidney disease, or unspecified chronic kidney disease; N17.9 Acute kidney failure, unspecified; E11.42 Type 2 diabetes mellitus with diabetic polyneuropathy; E11.22 Type 2 diabetes mellitus with diabetic chronic kidney disease; N18.30 Chronic kidney disease, stage 3 unspecified; I50.9 Heart failure, unspecified; E03.9 Hypothyroidism, unspecified; E78.5 Hyperlipidemia, unspecified; M19.90 Unspecified osteoarthritis, unspecified site; R33.8 Other retention of urine; K40.90 Unilateral inguinal hernia, without obstruction or gangrene, not specified as recurrent; Z96.0 Presence of urogenital implants; E86.0 Dehydration; Z79.4 Long term (current) use of insulin; Z79.899 Other long term (current) drug therapy
CPT/HCPCS: 36415; 71045; 71046; 74176; 78580; 80048; 80053; 82565; 83036; 83615; 83735; 84145; 85025; 85027; 85379; 86140; 87070; 87205; 87636; 93005; 96361; 96374; 99285

== ENCOUNTER → 2023-03-31 | Outpatient (CLI) | payer MEDICARE, OTHER ==
--- NOTE | 2023-04-05 09:09 | NM ---
EXAMINATION TYPE: NM DatScan Brain SPECT DATE OF EXAM: 03/31/2023 COMPARISON: NONE CLINICAL INDICATION: Male, 72 years old with history of G25.0 ESSENTIAL TREMOR; TECHNIQUE: 10 drops of Lugol's solution was administered 1 hour prior to injection as a thyroid bloc jacque agent. After the administration of 4.76 mCi I-123 Ioflupane DaTscan. Images obtained 3 hours p ost injection. SPECT images of the brain were acquired with axial and coronal reconstructions. FINDINGS: There is normal background activity and symmetric uptake at the bilateral corpora striatum. IMPRESSION: The normal appearance is against a diagnosis of Parkinson's disease or a parkinsonian syndrome. It ca n be seen in normal individuals and also those with essential tremor.
== END | disposition home or self-care (01) ==
LOC: RADNMMAIN 10:19
PROVIDERS: ATTEND Psychiatry & Neurology Neurology
DX: G25.0 Essential tremor (principal)
CPT/HCPCS: 78803; A9584

== ENCOUNTER 2023-05-01 13:17 | Emergency (ER) | payer MEDICARE, OTHER ==
[2023-05-01 13:42] LABS: Glucose,Whole Blood 216 mg/dL (70-110)
--- NOTE | 2023-05-01 13:49 | ED ---
General Adult HPI - General Source: patient, EMS, RN notes reviewed, old records reviewed Mode of arrival: ambulatory Limitations: no limitations <Zane Gatica - Last Filed: 05/01/23 14:35> <Pineda Bird - Last Filed: 05/05/23 17:03> - General Chief complaint: Psychiatric Symptoms Stated complaint: Suicidal Time Seen by Provider: 05/01/23 13:20 - History of Present Illness Initial comments: This is a 72-year-old male who presents to the emergency department with his daughter. Daughter is petitioning him because he made a comment that he cannot blow his head off with a shotgun. Daughter states that he is also made other comments since she has been home visiting about him wanting to and wanting t o kill himself. Daughter states the stress of the relationship comes from the fact that the father lives with the developmentally disabled son and the daughter is the legal guardian and she would like him to be moved out of his father's home because he is not taking good care of him he is not eating appropriately and taking care of his hygiene. Daughter states that the patient now has 3 teeth that have to be pulled because the father is not even making sure that the son has good dental hygiene. And today when they got an argument about having the son move out the father made this comment about wanting to kill himself. Father has no physical complaints today. (Zane Gatica) - Related Data Home Medications Medication Instructions Recorded Confirmed Insulin Glargine,Hum.rec.anlog 10 unit SQ DAILY@1200 09/30/21 05/01/23 [Lantus Solostar Pen] Insulin Lispro [humaLOG Kwikpen] See Protocol SQ TID-W/MEALS 02/24/22 05/01/23 Ergocalciferol (Vitamin D2) 1,250 mcg PO COLEMAN 01/14/23 05/01/23 [Drisdol (50,000 Iu)] Isosorbide Mononitrate ER [Imdur] 30 mg PO DAILY 01/14/23 05/01/23 Magnesium Oxide [Mag-Ox] 400 mg PO BID 01/14/23 05/01/23 Potassium Chloride ER [K-Dur 10] 10 meq PO DAILY 01/14/23 05/01/23 Tamsulosin [Flomax] 0.4 mg PO DAILY 01/14/23 05/01/23 Torsemide [Demadex] 20 mg PO BID 01/14/23 05/01/23 amLODIPine [Norvasc] 10 mg PO DAILY 01/14/23 05/01/23 hydrALAZINE HCL [Apresoline] 50 mg PO TID 01/14/23 05/01/23 metOLazone [Zaroxolyn] 2.5 mg PO COLEMAN 01/14/23 05/01/23 Aspirin EC [Ecotrin Low Dose] 81 mg PO DAILY 05/01/23 05/01/23 Atorvastatin [Lipitor] 40 mg PO HS 05/01/23 05/01/23 Primidone [Mysoline] 100 mg PO HS 05/01/23 05/01/23 carvediloL [Coreg] 6.25 mg PO BID 05/01/23 05/01/23 lisinopriL [Prinivil] 10 mg PO DAILY 05/01/23 05/01/23 Allergies Allergy/AdvReac Type Severity Reaction Status Date / Time No Known Allergies Allergy Verified 05/01/23 16:32 Review of Systems ROS Other: All systems not noted in ROS Statement are negative. <Zane Gatica - Last Filed: 05/01/23 14:35> ROS Other: All systems not noted in ROS Statement are negative. <Pineda Bird - Last Filed: 05/05/23 17:03> ROS Statement: Those systems with pertinent positive or pertinent negative responses have been documented in the HPI. Past Medical History Past Medical History: Heart Failure, Diabetes Mellitus, Hyperlipidemia, Hypertension, Pneumonia Additional Past Medical History / Comment(s): Neuropathy in bilat feet and bilat hands. CHRONIC UTI, CHF History of Any Multi-Drug Resistant Organisms: ESBL Date of last positivie culture/infection: 03/30/23 MDRO Source:: Urine Past Surgical History: No Surgical Hx Reported Additional Past Surgical History / Comment(s): Varicose vein surgery, irrigation to right leg Past Anesthesia/Blood Transfusion Reactions: No Reported Reaction Past Psychological History: No Psychological Hx Reported Smoking Status: Never smoker Past Alcohol Use History: None Reported Past Drug Use History: None Reported - Past Family History Father Family Medical History: CVA/TIA Additional Family Medical History / Comment(s): Father passed from stroke at age 62. Son(s) Family Medical History: Cancer Additional Family Medical History / Comment(s): Down syndrome, KIDNEY CANCER <Zane Gatica - Last Filed: 05/01/23 14:35> General Exam Limitations: no limitations <Zane Gatica - Last Filed: 05/01/23 14:35> - General Exam Comments Initial Comments: GENERAL: Patient is well-developed and well-nourished. Patient is nontoxic and well- hydrated and is in no acute distress. ENT: Neck is soft and supple. No significant lymphadenopathy is noted. Oropharynx is clear. Moist mucous membranes. Neck has full range of motion without eliciting any pain. EYES: The sclera were anicteric and conjunctiva were pink and moist. Extraocular movements were intact and pupils were equal round and reactive to light. Eyelids were unremarkable. PULMONARY: Unlabored respirations. Good breath sounds bilaterally. No audible rales rhonchi or wheezing was noted. CARDIOVASCULAR: There is a regular rate and rhythm without any murmurs gallops or rubs. ABDOMEN: Soft and nontender with normal bowel sounds. SKIN: Skin is clear with no lesions or rashes and otherwise unremarkable. NEUROLOGIC: Patient is alert and oriented x3. Cranial nerves II through XII are grossly intact. Motor and sensory are also intact. Normal speech, volume and content. Symmetrical smile. MUSCULOSKELETAL: Normal extremities with adequate strength and full range of motion. LYMPHATICS: No significant lymphadenopathy is noted PSYCHIATRIC: Normal psychiatric evaluation. Patient states he did make a comment about wanting to kill himself but he said it because he was really upset and he states he would never harm himself (GaticaZane) Course <Pineda Bird - Last Filed: 05/05/23 17:03> Vital Signs 05/01/23 05/01/23 05/01/23 13:20 19:15 22:32 Temperature 97.5 F L 97.5 F L Pulse Rate 59 L 56 L 58 L Respiratory 18 16 Rate Blood Pressure 168/79 134/67 149/67 O2 Sat by Pulse 98 98 97 Oximetry 05/02/23 05/02/23 05/02/23 09:35 16:18 17:23 Temperature 98.3 F 98.5 F Pulse Rate 65 63 61 Respiratory 18 18 18 Rate Blood Pressure 147/64 151/68 157/58 O2 Sat by Pulse 95 95 97 Oximetry 05/02/23 05/03/23 05/03/23 21:27 07:30 09:00 Temperature 98.1 F 97.9 F Pulse Rate 58 L 59 L 56 L Respiratory 18 18 16 Rate Blood Pressure 135/59 142/68 112/54 O2 Sat by Pulse 94 L 94 L 94 L Oximetry 05/03/23 17:27 Temperature Pulse Rate 57 L Respiratory 18 Rate Blood Pressure 127/62 O2 Sat by Pulse 96 Oximetry - Reevaluation(s) Reevaluation #1: 05/01/23 15:50 Patient has been evaluated by EPS in the ED. Psychiatrist recommends inpatient psychiatric admission due to suicidal risk. A cert has been completed. Haritha george inpatient psychiatric placement at this time. 05/01/23 23:30 Patient is still awaiting inpatient psychiatric placement at this time. Patient was endorsed to Dr. Murphy due to end of my shift. (Pineda Bird) Medical Decision Making <Zane Gatica - Last Filed: 05/01/23 14:35> - Lab Data Result diagrams: 05/02/23 20:51 05/02/23 20:51 <Pineda Bird - Last Filed: 05/05/23 17:03> - Medical Decision Making Was pt. sent in by a medical professional or institution (, PA, COLOR BLENDER, urgent care, hospital, or retirement...) When possible be specific @ -No Did you speak to anyone other than the patient for history (EMS, parent, family, police, friend...)? What history was obtained from this source @ -Daughter petitioned the patient and gave quite a bit of the history Did you review nursing and triage notes (agree or disagree)? Why? @ -I reviewed and agree with nursing and triage notes Were old charts reviewed (outside hosp., previous admission, EMS record, old EKG, old radiological studies, urgent care reports/EKG's, retirement records)? Report findings @ -No old charts were reviewed Differential Diagnosis (chest pain, altered mental status, abdominal pain women, abdominal pain men, vaginal bleeding, weakness, fever, dyspnea, syncope, headache, dizziness, GI bleed, back pain, seizure, CVA, palpatations, mental health, musculoskeletal)? @ -Differential Mental Health Depression, anxiety, bipolar, psychosis, schizophrenia, borderline personality, situational depression, adjustment disorder, behavioral disorder, brain tumor, malingering, substance abuse, encephalopathy, medication reaction, dementia, hypothyroidism, degenerative neurologic disorder, lupus.... This is not meant to be all-inclusive list EKG interpreted by me (3pts min.). @ -As above X-rays interpreted by me (1pt min.). @ -None done CT interpreted by me (1pt min.). @ -None done U/S interpreted by me (1pt. min.). @ -None done What testing was considered but not performed or refused? (CT, X-rays, U/S, labs)? Why? @ -None What meds were considered but not given or refused? Why? @ -None Did you discuss the management of the patient with other professionals (professionals i.e. , PA, COLOR BLENDER, lab, RT, psych nurse, manager social responsibility, bucket pusher, teacher, enforcement safety officer, case work aide)? Give summary @ -No Was smoking cessation discussed for >3mins.? @ -No Was critical care preformed (if so, how long)? @ -No Were there social determinants of health that impacted care today? How? (Homelessness, low income, unemployed, alcoholism, drug addiction, trans portation, low edu. Level, literacy, decrease access to med. care, senior care, rehab)? @ -No Was there de-escalation of care discussed even if they declined (Discuss DNR or withdrawal of care, Hospice)? DNR status @ -No What co-morbidities impacted this encounter? (DM, HTN, Smoking, COPD, CAD, Cancer, CVA, ARF, Chemo, Hep., AIDS, mental health diagnosis, sleep apnea, morbid obesity)? @ -None Was patient admitted / discharged? Hospital course, mention meds given and route, prescriptions, significant lab abnormalities, going to OR and other pertinent info. @ -EPS has been contacted to evaluate the patient. Dr. Bird will take over the care of this patient at 3 PM (Zane Gatica) - Lab Data Lab Results 05/01/23 05/01/23 05/02/23 Range/Units 13:39 15:10 13:54 WBC (3.8-10.6) k/uL RBC (4.30-5.90) m/uL Hgb (13.0-17.5) gm/dL Hct (39.0-53.0) % MCV (80.0-100.0) fL MCH (25.0-35.0) pg MCHC (31.0-37.0) g/dL RDW (11.5-15.5) % Plt Count (150-450) k/uL MPV Neutrophils % % Lymphocytes % % Monocytes % % Eosinophils % % Basophils % % Neutrophils # (1.3-7.7) k/uL Lymphocytes # (1.0-4.8) k/uL Monocytes # (0-1.0) k/uL Eosinophils # (0-0.7) k/uL Basophils # (0-0.2) k/uL Sodium (137-145) mmol/L Potassium (3.5-5.1) mmol/L Chloride (98-107) mmol/L Carbon Dioxide (22-30) mmol/L Anion Gap mmol/L BUN (9-20) mg/dL Creatinine (0.66-1.25) mg/dL Est GFR (CKD-EPI)AfAm (>60 ml/min/1.73 sqM) Est GFR (CKD-EPI)NonAf (>60 ml/min/1.73 sqM) Glucose (74-99) mg/dL POC Glucose (mg/dL) 216 H 268 H (70-110) mg/dL POC Glu [facility] Edson Gimenez [address] Glu mg/dL mg/dL Hemoglobin A1c (<=6.0) % Calcium (8.4-10.2) mg/dL Total Bilirubin (0.2-1.3) mg/dL AST (17-59) U/L ALT (4-49) U/L Alkaline Phosphatase (38-126) U/L Total Protein (6.3-8.2) g/dL Albumin (3.5-5.0) g/dL Triglycerides (0.00-149.00) mg/dL Cholesterol (0.00-200.00) mg/dL LDL Cholesterol, Calc (0.0-131.0) mg/dL VLDL Cholesterol, Calc (5.00-40.00) mg/dL HDL Cholesterol (40.00-60.00) mg/dL Cholesterol/HDL Ratio Ratio TSH (0.465-4.680) mIU/L Urine Color Urine Appearance (Clear) Urine pH (5.0-8.0) Ur Specific [place] (1.001-1.035) Urine Protein (Negative) Urine Glucose (UA) (Negative) Urine Ketones (Negative) Urine Blood (Negative) Urine Nitrite (Negative) Urine Bilirubin (Negative) Urine Urobilinogen (<2.0) mg/dL Ur Leukocyte Esterase (Negative) Urine RBC (0-5) /hpf Urine WBC (0-5) /hpf Ur Squamous Epith Cells (0-4) /hpf Hyaline Casts (0-2) /lpf Urine Mucus (None) /hpf Urine Yeast (Budding) (None) /hpf Urine Opiates Screen Not Detected (NotDetected) Ur Oxycodone Screen Not Detected (NotDetected) Urine Methadone Screen Not Detected (NotDetected) Ur Barbiturates Screen Not Detected (NotDetected) U Tricyclic Antidepress Not Detected (NotDetected) Ur Phencyclidine Scrn Not Detected (NotDetected) Ur Amphetamines Screen Not Detected (NotDetected) U Methamphetamines Scrn Not Detected (NotDetected) U Benzodiazepines Scrn Not Detected (NotDetected) Urine Cocaine Screen Not Detected (NotDetected) U Marijuana (THC) Screen Not Detected (NotDetected) SARS-CoV-2 (PCR) (Not Detectd) 05/02/23 05/02/23 05/02/23 Range/Units 20:51 20:51 20:51 WBC 10.3 (3.8-10.6) k/uL RBC 2.87 L (4.30-5.90) m/uL Hgb 8.8 L (13.0-17.5) gm/dL Hct 25.3 L (39.0-53.0) % MCV 88.3 (80.0-100.0) fL MCH 30.5 (25.0-35.0) pg MCHC 34.6 (31.0-37.0) g/dL RDW 14.9 (11.5-15.5) % Plt Count 126 L (150-450) k/uL MPV 8.6 Neutrophils % 82 % Lymphocytes % 10 % Monocytes % 6 % Eosinophils % 2 % Basophils % 0 % Neutrophils # 8.4 H (1.3-7.7) k/uL Lymphocytes # 1.0 (1.0-4.8) k/uL Monocytes # 0.6 (0-1.0) k/uL Eosinophils # 0.2 (0-0.7) k/uL Basophils # 0.0 (0-0.2) k/uL Sodium 133 L (137-145) mmol/L Potassium 5.0 (3.5-5.1) mmol/L Chloride 105 (98-107) mmol/L Carbon Dioxide 24 (22-30) mmol/L Anion Gap 4 mmol/L BUN 74 H (9-20) mg/dL Creatinine 3.90 H (0.66-1.25) mg/dL Est GFR (CKD-EPI)AfAm 17 (>60 ml/min/1.73 sqM) Est GFR (CKD-EPI)NonAf 14 (>60 ml/min/1.73 sqM) Glucose 165 H (74-99) mg/dL POC Glucose (mg/dL) (70-110) mg/dL POC Glu [facility] ID [address] Glu mg/dL 143 mg/dL Hemoglobin A1c 6.6 H (<=6.0) % Calcium 8.5 (8.4-10.2) mg/dL Total Bilirubin 0.4 (0.2-1.3) mg/dL AST 24 (17-59) U/L ALT 26 (4-49) U/L Alkaline Phosphatase 94 (38-126) U/L Total Protein 5.5 L (6.3-8.2) g/dL Albumin 3.0 L (3.5-5.0) g/dL Triglycerides 70.50 (0.00-149.00) mg/dL Cholesterol 101.00 (0.00-200.00) mg/dL LDL Cholesterol, Calc 36.2 (0.0-131.0) mg/dL VLDL Cholesterol, Calc 14.10 (5.00-40.00) mg/dL HDL Cholesterol 50.70 (40.00-60.00) mg/dL Cholesterol/HDL Ratio 1.99 Ratio TSH 1.900 (0.465-4.680) mIU/L Urine Color Urine Appearance (Clear) Urine pH (5.0-8.0) Ur Specific [place] (1.001-1.035) Urine Protein (Negative) Urine Glucose (UA) (Negative) Urine Ketones (Negative) Urine Blood (Negative) Urine Nitrite (Negative) Urine Bilirubin (Negative) Urine Urobilinogen (<2.0) mg/dL Ur Leukocyte Esterase (Negative) Urine RBC (0-5) /hpf Urine WBC (0-5) /hpf Ur Squamous Epith Cells (0-4) /hpf Hyaline Casts (0-2) /lpf Urine Mucus (None) /hpf Urine Yeast (Budding) (None) /hpf Urine Opiates Screen (NotDetected) Ur Oxycodone Screen (NotDetected) Urine Methadone Screen (NotDetected) Ur Barbiturates Screen (NotDetected) U Tricyclic Antidepress (NotDetected) Ur Phencyclidine Scrn (NotDetected) Ur Amphetamines Screen (NotDetected) U Methamphetamines Scrn (NotDetected) U Benzodiazepines Scrn (NotDetected) Urine Cocaine Screen (NotDetected) U Marijuana (THC) Screen (NotDetected) SARS-CoV-2 (PCR) (Not Detectd) 05/02/23 05/03/23 05/03/23 Range/Units 21:25 04:31 12:19 WBC (3.8-10.6) k/uL RBC (4.30-5.90) m/uL Hgb (13.0-17.5) gm/dL Hct (39.0-53.0) % MCV (80.0-100.0) fL MCH (25.0-35.0) pg MCHC (31.0-37.0) g/dL RDW (11.5-15.5) % Plt Count (150-450) k/uL MPV Neutrophils % % Lymphocytes % % Monocytes % % Eosinophils % % Basophils % % Neutrophils # (1.3-7.7) k/uL Lymphocytes # (1.0-4.8) k/uL Monocytes # (0-1.0) k/uL Eosinophils # (0-0.7) k/uL Basophils # (0-0.2) k/uL Sodium (137-145) mmol/L Potassium (3.5-5.1) mmol/L Chloride (98-107) mmol/L Carbon Dioxide (22-30) mmol/L Anion Gap mmol/L BUN (9-20) mg/dL Creatinine (0.66-1.25) mg/dL Est GFR (CKD-EPI)AfAm (>60 ml/min/1.73 sqM) Est GFR (CKD-EPI)NonAf (>60 ml/min/1.73 sqM) Glucose (74-99) mg/dL POC Glucose (mg/dL) 244 H (70-110) mg/dL POC Glu [facility] ID Kami [address] Glu mg/dL mg/dL Hemoglobin A1c (<=6.0) % Calcium (8.4-10.2) mg/dL Total Bilirubin (0.2-1.3) mg/dL AST (17-59) U/L ALT (4-49) U/L Alkaline Phosphatase (38-126) U/L Total Protein (6.3-8.2) g/dL Albumin (3.5-5.0) g/dL Triglycerides (0.00-149.00) mg/dL Cholesterol (0.00-200.00) mg/dL LDL Cholesterol, Calc (0.0-131.0) mg/dL VLDL Cholesterol, Calc (5.00-40.00) mg/dL HDL Cholesterol (40.00-60.00) mg/dL Cholesterol/HDL Ratio Ratio TSH (0.465-4.680) mIU/L Urine Color Colorless Urine Appearance Cloudy (Clear) Urine pH 5.5 (5.0-8.0) Ur Specific [place] 1.010 (1.001-1.035) Urine Protein 2+ H (Negative) Urine Glucose (UA) 1+ H (Negative) Urine Ketones Negative (Negative) Urine Blood Negative (Negative) Urine Nitrite Negative (Negative) Urine Bilirubin Negative (Negative) Urine Urobilinogen <2.0 (<2.0) mg/dL Ur Leukocyte Esterase Moderate H (Negative) Urine RBC 3 (0-5) /hpf Urine WBC 58 H (0-5) /hpf Ur Squamous Epith Cells <1 (0-4) /hpf Hyaline Casts 3 H (0-2) /lpf Urine Mucus Rare H (None) /hpf Urine Yeast (Budding) Moderate H (None) /hpf Urine Opiates Screen (NotDetected) Ur Oxycodone Screen (NotDetected) Urine Methadone Screen (NotDetected) Ur Barbiturates Screen (NotDetected) U Tricyclic Antidepress (NotDetected) Ur Phencyclidine Scrn (NotDetected) Ur Amphetamines Screen (NotDetected) U Methamphetamines Scrn (NotDetected) U Benzodiazepines Scrn (NotDetected) Urine Cocaine Screen (NotDetected) U Marijuana (THC) Screen (NotDetected) SARS-CoV-2 (PCR) Not Detected (Not Detectd) Disposition <Zane Gatica - Last Filed: 05/01/23 14:35> Is patient prescribed a controlled substance at d/c from ED?: No <Pineda Bird - Last Filed: 05/05/23 17:03> Clinical Impression: Suicidal risk, Suicidal ideations Disposition: TRANSFER TO PSYCH HOSP/UNIT Referrals: Madeline Aldana MD [Primary Care Provider] - 1-2 days
[2023-05-01 16:42] LABS: Amphetamine Screen,Urine Not Detected (NotDetected); Barbiturate Screen,Urine Not Detected (NotDetected); Benzodiazepines Screen,Urine Not Detected (NotDetected); Cocaine Screen,Urine Not Detected (NotDetected); Methadone Screen, Urine Not Detected (NotDetected); Opiate Screen,Urine Not Detected (NotDetected); Oxycodone Screen, Urine Not Detected (NotDetected); Phencyclidine Screen,Urine Not Detected (NotDetected); Tricyclic Antidepressant,Urine Not Detected (NotDetected); Urn Cannabinoid Scrn Not Detected (NotDetected)
[2023-05-01] MEDS: hydrALAZINE HCL 50 MG TAB PO SCH (22:31)
[2023-05-01] MEDS: MAGNESIUM OXIDE 400 MG TAB PO SCH (22:31)
[2023-05-01] MEDS: PRIMIDONE 50 MG TAB PO SCH (22:31)
[2023-05-01] MEDS: ATORVASTATIN 40 MG TAB PO SCH (22:31)
[2023-05-01] MEDS: carvediloL 6.25 MG TAB PO SCH (22:32)
[2023-05-02] MEDS: ASPIRIN 81 MG PO SCH (09:37)
[2023-05-02] MEDS: ISOSORBIDE MONONITRATE ER 30 MG TAB.ER.24H PO SCH (09:37)
[2023-05-02] MEDS: lisinopriL 10 MG TAB PO SCH (09:37)
[2023-05-02] MEDS: amLODIPine 10 MG TAB PO SCH (09:37)
[2023-05-02] MEDS: TAMSULOSIN 0.4 MG CAP.ER.24H PO SCH (09:38)
[2023-05-02] MEDS: POTASSIUM CHLORIDE ER 10 MEQ TAB.ER.PRT PO SCH (09:38)
[2023-05-02] MEDS: TORSEMIDE 20 MG TAB PO SCH (10:04)
[2023-05-02] MEDS: ERGOCALCIFEROL 1,250 MCG (50,000 IU) CAPSULE PO SCH (10:04)
[2023-05-02] MEDS: metOLazone 2.5 MG TAB PO SCH (10:05)
[2023-05-02] MEDS: CALCIUM CARBONATE 500 MG CHEWABLE PO ONE (10:06)
[2023-05-02] MEDS: LOPERAMIDE 2 MG CAP PO STA (12:57)
[2023-05-02] MEDS: INSULIN DETEMIR (LEVEMIR) 100 UNIT/ML SYR SQ SCH (13:55)
[2023-05-02 13:59] LABS: Glucose,Whole Blood 268 mg/dL (70-110)
[2023-05-02] MEDS: ONDANSETRON 4 MG TAB PO STA (19:01)
[2023-05-02] MEDS: DIPHENOX-ATROP 2.5-0.025 MG 1 EACH TAB PO STA (19:02)
[2023-05-02 21:04] LABS: Basophils % (A) 0 %; Eosinophils # (A) 0.2 k/uL (0-0.7); Eosinophils % (A) 2 %; HCT 25.3 % (39.0-53.0); HGB 8.8 gm/dL (13.0-17.5); Lymphocytes % (A) 10 %; MCH 30.5 pg (25.0-35.0); MCHC 34.6 g/dL (31.0-37.0); MCV 88.3 fL (80.0-100.0); Mean Platelet Volume 8.6; Monocytes # (A) 0.6 k/uL (0-1.0); Monocytes % (A) 6 %; Neutrophils # (A) 8.4 k/uL (1.3-7.7); Neutrophils % (A) 82 %; Platelet Count 126 k/uL (150-450); RBC 2.87 m/uL (4.30-5.90); RDW 14.9 % (11.5-15.5); WBC 10.3 k/uL (3.8-10.6)
[2023-05-02 21:29] LABS: ALT 26 U/L (4-49); AST 24 U/L (17-59); African American GFR (CKD) 17 (>60 ml/min/1.73 sqM); Alkaline Phosphatase 94 U/L (38-126); Anion Gap 4 mmol/L; Blood Urea Nitrogen 74 mg/dL (9-20); Calcium 8.5 mg/dL (8.4-10.2); Carbon Dioxide 24 mmol/L (22-30); Chloride 105 mmol/L (98-107); Glucose 165 mg/dL (74-99); Non-African American GFR(CKD) 14 (>60 ml/min/1.73 sqM); Sodium 133 mmol/L (137-145); Total Bilirubin 0.4 mg/dL (0.2-1.3); Total Protein 5.5 g/dL (6.3-8.2)
[2023-05-03 04:48] LABS: Appearance,Urine Cloudy (Clear); Bilirubin,Urine Negative (Negative); Blood,Urine Negative (Negative); Budding Yeast,Urine Moderate /hpf; Color,Urine Colorless; Glucose,Urine (UA) 1+ (Negative); Hyaline Casts,Urine 3 /lpf (0-2); Ketones,Urine Negative (Negative); Leukocyte Esterase,Urine Moderate (Negative); Mucus,Urine Rare /hpf; Nitrite,Urine Negative (Negative); PH, Urine 5.5 (5.0-8.0); Protein,Urine 2+ (Negative); RBC,Urine 3 /hpf (0-5); Squamous Epithelial Cell,Urine <1 /hpf (0-4); Urobilinogen,Urine <2.0 mg/dL (<2.0); WBC,Urine 58 /hpf (0-5)
[2023-05-03 07:34] VITALS: TEMP 97.9
[2023-05-03 08:46] LABS: Chol/HDL Ratio 1.99 Ratio; LDL Cholesterol,Calculated 36.2 mg/dL (0.0-131.0)
[2023-05-03 12:20] LABS: Glucose,Whole Blood 244 mg/dL (70-110)
[2023-05-03 17:54] VITALS: BP 127/62; PULSE 57; RESP 18
== END 2023-05-03 17:30 ==
LOC: EC 13:17
DX: R45.851 Suicidal ideations (principal); I11.0 Hypertensive heart disease with heart failure; I50.9 Heart failure, unspecified; E78.5 Hyperlipidemia, unspecified; E11.40 Type 2 diabetes mellitus with diabetic neuropathy, unspecified; Z20.822 Contact with and (suspected) exposure to COVID-19; Z79.4 Long term (current) use of insulin; Z79.82 Long term (current) use of aspirin; Z79.899 Other long term (current) drug therapy
CPT/HCPCS: 36415; 80053; 80061; 80306; 81001; 82075; 83036; 84443; 85025; 87086; 87635; 99285

== ENCOUNTER 2023-06-13 04:08 | Emergency (ER) | payer MEDICARE, OTHER ==
[2023-06-13 04:47] VITALS: TEMP 98.7
--- NOTE | 2023-06-13 05:01 | ED ---
Abdominal Pain HPI - General Source: patient, RN notes reviewed, old records reviewed Mode of arrival: ambulatory Limitations: no limitations - History of Present Illness MD Complaint: abdominal pain -: days(s), week(s) Location: diffuse Radiation: suprapubic, back, other (Botox) Severity: mild Severity scale (1-10): 2 Consistency: constant Improves With: nothing Worsens With: nothing Associated Symptoms: nausea Treatments Prior to Arrival: other (0) <Zane Rodriguez - Last Filed: 06/13/23 06:30> <Prabhjot Lares - Last Filed: 06/13/23 08:29> - General Chief Complaint: Abdominal Pain Stated Complaint: Constipation Time Seen by Provider: 06/13/23 04:21 - History of Present Illness Initial Comments: This is a 72-year-old male to the ER for evaluation abdominal pain. Patient states has been unable to have a significant bowel movement in a few days to weeks now. He does pass mild small bowel movements. Patient has generalized abdominal pain. No recent surgery no travel history no sick contacts no change in medications. Patient's no fevers no diarrhea no nausea vomiting. (Zane Rodriguez) - Related Data Home Medications Medication Instructions Recorded Confirmed Insulin Glargine,Hum.rec.anlog 10 unit SQ DAILY@1200 09/30/21 05/01/23 [Lantus Solostar Pen] Insulin Lispro [humaLOG Kwikpen] See Protocol SQ TID-W/MEALS 02/24/22 05/01/23 Ergocalciferol (Vitamin D2) 1,250 mcg PO COLEMAN 01/14/23 05/01/23 [Drisdol (50,000 Iu)] Isosorbide Mononitrate ER [Imdur] 30 mg PO DAILY 01/14/23 05/01/23 Magnesium Oxide [Mag-Ox] 400 mg PO BID 01/14/23 05/01/23 Potassium Chloride ER [K-Dur 10] 10 meq PO DAILY 01/14/23 05/01/23 Tamsulosin [Flomax] 0.4 mg PO DAILY 01/14/23 05/01/23 Torsemide [Demadex] 20 mg PO BID 01/14/23 05/01/23 amLODIPine [Norvasc] 10 mg PO DAILY 01/14/23 05/01/23 hydrALAZINE HCL [Apresoline] 50 mg PO TID 01/14/23 05/01/23 metOLazone [Zaroxolyn] 2.5 mg PO COLEMAN 01/14/23 05/01/23 Aspirin EC [Ecotrin Low Dose] 81 mg PO DAILY 05/01/23 05/01/23 Atorvastatin [Lipitor] 40 mg PO HS 05/01/23 05/01/23 Primidone [Mysoline] 100 mg PO HS 05/01/23 05/01/23 carvediloL [Coreg] 6.25 mg PO BID 05/01/23 05/01/23 lisinopriL [Prinivil] 10 mg PO DAILY 05/01/23 05/01/23 Allergies Allergy/AdvReac Type Severity Reaction Status Date / Time No Known Allergies Allergy Verified 06/13/23 04:31 Review of Systems ROS Other: All systems not noted in ROS Statement are negative. <Zane Rodriguez - Last Filed: 06/13/23 06:30> ROS Other: All systems not noted in ROS Statement are negative. <Prabhjot Larse - Last Filed: 06/13/23 08:29> ROS Statement: Those systems with pertinent positive or pertinent negative responses have been documented in the HPI. Past Medical History Past Medical History: Heart Failure, Diabetes Mellitus, Hyperlipidemia, Hypertension, Pneumonia Additional Past Medical History / Comment(s): Neuropathy in bilat feet and bilat hands. CHRONIC UTI, CHF History of Any Multi-Drug Resistant Organisms: ESBL Date of last positivie culture/infection: 03/30/23 MDRO Source:: Urine Past Surgical History: No Surgical Hx Reported Additional Past Surgical History / Comment(s): Varicose vein surgery, irrigation to right leg Past Anesthesia/Blood Transfusion Reactions: No Reported Reaction Past Psychological History: No Psychological Hx Reported Smoking Status: Never smoker Past Alcohol Use History: None Reported Past Drug Use History: None Reported - Past Family History Father Family Medical History: CVA/TIA Additional Family Medical History / Comment(s): Father passed from stroke at age 62. Son(s) Family Medical History: Cancer Additional Family Medical History / Comment(s): Down syndrome, KIDNEY CANCER <Zane Rodriguez - Last Filed: 06/13/23 06:30> General Exam Limitations: no limitations General appearance: alert, in no apparent distress Head exam: Present: atraumatic, normocephalic, normal inspection Eye exam: Present: normal appearance, PERRL, EOMI. Absent: scleral icterus, conjunctival injection, periorbital swelling ENT exam: Present: normal exam, mucous membranes moist Neck exam: Present: normal inspection. Absent: tenderness, meningismus, lymphadenopathy Respiratory exam: Present: normal lung sounds bilaterally. Absent: respiratory distress, wheezes, rales, rhonchi, stridor Cardiovascular Exam: Present: regular rate, normal rhythm, normal heart sounds. Absent: systolic murmur, diastolic murmur, rubs, gallop, clicks GI/Abdominal exam: Present: soft, normal bowel sounds. Absent: distended, tenderness, guarding, rebound, rigid Extremities exam: Present: normal inspection, full ROM, normal capillary refill. Absent: tenderness, pedal edema, joint swelling, calf tenderness Back exam: Present: normal inspection Neurological exam: Present: alert, oriented X3, CN II-XII intact Psychiatric exam: Present: normal affect, normal mood Skin exam: Present: warm, dry, intact, normal color. Absent: rash <Zane Rodriguez - Last Filed: 06/13/23 06:30> Course <Zane Rodriguez - Last Filed: 06/13/23 06:30> Vital Signs 06/13/23 06/13/23 04:28 06:05 Temperature 98.7 F Pulse Rate 56 L 56 L Respiratory 18 16 Rate Blood Pressure 175/69 156/66 O2 Sat by Pulse 98 99 Oximetry - Reevaluation(s) Reevaluation #1: 06/13/23 06:31 Medical records reviewed (Zane Rodriguez) Reevaluation #4: Was pt. sent in by a medical professional or institution (, PA, SAFETY PHYSICIAN, urgent care, hospital, or shelter...) When possible be specific @ -no Did you speak to anyone other than the patient for history (EMS, parent, family, police, friend...)? What history was obtained from this source @ -no Did you review nursing and triage notes (agree or disagree)? Why? @ -agree Are old charts reviewed (outside hosp., previous admission, EMS record, old EKG, old radiological studies, urgent care reports/EKG's, shelter records)? Report findings @ -yes Differential Diagnosis (chest pain, altered mental status, abdominal pain women, abdominal pain men, vaginal bleeding, weakness, fever, dyspnea, syncope, headache, dizziness, GI bleed, back pain, seizure, CVA, palpatations, mental health, musculoskeletal)? @ -prior EKG interpreted by me (3pts min.). @ -yes X-rays interpreted by me (1pt min.). @ -yes negative for acute disease CT interpreted by me (1pt min.). @ -no U/S interpreted by me (1pt. min.). @ -no What testing was considered but not performed or refused? (CT, X-rays, U/S, labs)? Why? @ -none What meds were considered but not given or refused? Why? @ -none Did you discuss the management of the patient with other professionals (professionals i.e. , PA, SAFETY PHYSICIAN, lab, RT, psych nurse, social work instructor, galley boy, teacher, first aid officer, caser up)? Give summary @ -no Was smoking cessation discussed for >3mins.? @ -no Was critical care preformed (if so, how long)? @ -no Were there social determinants of health that impacted care today? How? (Homelessness, low income, unemployed, alcoholism, drug addiction, transportation, low edu. Level, literacy, decrease access to med. care, [place] [facility], rehab)? @ -none Was there de-escalation of care discussed even if they declined (Discuss DNR or withdrawal of care, Hospice)? DNR status @ -no What co-morbidities impacted this encounter? (DM, HTN, Smoking, COPD, CAD, Cancer, CVA, ARF, Chemo, Hep., AIDS, mental health diagnosis, sleep apnea, morbid obesity)? @ -none Was patient admitted / discharged? Hospital course, mention meds given and route, prescriptions, significant lab abnormalities, going to OR and other pertinent info. @ - Undiagnosed new problem with uncertain prognosis? @ -no Drug Therapy requiring intensive monitoring for toxicity (Heparin, Nitro, Insulin, Cardizem)? @ -no Were any procedures done? @ -no Diagnosis/symptom? @ - Acute, or Chronic, or Acute on Chronic? @ -Acute Uncomplicated (without systemic symptoms) or Complicated (systemic symptoms)? @ -Complicated Side effects of treatment? @ -no Exacerbation, Progression, or Severe Exacerbation? @ -exacerbation Poses a threat to life or bodily function? How? (Chest pain, USA, NV, pneumonia, PE, COPD, DKA, ARF, appy, cholecystitis, CVA, Diverticulitis, Homicidal, Suicidal, threat to staff... and all critical care pts) @ -yes (Zane Rodriguez) Reevaluation #5: Differential Abdominal Pain Men: Appendicitis, cholecystitis, diverticulosis, ischemic bowel, pancreatitis, hepatitis, UTI, gastroenteritis, AAA, incarcerated hernia, bowel obstruction, constipation, inflammatory bowel, hepatitis, peptic ulcer disease, splenic infarction, perforated viscus, testicular torsion, this is not meant to be an all-inclusive list (Zane Rodriguez) Medical Decision Making - Lab Data Result diagrams: 06/13/23 05:55 06/13/23 05:55 <Prabhjot Lares - Last Filed: 06/13/23 08:29> - Medical Decision Making Was pt. sent in by a medical professional or institution (, PA, SAFETY PHYSICIAN, urgent care, hospital, or shelter...) When possible be specific @ -No Did you speak to anyone other than the patient for history (EMS, parent, family, police, friend...)? What history was obtained from this source @ -No Did you review nursing and triage notes (agree or disagree)? Why? @ -I reviewed and agree with nursing and triage notes Were old charts reviewed (outside hosp., previous admission, EMS record, old EKG, old radiological studies, urgent care reports/EKG's, shelter records)? Report findings @ -No old charts were reviewed Differential Diagnosis (chest pain, altered mental status, abdominal pain women, abdominal pain men, vaginal bleeding, weakness, fever, dyspnea, syncope, headache, dizziness, GI bleed, back pain, seizure, CVA, palpatations, mental health, musculoskeletal)? @ -M differential abdominal pain min EKG interpreted by me (3pts min.). @ -As above X-rays interpreted by me (1pt min.). @ -None done CT interpreted by me (1pt min.). @ -None done U/S interpreted by me (1pt. min.). @ -None done What testing was considered but not performed or refused? (CT, X-rays, U/S, labs)? Why? @ -None What meds were considered but not given or refused? Why? @ -None Did you discuss the management of the patient with other professionals (professionals i.e. , PA, SAFETY PHYSICIAN, lab, RT, psych nurse, social work instructor, galley boy, teacher, first aid officer, caser up)? Give summary @ -No Was smoking cessation discussed for >3mins.? @ -No Was critical care preformed (if so, how long)? @ -No Were there social determinants of health that impacted care today? How? (Homelessness, low income, unemployed, alcoholism, drug addiction, transportation, low edu. Level, literacy, decrease access to med. care, [place], rehab)? @ -No Was there de-escalation of care discussed even if they declined (Discuss DNR or withdrawal of care, Hospice)? DNR status @ -No What co-morbidities impacted this encounter? (DM, HTN, Smoking, COPD, CAD, Cancer, CVA, ARF, Chemo, Hep., AIDS, mental health diagnosis, sleep apnea, mor bid obesity)? @Chronic kidney disease Was patient admitted / discharged? Hospital course, mention meds given and route, prescriptions, significant lab abnormalities, going to OR and other pertinent info. @ -72-year-old male presenting with chief complaint of constipation. Patient states he has been attempting to have bowel movements for the past several days. He denies vomiting. Denies fever. Denies significant abdominal pain. He states that last night he did eat a very large meal with second helpings. At the time my evaluation which occurred after shift change the patient is comfortable without complaint. CT was pending and does show moderate distention of the stomach consistent with recent large meal. Patient is given a dose of Reglan. His laboratory studies shows baseline anemia with a hemoglobin of 9, normal white blood cell count, mild thrombocytopenia, a chronic kidney disease which patient states is baseline. He says his most recent GFR was 14. And he does follow with Dr. Wang. Patient reassured and eager for discharge. Undiagnosed new problem with uncertain prognosis? @ -No Drug Therapy requiring intensive monitoring for toxicity (Heparin, Nitro, Insulin, Cardizem)? @ -No Were any procedures done? @ -No Diagnosis/symptom? @ -Abdominal pain Acute, or Chronic, or Acute on Chronic? @ -Acute Uncomplicated (without systemic symptoms) or Complicated (systemic symptoms)? @ -Default Side effects of treatment? @ -No Exacerbation, Progression, or Severe Exacerbation? @ -No Poses a threat to life or bodily function? How? (Chest pain, USA, NV, pneumonia, PE, COPD, DKA, ARF, appy, cholecystitis, CVA, Diverticulitis, Homicidal, Suicidal, threat to staff... and all critical care pts) @ -Low risk at this time (Prabhjot Lares) - Lab Data Lab Results 06/13/23 06/13/23 06/13/23 Range/Units 05:50 05:50 05:55 WBC 7.6 (3.8-10.6) k/uL RBC 2.90 L (4.30-5.90) m/uL Hgb 9.0 L (13.0-17.5) gm/dL Hct 26.6 L (39.0-53.0) % MCV 92.0 (80.0-100.0) fL MCH 31.0 (25.0-35.0) pg MCHC 33.7 (31.0-37.0) g/dL RDW 14.9 (11.5-15.5) % Plt Count 117 L (150-450) k/uL MPV 7.5 Neutrophils % 67 % Lymphocytes % 15 % Monocytes % 7 % Eosinophils % 9 % Basophils % 1 % Neutrophils # 5.1 (1.3-7.7) k/uL Lymphocytes # 1.1 (1.0-4.8) k/uL Monocytes # 0.5 (0-1.0) k/uL Eosinophils # 0.7 (0-0.7) k/uL Basophils # 0.0 (0-0.2) k/uL Poikilocytosis Slight PT (10.0-12.5) sec INR (<1.2) APTT (22.0-30.0) sec Sodium (137-145) mmol/L Potassium (3.5-5.1) mmol/L Chloride (98-107) mmol/L Carbon Dioxide (22-30) mmol/L Anion Gap mmol/L BUN (9-20) mg/dL Creatinine (0.66-1.25) mg/dL Est GFR (CKD-EPI)AfAm (>60 ml/min/1.73 sqM) Est GFR (CKD-EPI)NonAf (>60 ml/min/1.73 sqM) Glucose (74-99) mg/dL Plasma Lactic Acid Jose David (0.7-2.0) mmol/L Calcium (8.4-10.2) mg/dL Total Bilirubin (0.2-1.3) mg/dL AST (17-59) U/L ALT (4-49) U/L Alkaline Phosphatase (38-126) U/L Total Protein (6.3-8.2) g/dL Albumin (3.5-5.0) g/dL Amylase (30-110) U/L Lipase (23-300) U/L Blood Type B Positive Blood Type Confirm B Positive Blood Type Recheck No Previous Record Bld Type Recheck Status CABO Indicated Antibody Screen NEGATIVE Spec Expiration Date 06/16/2023 - 234906/13/23 06/13/23 06/13/23 Range/Units 05:55 05:55 05:55 WBC (3.8-10.6) k/uL RBC (4.30-5.90) m/uL Hgb (13.0-17.5) gm/dL Hct (39.0-53.0) % MCV (80.0-100.0) fL MCH (25.0-35.0) pg MCHC (31.0-37.0) g/dL RDW (11.5-15.5) % Plt Count (150-450) k/uL MPV Neutrophils % % Lymphocytes % % Monocytes % % Eosinophils % % Basophils % % Neutrophils # (1.3-7.7) k/uL Lymphocytes # (1.0-4.8) k/uL Monocytes # (0-1.0) k/uL Eosinophils # (0-0.7) k/uL Basophils # (0-0.2) k/uL Poikilocytosis PT 10.9 (10.0-12.5) sec INR 1.0 (<1.2) APTT 26.9 (22.0-30.0) sec Sodium 137 (137-145) mmol/L Potassium 5.6 H (3.5-5.1) mmol/L Chloride 107 (98-107) mmol/L Carbon Dioxide 19 L (22-30) mmol/L Anion Gap 11 mmol/L BUN 70 H (9-20) mg/dL Creatinine 4.41 H (0.66-1.25) mg/dL Est GFR (CKD-EPI)AfAm 14 (>60 ml/min/1.73 sqM) Est GFR (CKD-EPI)NonAf 12 (>60 ml/min/1.73 sqM) Glucose 129 H (74-99) mg/dL Plasma Lactic Acid Jose David 0.7 (0.7-2.0) mmol/L Calcium 8.4 (8.4-10.2) mg/dL Total Bilirubin 0.4 (0.2-1.3) mg/dL AST 33 (17-59) U/L ALT 44 (4-49) U/L Alkaline Phosphatase 88 (38-126) U/L Total Protein 6.0 L (6.3-8.2) g/dL Albumin 3.5 (3.5-5.0) g/dL Amylase 53 (30-110) U/L Lipase 36 (23-300) U/L Blood Type Blood Type Confirm Blood Type Recheck Bld Type Recheck Status Antibody Screen Spec Expiration Date Disposition <Zane Rodriguez - Last Filed: 06/13/23 06:30> Is patient prescribed a controlled substance at d/c from ED?: No Time of Disposition: 08:28 <Prabhjot Lares - Last Filed: 06/13/23 08:29> Clinical Impression: Chronic kidney disease, Abdominal pain Disposition: HOME SELF-CARE Condition: Fair Instructions (If sedation given, give patient instructions): Abdominal Pain (ED) Referrals: Madeline Aldana MD [Primary Care Provider] - 1-2 days
[2023-06-13] MEDS: SODIUM CHLORIDE 0.9% 1,000 ML IV STA (06:01)
[2023-06-13 06:35] VITALS: RESP 16
[2023-06-13 07:02] LABS: Basophils % (A) 1 %; Eosinophils # (A) 0.7 k/uL (0-0.7); Eosinophils % (A) 9 %; HCT 26.6 % (39.0-53.0); Lymphocytes # (A) 1.1 k/uL (1.0-4.8); Lymphocytes % (A) 15 %; MCHC 33.7 g/dL (31.0-37.0); Mean Platelet Volume 7.5; Monocytes # (A) 0.5 k/uL (0-1.0); Monocytes % (A) 7 %; Neutrophils # (A) 5.1 k/uL (1.3-7.7); Neutrophils % (A) 67 %; Platelet Count 117 k/uL (150-450); Poikilocytosis Slight; RDW 14.9 % (11.5-15.5); WBC 7.6 k/uL (3.8-10.6)
[2023-06-13 07:13] LABS: Partial Thromboplastin Time 26.9 sec (22.0-30.0); Prothrombin Time 10.9 sec (10.0-12.5)
[2023-06-13 07:19] LABS: ALT 44 U/L (4-49); AST 33 U/L (17-59); African American GFR (CKD) 14 (>60 ml/min/1.73 sqM); Albumin 3.5 g/dL (3.5-5.0); Alkaline Phosphatase 88 U/L (38-126); Amylase 53 U/L (30-110); Anion Gap 11 mmol/L; Blood Urea Nitrogen 70 mg/dL (9-20); Calcium 8.4 mg/dL (8.4-10.2); Carbon Dioxide 19 mmol/L (22-30); Chloride 107 mmol/L (98-107); Glucose 129 mg/dL (74-99); Lipase 36 U/L (23-300); Non-African American GFR(CKD) 12 (>60 ml/min/1.73 sqM); Potassium 5.6 mmol/L (3.5-5.1); Sodium 137 mmol/L (137-145); Total Bilirubin 0.4 mg/dL (0.2-1.3)
--- NOTE | 2023-06-13 08:08 | CT ---
EXAMINATION TYPE: CT abdomen pelvis wo con DATE OF EXAM: 06/13/2023 COMPARISON: 01/18/2023 HISTORY: constipation x2 weeks CT DLP: 867.4 mGycm Automated exposure control for dose reduction was used. TECHNIQUE: Helical acquisition of images was performed from the lung bases through the pelvis. FINDINGS: There are small bilateral pleural effusions. The stomach is markedly distended with air, fluid and particulate matter. The gallbladder is markedly contracted and there is no gallstone, gallbladder distention, pericholecy stic fluid or wall thickening. There is no biliary ductal dilatation. There is no organomegaly involving the liver, pancreas, spleen or adrenal glands. There are no renal calcifications or hydronephrosis. The bowel loops are normal in caliber and there is no dilatation or obstruction. No inflammatory vale ges identified within the mesentery. There is a 4.5 cm right indirect inguinal hernia containing alysha l loops which are not dilated or appear strangulated. There is no free intraperitoneal air or fluid. There is no pelvic mass, free fluid, abscess or adenopathy. There is moderate prostatic hypertrophy. There is a [place] catheter in the urinary bladder The osseous structures are intact. There is mild anasarca in the soft tissues of the abdominal wall a nd pelvis IMPRESSION: 1. Small bilateral pleural effusions. 2. Mild anasarca. 3. Right inguinal hernia. 4. Moderate prostatic hypertrophy. [place] catheter in urinary bladder. 5. stomach markedly distended with particulate matter, fluid and air.
[2023-06-13] MEDS: METOCLOPRAMIDE 5 MG/ML 2 ML VIAL IVP STA (08:30)
[2023-06-13 08:56] VITALS: BP 136/65; PULSE 75
== END 2023-06-13 08:40 | disposition home or self-care (01) ==
LOC: EC 04:08
DX: N18.9 Chronic kidney disease, unspecified (principal)
CPT/HCPCS: 99284; 96374; 96361 ×3; 36415; 86900; 86901; 80053; 82150; 83605; 83690; 85025; 85610; 85730; 86850; 74176; J2765

== ENCOUNTER 2023-06-16 17:43 | Inpatient (IN) | payer MEDICARE, OTHER ==
--- NOTE | 2023-06-16 19:02 | ED ---
General Adult HPI - General Chief complaint: Chest Pain Stated complaint: Chest pain, numbness in L arm, SOB Time Seen by Provider: 06/16/23 18:49 Source: patient, RN notes reviewed Mode of arrival: ambulatory Limitations: no limitations - History of Present Illness Initial comments: Patient is a pleasant 72-year-old male presenting to the emergency department with concerns for chest discomfort. Onset of symptoms was several hours ago. Patient states discomfort remains. Discomfort is 9/10. Discomfort feels like pressure and does radiate to left arm. There is some associated dyspnea. No history of similar symptoms previously. No nausea. No diaphoresis. - Related Data Home Medications Medication Instructions Recorded Confirmed Insulin Glargine,Hum.rec.anlog 10 unit SQ DAILY@1200 09/30/21 05/01/23 [Lantus Solostar Pen] Insulin Lispro [humaLOG Kwikpen] See Protocol SQ TID-W/MEALS 02/24/22 05/01/23 Ergocalciferol (Vitamin D2) 1,250 mcg PO COLEMAN 01/14/23 05/01/23 [Drisdol (50,000 Iu)] Isosorbide Mononitrate ER [Imdur] 30 mg PO DAILY 01/14/23 05/01/23 Magnesium Oxide [Mag-Ox] 400 mg PO BID 01/14/23 05/01/23 Potassium Chloride ER [K-Dur 10] 10 meq PO DAILY 01/14/23 05/01/23 Tamsulosin [Flomax] 0.4 mg PO DAILY 01/14/23 05/01/23 Torsemide [Demadex] 20 mg PO BID 01/14/23 05/01/23 amLODIPine [Norvasc] 10 mg PO DAILY 01/14/23 05/01/23 hydrALAZINE HCL [Apresoline] 50 mg PO TID 01/14/23 05/01/23 metOLazone [Zaroxolyn] 2.5 mg PO COLEMAN 01/14/23 05/01/23 Aspirin EC [Ecotrin Low Dose] 81 mg PO DAILY 05/01/23 05/01/23 Atorvastatin [Lipitor] 40 mg PO HS 05/01/23 05/01/23 Primidone [Mysoline] 100 mg PO HS 05/01/23 05/01/23 carvediloL [Coreg] 6.25 mg PO BID 05/01/23 05/01/23 lisinopriL [Prinivil] 10 mg PO DAILY 05/01/23 05/01/23 Allergies Allergy/AdvReac Type Severity Reaction Status Date / Time No Known Allergies Allergy Verified 06/16/23 17:49 Review of Systems ROS Statement: Those systems with pertinent positive or pertinent negative responses have been documented in the HPI. ROS Other: All systems not noted in ROS Statement are negative. Constitutional: Denies: fever Eyes: Denies: eye pain ENT: Denies: ear pain Respiratory: Reports: as per HPI, dyspnea Cardiovascular: Reports: as per HPI, chest pain Endocrine: Denies: fatigue Gastrointestinal: Denies: abdominal pain Past Medical History Past Medical History: Heart Failure, Diabetes Mellitus, Hyperlipidemia, Hypertension, Pneumonia Additional Past Medical History / Comment(s): Neuropathy in bilat feet and bilat hands. CHRONIC UTI, CHF History of Any Multi-Drug Resistant Organisms: ESBL Date of last positivie culture/infection: 03/30/23 MDRO Source:: Urine Past Surgical History: No Surgical Hx Reported Additional Past Surgical History / Comment(s): Varicose vein surgery, irrigation to right leg Past Anesthesia/Blood Transfusion Reactions: No Reported Reaction Past Psychological History: No Psychological Hx Reported Smoking Status: Never smoker Past Alcohol Use History: None Reported Past Drug Use History: None Reported - Past Family History Father Family Medical History: CVA/TIA Additional Family Medical History / Comment(s): Father passed from stroke at age 62. Son(s) Family Medical History: Cancer Additional Family Medical History / Comment(s): Down syndrome, KIDNEY CANCER General Exam Limitations: no limitations General appearance: alert, in no apparent distress Head exam: Present: normocephalic Eye exam: Present: normal appearance Neck exam: Present: normal inspection Respiratory exam: Present: normal lung sounds bilaterally Cardiovascular Exam: Present: regular rate, normal rhythm Expanded Peripheral pulses: 2+: Radial (R), Radial (L), Posterior Tibialis (R), Posterior Tibialis (L) GI/Abdominal exam: Present: soft. Absent: tenderness Extremities exam: Present: normal inspection. Absent: pedal edema, calf tenderness Neurological exam: Present: alert Psychiatric exam: Present: normal affect, normal mood Skin exam: Present: normal color Course Vital Signs 06/16/23 06/16/23 06/16/23 17:45 20:02 20:15 Temperature 97.8 F Pulse Rate 61 60 56 L Respiratory 17 18 18 Rate Blood Pressure 151/82 138/75 134/63 O2 Sat by Pulse 95 95 95 Oximetry 06/16/23 20:41 Temperature Pulse Rate 52 L Respiratory 18 Rate Blood Pressure 124/62 O2 Sat by Pulse 95 Oximetry EKG Findings - EKG Results: EKG: interpreted by ERMD, sinus rhythm, normal axis, normal QRS, normal ST/T EKG shows: bradycardia Medical Decision Making - Medical Decision Making Was pt. sent in by a medical professional or institution (, [facility], DUMP OPERATOR, urgent care, hospital, or shelter...) When possible be specific @ -No Did you speak to anyone other than the patient for history (EMS, parent, family, police, friend...)? What history was obtained from this source @ -No Did you review nursing and triage notes (agree or disagree)? Why? @ -I reviewed and agree with nursing and triage notes Were old charts reviewed (outside hosp., previous admission, EMS record, old EKG, old radiological studies, urgent care reports/EKG's, shelter records)? Report findings @ -Previous chest x-ray reviewed. Previous labs reviewed Differential Diagnosis (chest pain, altered mental status, abdominal pain women, abdominal pain men, vaginal bleeding, weakness, fever, dyspnea, syncope, headache, dizziness, GI bleed, back pain, seizure, CVA, palpatations, mental health, musculoskeletal)? @ -Differential Chest Pain: Stable Angina, Unstable Angina, STEMI, NSTEMI Aortic Dissection, Pneumothorax, Musculoskeletal, Esophageal Spasm GERD, Cholecystitis, Pancreatitis, Zoster, this is not meant to be an all-inclusive list. EKG interpreted by me (3pts min.). @ -As above X-rays interpreted by me (1pt min.). @ -Chest x-ray shows posterior fusion CT interpreted by me (1pt min.). @ -None done U/S interpreted by me (1pt. min.). @ -None done What testing was considered but not performed or refused? (CT, X-rays, U/S, labs)? Why? @ -None What meds were considered but not given or refused? Why? @ -None Did you discuss the management of the patient with other professionals (professionals i.e. , PA, DUMP OPERATOR, lab, RT, psych nurse, social science professor, medicare nurse, teacher, chief juvenile probation officer, supervisor case loading)? Give summary @ -Case discussed with Dr. Buckley who will admit covering Dr. Rosenberg. Case also discussed with Dr. Dunbar including x-ray EKG and blood work and symptoms currently. He does agree with plan. Was smoking cessation discussed for >3mins.? @ -No Was critical care preformed (if so, how long)? @ -31 minutes critical care time Were there social determinants of health that impacted care today? How? (Homelessness, low income, unemployed, alcoholism, drug addiction, transportation, low edu. Level, literacy, decrease access to med. care, snf, rehab)? @ -No Was there de-escalation of care discussed even if they declined (Discuss DNR or withdrawal of care, Hospice)? DNR status @ -No What co-morbidities impacted this encounter? (DM, HTN, Smoking, COPD, CAD, Cancer, CVA, ARF, Chemo, Hep., AIDS, mental health diagnosis, sleep apnea, morbid obesity)? @ -History of CHF, hypertension and hyperlipidemia, chronic renal insufficiency Was patient admitted / discharged? Hospital course, mention meds given and route, prescriptions, significant lab abnormalities, going to OR and other pertinent info. @ -Patient reevaluated and somewhat improved following nitroglycerin however still states discomfort is 8/10. Cardiology paged for update. Patient will be admitted and heparinized. Admission orders written. Patient is still having some discomfort following nitroglycerin. Heparin started and morphine provided. Cardiology is aware Undiagnosed new problem with uncertain prognosis? @ -No Drug Therapy requiring intensive monitoring for toxicity (Heparin, Nitro, Insulin, Cardizem)? @ -Heparin drip Were any procedures done? @ -No Diagnosis/symptom? @ -Non-ST elevation [place] Acute, or Chronic, or Acute on Chronic? @ -Acute Uncomplicated (without systemic symptoms) or Complicated (systemic symptoms)? @ -Default Side effects of treatment? @ -No Exacerbation, Progression, or Severe Exacerbation? @ -No Poses a threat to life or bodily function? How? (Chest pain, [place], [place], pneumonia, PE, COPD, DKA, ARF, appy, cholecystitis, CVA, Diverticulitis, Homicidal, Suicidal, threat to staff... and all critical care pts) @ -Potential for myocardial infarction with potential for cardiac problems or - Lab Data Result diagrams: 06/16/23 19:02 06/16/23 19:02 Lab Results 06/16/23 06/16/23 06/16/23 Range/Units 19:02 19:02 19:02 WBC 10.7 H (3.8-10.6) k/uL RBC 2.81 L (4.30-5.90) m/uL Hgb 8.6 L (13.0-17.5) gm/dL Hct 26.1 L (39.0-53.0) % MCV 92.9 (80.0-100.0) fL MCH 30.6 (25.0-35.0) pg MCHC 32.9 (31.0-37.0) g/dL RDW 14.7 (11.5-15.5) % Plt Count 107 L (150-450) k/uL MPV 8.0 Neutrophils % 84 % Lymphocytes % 5 % Monocytes % 8 % Eosinophils % 2 % Basophils % 0 % Neutrophils # 8.9 H (1.3-7.7) k/uL Lymphocytes # 0.6 L (1.0-4.8) k/uL Monocytes # 0.8 (0-1.0) k/uL Eosinophils # 0.2 (0-0.7) k/uL Basophils # 0.0 (0-0.2) k/uL Poikilocytosis Slight PT 11.3 (10.0-12.5) sec INR 1.0 (<1.2) APTT 29.5 (22.0-30.0) sec D-Dimer 0.46 (<0.60) mg/L FEU Sodium 139 (137-145) mmol/L Potassium 5.6 H (3.5-5.1) mmol/L Chloride 114 H (98-107) mmol/L Carbon Dioxide 16 L (22-30) mmol/L Anion Gap 9 mmol/L BUN 62 H (9-20) mg/dL Creatinine 3.18 H (0.66-1.25) mg/dL Est GFR (CKD-EPI)AfAm 21 (>60 ml/min/1.73 sqM) Est GFR (CKD-EPI)NonAf 18 (>60 ml/min/1.73 sqM) Glucose 94 (74-99) mg/dL Calcium 8.6 (8.4-10.2) mg/dL Magnesium 2.2 (1.6-2.3) mg/dL Total Bilirubin 0.6 (0.2-1.3) mg/dL AST 31 (17-59) U/L ALT 30 (4-49) U/L Alkaline Phosphatase 83 (38-126) U/L Troponin I (0.000-0.034) ng/mL Total Protein 5.7 L (6.3-8.2) g/dL Albumin 3.2 L (3.5-5.0) g/dL 06/16/23 Range/Units 19:02 WBC (3.8-10.6) k/uL RBC (4.30-5.90) m/uL Hgb (13.0-17.5) gm/dL Hct (39.0-53.0) % MCV (80.0-100.0) fL MCH (25.0-35.0) pg MCHC (31.0-37.0) g/dL RDW (11.5-15.5) % Plt Count (150-450) k/uL MPV Neutrophils % % Lymphocytes % % Monocytes % % Eosinophils % % Basophils % % Neutrophils # (1.3-7.7) k/uL Lymphocytes # (1.0-4.8) k/uL Monocytes # (0-1.0) k/uL Eosinophils # (0-0.7) k/uL Basophils # (0-0.2) k/uL Poikilocytosis PT (10.0-12.5) sec INR (<1.2) APTT (22.0-30.0) sec D-Dimer (<0.60) mg/L FEU Sodium (137-145) mmol/L Potassium (3.5-5.1) mmol/L Chloride (98-107) mmol/L Carbon Dioxide (22-30) mmol/L Anion Gap mmol/L BUN (9-20) mg/dL Creatinine (0.66-1.25) mg/dL Est GFR (CKD-EPI)AfAm (>60 ml/min/1.73 sqM) Est GFR (CKD-EPI)NonAf (>60 ml/min/1.73 sqM) Glucose (74-99) mg/dL Calcium (8.4-10.2) mg/dL Magnesium (1.6-2.3) mg/dL Total Bilirubin (0.2-1.3) mg/dL AST (17-59) U/L ALT (4-49) U/L Alkaline Phosphatase (38-126) U/L Troponin I 2.100 H* (0.000-0.034) ng/mL Total Protein (6.3-8.2) g/dL Albumin (3.5-5.0) g/dL Critical Care Time Critical Care Time: Yes Total Critical Care Time: 31 Disposition Clinical Impression: Acute non-ST elevation myocardial infarction (NSTEMI) Disposition: ADMITTED IP TO THIS [facility] Condition: Serious Is patient prescribed a controlled substance at d/c from ED?: No Referrals: Madeline Aldana MD [Primary Care Provider] - 1-2 days Time of Disposition: 20:59
[2023-06-16 19:40] LABS: Basophils % (A) 0 %; Eosinophils # (A) 0.2 k/uL (0-0.7); Eosinophils % (A) 2 %; HCT 26.1 % (39.0-53.0); HGB 8.6 gm/dL (13.0-17.5); Lymphocytes # (A) 0.6 k/uL (1.0-4.8); Lymphocytes % (A) 5 %; MCH 30.6 pg (25.0-35.0); MCHC 32.9 g/dL (31.0-37.0); MCV 92.9 fL (80.0-100.0); Monocytes # (A) 0.8 k/uL (0-1.0); Monocytes % (A) 8 %; Neutrophils # (A) 8.9 k/uL (1.3-7.7); Neutrophils % (A) 84 %; Platelet Count 107 k/uL (150-450); Poikilocytosis Slight; RBC 2.81 m/uL (4.30-5.90); RDW 14.7 % (11.5-15.5); WBC 10.7 k/uL (3.8-10.6)
[2023-06-16] MEDS: ASPIRIN 81 MG PO STA (20:05)
[2023-06-16] MEDS: NITROGLYCERIN SL TABS 0.4 MG TAB SUBLINGUAL STA ×3 (20:06→20:42)
[2023-06-16 20:10] LABS: Partial Thromboplastin Time 29.5 sec (22.0-30.0); Prothrombin Time 11.3 sec (10.0-12.5)
[2023-06-16 20:24] LABS: ALT 30 U/L (4-49); AST 31 U/L (17-59); African American GFR (CKD) 21 (>60 ml/min/1.73 sqM); Albumin 3.2 g/dL (3.5-5.0); Alkaline Phosphatase 83 U/L (38-126); Anion Gap 9 mmol/L; Blood Urea Nitrogen 62 mg/dL (9-20); Calcium 8.6 mg/dL (8.4-10.2); Carbon Dioxide 16 mmol/L (22-30); Chloride 114 mmol/L (98-107); Glucose 94 mg/dL (74-99); Magnesium 2.2 mg/dL (1.6-2.3); Non-African American GFR(CKD) 18 (>60 ml/min/1.73 sqM); Potassium 5.6 mmol/L (3.5-5.1); Sodium 139 mmol/L (137-145); Total Bilirubin 0.6 mg/dL (0.2-1.3); Total Protein 5.7 g/dL (6.3-8.2)
[2023-06-16] MEDS ORDERED: HEPARIN SODIUM 1,000 UN/ML (10ML VL) IV PRN (20:53)
[2023-06-16] MEDS ORDERED: NITROGLYCERIN SL TABS 0.4 MG TAB SUBLINGUAL PRN (20:59)
[2023-06-16] MEDS: MORPHINE SULFATE 4 MG/ML SYRINGE IVP STA ×2 (20:59→21:00)
--- NOTE | 2023-06-16 21:05 | XR ---
EXAMINATION TYPE: XR chest 2V DATE OF EXAM: 06/16/2023 7:57 PM CLINICAL INDICATION:Male, 72 years old with history of Chest Pain; [facility] COMPARISON: 01/18/2023 TECHNIQUE: XR chest 2V. Frontal and lateral views of the chest.. FINDINGS: Lines/Tubes/Devices: EKG leads overlie the chest. No indwelling lines are seen. Heart/mediastinum: Cardiac margins are partially obscured but the heart is likely at least mildly enl arged. Aorta appears mildly tortuous and calcified. Pulmonary vascularity: Pulmonary vascular congestion. Increased interstitial markings can be seen wit h edema or pneumonitis, superimposed on chronic changes. Lungs/Pleura: Background chronic lung changes with hyperinflation and interstitial coarsening, may be related to COPD. Bibasilar airspace opacities, more vague opacity in the left mid to upper lung zone . Blunting of the left costophrenic angle suggesting small to moderate pleural effusion. Suspect trac e right pleural effusion. No visible pneumothorax. Musculoskeletal: Osseous structures are grossly unchanged. No acute osseous pathology is demonstrated . Degenerative changes of the spine with apex right scoliosis. Other findings: None. IMPRESSION: Cardiomegaly with pulmonary vascular congestion, likely edema and atelectasis with bilateral pleural effusions, greater on the left. Correlate clinically for CHF, rule out pneumonia.
[2023-06-16] MEDS ORDERED: ERGOCALCIFEROL 1,250 MCG (50,000 IU) CAPSULE PO SCH (21:15)
[2023-06-16] MEDS: HEPARIN SOD,PORK IN 0.45% NACL 25,000 UNIT in 0.45% NACL 1 250ML.BAG IV SCH (21:18)
[2023-06-16] MEDS: HEPARIN SODIUM 1,000 UN/ML (10ML VL) IV ONE (21:19)
[2023-06-16] MEDS: NITROGLYCERIN OINT 1 INCH/GM PACKET TOPICAL SCH (21:26)
[2023-06-16] MEDS: hydrALAZINE HCL 50 MG TAB PO SCH (21:58)
[2023-06-16] MEDS: FUROSEMIDE 10 MG/ML 10 ML VIAL IV STA (22:45)
[2023-06-16] MEDS: KETOROLAC 15 MG/ML 1 ML VIAL IVP STA (22:45)
[2023-06-16] MEDS: PANTOPRAZOLE 40 MG TABLET PO STA (22:46)
[2023-06-17] MEDS: NITROGLYCERIN-D5W PMX 50 MG in DEXTROSE/WATER 1 250ML.BAG IV SCH (02:18)
[2023-06-17 04:02] LABS: Basophils % (A) 0 %; Eosinophils # (A) 0.1 k/uL (0-0.7); Eosinophils % (A) 1 %; HCT 21.3 % (39.0-53.0); HGB 7.4 gm/dL (13.0-17.5); Lymphocytes # (A) 0.7 k/uL (1.0-4.8); Lymphocytes % (A) 10 %; MCH 32.3 pg (25.0-35.0); MCV 92.5 fL (80.0-100.0); Mean Platelet Volume 8.7; Monocytes # (A) 0.7 k/uL (0-1.0); Monocytes % (A) 10 %; Neutrophils # (A) 5.5 k/uL (1.3-7.7); Neutrophils % (A) 77 %; Poikilocytosis Slight; RDW 15.3 % (11.5-15.5); WBC 7.1 k/uL (3.8-10.6)
[2023-06-17 04:06] LABS: INR 1.1 (<1.2); Prothrombin Time 11.6 sec (10.0-12.5)
[2023-06-17 04:22] LABS: ALT 23 U/L (4-49); AST 30 U/L (17-59); African American GFR (CKD) 21 (>60 ml/min/1.73 sqM); Albumin 2.6 g/dL (3.5-5.0); Alkaline Phosphatase 68 U/L (38-126); Anion Gap 4 mmol/L; Blood Urea Nitrogen 62 mg/dL (9-20); Calcium 8.1 mg/dL (8.4-10.2); Carbon Dioxide 21 mmol/L (22-30); Chloride 114 mmol/L (98-107); Glucose 89 mg/dL (74-99); Magnesium 2.1 mg/dL (1.6-2.3); Non-African American GFR(CKD) 18 (>60 ml/min/1.73 sqM); Potassium 5.3 mmol/L (3.5-5.1); Sodium 139 mmol/L (137-145); Total Bilirubin 0.5 mg/dL (0.2-1.3); Total Protein 4.9 g/dL (6.3-8.2)
[2023-06-17 04:33] LABS: Platelet Count 83 k/uL (150-450)
[2023-06-17] MEDS ORDERED: HEPARIN SODIUM,PORCINE (1 ML) 2,500 UNIT in SODIUM CHLORIDE 0.9% 250 ML IRRIGATION PRN (07:00)
[2023-06-17] MEDS ORDERED: HEPARIN SODIUM,PORCINE 10,000 UNIT in SODIUM CHLORIDE 0.9% 1,000 ML IRRIGATION PRN (07:00)
[2023-06-17] MEDS ORDERED: carvediloL 6.25 MG TAB PO SCH (07:30)
[2023-06-17] MEDS: MAGNESIUM OXIDE 400 MG TAB PO SCH (07:46)
[2023-06-17] MEDS: ASPIRIN 81 MG PO SCH (07:46)
[2023-06-17] MEDS: amLODIPine 10 MG TAB PO SCH (07:46)
[2023-06-17] MEDS: TAMSULOSIN 0.4 MG CAP.ER.24H PO SCH (07:46)
[2023-06-17 07:56] LABS: Glucose,Whole Blood 88 mg/dL (70-110)
[2023-06-17] MEDS ORDERED: DEXTROSE 50% SYRINGE 50 ML IVP PRN ×2 (08:30)
[2023-06-17] MEDS ORDERED: ASPIRIN 325 MG TAB PO SCH (09:00)
[2023-06-17] MEDS ORDERED: lisinopriL 10 MG TAB PO SCH (09:00)
[2023-06-17] MEDS ORDERED: POTASSIUM CHLORIDE ER 10 MEQ TAB.ER.PRT PO SCH (09:00)
[2023-06-17] MEDS ORDERED: TORSEMIDE 20 MG TAB PO SCH (09:00)
[2023-06-17] MEDS: METOPROLOL TARTRATE 12.5 MG TAB PO SCH (09:40)
[2023-06-17] MEDS ORDERED: NALOXONE 0.4 MG/ML 1 ML VIAL IV PRN (09:42)
[2023-06-17] MEDS: HYDROmorphone 0.5 MG/0.5 ML SYRINGE IVP STA (09:47)
[2023-06-17] MEDS: FAMOTIDINE 20 MG/2 ML VIAL IV SCH (09:48)
[2023-06-17] MEDS: HYDROcodone/APAP 5-325MG 1 EACH TAB PO PRN (09:48)
[2023-06-17] MEDS: SODIUM CHLORIDE 0.9% 1,000 ML IV SCH (09:49)
[2023-06-17] MEDS ORDERED: NITROGLYCERIN SL TABS 0.4 MG TAB SUBLINGUAL PRN (10:02)
[2023-06-17] MEDS ORDERED: ALPRAZolam 0.5 MG TAB PO PRN (10:02)
[2023-06-17] MEDS ORDERED: ALPRAZolam 0.25 MG TAB PO PRN (10:02)
[2023-06-17 10:06] LABS: Chol/HDL Ratio 1.65 Ratio; LDL Cholesterol,Calculated 20.7 mg/dL (0.0-131.0); VLDL Calculation 9.54 mg/dL (5.00-40.00)
--- NOTE | 2023-06-17 11:12 | P.NPCON ---
History of Present Illness - Reason for Consult chronic renal failure - History of Present Illness Reason for consultation: Chronic kidney disease History of present illness: Patient is a 75-year-old male seen in renal consultation for chronic kidney disease. Patient has chronic kidney disease stage IV baseline creatinine recently in the range of 3-3.5. Renal function is at baseline. Patient came to the hospital due to chest pain. Patient states he developed chest pain yesterday evening which was mostly midsternal. Patient came to the hospital for further care. Patient does have history of diabetes. He denies history of prior cardiac stenting. No history of open bypass surgery. Blood pressure stable. Patient states he has been taking torsemide 20 mg once daily at home. No vomiting or diarrhea. No fever or chills. Oral intake is good. Patient has chronic [place] catheter. He has been seen by cardiology and a cardiac catheterization is being considered. Vital signs are stable. General: No acute distress. HEENT: Head exam is unremarkable. LUNGS: No audible rhonchi or wheezes. HEART: Rate and Rhythm are regular. ABDOMEN: Nontender. EXTREMITITES: 1+ edema. Past Medical History Past Medical History: Heart Failure, Diabetes Mellitus, Hyperlipidemia, Hypertension, Pneumonia Additional Past Medical History / Comment(s): Neuropathy in bilat feet and bilat hands. CHRONIC UTI, CHF History of Any Multi-Drug Resistant Organisms: ESBL Date of last positivie culture/infection: 03/30/23 MDRO Source:: Urine Past Surgical History: No Surgical Hx Reported Additional Past Surgical History / Comment(s): Varicose vein surgery, irrigation to right leg Past Anesthesia/Blood Transfusion Reactions: No Reported Reaction Past Psychological History: No Psychological Hx Reported Smoking Status: Never smoker Past Alcohol Use History: None Reported Past Drug Use History: None Reported - Past Family History Father Family Medical History: CVA/TIA Additional Family Medical History / Comment(s): Father passed from stroke at age 62. Son(s) Family Medical History: Cancer Additional Family Medical History / Comment(s): Down syndrome, KIDNEY CANCER Medications and Allergies Home Medications Medication Instructions Recorded Confirmed Type Insulin Glargine,Hum.rec.anlog 10 unit SQ DAILY@1200 09/30/21 06/16/23 History [Lantus Solostar Pen] Insulin Lispro [humaLOG Kwikpen] See Protocol SQ TID-W/MEALS 02/24/22 06/16/23 History Ergocalciferol (Vitamin D2) 1,250 mcg PO QMONTHLY 01/14/23 06/16/23 History [Drisdol (50,000 Iu)] Isosorbide Mononitrate ER [Imdur] 30 mg PO DAILY 01/14/23 06/16/23 History Magnesium Oxide [Mag-Ox] 400 mg PO BID 01/14/23 06/16/23 History Potassium Chloride ER [K-Dur 10] 10 meq PO DAILY 01/14/23 06/16/23 History Tamsulosin [Flomax] 0.4 mg PO DAILY 01/14/23 06/16/23 History Torsemide [Demadex] 20 mg PO DAILY 01/14/23 06/16/23 History amLODIPine [Norvasc] 10 mg PO DAILY 01/14/23 06/16/23 History metOLazone [Zaroxolyn] 2.5 mg PO COLEMAN 01/14/23 06/16/23 History Aspirin EC [Ecotrin Low Dose] 81 mg PO DAILY 05/01/23 06/16/23 History Atorvastatin [Lipitor] 40 mg PO HS 05/01/23 06/16/23 History carvediloL [Coreg] 6.25 mg PO BID 05/01/23 06/16/23 History lisinopriL [Prinivil] 10 mg PO DAILY 05/01/23 06/16/23 History hydrALAZINE HCL [Apresoline] 100 mg PO TID 06/16/23 06/16/23 History Allergies Allergy/AdvReac Type Severity Reaction Status Date / Time No Known Allergies Allergy Verified 06/16/23 17:49 Physical Exam Vitals: Vital Signs Temp Pulse Pulse Resp BP BP Pulse Ox 06/17/23 08:56 94 L 06/17/23 07:41 54 L 18 06/17/23 07:40 54 L 18 135/67 94 L 06/17/23 06:00 48 L 18 119/62 96 06/17/23 04:00 50 L 18 134/70 97 06/17/23 02:15 48 L 18 133/70 95 06/17/23 00:00 50 L 18 134/71 95 06/16/23 23:00 52 L 18 147/74 95 06/16/23 21:45 54 L 18 150/72 95 06/16/23 20:41 52 L 18 124/62 95 06/16/23 20:15 56 L 18 134/63 95 06/16/23 20:02 60 18 138/75 95 06/16/23 17:45 97.8 F 61 17 151/82 95 Intake and Output 06/16/23 06/17/23 06/17/23 22:59 06:59 14:59 Output Total 825 Balance -825 Output: Urine 825 Other: Voiding Method Incontinent Weight 81.647 kg Results - Lab Results Most recent lab results Calcium 8.1 mg/dL (8.4-10.2) L 06/17/23 03:36 Magnesium 2.1 mg/dL (1.6-2.3) 06/17/23 03:36 06/17/23 03:36 06/17/23 03:36 Assessment and Plan Plan: Assessment: 1. Chronic kidney disease stage IV with baseline creatinine in the range of 3- 3.5. GFR at baseline. 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 2. Hyperkalemia secondary to chronic kidney disease and metabolic acidosis. Also taking lisinopril. 3. Non-ST elevated myocardial infarction being followed by cardiology. On nitro and heparin drip. 4. Metabolic acidosis secondary to chronic kidney disease. Better. 5. Anemia of chronic kidney disease. Rule out iron deficiency. 6. Mild fluid overload. Status post IV Lasix in ER. 7. Urinary retention with chronic [place] catheter. On Flomax. 8. Hypertension with chronic kidney disease. Stable. Plan: Case discussed with cardiology. Cardiac catheterization being considered. Discussed with patient the risk of worsening renal function potentially requiring renal replacement therapy post IV contrast exposure. He understands. Start gentle IV hydration with normal saline at 50 cc an hour. Follow-up echocardiogram. Hold lisinopril. Add oral bicarb. Check renal ultrasound. Check iron studies. Continue to monitor renal function and urine output. Thank you for the consultation. I will continue to follow the patient with you during his hospital stay.
[2023-06-17] MEDS: INSULIN ASPART (NovoLOG) 100 UNIT/ML VIAL SQ SCH ×2 (11:27→11:34)
[2023-06-17 11:28] LABS: Glucose,Whole Blood 89 mg/dL (70-110)
[2023-06-17] MEDS: INSULIN DETEMIR (LEVEMIR) 100 UNIT/ML SYR SQ SCH (11:42)
[2023-06-17] MEDS: SODIUM BICARBONATE TAB 650 MG TAB PO SCH (11:42)
--- NOTE | 2023-06-17 12:00 | P.HPIM ---
History of Present Illness H&P Date: 06/17/23 Chief Complaint: Chest pain * 72-year-old gentleman with past medical history significant for chronic urinary retention s/p Washington catheter in place, congestive heart failure, d iabetes mellitus, hypertension, hyperlipidemia diabetic neuropathy, history of ESBL infection presents to the emergency department with acute onset of chest discomfort. Patient states symptom onset was few hours prior to presentation. Patient complained of midsternal chest discomfort about 9 x 10 in intensity. Patient complained of pressure radiating down left arm. This was associated with shortness of breath patient denies nausea, vomiting or diaphoresis * Initial workup initiated in ER included an EKG which showed sinus bradycardia peak T waves were noted in anterior leads * A chest x-ray was obtained that was consistent with pulmonary vascular congestion * Blood work obtained include CBC which showed WBC count of 7.1 hemoglobin 7.4 platelet count of 83, INR of 1.1 serum chemistry showed sodium 139 potassium 5.3, dioxide 21 BUN 62 creatinine 3.22 * Initial troponin obtained 4.360, followed by 4.630. * N-terminal proBNP 34879 * While in ER patient was given a dose of aspirin, IV Lasix, morphine for pain control sublingual nitroglycerin and admitted for workup for non-ST elevated KS as well as worsening renal function with consultation from nephrology and cardiology REVIEW OF SYSTEMS: Chest pain, shortness of breath CONSTITUTIONAL: No fever, no malaise, no fatigue. HEENT: No recent visual problems or hearing problems. Denied any sore throat. CARDIOVASCULAR: Chest pain, shortness of breath PULMONARY:Chest pain, shortness of breath GASTROINTESTINAL: No diarrhea, no nausea, no vomiting, no abdominal pain. NEUROLOGICAL: No headaches, no weakness, no numbness. HEMATOLOGICAL: Denies any bleeding or petechiae. GENITOURINARY: Denies any burning micturition, frequency, or urgency. MUSCULOSKELETAL/RHEUMATOLOGICAL: Denies any joint pain, swelling, or any muscle pain. ENDOCRINE: Denies any polyuria or polydipsia. PHYSICAL EXAMINATION: GENERAL: The patient is alert and oriented x3, ill appearance, nasal cannula in place HEENT: Pupils are round and equally reacting to light. EOMI. No scleral icterus. CARDIOVASCULAR: S1 and S2 present. Bradycardia PULMONARY: deCreased breath sounds bilaterally ABDOMEN: Soft, nontender, nondistended, normoactive bowel sounds. Washington in place MUSCULOSKELETAL: No joint swelling or deformity. EXTREMITIES: NEUROLOGICAL: Gross neurological examination did not reveal any focal deficits. Assessment and plan * Non-ST elevated KS * Chronic kidney disease stage IV with hyperkalemia * Metabolic acidosis * Diabetes mellitus type 2 * Acute on chronic congestive heart failure * Anemia of chronic kidney disease * To urinary retention with Washington catheter in place * In regards to non-ST elevated KS, cardiology consulted continue IV heparin, aspirin, Lipitor, Imdur, IV nitroglycerin drip initiated by cardiology * Regards to hyperkalemia and chronic kidney disease nephrology consulted patient received 1 dose of Lasix follow-up electrolyte workup ordered * In regards to diabetes mellitus Accu-Cheks every 4 hours, correctional insulin ordered will patient n.p.o. monitor for hypoglycemia * In regards to acute on chronic congestive heart failure follow-up echocardiogram ordered patient given 1 dose of Lasix * In regards to urinary retention continue Washington catheter, continue Flomax * Status is full code * Past Medical History Past Medical History: Heart Failure, Diabetes Mellitus, Hyperlipidemia, Hypertension, Pneumonia Additional Past Medical History / Comment(s): Neuropathy in bilat feet and bilat hands. CHRONIC UTI, CHF History of Any Multi-Drug Resistant Organisms: ESBL Date of last positivie culture/infection: 03/30/23 MDRO Source:: Urine Past Surgical History: No Surgical Hx Reported Additional Past Surgical History / Comment(s): Varicose vein surgery, irrigation to right leg Past Anesthesia/Blood Transfusion Reactions: No Reported Reaction Past Psychological History: No Psychological Hx Reported Smoking Status: Never smoker Past Alcohol Use History: None Reported Past Drug Use History: None Reported - Past Family History Father Family Medical History: CVA/TIA Additional Family Medical History / Comment(s): Father passed from stroke at age 62. Son(s) Family Medical History: Cancer Additional Family Medical History / Comment(s): Down syndrome, KIDNEY CANCER Medications and Allergies Home Medications Medication Instructions Recorded Confirmed Type Insulin Glargine,Hum.rec.anlog 10 unit SQ DAILY@1200 09/30/21 06/16/23 History [Lantus Solostar Pen] Insulin Lispro [humaLOG Kwikpen] See Protocol SQ TID-W/MEALS 02/24/22 06/16/23 History Ergocalciferol (Vitamin D2) 1,250 mcg PO QMONTHLY 01/14/23 06/16/23 History [Drisdol (50,000 Iu)] Isosorbide Mononitrate ER [Imdur] 30 mg PO DAILY 01/14/23 06/16/23 History Magnesium Oxide [Mag-Ox] 400 mg PO BID 01/14/23 06/16/23 History Potassium Chloride ER [K-Dur 10] 10 meq PO DAILY 01/14/23 06/16/23 History Tamsulosin [Flomax] 0.4 mg PO DAILY 01/14/23 06/16/23 History Torsemide [Demadex] 20 mg PO DAILY 01/14/23 06/16/23 History amLODIPine [Norvasc] 10 mg PO DAILY 01/14/23 06/16/23 History metOLazone [Zaroxolyn] 2.5 mg PO COLEMAN 01/14/23 06/16/23 History Aspirin EC [Ecotrin Low Dose] 81 mg PO DAILY 05/01/23 06/16/23 History Atorvastatin [Lipitor] 40 mg PO HS 05/01/23 06/16/23 History carvediloL [Coreg] 6.25 mg PO BID 05/01/23 06/16/23 History lisinopriL [Prinivil] 10 mg PO DAILY 05/01/23 06/16/23 History hydrALAZINE HCL [Apresoline] 100 mg PO TID 06/16/23 06/16/23 History Allergies Allergy/AdvReac Type Severity Reaction Status Date / Time No Known Allergies Allergy Verified 06/16/23 17:49 Physical Exam Vitals: Vital Signs Temp Pulse Pulse Resp BP BP Pulse Ox 06/17/23 08:56 94 L 06/17/23 07:41 54 L 18 06/17/23 07:40 54 L 18 135/67 94 L 06/17/23 06:00 48 L 18 119/62 96 06/17/23 04:00 50 L 18 134/70 97 06/17/23 02:15 48 L 18 133/70 95 06/17/23 00:00 50 L 18 134/71 95 06/16/23 23:00 52 L 18 147/74 95 06/16/23 21:45 54 L 18 150/72 95 06/16/23 20:41 52 L 18 124/62 95 06/16/23 20:15 56 L 18 134/63 95 06/16/23 20:02 60 18 138/75 95 06/16/23 17:45 97.8 F 61 17 151/82 95 Intake and Output 06/16/23 06/17/23 06/17/23 22:59 06:59 14:59 Output Total 825 Balance -825 Output: Urine 825 Other: Voiding Method Incontinent Weight 81.647 kg Results CBC & Chem 7: 06/17/23 03:36 06/17/23 03:36 Labs: Abnormal Lab Results - Last 24 Hours (Table) 06/16/23 06/16/23 06/16/23 Range/Units 19:02 19:02 19:02 WBC 10.7 H (3.8-10.6) k/uL RBC 2.81 L (4.30-5.90) m/uL Hgb 8.6 L (13.0-17.5) gm/dL Hct 26.1 L (39.0-53.0) % Plt Count 107 L (150-450) k/uL Neutrophils # 8.9 H (1.3-7.7) k/uL Lymphocytes # 0.6 L (1.0-4.8) k/uL APTT (22.0-30.0) sec Potassium 5.6 H (3.5-5.1) mmol/L Chloride 114 H (98-107) mmol/L Carbon Dioxide 16 L (22-30) mmol/L BUN 62 H (9-20) mg/dL Creatinine 3.18 H (0.66-1.25) mg/dL Calcium (8.4-10.2) mg/dL Troponin I 2.100 H* (0.000-0.034) ng/mL Total Protein 5.7 L (6.3-8.2) g/dL Albumin 3.2 L (3.5-5.0) g/dL 06/16/23 06/17/23 06/17/23 Range/Units 22:48 01:01 03:36 WBC (3.8-10.6) k/uL RBC (4.30-5.90) m/uL Hgb (13.0-17.5) gm/dL Hct (39.0-53.0) % Plt Count (150-450) k/uL Neutrophils # (1.3-7.7) k/uL Lymphocytes # (1.0-4.8) k/uL APTT 66.2 H (22.0-30.0) sec Potassium (3.5-5.1) mmol/L Chloride (98-107) mmol/L Carbon Dioxide (22-30) mmol/L BUN (9-20) mg/dL Creatinine (0.66-1.25) mg/dL Calcium (8.4-10.2) mg/dL Troponin I 4.360 H* 4.630 H* (0.000-0.034) ng/mL Total Protein (6.3-8.2) g/dL Albumin (3.5-5.0) g/dL 06/17/23 06/17/23 Range/Units 03:36 03:36 WBC (3.8-10.6) k/uL RBC 2.30 L (4.30-5.90) m/uL Hgb 7.4 L (13.0-17.5) gm/dL Hct 21.3 L (39.0-53.0) % Plt Count 83 L (150-450) k/uL Neutrophils # (1.3-7.7) k/uL Lymphocytes # 0.7 L (1.0-4.8) k/uL APTT (22.0-30.0) sec Potassium 5.3 H (3.5-5.1) mmol/L Chloride 114 H (98-107) mmol/L Carbon Dioxide 21 L (22-30) mmol/L BUN 62 H (9-20) mg/dL Creatinine 3.22 H (0.66-1.25) mg/dL Calcium 8.1 L (8.4-10.2) mg/dL Troponin I (0.000-0.034) ng/mL Total Protein 4.9 L (6.3-8.2) g/dL Albumin 2.6 L (3.5-5.0) g/dL
[2023-06-17] MEDS ORDERED: INSULIN ASPART (NovoLOG) 100 UNIT/ML VIAL SQ SCH (12:30)
[2023-06-17 16:48] LABS: % Iron Saturation 6.73 (15.00-50.00)
[2023-06-17] MEDS: ACETAMINOPHEN TAB 325 MG TAB PO PRN (17:16)
[2023-06-17 17:18] LABS: Glucose,Whole Blood 85 mg/dL (70-110)
[2023-06-17 17:42] LABS: HCT 23.2 % (39.0-53.0); HGB 7.5 gm/dL (13.0-17.5); Hypochromasia Slight; MCH 30.8 pg (25.0-35.0); MCHC 32.4 g/dL (31.0-37.0); MCV 95.1 fL (80.0-100.0); Mean Platelet Volume 9.4; RBC 2.44 m/uL (4.30-5.90); RDW 14.8 % (11.5-15.5); WBC 6.2 k/uL (3.8-10.6)
[2023-06-17 17:44] LABS: Platelet Count 81 k/uL (150-450)
--- NOTE | 2023-06-17 20:45 | US ---
EXAMINATION TYPE: US kidneys/renal and bladder DATE OF EXAM: 06/17/2023 COMPARISON: NONE CLINICAL INDICATION: Male, 72 years old with history of dieter; DIETER EXAM MEASUREMENTS: Right Kidney: 11.8 x 5.6 x 5.1 cm Left Kidney: 12.2 x 6.2 x 4.8 cm Right Kidney: No hydronephrosis or masses seen Left Kidney: No hydronephrosis or masses seen Bladder: Cathter in place. Bilateral Jets seen: No IMPRESSION: 1. Unremarkable renal ultrasound. 2. Urinary bladder could not be evaluated with Washington catheter in place for the exam.
[2023-06-17] MEDS: HYDROmorphone 0.5 MG/0.5 ML SYRINGE IVP PRN (20:47)
[2023-06-17] MEDS: ATORVASTATIN 40 MG TAB PO SCH (20:47)
[2023-06-17] MEDS: ASPIRIN 81 MG PO STA (20:53)
[2023-06-17] MEDS: ATORVASTATIN 80 MG TAB PO STA (20:53)
[2023-06-17 21:01] LABS: Glucose,Whole Blood 83 mg/dL (70-110)
--- NOTE | 2023-06-17 22:17 | CONS ---
CONSULTATION HISTORY OF PRESENT ILLNESS: This is a 72-year-old gentleman with diabetes and stage 4 chronic kidney disease, who is under the care of Pulper Operator, Dr. Wang. This gentleman also has been under the care of Dr. Dennison. He was last seen in the office in February. He had an echocardiogram, which revealed normal ejection fraction in February 2022 and a Lexiscan stress test, which did not reveal ischemia in July 2022. This gentleman came into the hospital complaining of chest pressure going on for 1 or 2 hours. Quality of pain is suggestive of angina. His troponin profile indicates a [id number] ME. EKG revealed sinus rhythm with nonspecific ST-T changes. His creatinine is in the range of between 3.0 and 3.5. He used to be in the 2.5 range, but recently had an episode of acute kidney injury and with that creatinine went up to more than 4 and eventually came back to the mid to low 3.0 range. His creatinine was as high as 4.41 on the of this month, but it is down to 3.18 today. At the time of my evaluation, his discomfort in the chest has improved. I gave him 0.5 mg of Dilaudid. We will continue intravenous heparin and I explained to the patient that when I perform cardiac cath and give him contrast, there is a high probability of worsening renal function requiring dialysis. This matter was also discussed with him by Dr. Wang. He understands, appreciates it and wishes to move forward. I will hydrate him cautiously, give him bicarb, discontinue the lisinopril and perform coronary angiography tomorrow. Rationale, risks, benefits, options were explained. The patient understands all details and wishes to proceed with the procedure. There was no family available. PAST MEDICAL HISTORY: 1. Hypertension. 2. Diabetes with CKD. 3. Hyperlipidemia. MEDICATIONS: Medications at home include, 1. Atorvastatin 40 mg daily. 2. Lisinopril 10 mg daily. 3. Coreg 6.25 mg b.i.d. 4. Amlodipine 5 mg daily. 5. Magnesium supplements. 6. Imdur 30 mg daily. 7. Insulin, both he takes Lantus as well as Humalog. 8. Hydralazine 100 mg t.i.d. 9. Demadex 20 mg daily. 10.Flomax. ALLERGIES: None. PHYSICAL EXAMINATION: VITAL SIGNS: Blood pressure is 118/70, pulse rate is 58 per minute. NECK: JVD 1 cm. No carotid bruit. CARDIOVASCULAR: S1, S2 heard normally. Short systolic murmur. LUNGS: Revealed diminished air entry in bilateral lung curry. ABDOMEN: Soft, nontender. LOWER EXTREMITIES: Reveal diminished pulses. CENTRAL NERVOUS SYSTEM: Grossly within normal limits with generalized weakness. EKG revealed sinus mechanism, nonspecific ST-T changes. IMPRESSION: 1. Chest pain with a [id number] myocardial infarction. 2. Chronic kidney disease with creatinine of about 3.2. 3. Diabetes with chronic kidney disease. 4. Hypertension. 5. Hyperlipidemia. 6. History of recent acute kidney injury. RECOMMENDATIONS: After extensive discussion with the Pulper Operator and also after discussion with the patient, I will proceed with cardiac catheterization tomorrow. Rationale, risks, benefits, options explained. He understands and is fully aware of the fact he could have worsening renal function. We will continue nitroglycerin intravenously for now and heparin. If he has more symptoms, I will study him sooner. Prognosis remains guarded. Thank you very much for the consult. MMODL / IJN: [id number] /
[2023-06-18 06:08] LABS: Glucose,Whole Blood 80 mg/dL (70-110)
[2023-06-18 08:46] LABS: HGB 7.4 gm/dL (13.0-17.5); Hypochromasia Slight; MCH 30.9 pg (25.0-35.0); MCHC 32.3 g/dL (31.0-37.0); MCV 95.5 fL (80.0-100.0); Mean Platelet Volume 9.6; Poikilocytosis Slight; RBC 2.41 m/uL (4.30-5.90); RDW 14.9 % (11.5-15.5)
[2023-06-18 08:50] LABS: Platelet Count 90 k/uL (150-450)
[2023-06-18] MEDS: ATORVASTATIN 80 MG TAB PO STA (09:20)
[2023-06-18] MEDS: ASPIRIN 81 MG PO STA (09:20)
[2023-06-18 09:58] LABS: African American GFR (CKD) 18 (>60 ml/min/1.73 sqM); Anion Gap 7 mmol/L; Blood Urea Nitrogen 68 mg/dL (9-20); Calcium 8.5 mg/dL (8.4-10.2); Carbon Dioxide 18 mmol/L (22-30); Chloride 113 mmol/L (98-107); Glucose 87 mg/dL (74-99); Magnesium 2.3 mg/dL (1.6-2.3); Non-African American GFR(CKD) 16 (>60 ml/min/1.73 sqM); Potassium 5.9 mmol/L (3.5-5.1); Sodium 138 mmol/L (137-145)
[2023-06-18] MEDS ORDERED: HEPARIN SODIUM 1,000 UN/ML (10ML VL) ONE (11:22)
[2023-06-18] MEDS: MIDAZOLAM 2 MG/2 ML VIAL IVP ONE (11:29)
[2023-06-18] MEDS: IV FLUID CONTINUATION 1,000 ML IV ONE (11:30)
[2023-06-18] MEDS: LIDOCAINE 1% INJ 10MG/ML (20 ML MDV) SQ ONE (11:32)
[2023-06-18] MEDS: VERAPAMIL SYRINGE (5 MG/10 ML) INTRAARTER ONE (11:33)
[2023-06-18] MEDS: HEPARIN SODIUM 1,000 UN/ML (10ML VL) IV ONE (11:36)
--- NOTE | 2023-06-18 11:41 | CA ---
Transthoracic Echo Report Name: Matthew Vu Age: 72 Gender: M : 1950 Exam Date: 06/17/2023 15:49 Exam Location: [facility] Ht (in): 77 Wt (lb): 180 Ordering Physician: Jameel Sanchez DO Attending/Referring Phys: Edge Trimming Machine Operator Gema Greer RDCS Procedure CPT: Indications: nstemi Cardiac Hx: Technical Quality: Technically difficult study Contrast 1: Definity Total Dose (mL): 2 Contrast 2: Total Dose (mL): MEASUREMENTS (Male / Female) Normal Values 2D ECHO LV Diastolic Diameter PLAX 5.9 cm 4.2 - 5.9 / 3.9 - 5.3 cm LV Systolic Diameter PLAX 4.4 cm IVS Diastolic Thickness 1.6 cm 0.6 - 1.0 / 0.6 - 0.9 cm LVPW Diastolic Thickness 1.4 cm 0.6 - 1.0 / 0.6 - 0.9 cm LV Relative Wall Thickness 0.5 RV Internal Dim ED PLAX 3.6 cm LV Diastolic Volume MOD BP 139.4 cm??? 67 - 155 / 56 - 104 cm??? LV Systolic Volume MOD BP 64.2 cm??? 22 - 58 / 19 - 49 cm??? LV Ejection Fraction MOD BP 53.9 % >= 55 % LV Cardiac Index MOD BP 2115.5 cm???/min???m??? LV Diastolic Volume MOD 4C 169.2 cm??? LV Systolic Volume MOD 4C 80.8 cm??? LV Ejection Fraction MOD 4C 52.3 % LV Cardiac Index MOD 4C 2489.3 cm???/min???m??? LV Diastolic Length 4C 9.4 cm LV Systolic Length 4C 8.3 cm LV Diastolic Volume MOD 2C 113.8 cm??? LV Systolic Volume MOD 2C 50.3 cm??? LV Ejection Fraction MOD 2C 55.8 % LV Cardiac Index MOD 2C 1787.2 cm???/min???m??? LV Diastolic Length 2C 9.3 cm LV Systolic Length 2C 8.1 cm LA Volume 107.0 cm??? 18 - 58 / 22 - 52 cm??? LA Volume Index 51.0 cm???/m??? 16 - 28 cm???/m??? M-MODE Aortic Root Diameter MM 2.6 cm LA Systolic Diameter MM 5.7 cm LA Ao Ratio MM 2.2 AV Cusp Separation MM 1.7 cm DOPPLER AV Peak Velocity 153.5 cm/s AV Peak Gradient 9.4 mmHg AV Mean Velocity 106.1 cm/s AV Mean Gradient 5.1 mmHg AV Velocity Time Integral 41.2 cm LVOT Peak Velocity 98.2 cm/s LVOT Peak Gradient 3.9 mmHg LVOT Velocity Time Integral 25.2 cm MV Area PHT 2.6 cm??? Mitral E Point Velocity 133.0 cm/s Mitral A Point Velocity 36.3 cm/s Mitral E to A Ratio 3.7 MV Deceleration Time 287.4 ms MV E' Velocity 4.3 cm/s Mitral E to MV E' Ratio 30.8 TR Peak Velocity 394.3 cm/s TR Peak Gradient 62.2 mmHg Right Ventricular Systolic Press 64.3 mmHg FINDINGS Left Ventricle Moderately increased left ventricular wall thickness. Left ventricular cavity size normal. Normal left ventricular systolic function. Mid to basal inferior wall hypokinesia. Left ventricular ejection fraction is estimated at 50-55 %. Right Ventricle Mild right ventricular dilatation. Severe pulmonary hypertension. Right ventricular systolic pressure estimated at 64 mm hg. Right Atrium Mild right atrial dilatation. Left Atrium Severely increased left atrial volume. Mildly increased left atrial area. Mitral Valve Structurally normal mitral valve. Yyokmyyl-mo-moshiv mitral regurgitation. Aortic Valve Trileaflet aortic valve. No aortic valve stenosis or regurgitation. Tricuspid Valve Structurally normal tricuspid valve. Mild tricuspid regurgitation. Pulmonic Valve Structurally normal pulmonic valve. Pericardium No pericardial effusion. Aorta Normal size aortic root and proximal ascending aorta. CONCLUSIONS LVEF 50 to 55% Moderate concentric LVH Mid to basal inferior wall hypokinesia Mild left atrial dilatation. elevated LA pressures Moderate mitral regurgitation RV not well-visualized RVSP estimated at 65 mmHg Previewed by: Dr Michael Dunbar (Electronically Signed) Final Date: 18 June 2023 11:40
--- NOTE | 2023-06-18 11:53 | P.PN ---
Subjective Patient is seen in follow-up for chronic kidney disease. Renal function little worse with creatinine 3.63 today. Nonoliguric. On 3 L nasal cannula. Scheduled for cardiac catheterization today. Vital signs are stable. General: No acute distress. HEENT: Head exam is unremarkable. LUNGS: No audible rhonchi or wheezes. HEART: Rate and Rhythm are regular. ABDOMEN: Nontender. EXTREMITITES: Trace edema. Objective - Vital Signs Vital signs: Vital Signs Temp 97.5 F L 06/18/23 08:42 Pulse 49 L 06/18/23 11:15 Resp 16 06/18/23 11:15 BP 143/70 06/18/23 11:15 Pulse Ox 96 06/18/23 08:42 FiO2 Intake & Output 06/17/23 06/18/23 06/18/23 18:59 06:59 18:59 Intake Total 400 230.58 128.882 Output Total 1225 400 Balance -825 -169.42 128.882 Weight 81.647 kg Intake: IV 10 Invasive Line 1 5 Invasive Line 2 5 Intake, IV Titration 230.58 118.882 Amount Heparin Sod,Pork in 0.45% 230.58 118.882 NaCl 25,000 unit In 0.45 % NaCl 1 250ml.bag @ 12 UNITS/KG/HR 9.798 mls/hr IV .Q24H [facility] Rx#: [id number] Oral 400 Output: Urine 1225 400 Other: Voiding Method Incontinent Incontinent Incontinent - Labs CBC & Chem 7: 06/18/23 08:22 06/18/23 08:22 Labs: Abnormal Lab Results - Last 24 Hours (Table) 06/17/23 06/17/23 06/18/23 Range/Units 03:36 17:03 08:22 RBC 2.44 L 2.41 L (4.30-5.90) m/uL Hgb 7.5 L 7.4 L (13.0-17.5) gm/dL Hct 23.2 L 23.0 L (39.0-53.0) % Plt Count 81 L 90 L (150-450) k/uL APTT (22.0-30.0) sec Potassium (3.5-5.1) mmol/L Chloride (98-107) mmol/L Carbon Dioxide (22-30) mmol/L BUN (9-20) mg/dL Creatinine (0.66-1.25) mg/dL Iron 15 L (65-175) UG/DL TIBC 223 L (228-460) UG/DL % Saturation 6.73 L (15.00-50.00) Transferrin 159.0 L (204.0-354.0) mg/dL 06/18/23 06/18/23 Range/Units 08:22 08:22 RBC (4.30-5.90) m/uL Hgb (13.0-17.5) gm/dL Hct (39.0-53.0) % Plt Count (150-450) k/uL APTT 53.0 H (22.0-30.0) sec Potassium 5.9 H (3.5-5.1) mmol/L Chloride 113 H (98-107) mmol/L Carbon Dioxide 18 L (22-30) mmol/L BUN 68 H (9-20) mg/dL Creatinine 3.63 H (0.66-1.25) mg/dL Iron (65-175) UG/DL TIBC (228-460) UG/DL % Saturation (15.00-50.00) Transferrin (204.0-354.0) mg/dL Assessment and Plan Plan: Assessment: 1. Chronic kidney disease stage IV with baseline creatinine in the range of 3- 3.5. 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 2. Hyperkalemia secondary to chronic kidney disease and metabolic acidosis. Was also taking lisinopril. 3. Non-ST elevated myocardial infarction being followed by cardiology. On nitro and heparin drip. 4. Metabolic acidosis secondary to IV fluids and chronic kidney disease. 5. Anemia of chronic kidney disease. Iron deficiency noted. 6. Mild fluid overload. Status post IV Lasix in ER. 7. Urinary retention with chronic Washington catheter. On Flomax. 8. Hypertension with chronic kidney disease. Stable. 9. Chronic diastolic CHF and moderate to severe mitral regurgitation. 10. Acute kidney injury secondary to ATN secondary to cardiorenal syndrome. Creatinine 3.63 today. Plan: Case discussed with cardiology. Cardiac catheterization today. Discussed with patient the risk of worsening renal function potentially requiring renal replacement therapy post IV contrast exposure. He understands. Currently on normal saline at 50 cc an hour. Hep-Lock IV fluids 6 hours after cardiac catheterization. Continue to hold lisinopril. Add IV iron. 10 units IV regular insulin with amp of D50, 2 g sodium bicarb IV push and 10 g Lokelma once now. Repeat potassium level this evening.
[2023-06-18] MEDS: IOPAMIDOL-370 100ML BTL INJ ONE (11:54)
[2023-06-18] MEDS: DEXTROSE 50% SYRINGE 50 ML IVP STA (12:13)
[2023-06-18] MEDS: SODIUM BICARB 8.4% 50 ML SYR (1 MEQ/ML) IV STA (12:13)
[2023-06-18] MEDS: SODIUM ZIRCONIUM CYCLOSILICATE 10 GM PACKET PO ONE (12:13)
[2023-06-18] MEDS: INSULIN REGULAR 100 UNIT/ML VIAL (IV) IV ONE (12:16)
[2023-06-18 12:21] LABS: Glucose,Whole Blood 99 mg/dL (70-110)
[2023-06-18] MEDS: SODIUM BICARB 8.4% 50 ML SYR (1 MEQ/ML) ONE (12:40)
[2023-06-18] MEDS: SODIUM FERRIC GLUCONAT-SUCROSE 125 MG in SODIUM CHLORIDE 0.9% 100 ML IVPB SCH (15:22)
[2023-06-18] MEDS: HEPARIN SOD,PORK IN 0.45% NACL 25,000 UNIT in 0.45% NACL 1 250ML.BAG IV SCH (15:56)
[2023-06-18 16:49] LABS: Glucose,Whole Blood 98 mg/dL (70-110)
--- NOTE | 2023-06-18 17:07 | P.PN ---
Subjective Progress Note Date: 06/18/23 * 72-year-old gentleman with past medical history significant for chronic urinary retention s/p Washington catheter in place, congestive heart failure, diabetes mellitus, hypertension, hyperlipidemia diabetic neuropathy, history of ESBL infection presents to the emergency department with acute onset of chest discomfort. Patient states symptom onset was few hours prior to presentation. Patient complained of midsternal chest discomfort about 9 x 10 in intensity. Patient complained of pressure radiating down left arm. This was associated with shortness of breath patient denies nausea, vomiting or diaphoresis * Initial workup initiated in ER included an EKG which showed sinus bradycardia peak T waves were noted in anterior leads * A chest x-ray was obtained that was consistent with pulmonary vascular co ngestion * Blood work obtained include CBC which showed WBC count of 7.1 hemoglobin 7.4 platelet count of 83, INR of 1.1 serum chemistry showed sodium 139 potassium 5.3, dioxide 21 BUN 62 creatinine 3.22 * Initial troponin obtained 4.360, followed by 4.630. * N-terminal proBNP 35874 * While in ER patient was given a dose of aspirin, IV Lasix, morphine for pain control sublingual nitroglycerin and admitted for workup for non-ST elevated SD as well as worsening renal function with consultation from nephrology and cardiology Objective - Vital Signs Vital signs: Vital Signs Temp 97.6 F 06/18/23 09:00 Pulse 49 L 06/18/23 11:15 Resp 16 06/18/23 11:15 BP 143/70 06/18/23 11:15 Pulse Ox 96 06/18/23 11:15 FiO2 Intake & Output 06/17/23 06/18/23 06/18/23 18:59 06:59 18:59 Intake Total 400 230.58 128.882 Output Total 1225 400 Balance -825 -169.42 128.882 Weight 81.647 kg Intake: IV 10 Invasive Line 1 5 Invasive Line 2 5 Intake, IV Titration 230.58 118.882 Amount Heparin Sod,Pork in 0.45% 230.58 118.882 NaCl 25,000 unit In 0.45 % NaCl 1 250ml.bag @ 12 UNITS/KG/HR 9.798 mls/hr IV .Q24H [facility] Rx#: [id number] Oral 400 Output: Urine 1225 400 Other: Voiding Method Incontinent Incontinent Incontinent - Exam GENERAL: The patient is alert and oriented x3, ill appearance, nasal cannula in place HEENT: Pupils are round and equally reacting to light. EOMI. No scleral icterus. CARDIOVASCULAR: S1 and S2 present. Bradycardia PULMONARY: deCreased breath sounds bilaterally ABDOMEN: Soft, nontender, nondistended, normoactive bowel sounds. Washington in place MUSCULOSKELETAL: No joint swelling or deformity. EXTREMITIES: NEUROLOGICAL: Gross neurological examination did not reveal any focal deficits. - Labs CBC & Chem 7: 06/18/23 08:22 06/18/23 08:22 Labs: Abnormal Lab Results - Last 24 Hours (Table) 06/17/23 06/17/23 06/18/23 Range/Units 03:36 17:03 08:22 RBC 2.44 L 2.41 L (4.30-5.90) m/uL Hgb 7.5 L 7.4 L (13.0-17.5) gm/dL Hct 23.2 L 23.0 L (39.0-53.0) % Plt Count 81 L 90 L (150-450) k/uL APTT (22.0-30.0) sec Potassium (3.5-5.1) mmol/L Chloride (98-107) mmol/L Carbon Dioxide (22-30) mmol/L BUN (9-20) mg/dL Creatinine (0.66-1.25) mg/dL Iron 15 L (65-175) UG/DL TIBC 223 L (228-460) UG/DL % Saturation 6.73 L (15.00-50.00) Transferrin 159.0 L (204.0-354.0) mg/dL 06/18/23 06/18/23 Range/Units 08:22 08:22 RBC (4.30-5.90) m/uL Hgb (13.0-17.5) gm/dL Hct (39.0-53.0) % Plt Count (150-450) k/uL APTT 53.0 H (22.0-30.0) sec Potassium 5.9 H (3.5-5.1) mmol/L Chloride 113 H (98-107) mmol/L Carbon Dioxide 18 L (22-30) mmol/L BUN 68 H (9-20) mg/dL Creatinine 3.63 H (0.66-1.25) mg/dL Iron (65-175) UG/DL TIBC (228-460) UG/DL % Saturation (15.00-50.00) Transferrin (204.0-354.0) mg/dL Assessment and Plan Assessment: Assessment and plan * Non-ST elevated SD * Chronic kidney disease stage IV with hyperkalemia * Metabolic acidosis * Diabetes mellitus type 2 * Acute on chronic congestive heart failure * Anemia of chronic kidney disease * To urinary retention with Washington catheter in place * In regards to non-ST elevated SD, cardiology consulted continue IV heparin, aspirin, Lipitor, Imdur, IV nitroglycerin drip initiated by cardiology * Regards to hyperkalemia and chronic kidney disease nephrology consulted patient received 1 dose of Lasix follow-up electrolyte workup ordered * In regards to diabetes mellitus Accu-Cheks every 4 hours, correctional insulin ordered will patient n.p.o. monitor for hypoglycemia * In regards to acute on chronic congestive heart failure follow-up echocardiogram ordered patient given 1 dose of Lasix * In regards to urinary retention continue [place] catheter, continue Flomax * Status is full code
[2023-06-18] MEDS: NITROGLYCERIN OINT 1 INCH/GM PACKET TOPICAL SCH (17:39)
[2023-06-18 18:53] LABS: Appearance,Urine Cloudy (Clear); Bacteria,Urine Occasional /hpf; Bilirubin,Urine Negative (Negative); Blood,Urine Trace (Negative); Color,Urine Yellow; Glucose,Urine (UA) Negative (Negative); Ketones,Urine Negative (Negative); Leukocyte Esterase,Urine Large (Negative); Mucus,Urine Rare /hpf; Nitrite,Urine Negative (Negative); Protein,Urine 3+ (Negative); RBC,Urine 9 /hpf (0-5); Squamous Epithelial Cell,Urine 2 /hpf (0-4); Urobilinogen,Urine <2.0 mg/dL (<2.0); WBC,Urine >182 /hpf (0-5)
[2023-06-18 21:14] LABS: Glucose,Whole Blood 199 mg/dL (70-110)
--- NOTE | 2023-06-18 21:50 | CC ---
CARDIAC CATHETERIZATION REPORT PROCEDURES PERFORMED: Left heart catheterization and coronary angiography. PERFORMED BY: Dr. Nelson Sousa. ANESTHESIA: Moderate conscious sedation time was 20 minutes. The patient was administered Versed. Oxygen saturation, hemodynamics, and EKG were monitored closely. CLINICAL INFORMATION: Mr. Matthew Vu is a 72-year-old gentleman with a known history of hypertension, hyperlipidemia, type 2 diabetes with chronic kidney disease, and some carotid atherosclerosis and history of some urinary retention. He came into the hospital with chest discomfort, had a troponin elevation suggestive of [id number]. Creatinine was elevated more than 2.5. He was seen and evaluated by Nephrology and after due discussion, we decided to hydrate him cautiously and perform cardiac cath today. Risks, benefits, options, rationale including the risk of worsening renal function was explained. The patient's echocardiogram revealed a normal LV size, mid to lateral basal hypokinesia, ejection fraction of 55% with moderate pulmonary hypertension and moderate mitral regurgitation. CARDIAC CATHETERIZATION FINDINGS: The left ventricular end-diastolic pressure was 7 mmHg without any gradient across the aortic valve. CORONARY ANGIOGRAPHY FINDINGS: Right coronary artery: This is a dominant vessel, has minor irregularities, distally bifurcates into a larger PLV, smaller PDA, PDA has about a 60% narrowing, smaller vessel relatively, mild calcification. Left main coronary artery does not exist. The patient has a circumflex that arises from the right coronary artery. Left anterior descending coronary artery: Good caliber vessel, moderate calcification, 30% to 40% narrowing in the proximal portion and gives off a good-sized septal and diagonal branch. Then, the vessel caliber decreases, it runs all the way to the apex, has no significant lesion, but there is diffuse narrowing of the mid LAD after the origin of the diagonal branch. Left circumflex coronary artery: This vessel actually comes from the right coronary cusp and the right coronary artery. Proximal RCA right after the origin gives off a circumflex branch that curves over to the left and supplies. This is a nondominant circumflex. Ostium has 80% narrowing. Proximal portion has a 60% to 70% narrowing. I got only 1 subselective injection. Given the patient's high risk for worsening renal failure and previous history of acute kidney injury, I gave him very little dye of about 50 mL totally. The 1 injection demonstrated that circumflex has ostial lesion 80%, proximal lesion 60% to 70%, but this is a nondominant vessel without significant myocardium being supplied by it. FINAL IMPRESSION: This patient has normal filling pressures. No gradient. Right coronary artery is dominant. Circumflex is ectopic, comes from the right coronary artery. LAD has minor irregularities, noncritical disease, but the mid LAD onwards the vessel tapers to a mild diffuse disease throughout. The diagonal and septal branches are free of significant disease. [place] RCA is dominant. No significant disease. PDA has a 60% narrowing. PDA is smaller. PLV is larger. No significant disease. RECOMMENDATIONS: This patient has significant history of acute kidney injury in the past and also renal failure with a creatinine that runs in the range of 3.63 and therefore I did not feel that pursuing an intervention of this difficult procedure was worthwhile since we would use a lot of dye and also there was a chance of causing a RCA and dissection as well because the circumflex comes at a very acute angle would be difficult to cannulate. Given this, I recommended medical therapy. RCA is dominant, relatively no significant disease and the LAD also does not have significant disease and the circumflex makes to single-vessel disease with a high risk for intervention. We will therefore pursue medical therapy. I explained to the patient the rationale. I tried to reach the daughter Thea by phone, but the phone was going to a busy signal. We will pursue medical therapy. Overall prognosis is poor for this patient given his comorbid conditions and renal failure. MMODL / IJN: [id number] /
--- NOTE | 2023-06-19 02:51 | PN ---
PROGRESS NOTE SUBJECTIVE: Mr. Vu is 72 years of age, has chronic kidney disease, diabetes with a creatinine in the range of 3.5. He is going for a cardiac cath today. Had been hydrated and we had given him some bicarbonate and held his lisinopril. No further chest pain. OBJECTIVE: GENERAL: Comfortable. VITAL SIGNS: Stable. CARDIOVASCULAR: Slightly bradycardic. S1, S2 heard normally. Short systolic murmur at the base. LUNGS: Clear. ABDOMEN: Unremarkable. LOWER EXTREMITIES: Unremarkable. Coronary angiography today with the least amount of contrast. The patient is aware of the risks, benefits, options and the chance of worsening renal failure. MMODL / IJN: [id number] /
[2023-06-19 06:08] LABS: Glucose,Whole Blood 126 mg/dL (70-110)
[2023-06-19 09:54] LABS: Basophils % (A) 0 %; Eosinophils # (A) 0.4 k/uL (0-0.7); Eosinophils % (A) 5 %; HCT 22.6 % (39.0-53.0); HGB 7.2 gm/dL (13.0-17.5); Hypochromasia Slight; Lymphocytes # (A) 0.4 k/uL (1.0-4.8); Lymphocytes % (A) 6 %; MCH 30.6 pg (25.0-35.0); MCHC 31.8 g/dL (31.0-37.0); MCV 96.2 fL (80.0-100.0); Mean Platelet Volume 8.8; Monocytes # (A) 0.5 k/uL (0-1.0); Monocytes % (A) 7 %; Neutrophils # (A) 5.9 k/uL (1.3-7.7); Neutrophils % (A) 81 %; Poikilocytosis Slight; RBC 2.35 m/uL (4.30-5.90); RDW 15.1 % (11.5-15.5); WBC 7.3 k/uL (3.8-10.6)
[2023-06-19 10:07] LABS: African American GFR (CKD) 15 (>60 ml/min/1.73 sqM); Anion Gap 6 mmol/L; Blood Urea Nitrogen 76 mg/dL (9-20); Calcium 8.1 mg/dL (8.4-10.2); Carbon Dioxide 19 mmol/L (22-30); Chloride 111 mmol/L (98-107); Glucose 162 mg/dL (74-99); Magnesium 2.3 mg/dL (1.6-2.3); Non-African American GFR(CKD) 13 (>60 ml/min/1.73 sqM); Sodium 136 mmol/L (137-145)
[2023-06-19 10:12] LABS: Platelet Count 99 k/uL (150-450)
[2023-06-19 11:36] LABS: Glucose,Whole Blood 170 mg/dL (70-110)
--- NOTE | 2023-06-19 11:43 | P.PN ---
Subjective patient is seen for follow-up for chronic kidney disease and acute kidney injury. renal function has worsened with serum creatinine increased to 4.1 today. potassium was 6.0. Patient has an indwelling [place] catheter with urine output documented at 1.6 L for last 24 hours. status post cardiac catheterization on 06/18/2023. No plans for intervention at this time. patient will need to start renal replacement therapy if renal function continues to worsen. Objective - Vital Signs Vital signs: Vital Signs Temp 98.3 F 06/19/23 09:08 Pulse 58 L 06/19/23 09:08 Resp 18 06/19/23 09:10 BP 127/61 06/19/23 09:08 Pulse Ox 96 06/19/23 09:08 FiO2 Intake & Output 06/18/23 06/19/23 06/19/23 18:59 06:59 18:59 Intake Total 574.520 137.825 246 Output Total 100 400 Balance 474.520 -262.175 246 Weight 81.647 kg Intake: IV 70 10 Invasive Line 1 10 Invasive Line 2 10 10 Intake, IV Titration 144.520 137.825 Amount Heparin Sod,Pork in 0.45% 144.520 NaCl 25,000 unit In 0.45 % NaCl 1 250ml.bag @ 12 UNITS/KG/HR 9.798 mls/hr IV .Q24H [facility] Rx#: [id number] Heparin Sod,Pork in 0.45% 137.825 NaCl 25,000 unit In 0.45 % NaCl 1 250ml.bag @ 12 UNITS/KG/HR 9.798 mls/hr IV .Q24H [facility] Rx#: [id number] Oral 360 236 Output: Urine 100 400 Other: Voiding Method Incontinent Incontinent Incontinent # Bowel Movements 1 - Exam patient is awake, comfortable, no acute distress Examination of the heart S1 and S2 Examination of the lungs bilateral breath sounds are heard Abdomen is soft nontender Examination of the lower extremities shows edema 1+ bilaterally RESEARCH RN SPEC exam grossly intact - Labs CBC & Chem 7: 06/19/23 09:06 06/19/23 09:06 Labs: Abnormal Lab Results - Last 24 Hours (Table) 06/18/23 06/18/23 06/18/23 Range/Units 17:56 18:29 21:13 RBC (4.30-5.90) m/uL Hgb (13.0-17.5) gm/dL Hct (39.0-53.0) % Plt Count (150-450) k/uL Lymphocytes # (1.0-4.8) k/uL APTT (22.0-30.0) sec Sodium (137-145) mmol/L Potassium 5.3 H (3.5-5.1) mmol/L Chloride (98-107) mmol/L Carbon Dioxide (22-30) mmol/L BUN (9-20) mg/dL Creatinine (0.66-1.25) mg/dL Glucose (74-99) mg/dL POC Glucose (mg/dL) 199 H (70-110) mg/dL Calcium (8.4-10.2) mg/dL Urine Protein 3+ H (Negative) Urine Blood Trace H (Negative) Ur Leukocyte Esterase Large H (Negative) Urine RBC 9 H (0-5) /hpf Urine WBC >182 H (0-5) /hpf Urine WBC Clumps Many H (None) /hpf Urine Bacteria Occasional H (None) /hpf Urine Mucus Rare H (None) /hpf 06/18/23 06/19/23 06/19/23 Range/Units 23:48 06:07 09:06 RBC (4.30-5.90) m/uL Hgb (13.0-17.5) gm/dL Hct (39.0-53.0) % Plt Count (150-450) k/uL Lymphocytes # (1.0-4.8) k/uL APTT 60.3 H (22.0-30.0) sec Sodium 136 L (137-145) mmol/L Potassium 6.0 H (3.5-5.1) mmol/L Chloride 111 H (98-107) mmol/L Carbon Dioxide 19 L (22-30) mmol/L BUN 76 H (9-20) mg/dL Creatinine 4.17 H (0.66-1.25) mg/dL Glucose 162 H (74-99) mg/dL POC Glucose (mg/dL) 126 H (70-110) mg/dL Calcium 8.1 L (8.4-10.2) mg/dL Urine Protein (Negative) Urine Blood (Negative) Ur Leukocyte Esterase (Negative) Urine RBC (0-5) /hpf Urine WBC (0-5) /hpf Urine WBC Clumps (None) /hpf Urine Bacteria (None) /hpf Urine Mucus (None) /hpf 06/19/23 Range/Units 09:06 RBC 2.35 L (4.30-5.90) m/uL Hgb 7.2 L (13.0-17.5) gm/dL Hct 22.6 L (39.0-53.0) % Plt Count 99 L (150-450) k/uL Lymphocytes # 0.4 L (1.0-4.8) k/uL APTT (22.0-30.0) sec Sodium (137-145) mmol/L Potassium (3.5-5.1) mmol/L Chloride (98-107) mmol/L Carbon Dioxide (22-30) mmol/L BUN (9-20) mg/dL Creatinine (0.66-1.25) mg/dL Glucose (74-99) mg/dL POC Glucose (mg/dL) (70-110) mg/dL Calcium (8.4-10.2) mg/dL Urine Protein (Negative) Urine Blood (Negative) Ur Leukocyte Esterase (Negative) Urine RBC (0-5) /hpf Urine WBC (0-5) /hpf Urine WBC Clumps (None) /hpf Urine Bacteria (None) /hpf Urine Mucus (None) /hpf Assessment and Plan Assessment: 1. Chronic kidney disease stage IV with baseline creatinine in the range of 3- 3.5. 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 2. Hyperkalemia secondary to chronic kidney disease and metabolic acidosis. Was also taking lisinopril. now discontinued. 3. Non-ST elevated myocardial infarction being followed by cardiology. status post cardiac catheterization 06/18/2023 with no plans for intervention at this time. 4. Metabolic acidosis secondary to IV fluids and chronic kidney disease. 5. Anemia of chronic kidney disease. Iron deficiency noted. 6. Mild fluid overload. Status post IV Lasix in ER. 7. Urinary retention with chronic [place] catheter. On Flomax. 8. Hypertension with chronic kidney disease. Stable. 9. Chronic diastolic CHF and moderate to severe mitral regurgitation. 10. Acute kidney injury secondary to ATN secondary to cardiorenal syndrome. Creatinine increased to 4.1 today. Plan: treat hyperkalemia with IV insulin and D50 Continue off of IV fluids Patient will need to start renal replacement therapy if renal function continues to worsen. Decrease Norvasc Repeat labs in a.m. Continue with oral sodium bicarb Lokelma x1
[2023-06-19] MEDS: METOPROLOL TARTRATE 12.5 MG TAB PO SCH (12:02)
[2023-06-19] MEDS: DEXTROSE 50% SYRINGE 50 ML IVP STA (12:18)
[2023-06-19] MEDS: SODIUM ZIRCONIUM CYCLOSILICATE 10 GM PACKET PO ONE (12:18)
[2023-06-19] MEDS: INSULIN REGULAR 100 UNIT/ML VIAL (IV) IV ONE (12:18)
[2023-06-19 16:39] LABS: Glucose,Whole Blood 123 mg/dL (70-110)
--- NOTE | 2023-06-19 16:40 | P.PN ---
Subjective Progress Note Date: 06/19/23 * 72-year-old gentleman with past medical history significant for chronic urinary retention s/p [place] catheter in place, congestive heart failure, diabetes mellitus, hypertension, hyperlipidemia diabetic neuropathy, history of ESBL infection presents to the emergency department with acute onset of chest discomfort. Patient states symptom onset was few hours prior to presentation. Patient complained of midsternal chest discomfort about 9 x 10 in intensity. Patient complained of pressure radiating down left arm. This was associated with shortness of breath patient denies nausea, vomiting or diaphoresis * Initial workup initiated in ER included an EKG which showed sinus bradycardia peak T waves were noted in anterior leads * A chest x-ray was obtained that was consistent with pulmonary vascular co ngestion * Blood work obtained include CBC which showed WBC count of 7.1 hemoglobin 7.4 platelet count of 83, INR of 1.1 serum chemistry showed sodium 139 potassium 5.3, dioxide 21 BUN 62 creatinine 3.22 * Initial troponin obtained 4.360, followed by 4.630. * N-terminal proBNP 24532 * While in ER patient was given a dose of aspirin, IV Lasix, morphine for pain control sublingual nitroglycerin and admitted for workup for non-ST elevated IN as well as worsening renal function with consultation from nephrology and cardiology 06/19/2023 Patient is seen and evaluated in room at bedside, denies any specific complaints; patient is status post cardiac catheterization on 06/18/2023 Vital signs are reviewed and remained stable with temperature of 98.3, pulse 58, respiration 18 and blood pressure of 127/61 Lab review shows a WBC of 7.3, hemoglobin of 7.2 and platelet count of 99, sodium 136, potassium 6.0,. BUNs/creatinine of 76/4.17 and blood glucose of 162 Patient is status post cardiac catheterization and no intervention is recommended at this time and patient is maintained on medical therapy Nephrology on board for worsening renal failure; plan is to possibly start p atient on renal replacement therapy if renal function continues to worsen --Patient has been treated with IV insulin and D50 for hyperkalemia, Lokelma x 1; no IV fluids recommended at this time; patient remains on oral bicarb Objective - Vital Signs Vital signs: Vital Signs Temp 98.3 F 06/19/23 09:08 Pulse 58 L 06/19/23 09:08 Resp 18 06/19/23 09:10 BP 127/61 06/19/23 09:08 Pulse Ox 96 06/19/23 09:08 FiO2 Intake & Output 06/18/23 06/19/23 06/19/23 18:59 06:59 18:59 Intake Total 574.520 137.825 246 Output Total 100 400 Balance 474.520 -262.175 246 Weight 81.647 kg Intake: IV 70 10 Invasive Line 1 10 Invasive Line 2 10 10 Intake, IV Titration 144.520 137.825 Amount Heparin Sod,Pork in 0.45% 144.520 NaCl 25,000 unit In 0.45 % NaCl 1 250ml.bag @ 12 UNITS/KG/HR 9.798 mls/hr IV .Q24H [facility] Rx#: [id number] Heparin Sod,Pork in 0.45% 137.825 NaCl 25,000 unit In 0.45 % NaCl 1 250ml.bag @ 12 UNITS/KG/HR 9.798 mls/hr IV .Q24H [facility] Rx#: [id number] Oral 360 236 Output: Urine 100 400 Other: Voiding Method Incontinent Incontinent Incontinent # Bowel Movements 1 - Exam GENERAL: The patient is alert and oriented x3, ill appearance, nasal cannula in place HEENT: Pupils are round and equally reacting to light. EOMI. No scleral icterus. CARDIOVASCULAR: S1 and S2 present. Bradycardia PULMONARY: deCreased breath sounds bilaterally ABDOMEN: Soft, nontender, nondistended, normoactive bowel sounds. Washington in place MUSCULOSKELETAL: No joint swelling or deformity. EXTREMITIES: NEUROLOGICAL: Gross neurological examination did not reveal any focal deficits. - Labs CBC & Chem 7: 06/19/23 09:06 06/19/23 09:06 Labs: Abnormal Lab Results - Last 24 Hours (Table) 06/18/23 06/18/23 06/18/23 Range/Units 17:56 18:29 21:13 RBC (4.30-5.90) m/uL Hgb (13.0-17.5) gm/dL Hct (39.0-53.0) % Plt Count (150-450) k/uL Lymphocytes # (1.0-4.8) k/uL APTT (22.0-30.0) sec Sodium (137-145) mmol/L Potassium 5.3 H (3.5-5.1) mmol/L Chloride (98-107) mmol/L Carbon Dioxide (22-30) mmol/L BUN (9-20) mg/dL Creatinine (0.66-1.25) mg/dL Glucose (74-99) mg/dL POC Glucose (mg/dL) 199 H (70-110) mg/dL Calcium (8.4-10.2) mg/dL Urine Protein 3+ H (Negative) Urine Blood Trace H (Negative) Ur Leukocyte Esterase Large H (Negative) Urine RBC 9 H (0-5) /hpf Urine WBC >182 H (0-5) /hpf Urine WBC Clumps Many H (None) /hpf Urine Bacteria Occasional H (None) /hpf Urine Mucus Rare H (None) /hpf 06/18/23 06/19/23 06/19/23 Range/Units 23:48 06:07 09:06 RBC (4.30-5.90) m/uL Hgb (13.0-17.5) gm/dL Hct (39.0-53.0) % Plt Count (150-450) k/uL Lymphocytes # (1.0-4.8) k/uL APTT 60.3 H (22.0-30.0) sec Sodium 136 L (137-145) mmol/L Potassium 6.0 H (3.5-5.1) mmol/L Chloride 111 H (98-107) mmol/L Carbon Dioxide 19 L (22-30) mmol/L BUN 76 H (9-20) mg/dL Creatinine 4.17 H (0.66-1.25) mg/dL Glucose 162 H (74-99) mg/dL POC Glucose (mg/dL) 126 H (70-110) mg/dL Calcium 8.1 L (8.4-10.2) mg/dL Urine Protein (Negative) Urine Blood (Negative) Ur Leukocyte Esterase (Negative) Urine RBC (0-5) /hpf Urine WBC (0-5) /hpf Urine WBC Clumps (None) /hpf Urine Bacteria (None) /hpf Urine Mucus (None) /hpf 06/19/23 Range/Units 09:06 RBC 2.35 L (4.30-5.90) m/uL Hgb 7.2 L (13.0-17.5) gm/dL Hct 22.6 L (39.0-53.0) % Plt Count 99 L (150-450) k/uL Lymphocytes # 0.4 L (1.0-4.8) k/uL APTT (22.0-30.0) sec Sodium (137-145) mmol/L Potassium (3.5-5.1) mmol/L Chloride (98-107) mmol/L Carbon Dioxide (22-30) mmol/L BUN (9-20) mg/dL Creatinine (0.66-1.25) mg/dL Glucose (74-99) mg/dL POC Glucose (mg/dL) (70-110) mg/dL Calcium (8.4-10.2) mg/dL Urine Protein (Negative) Urine Blood (Negative) Ur Leukocyte Esterase (Negative) Urine RBC (0-5) /hpf Urine WBC (0-5) /hpf Urine WBC Clumps (None) /hpf Urine Bacteria (None) /hpf Urine Mucus (None) /hpf Assessment and Plan Assessment: Assessment and plan * Non-ST elevated IN * Chronic kidney disease stage IV with hyperkalemia * Metabolic acidosis * Diabetes mellitus type 2 * Acute on chronic congestive heart failure * Anemia of chronic kidney disease * To urinary retention with [place] catheter in place * In regards to non-ST elevated IN, cardiology consulted continue IV heparin, aspirin, Lipitor, Imdur, IV nitroglycerin drip initiated by cardiology * Regards to hyperkalemia and chronic kidney disease nephrology consulted p atient received 1 dose of Lasix follow-up electrolyte workup ordered * In regards to diabetes mellitus Accu-Cheks every 4 hours, correctional insulin ordered will patient n.p.o. monitor for hypoglycemia * In regards to acute on chronic congestive heart failure follow-up echocardiogram ordered patient given 1 dose of Lasix * In regards to urinary retention continue [place] catheter, continue Flomax * Status is full code
[2023-06-19 20:30] LABS: Glucose,Whole Blood 147 mg/dL (70-110)
--- NOTE | 2023-06-19 20:57 | P.PN ---
Subjective Progress Note Date: 06/19/23 SUBJECTIVE: 72-year-old with CKD, diabetes, creatinine of 3.5 at baseline underwent a cardiac catheterization yesterday. 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 Decision was made to treat him medically. He is doing well from cardiovascular standpoint. His creatinine has worsened today. 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 Anemia hemoglobin 7.2 DIETER due to contrast nephropathy CKD stage IV Diabetes Hypertension Obesity PLAN Continue aspirin, atorvastatin Due to severe anemia, describing this patient Plavix. Metoprolol 12.5 mg twice daily Gentle IV hydration Appreciate nephrology recommendations for management of contrast nephropathy in setting of CKD stage IV Once kidney function improves back to baseline, patient is cleared from cardiovascular standpoint to be discharged with outpatient follow-up and for further management of his known intervenable circumflex artery. Michael Dunbar MD, FACC, RPVI Thank you for allowing [facility] to participate in this patient's care. Please contact us in case of any followup questions. Objective - Vital Signs Vital signs: Vital Signs Temp 98.1 F 06/19/23 19:50 Pulse 60 06/19/23 19:50 Resp 16 06/19/23 19:50 BP 138/57 06/19/23 19:50 Pulse Ox 93 L 06/19/23 19:50 FiO2 Intake & Output 06/19/23 06/19/23 06/20/23 06:59 18:59 06:59 Intake Total 137.825 704 Output Total 400 225 Balance -262.175 479 Intake: IV 10 Invasive Line 2 10 Intake, IV Titration 137.825 Amount Heparin Sod,Pork in 0.45% 137.825 NaCl 25,000 unit In 0.45 % NaCl 1 250ml.bag @ 12 UNITS/KG/HR 9.798 mls/hr IV .Q24H [facility] Rx#: [id number] Oral 694 Output: Urine 400 225 Other: Voiding Method Incontinent Incontinent # Bowel Movements 1 - Labs CBC & Chem 7: 06/19/23 09:06 06/19/23 09:06 Labs: Abnormal Lab Results - Last 24 Hours (Table) 06/18/23 06/18/23 06/19/23 Range/Units 21:13 23:48 06:07 RBC (4.30-5.90) m/uL Hgb (13.0-17.5) gm/dL Hct (39.0-53.0) % Plt Count (150-450) k/uL Lymphocytes # (1.0-4.8) k/uL APTT 60.3 H (22.0-30.0) sec Sodium (137-145) mmol/L Potassium (3.5-5.1) mmol/L Chloride (98-107) mmol/L Carbon Dioxide (22-30) mmol/L BUN (9-20) mg/dL Creatinine (0.66-1.25) mg/dL Glucose (74-99) mg/dL POC Glucose (mg/dL) 199 H 126 H (70-110) mg/dL Calcium (8.4-10.2) mg/dL 06/19/23 06/19/23 06/19/23 Range/Units 09:06 09:06 11:34 RBC 2.35 L (4.30-5.90) m/uL Hgb 7.2 L (13.0-17.5) gm/dL Hct 22.6 L (39.0-53.0) % Plt Count 99 L (150-450) k/uL Lymphocytes # 0.4 L (1.0-4.8) k/uL APTT (22.0-30.0) sec Sodium 136 L (137-145) mmol/L Potassium 6.0 H (3.5-5.1) mmol/L Chloride 111 H (98-107) mmol/L Carbon Dioxide 19 L (22-30) mmol/L BUN 76 H (9-20) mg/dL Creatinine 4.17 H (0.66-1.25) mg/dL Glucose 162 H (74-99) mg/dL POC Glucose (mg/dL) 170 H (70-110) mg/dL Calcium 8.1 L (8.4-10.2) mg/dL 06/19/23 06/19/23 Range/Units 16:36 20:27 RBC (4.30-5.90) m/uL Hgb (13.0-17.5) gm/dL Hct (39.0-53.0) % Plt Count (150-450) k/uL Lymphocytes # (1.0-4.8) k/uL APTT (22.0-30.0) sec Sodium (137-145) mmol/L Potassium (3.5-5.1) mmol/L Chloride (98-107) mmol/L Carbon Dioxide (22-30) mmol/L BUN (9-20) mg/dL Creatinine (0.66-1.25) mg/dL Glucose (74-99) mg/dL POC Glucose (mg/dL) 123 H 147 H (70-110) mg/dL Calcium (8.4-10.2) mg/dL
[2023-06-20 05:56] LABS: Glucose,Whole Blood 141 mg/dL (70-110)
[2023-06-20] MEDS: amLODIPine 5 MG TAB PO SCH (08:37)
[2023-06-20] MEDS ORDERED: metOLazone 2.5 MG TAB PO SCH (09:00)
--- NOTE | 2023-06-20 09:23 | P.PN ---
Subjective Progress Note Date: 06/20/23 SUBJECTIVE: 72-year-old with CKD, diabetes, creatinine of 3.5 at baseline underwent a cardiac catheterization yesterday. 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 Decision was made to treat him medically. He is doing well from cardiovascular standpoint. His creatinine has worsened today. Will give him IV gentle hydration June 20, 2023 Patient is evaluated bedside this a.m. He denies having any active chest pain chest pressure. His right radial site appears intact with no concerns of hematoma. Good pulse. His labs are still awaited. We are monitoring his kidney functions. His kidney function worsened with creatinine uptrending after his heart catheterization. He is on gentle IV hydration. He does not have any signs of pulmonary congestion at this time. 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 Anemia hemoglobin 7.2 DIETER due to contrast nephropathy CKD stage IV Diabetes Hypertension Obesity PLAN Continue aspirin, atorvastatin Due to severe anemia, not prescribing this patient Plavix. Metoprolol 12.5 mg twice daily, low-dose due to low resting heart rate Gentle IV hydration. Continue to monitor renal function. Labs are still awaited. Appreciate nephrology recommendations for management of contrast nephropathy in setting of CKD stage IV Once kidney function improves back to baseline, patient is cleared from cardiovascular standpoint to be discharged with outpatient follow-up and for further management of his known intervenable circumflex artery. Michael Dunbar MD, FACC, RPVI Objective - Vital Signs Vital signs: Vital Signs Temp 98.1 F 06/20/23 04:34 Pulse 60 06/20/23 04:34 Resp 16 06/20/23 04:34 BP 134/56 06/20/23 04:34 Pulse Ox 98 06/20/23 04:34 FiO2 Intake & Output 03/30/24 03/31/24 03/31/24 18:59 06:59 18:59 Intake Total 704 260 458 Output Total 225 200 Balance 479 60 458 Intake: IV 10 20 Invasive Line 1 20 Invasive Line 2 10 Oral 694 240 458 Output: Urine 225 200 Other: Voiding Method Incontinent Incontinent - Labs CBC & Chem 7: 06/19/23 09:06 06/19/23 09:06 Labs: Abnormal Lab Results - Last 24 Hours (Table) 06/19/23 06/19/23 06/19/23 Range/Units 09:06 09:06 11:34 RBC 2.35 L (4.30-5.90) m/uL Hgb 7.2 L (13.0-17.5) gm/dL Hct 22.6 L (39.0-53.0) % Plt Count 99 L (150-450) k/uL Lymphocytes # 0.4 L (1.0-4.8) k/uL Sodium 136 L (137-145) mmol/L Potassium 6.0 H (3.5-5.1) mmol/L Chloride 111 H (98-107) mmol/L Carbon Dioxide 19 L (22-30) mmol/L BUN 76 H (9-20) mg/dL Creatinine 4.17 H (0.66-1.25) mg/dL Glucose 162 H (74-99) mg/dL POC Glucose (mg/dL) 170 H (70-110) mg/dL Calcium 8.1 L (8.4-10.2) mg/dL 06/19/23 06/19/23 06/20/23 Range/Units 16:36 20:27 05:55 RBC (4.30-5.90) m/uL Hgb (13.0-17.5) gm/dL Hct (39.0-53.0) % Plt Count (150-450) k/uL Lymphocytes # (1.0-4.8) k/uL Sodium (137-145) mmol/L Potassium (3.5-5.1) mmol/L Chloride (98-107) mmol/L Carbon Dioxide (22-30) mmol/L BUN (9-20) mg/dL Creatinine (0.66-1.25) mg/dL Glucose (74-99) mg/dL POC Glucose (mg/dL) 123 H 147 H 141 H (70-110) mg/dL Calcium (8.4-10.2) mg/dL
[2023-06-20 10:49] LABS: Basophils % (A) 0 %; Eosinophils # (A) 0.7 k/uL (0-0.7); Eosinophils % (A) 7 %; HCT 22.2 % (39.0-53.0); HGB 7.5 gm/dL (13.0-17.5); Hypochromasia Slight; Lymphocytes # (A) 0.7 k/uL (1.0-4.8); Lymphocytes % (A) 8 %; MCH 31.9 pg (25.0-35.0); MCHC 33.6 g/dL (31.0-37.0); MCV 94.9 fL (80.0-100.0); Monocytes # (A) 0.7 k/uL (0-1.0); Monocytes % (A) 8 %; Neutrophils # (A) 6.6 k/uL (1.3-7.7); Neutrophils % (A) 75 %; Platelet Count 117 k/uL (150-450); Poikilocytosis Slight; RBC 2.34 m/uL (4.30-5.90); RDW 15.5 % (11.5-15.5); WBC 8.8 k/uL (3.8-10.6)
--- NOTE | 2023-06-20 10:54 | P.PN ---
Subjective patient is seen for follow-up for chronic kidney disease and acute kidney injury. renal function has worsened with serum creatinine increased to 4.1 yesterday with potassium off 6.0. Patient has an indwelling [place] catheter with urine output documented at 0.5 L for last 24 hours. ? accurate. status post cardiac catheterization on 06/18/2023. No plans for intervention at this time. patient will need to start renal replacement therapy if renal function continues to worsen. He is agreeable Objective - Vital Signs Vital signs: Vital Signs Temp 98.1 F 06/20/23 04:34 Pulse 60 06/20/23 04:34 Resp 16 06/20/23 04:34 BP 134/56 06/20/23 04:34 Pulse Ox 98 06/20/23 04:34 FiO2 Intake & Output 06/19/23 06/20/23 06/20/23 18:59 06:59 18:59 Intake Total 704 260 458 Output Total 225 200 Balance 479 60 458 Intake: IV 10 20 Invasive Line 1 20 Invasive Line 2 10 Oral 694 240 458 Output: Urine 225 200 Other: Voiding Method Incontinent Incontinent - Exam patient is awake, comfortable, no acute distress Alert oriented 3 Examination of the heart S1 and S2 Examination of the lungs bilateral breath sounds are heard Abdomen is soft nontender Examination of the lower extremities shows edema 1+ bilaterally [employer] exam grossly intact - Labs CBC & Chem 7: 06/19/23 09:06 06/19/23 09:06 Labs: Abnormal Lab Results - Last 24 Hours (Table) 06/19/23 06/19/23 06/19/23 Range/Units 11:34 16:36 20:27 POC Glucose (mg/dL) 170 H 123 H 147 H (70-110) mg/dL 06/20/23 Range/Units 05:55 POC Glucose (mg/dL) 141 H (70-110) mg/dL Microbiology - Last 24 Hours (Table) 06/18/23 18:29 Urine Culture - Preliminary Urine,Voided Gram Neg Bacilli Assessment and Plan Assessment: 1. Chronic kidney disease stage IV with baseline creatinine in the range of 3- 3.5. 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 2. Hyperkalemia secondary to chronic kidney disease and metabolic acidosis. Was also taking lisinopril. now discontinued. 3. Non-ST elevated myocardial infarction being followed by cardiology. status post cardiac catheterization 06/18/2023 with no plans for intervention at this time. 4. Metabolic acidosis secondary to IV fluids and chronic kidney disease. 5. Anemia of chronic kidney disease. Iron deficiency noted. 6. Fluid overload. 7. Urinary retention with chronic [place] catheter. On Flomax. 8. Hypertension with chronic kidney disease. Stable. 9. Chronic diastolic CHF and moderate to severe mitral regurgitation. 10. Acute kidney injury secondary to ATN secondary to cardiorenal syndrome. Creatinine increased to 4.1 yesterday. Patient is agreeable to start dialysis if renal function continues to worsen. Plan: treat hyperkalemia with IV insulin and D50 DC IV fluids Patient will need to start renal replacement therapy if renal function continues to worsen. patient is agreeable Repeat labs in a.m. Continue with oral sodium bicarb follow-up on labs from today
[2023-06-20 11:05] LABS: African American GFR (CKD) 14 (>60 ml/min/1.73 sqM); Anion Gap 9 mmol/L; Blood Urea Nitrogen 85 mg/dL (9-20); Calcium 7.9 mg/dL (8.4-10.2); Carbon Dioxide 18 mmol/L (22-30); Chloride 110 mmol/L (98-107); Glucose 150 mg/dL (74-99); Non-African American GFR(CKD) 12 (>60 ml/min/1.73 sqM); Potassium 5.7 mmol/L (3.5-5.1); Sodium 137 mmol/L (137-145)
[2023-06-20 11:52] LABS: Glucose,Whole Blood 161 mg/dL (70-110)
--- NOTE | 2023-06-20 15:36 | P.PN ---
Subjective Progress Note Date: 06/20/23 * 72-year-old gentleman with past medical history significant for chronic urinary retention s/p [place] catheter in place, congestive heart failure, diabetes mellitus, hypertension, hyperlipidemia diabetic neuropathy, history of ESBL infection presents to the emergency department with acute onset of chest discomfort. Patient states symptom onset was few hours prior to presentation. Patient complained of midsternal chest discomfort about 9 x 10 in intensity. Patient complained of pressure radiating down left arm. This was associated with shortness of breath patient denies nausea, vomiting or diaphoresis * Initial workup initiated in ER included an EKG which showed sinus bradycardia peak T waves were noted in anterior leads * A chest x-ray was obtained that was consistent with pulmonary vascular co ngestion * Blood work obtained include CBC which showed WBC count of 7.1 hemoglobin 7.4 platelet count of 83, INR of 1.1 serum chemistry showed sodium 139 potassium 5.3, dioxide 21 BUN 62 creatinine 3.22 * Initial troponin obtained 4.360, followed by 4.630. * N-terminal proBNP [id number] * While in ER patient was given a dose of aspirin, IV Lasix, morphine for pain control sublingual nitroglycerin and admitted for workup for non-ST elevated AR as well as worsening renal function with consultation from nephrology and cardiology 06/19/2023 Patient is seen and evaluated in room at bedside, denies any specific complaints; patient is status post cardiac catheterization on 06/18/2023 Vital signs are reviewed and remained stable with temperature of 98.3, pulse 58, respiration 18 and blood pressure of 127/61 Lab review shows a WBC of 7.3, hemoglobin of 7.2 and platelet count of 99, sodium 136, potassium 6.0,. BUNs/creatinine of 76/4.17 and blood glucose of 162 Patient is status post cardiac catheterization and no intervention is recommended at this time and patient is maintained on medical therapy Nephrology on board for worsening renal failure; plan is to possibly start p atient on renal replacement therapy if renal function continues to worsen --Patient has been treated with IV insulin and D50 for hyperkalemia, Lokelma x 1; no IV fluids recommended at this time; patient remains on oral bicarb 06/20/2023 Patient is seen and evaluated sitting up in bed; more awake and alert Vital signs reviewed and temperature of 97.9, pulse 100, respiration 18 and blood pressure of 130/80 with O2 saturation 95% on 2 L Lab review shows sodium of 137, potassium 5.7, BUNs/creatinine of 85/4.62 which is continuing to trend up Nephrology on board and recommending to treat hyperkalemia with IV insulin and D50; IV fluids are discontinued --Patient remains on oral sodium bicarbonate Plan is renal replacement therapy since renal function is continuing to worsen Objective - Vital Signs Vital signs: Vital Signs Temp 98.1 F 06/20/23 04:34 Pulse 60 06/20/23 04:34 Resp 16 06/20/23 04:34 BP 134/56 06/20/23 04:34 Pulse Ox 98 06/20/23 04:34 FiO2 Intake & Output 06/19/23 06/20/23 06/20/23 18:59 06:59 18:59 Intake Total 704 260 458 Output Total 225 200 Balance 479 60 458 Intake: IV 10 20 Invasive Line 1 20 Invasive Line 2 10 Oral 694 240 458 Output: Urine 225 200 Other: Voiding Method Incontinent Incontinent - Exam GENERAL: The patient is alert and oriented x3, ill appearance, nasal cannula in place HEENT: Pupils are round and equally reacting to light. EOMI. No scleral icterus. CARDIOVASCULAR: S1 and S2 present. Bradycardia PULMONARY: deCreased breath sounds bilaterally ABDOMEN: Soft, nontender, nondistended, normoactive bowel sounds. Washington in plac e MUSCULOSKELETAL: No joint swelling or deformity. EXTREMITIES: NEUROLOGICAL: Gross neurological examination did not reveal any focal deficits. - Labs CBC & Chem 7: 06/20/23 08:26 06/20/23 08:26 Labs: Abnormal Lab Results - Last 24 Hours (Table) 06/19/23 06/19/23 06/19/23 Range/Units 11:34 16:36 20:27 RBC (4.30-5.90) m/uL Hgb (13.0-17.5) gm/dL Hct (39.0-53.0) % Plt Count (150-450) k/uL Lymphocytes # (1.0-4.8) k/uL POC Glucose (mg/dL) 170 H 123 H 147 H (70-110) mg/dL 06/20/23 06/20/23 Range/Units 05:55 08:26 RBC 2.34 L (4.30-5.90) m/uL Hgb 7.5 L (13.0-17.5) gm/dL Hct 22.2 L (39.0-53.0) % Plt Count 117 L (150-450) k/uL Lymphocytes # 0.7 L (1.0-4.8) k/uL POC Glucose (mg/dL) 141 H (70-110) mg/dL Microbiology - Last 24 Hours (Table) 06/18/23 18:29 Urine Culture - Preliminary Urine,Voided Gram Neg Bacilli Assessment and Plan Assessment: Assessment and plan * Non-ST elevated AR * Chronic kidney disease stage IV with hyperkalemia * Metabolic acidosis * Diabetes mellitus type 2 * Acute on chronic congestive heart failure * Anemia of chronic kidney disease * To urinary retention with [place] catheter in place * In regards to non-ST elevated AR, cardiology consulted continue IV heparin, aspirin, Lipitor, Imdur, IV nitroglycerin drip initiated by cardiology * Regards to hyperkalemia and chronic kidney disease nephrology consulted patient received 1 dose of Lasix follow-up electrolyte workup ordered * In regards to diabetes mellitus Accu-Cheks every 4 hours, correctional insulin ordered will patient n.p.o. monitor for hypoglycemia * In regards to acute on chronic congestive heart failure follow-up echocardiogram ordered patient given 1 dose of Lasix * In regards to urinary retention continue [place] catheter, continue Flomax * Status is full code
[2023-06-20 16:26] LABS: Glucose,Whole Blood 123 mg/dL (70-110)
[2023-06-20] MEDS: SODIUM POLYSTYRENE SULFONATE 15 GM/60 ML BOTTLE PO ONE (17:08)
[2023-06-20] MEDS: DEXTROSE 50% SYRINGE 50 ML IVP ONE (17:09)
[2023-06-20] MEDS: CALCIUM GLUCONATE IN NACL 1 GM in SALINE 1 100ML.BAG IVPB ONE (17:09)
[2023-06-20] MEDS: INSULIN REGULAR 100 UNIT/ML VIAL (IV) IV ONE (17:09)
[2023-06-20 19:57] LABS: Glucose,Whole Blood 98 mg/dL (70-110)
[2023-06-21 05:52] LABS: Glucose,Whole Blood 165 mg/dL (70-110)
[2023-06-21 08:29] LABS: Basophils % (A) 0 %; Eosinophils # (A) 0.6 k/uL (0-0.7); Eosinophils % (A) 7 %; HCT 23.8 % (39.0-53.0); HGB 7.6 gm/dL (13.0-17.5); Hypochromasia Slight; Lymphocytes # (A) 0.7 k/uL (1.0-4.8); Lymphocytes % (A) 9 %; MCH 30.5 pg (25.0-35.0); MCV 95.3 fL (80.0-100.0); Monocytes # (A) 0.5 k/uL (0-1.0); Monocytes % (A) 6 %; Neutrophils # (A) 6.3 k/uL (1.3-7.7); Neutrophils % (A) 76 %; Platelet Count 134 k/uL (150-450); Poikilocytosis Slight; RDW 15.5 % (11.5-15.5); WBC 8.3 k/uL (3.8-10.6)
[2023-06-21 08:35] LABS: African American GFR (CKD) 12 (>60 ml/min/1.73 sqM); Anion Gap 11 mmol/L; Blood Urea Nitrogen 90 mg/dL (9-20); Calcium 8.2 mg/dL (8.4-10.2); Carbon Dioxide 18 mmol/L (22-30); Chloride 109 mmol/L (98-107); Glucose 128 mg/dL (74-99); Non-African American GFR(CKD) 10 (>60 ml/min/1.73 sqM); Potassium 5.4 mmol/L (3.5-5.1); Sodium 138 mmol/L (137-145)
--- NOTE | 2023-06-21 09:36 | P.PN ---
Subjective 72-year-old gentleman with past medical history significant for chronic urinary retention s/p [place] catheter in place, congestive heart failure, diabetes mellitus, hypertension, hyperlipidemia diabetic neuropathy, history of ESBL infection presents to the emergency department with acute onset of chest discomfort. Patient states symptom onset was few hours prior to presentation. Patient complained of midsternal chest discomfort about 9 x 10 in intensity. Patient complained of pressure radiating down left arm. This was associated with shortness of breath patient denies nausea, vomiting or diaphoresis Initial workup initiated in ER included an EKG which showed sinus bradycardia peak T waves were noted in anterior leads A chest x-ray was obtained that was consistent with pulmonary vascular congestion Blood work obtained include CBC which showed WBC count of 7.1 hemoglobin 7.4 platelet count of 83, INR of 1.1 serum chemistry showed sodium 139 potassium 5.3, dioxide 21 BUN 62 creatinine 3.22 Initial troponin obtained 4.360, followed by 4.630. N-terminal proBNP [id number] While in ER patient was given a dose of aspirin, IV Lasix, morphine for pain control sublingual nitroglycerin and admitted for workup for non-ST elevated IN as well as worsening renal function with consultation from nephrology and cardiology 06/19/2023 Patient is seen and evaluated in room at bedside, denies any specific complaints; patient is status post cardiac catheterization on 06/18/2023 Vital signs are reviewed and remained stable with temperature of 98.3, pulse 58, respiration 18 and blood pressure of 127/61 Lab review shows a WBC of 7.3, hemoglobin of 7.2 and platelet count of 99, sodium 136, potassium 6.0,. BUNs/creatinine of 76/4.17 and blood glucose of 162 Patient is status post cardiac catheterization and no intervention is recommended at this time and patient is maintained on medical therapy Nephrology on board for worsening renal failure; plan is to possibly start patient on renal replacement therapy if renal function continues to worsen --Patient has been treated with IV insulin and D50 for hyperkalemia, Lokelma x 1; no IV fluids recommended at this time; patient remains on oral bicarb 06/20/2023 Patient is seen and evaluated sitting up in bed; more awake and alert Vital signs reviewed and temperature of 97.9, pulse 100, respiration 18 and blood pressure of 130/80 with O2 saturation 95% on 2 L Lab review shows sodium of 137, potassium 5.7, BUNs/creatinine of 85/4.62 which is continuing to trend up Nephrology on board and recommending to treat hyperkalemia with IV insulin and D50; IV fluids are discontinued --Patient remains on oral sodium bicarbonate Plan is renal replacement therapy since renal function is continuing to worsen 06/21/2023 Patient is awake and alert He has 9/10 left-sided chest pain this morning His creatinine has been worsening and nephrology team on the case will consider starting him on dialysis Constipation is on [place] catheter, indwelling for the last 6 years. Currently no suprapubic tenderness or other urinary complaint He has a swollen hands and feet. Hemodynamically patient is a stable hemoglobin 7.6 which is stable, creatinine 4.1 up to 5.0, potassium down to 5.4 Objective - Vital Signs Vital signs: Vital Signs Temp 98.2 F 06/21/23 08:06 Pulse 58 L 06/21/23 08:06 Resp 18 06/21/23 08:06 BP 160/60 06/21/23 08:06 Pulse Ox 96 06/21/23 08:06 FiO2 Intake & Output 06/20/23 06/21/23 06/21/23 18:59 06:59 18:59 Intake Total 714 0 110 Output Total 400 400 Balance 314 -400 110 Weight 93.5 kg Intake: IV 20 Invasive Line 1 20 Oral 694 0 110 Output: Urine 400 400 Other: Voiding Method Incontinent Incontinent - Exam GENERAL: The patient is alert and oriented x3, not in any acute distress. Well developed, well nourished. HEENT: Pupils are round and equally reacting to light. EOMI. No scleral icterus. No conjunctival pallor. Normocephalic, atraumatic. No pharyngeal erythema. No thyromegaly. CARDIOVASCULAR: S1 and S2 present. No murmurs, rubs, or gallops. PULMONARY: Chest is clear to auscultation, no wheezing , no crackles. -ABDOMEN: Soft, nontender, nondistended, normoactive bowel sounds. No palpable organomegaly. Indwelling [place] catheter in place MUSCULOSKELETAL: No joint swelling or deformity. -EXTREMITIES: No cyanosis, clubbing, or pedal edema. bilateral hands and feet in the swollen NEUROLOGICAL: Gross neurological examination did not reveal any focal deficits. SKIN: No rashes. no petechiae. - Labs CBC & Chem 7: 06/21/23 07:18 06/21/23 07:18 Labs: Abnormal Lab Results - Last 24 Hours (Table) 06/20/23 06/20/23 06/20/23 Range/Units 08:26 08:26 11:48 RBC 2.34 L (4.30-5.90) m/uL Hgb 7.5 L (13.0-17.5) gm/dL Hct 22.2 L (39.0-53.0) % Plt Count 117 L (150-450) k/uL Lymphocytes # 0.7 L (1.0-4.8) k/uL Potassium 5.7 H (3.5-5.1) mmol/L Chloride 110 H (98-107) mmol/L Carbon Dioxide 18 L (22-30) mmol/L BUN 85 H (9-20) mg/dL Creatinine 4.62 H (0.66-1.25) mg/dL Glucose 150 H (74-99) mg/dL POC Glucose (mg/dL) 161 H (70-110) mg/dL Calcium 7.9 L (8.4-10.2) mg/dL 06/20/23 06/21/23 06/21/23 Range/Units 16:25 05:50 07:18 RBC 2.50 L (4.30-5.90) m/uL Hgb 7.6 L (13.0-17.5) gm/dL Hct 23.8 L (39.0-53.0) % Plt Count 134 L (150-450) k/uL Lymphocytes # 0.7 L (1.0-4.8) k/uL Potassium (3.5-5.1) mmol/L Chloride (98-107) mmol/L Carbon Dioxide (22-30) mmol/L BUN (9-20) mg/dL Creatinine (0.66-1.25) mg/dL Glucose (74-99) mg/dL POC Glucose (mg/dL) 123 H 165 H (70-110) mg/dL Calcium (8.4-10.2) mg/dL 06/21/23 Range/Units 07:18 RBC (4.30-5.90) m/uL Hgb (13.0-17.5) gm/dL Hct (39.0-53.0) % Plt Count (150-450) k/uL Lymphocytes # (1.0-4.8) k/uL Potassium 5.4 H (3.5-5.1) mmol/L Chloride 109 H (98-107) mmol/L Carbon Dioxide 18 L (22-30) mmol/L BUN 90 H (9-20) mg/dL Creatinine 5.06 H (0.66-1.25) mg/dL Glucose 128 H (74-99) mg/dL POC Glucose (mg/dL) (70-110) mg/dL Calcium 8.2 L (8.4-10.2) mg/dL Microbiology - Last 24 Hours (Table) 06/18/23 18:29 Urine Culture - Preliminary Urine,Voided Gram Neg Bacilli Assessment and Plan Assessment: * Non-ST elevated IN * Acute on chronic kidney disease stage IV with hyperkalemia * Metabolic acidosis * Diabetes mellitus type 2 * Acute on chronic congestive heart failure * Anemia of chronic kidney disease * To urinary retention with [place] catheter in place Plan: * In regards to non-ST elevated IN, cardiology consulted continue aspirin, Lipitor, Imdur * Regards to hyperkalemia and chronic kidney disease nephrology consulted patient * In regards to diabetes mellitus Accu-Cheks every 4 hours, correctional insulin ordered will patient n.p.o. monitor for hypoglycemia * In regards to acute on chronic congestive heart failure follow-up echocardiogram ordered patient given Lasix * In regards to urinary retention continue [place] catheter, continue Flomax * Status is full code * DVT and GI prophylaxis Prognosis is guarded
--- NOTE | 2023-06-21 09:44 | P.PN ---
Subjective patient is seen for follow-up for chronic kidney disease and acute kidney injury. renal function has worsened with serum creatinine increased to 5.0 and potassium remains elevated as well. patient is agreeable to start renal replacement therapy. We will proceed with IJ permacath placement today and first treatment of hemodialysis in a.m. Objective - Vital Signs Vital signs: Vital Signs Temp 98.2 F 06/21/23 08:06 Pulse 58 L 06/21/23 08:06 Resp 18 06/21/23 08:06 BP 160/60 06/21/23 08:06 Pulse Ox 96 06/21/23 08:06 FiO2 Intake & Output 06/20/23 06/21/23 06/21/23 18:59 06:59 18:59 Intake Total 714 0 110 Output Total 400 400 Balance 314 -400 110 Weight 93.5 kg Intake: IV 20 Invasive Line 1 20 Oral 694 0 110 Output: Urine 400 400 Other: Voiding Method Incontinent Incontinent - Exam patient is awake, comfortable, no acute distress Alert oriented 3 Examination of the heart S1 and S2 Examination of the lungs bilateral breath sounds are heard Abdomen is soft nontender Examination of the lower extremities shows edema 1+ bilaterally [employer] exam grossly intact - Labs CBC & Chem 7: 06/21/23 07:18 06/21/23 07:18 Labs: Abnormal Lab Results - Last 24 Hours (Table) 06/20/23 06/20/23 06/20/23 Range/Units 08:26 08:26 11:48 RBC 2.34 L (4.30-5.90) m/uL Hgb 7.5 L (13.0-17.5) gm/dL Hct 22.2 L (39.0-53.0) % Plt Count 117 L (150-450) k/uL Lymphocytes # 0.7 L (1.0-4.8) k/uL Potassium 5.7 H (3.5-5.1) mmol/L Chloride 110 H (98-107) mmol/L Carbon Dioxide 18 L (22-30) mmol/L BUN 85 H (9-20) mg/dL Creatinine 4.62 H (0.66-1.25) mg/dL Glucose 150 H (74-99) mg/dL POC Glucose (mg/dL) 161 H (70-110) mg/dL Calcium 7.9 L (8.4-10.2) mg/dL 06/20/23 06/21/23 06/21/23 Range/Units 16:25 05:50 07:18 RBC 2.50 L (4.30-5.90) m/uL Hgb 7.6 L (13.0-17.5) gm/dL Hct 23.8 L (39.0-53.0) % Plt Count 134 L (150-450) k/uL Lymphocytes # 0.7 L (1.0-4.8) k/uL Potassium (3.5-5.1) mmol/L Chloride (98-107) mmol/L Carbon Dioxide (22-30) mmol/L BUN (9-20) mg/dL Creatinine (0.66-1.25) mg/dL Glucose (74-99) mg/dL POC Glucose (mg/dL) 123 H 165 H (70-110) mg/dL Calcium (8.4-10.2) mg/dL 06/21/23 Range/Units 07:18 RBC (4.30-5.90) m/uL Hgb (13.0-17.5) gm/dL Hct (39.0-53.0) % Plt Count (150-450) k/uL Lymphocytes # (1.0-4.8) k/uL Potassium 5.4 H (3.5-5.1) mmol/L Chloride 109 H (98-107) mmol/L Carbon Dioxide 18 L (22-30) mmol/L BUN 90 H (9-20) mg/dL Creatinine 5.06 H (0.66-1.25) mg/dL Glucose 128 H (74-99) mg/dL POC Glucose (mg/dL) (70-110) mg/dL Calcium 8.2 L (8.4-10.2) mg/dL Microbiology - Last 24 Hours (Table) 06/18/23 18:29 Urine Culture - Preliminary Urine,Voided Gram Neg Bacilli Assessment and Plan Assessment: 1. Chronic kidney disease stage IV with baseline creatinine in the range of 3- 3.5. 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 2. Hyperkalemia secondary to chronic kidney disease and metabolic acidosis. Was also taking lisinopril. now discontinued. 3. Non-ST elevated myocardial infarction being followed by cardiology. status post cardiac catheterization 06/18/2023 with no plans for intervention at this time. 4. Metabolic acidosis secondary to IV fluids and chronic kidney disease. 5. Anemia of chronic kidney disease. Iron deficiency noted. 6. Fluid overload. 7. Urinary retention with chronic [place] catheter. On Flomax. 8. Hypertension with chronic kidney disease. Stable. 9. Chronic diastolic CHF and moderate to severe mitral regurgitation. 10. Acute kidney injury secondary to cardiorenal syndrome. also component of contrast nephropathy. Creatinine increased to 5.0 with persistent hyperkalemia and volume overload. We will proceed with starting renal replacement therapy. Plan: consult vascular surgery for dialysis catheter placement. We will proceed with first treatment of hemodialysis in a.m. Add IV Lasix Discharge planning to arrange for outpatient hemodialysis.
[2023-06-21 11:21] LABS: Glucose,Whole Blood 153 mg/dL (70-110)
[2023-06-21] MEDS: FUROSEMIDE 10 MG/ML 4 ML VIAL IV SCH (11:37)
--- NOTE | 2023-06-21 12:26 | P.PN ---
Subjective HISTORY OF PRESENT ILLNESS: This is a 72-year-old male who was admitted to the hospital secondary to non- STEMI. He underwent cardiac catheterization on 06/16/2023. Cardiac catheterization revealed normal filling pressures. No gradient. Right coronary artery is dominant. Circumflex is ectopic, comes from the right coronary artery. LAD has minor irregularities, noncritical disease but the mid LAD onwards the vessel tapers to a mild diffuse disease throughout. The diagonal and septal branches are free of significant disease. [place] RCA is dominant. No significant disease. PDA has a 60% narrowing. PDA smaller. PLV is larger. No significant disease. Due to patient's anatomy, medical management was recommended. Examined this way at the bedside. Patient had a mild episode of chest discomfort this morning but at the time of examination he denies any chest pain or pressure. He denies any shortness of breath. Patient's creatinine continues to worsen with a creatinine of 5.0 today. Plan is to begin hemodialysis after vascular access is obtained. PHYSICAL EXAM: VITAL SIGNS: Reviewed. GENERAL: Well-developed in no acute distress. NECK: Supple. No JVD or thyromegaly LUNGS: Respirations even and unlabored. Lungs essentially clear to auscultation bilaterally. HEART: Regular rate and rhythm. S1 and S2 heard. EXTREMITIES: Normal range of motion. No clubbing or cyanosis. Peripheral pulses intact. No lower extremity edema ASSESSMENT: Non-STEMI Coronary artery disease with medical management recommended secondary to difficult anatomy Acute kidney injury Chronic kidney disease Hypertension Hyperlipidemia Diabetes PLAN: Continue current cardiac medications Resume Imdur Will consider adding Plavix tomorrow after hemodialysis catheter has been placed Further recommendations pending patient course Nurse practitioner note has been reviewe Imdurd by physician. Signing provider agrees with the documented findings, assessment, and plan of care documented by [employer] as a scribe. Objective - Vital Signs Vital signs: Vital Signs Temp 97.7 F 06/21/23 11:36 Pulse 58 L 06/21/23 11:36 Resp 16 06/21/23 11:36 BP 129/70 06/21/23 11:36 Pulse Ox 94 L 06/21/23 11:36 FiO2 Intake & Output 06/20/23 06/21/23 06/21/23 18:59 06:59 18:59 Intake Total 714 0 110 Output Total 400 400 Balance 314 -400 110 Weight 93.5 kg Intake: IV 20 Invasive Line 1 20 Oral 694 0 110 Output: Urine 400 400 Other: Voiding Method Incontinent Incontinent - Labs CBC & Chem 7: 06/21/23 07:18 06/21/23 07:18 Labs: Abnormal Lab Results - Last 24 Hours (Table) 06/20/23 06/20/23 06/21/23 Range/Units 11:48 16:25 05:50 RBC (4.30-5.90) m/uL Hgb (13.0-17.5) gm/dL Hct (39.0-53.0) % Plt Count (150-450) k/uL Lymphocytes # (1.0-4.8) k/uL Potassium (3.5-5.1) mmol/L Chloride (98-107) mmol/L Carbon Dioxide (22-30) mmol/L BUN (9-20) mg/dL Creatinine (0.66-1.25) mg/dL Glucose (74-99) mg/dL POC Glucose (mg/dL) 161 H 123 H 165 H (70-110) mg/dL Calcium (8.4-10.2) mg/dL 06/21/23 06/21/23 06/21/23 Range/Units 07:18 07:18 11:19 RBC 2.50 L (4.30-5.90) m/uL Hgb 7.6 L (13.0-17.5) gm/dL Hct 23.8 L (39.0-53.0) % Plt Count 134 L (150-450) k/uL Lymphocytes # 0.7 L (1.0-4.8) k/uL Potassium 5.4 H (3.5-5.1) mmol/L Chloride 109 H (98-107) mmol/L Carbon Dioxide 18 L (22-30) mmol/L BUN 90 H (9-20) mg/dL Creatinine 5.06 H (0.66-1.25) mg/dL Glucose 128 H (74-99) mg/dL POC Glucose (mg/dL) 153 H (70-110) mg/dL Calcium 8.2 L (8.4-10.2) mg/dL Microbiology - Last 24 Hours (Table) 06/18/23 18:29 Urine Culture - Preliminary Urine,Voided Gram Neg Bacilli
[2023-06-21] MEDS: ISOSORBIDE MONONITRATE ER 30 MG TAB.ER.24H PO STA (14:16)
--- NOTE | 2023-06-21 15:52 | P.GSCN ---
History of Present Illness History of present illness: 72-year-old gentleman consulted for placement dialysis catheter patient has acute kidney injury cardiorenal syndrome patient was admitted with non-STEMI heart catheterization was performed patient on medical management Neck is supple no bruit appreciated Chest. Second sound present good in both lungs abdomen soft nontender Femorals are 1+ bilateral plan is placement of a dialysis catheter patient has a high potassium Past Medical History Past Medical History: Heart Failure, Diabetes Mellitus, Hyperlipidemia, Hypertension, Pneumonia Additional Past Medical History / Comment(s): Neuropathy in bilat feet and bilat hands. CHRONIC UTI, CHF History of Any Multi-Drug Resistant Organisms: ESBL Year Discovered:: 03/30/23 MDRO Source:: Urine Past Surgical History: No Surgical Hx Reported Additional Past Surgical History / Comment(s): Varicose vein surgery, irrigation to right leg Past Anesthesia/Blood Transfusion Reactions: No Reported Reaction Past Psychological History: No Psychological Hx Reported Smoking Status: Never smoker Past Alcohol Use History: None Reported Past Drug Use History: None Reported - Past Family History Father History Unknown: Yes Family Medical History: CVA/TIA Additional Family Medical History / Comment(s): Father passed from stroke at age 62. Son(s) History Unknown: Yes Family Medical History: Cancer Additional Family Medical History / Comment(s): Down syndrome, KIDNEY CANCER Medications and Allergies Home Medications Medication Instructions Recorded Confirmed Type Insulin Glargine,Hum.rec.anlog 10 unit SQ DAILY@1200 09/30/21 06/16/23 History [Lantus Solostar Pen] Insulin Lispro [humaLOG Kwikpen] See Protocol SQ TID-W/MEALS 02/24/22 06/16/23 History Ergocalciferol (Vitamin D2) 1,250 mcg PO QMONTHLY 01/14/23 06/16/23 History [Drisdol (50,000 Iu)] Isosorbide Mononitrate ER [Imdur] 30 mg PO DAILY 01/14/23 06/16/23 History Magnesium Oxide [Mag-Ox] 400 mg PO BID 01/14/23 06/16/23 History Potassium Chloride ER [K-Dur 10] 10 meq PO DAILY 01/14/23 06/16/23 History Tamsulosin [Flomax] 0.4 mg PO DAILY 01/14/23 06/16/23 History Torsemide [Demadex] 20 mg PO DAILY 01/14/23 06/16/23 History amLODIPine [Norvasc] 10 mg PO DAILY 01/14/23 06/16/23 History metOLazone [Zaroxolyn] 2.5 mg PO COLEMAN 01/14/23 06/16/23 History Aspirin EC [Ecotrin Low Dose] 81 mg PO DAILY 05/01/23 06/16/23 History Atorvastatin [Lipitor] 40 mg PO HS 05/01/23 06/16/23 History carvediloL [Coreg] 6.25 mg PO BID 05/01/23 06/16/23 History lisinopriL [Prinivil] 10 mg PO DAILY 05/01/23 06/16/23 History hydrALAZINE HCL [Apresoline] 100 mg PO TID 06/16/23 06/16/23 History Allergies Allergy/AdvReac Type Severity Reaction Status Date / Time No Known Allergies Allergy Verified 06/16/23 17:49 Surgical - Exam Vital Signs Temp Pulse Resp BP Pulse Ox 97.8 F 61 17 151/82 95 06/16/23 17:45 06/16/23 17:45 06/16/23 17:45 06/16/23 17:45 06/16/23 17:45 Results - Labs 06/21/23 07:18 06/21/23 07:18 Abnormal Lab Results - Last 24 Hours (Table) 06/20/23 06/21/23 06/21/23 Range/Units 16:25 05:50 07:18 RBC 2.50 L (4.30-5.90) m/uL Hgb 7.6 L (13.0-17.5) gm/dL Hct 23.8 L (39.0-53.0) % Plt Count 134 L (150-450) k/uL Lymphocytes # 0.7 L (1.0-4.8) k/uL Potassium (3.5-5.1) mmol/L Chloride (98-107) mmol/L Carbon Dioxide (22-30) mmol/L BUN (9-20) mg/dL Creatinine (0.66-1.25) mg/dL Glucose (74-99) mg/dL POC Glucose (mg/dL) 123 H 165 H (70-110) mg/dL Calcium (8.4-10.2) mg/dL 06/21/23 06/21/23 Range/Units 07:18 11:19 RBC (4.30-5.90) m/uL Hgb (13.0-17.5) gm/dL Hct (39.0-53.0) % Plt Count (150-450) k/uL Lymphocytes # (1.0-4.8) k/uL Potassium 5.4 H (3.5-5.1) mmol/L Chloride 109 H (98-107) mmol/L Carbon Dioxide 18 L (22-30) mmol/L BUN 90 H (9-20) mg/dL Creatinine 5.06 H (0.66-1.25) mg/dL Glucose 128 H (74-99) mg/dL POC Glucose (mg/dL) 153 H (70-110) mg/dL Calcium 8.2 L (8.4-10.2) mg/dL Microbiology - Last 24 Hours (Table) 06/18/23 18:29 Urine Culture - Preliminary Urine,Voided Gram Neg Bacilli Enterococcus faecalis Diabetes panel 06/21/23 Range/Units 07:18 Sodium 138 (137-145) mmol/L Potassium 5.4 H (3.5-5.1) mmol/L Chloride 109 H (98-107) mmol/L Carbon Dioxide 18 L (22-30) mmol/L BUN 90 H (9-20) mg/dL Creatinine 5.06 H (0.66-1.25) mg/dL Glucose 128 H (74-99) mg/dL Calcium 8.2 L (8.4-10.2) mg/dL Calcium panel 06/21/23 Range/Units 07:18 Calcium 8.2 L (8.4-10.2) mg/dL Pituitary panel 06/21/23 Range/Units 07:18 Sodium 138 (137-145) mmol/L Potassium 5.4 H (3.5-5.1) mmol/L Chloride 109 H (98-107) mmol/L Carbon Dioxide 18 L (22-30) mmol/L BUN 90 H (9-20) mg/dL Creatinine 5.06 H (0.66-1.25) mg/dL Glucose 128 H (74-99) mg/dL Calcium 8.2 L (8.4-10.2) mg/dL Adrenal panel 06/21/23 Range/Units 07:18 Sodium 138 (137-145) mmol/L Potassium 5.4 H (3.5-5.1) mmol/L Chloride 109 H (98-107) mmol/L Carbon Dioxide 18 L (22-30) mmol/L BUN 90 H (9-20) mg/dL Creatinine 5.06 H (0.66-1.25) mg/dL Glucose 128 H (74-99) mg/dL Calcium 8.2 L (8.4-10.2) mg/dL
[2023-06-21 16:20] LABS: Glucose,Whole Blood 141 mg/dL (70-110)
[2023-06-21] MEDS: IV FLUID CONTINUATION 800 ML IV ONE (17:01)
[2023-06-21] MEDS: MIDAZOLAM 2 MG/2 ML VIAL IVP ONE (17:08)
[2023-06-21] MEDS: fentaNYL (PF) 50 MCG/1 ML VIAL IVP ONE (17:10)
[2023-06-21] MEDS: LIDOCAINE 1% INJ 10MG/ML (20 ML MDV) SQ ONE (17:12)
[2023-06-21 18:35] LABS: Hepatitis B Surface Antigen Nonreactive (Nonreactive)
--- NOTE | 2023-06-21 18:35 | XR ---
EXAMINATION TYPE: XR chest 1V portable DATE OF EXAM: 06/21/2023 6:21 PM CLINICAL INDICATION:Male, 72 years old with history of NEW HEMODIALYSIS CATHETER PLACEMENT; [facility] COMPARISON: Chest radiographs from 06/16/2023 TECHNIQUE: XR chest 1V portable Frontal view of the chest. FINDINGS: Lungs/Pleura: No evidence of focal consolidation or pneumothorax. Blunting of the costophrenic angles is present. Pulmonary vascularity: Unremarkable. Heart/mediastinum: Cardiomediastinal silhouette is enlarged and stable. Musculoskeletal: No acute osseous pathology. Other findings: None Lines/Tubes: Right internal jugular central venous catheter with distal tip at the cavoatrial junction. IMPRESSION: Cardiomegaly, pulmonary vascular congestion and bilateral pleural effusions. Correlate with BNP for c ongestive heart failure.
--- NOTE | 2023-06-21 18:36 | IR ---
EXAMINATION TYPE: IR cvc insert central tunneled Intraoperative/procedural fluoroscopic services were provided. CLINICAL INDICATION:Male, 72 years old with history of hemodialysis catheter insertion, 1.9min fluoro , [id number]; , [facility] Total fluoroscopy time is 1.9 min. DAP: 6.9 and 5 8 Gycm2 Please see the operative/procedural note for further details.
[2023-06-21 18:40] LABS: Hepatitis B Surface AB- Quant 3.5 mIU/mL
[2023-06-21 20:18] LABS: Glucose,Whole Blood 185 mg/dL (70-110)
--- NOTE | 2023-06-22 00:48 | OP ---
OPERATIVE REPORT DATE OF SERVICE : PREOPERATIVE DIAGNOSIS: Acute on chronic renal failure. POSTOPERATIVE DIAGNOSIS: Acute on chronic renal failure. PROCEDURE PERFORMED: Ultrasound-guided 23 cm dialysis catheter placed, right jugular approach. SEDATION TIME: 24 minutes. DESCRIPTION OF PROCEDURE: The patient was brought to the general labor. Right side of the neck and chest were prepped and drapes applied in a sterile manner. Ultrasound-guided micropuncture introduced into the right jugular vein. Micropuncture catheter was passed and a 4-[place] sheath advanced on top of the guidewire. Then, we passed a regular guidewire, which was parked in the inferior vena. A tunnel was created. Through the tunnel we brought 23 cm dialysis catheter. The dilator was advanced on top of the guidewire. Then, sheath was advanced on top of the guidewire. Through the sheath, we introduced the dialysis catheter. Tip of the catheter in superior vena cava atrial junction. Flushed with heparin saline and hep-locked, secured with 3-0 nylon and Vicryl. Dressing applied. The patient tolerated the procedure well. MMODL / IJN: [id number] /
[2023-06-22 05:58] LABS: Glucose,Whole Blood 164 mg/dL (70-110)
--- NOTE | 2023-06-22 10:58 | P.PN ---
Subjective 72-year-old gentleman with past medical history significant for chronic urinary retention s/p [place] catheter in place, congestive heart failure, diabetes mellitus, hypertension, hyperlipidemia diabetic neuropathy, history of ESBL infection presents to the emergency department with acute onset of chest discomfort. Patient states symptom onset was few hours prior to presentation. Patient complained of midsternal chest discomfort about 9 x 10 in intensity. Patient complained of pressure radiating down left arm. This was associated with shortness of breath patient denies nausea, vomiting or diaphoresis Initial workup initiated in ER included an EKG which showed sinus bradycardia peak T waves were noted in anterior leads A chest x-ray was obtained that was consistent with pulmonary vascular congestion Blood work obtained include CBC which showed WBC count of 7.1 hemoglobin 7.4 platelet count of 83, INR of 1.1 serum chemistry showed sodium 139 potassium 5.3, dioxide 21 BUN 62 creatinine 3.22 Initial troponin obtained 4.360, followed by 4.630. N-terminal proBNP [id number] While in ER patient was given a dose of aspirin, IV Lasix, morphine for pain control sublingual nitroglycerin and admitted for workup for non-ST elevated CO as well as worsening renal function with consultation from nephrology and cardiology 06/19/2023 Patient is seen and evaluated in room at bedside, denies any specific complaints; patient is status post cardiac catheterization on 06/18/2023 Vital signs are reviewed and remained stable with temperature of 98.3, pulse 58, respiration 18 and blood pressure of 127/61 Lab review shows a WBC of 7.3, hemoglobin of 7.2 and platelet count of 99, sodium 136, potassium 6.0,. BUNs/creatinine of 76/4.17 and blood glucose of 162 Patient is status post cardiac catheterization and no intervention is recommended at this time and patient is maintained on medical therapy Nephrology on board for worsening renal failure; plan is to possibly start patient on renal replacement therapy if renal function continues to worsen --Patient has been treated with IV insulin and D50 for hyperkalemia, Lokelma x 1; no IV fluids recommended at this time; patient remains on oral bicarb 06/20/2023 Patient is seen and evaluated sitting up in bed; more awake and alert Vital signs reviewed and temperature of 97.9, pulse 100, respiration 18 and blood pressure of 130/80 with O2 saturation 95% on 2 L Lab review shows sodium of 137, potassium 5.7, BUNs/creatinine of 85/4.62 which is continuing to trend up Nephrology on board and recommending to treat hyperkalemia with IV insulin and D50; IV fluids are discontinued --Patient remains on oral sodium bicarbonate Plan is renal replacement therapy since renal function is continuing to worsen 06/21/2023 Patient is awake and alert He has 9/10 left-sided chest pain this morning His creatinine has been worsening and nephrology team on the case will consider starting him on dialysis Constipation is on [place] catheter, indwelling for the last 6 years. Currently no suprapubic tenderness or other urinary complaint He has a swollen hands and feet. Hemodynamically patient is a stable hemoglobin 7.6 which is stable, creatinine 4.1 up to 5.0, potassium down to 5.4 06/22/2023 history the patient was started on hemodialysis, his getting another hemodialysis today Patient himself sitting up in bed denies any complaints. He has significant bilateral pitting leg edema 3+ and currently is on IV Lasix 40 mg twice daily He denies urinary symptoms suprapubic pain or tenderness, urine culture showing enterococcus and gram-negative bacilli most likely colonization as patient has no symptoms and afebrile, we will keep monitoring for now Objective - Vital Signs Vital signs: Vital Signs Temp 98.4 F 06/22/23 04:00 Pulse 64 06/22/23 04:00 Resp 18 06/22/23 04:00 BP 129/63 06/22/23 04:00 Pulse Ox 93 L 06/22/23 04:00 FiO2 Intake & Output 06/21/23 06/22/23 06/22/23 18:59 06:59 18:59 Intake Total 350 1620 368 Output Total 900 1750 Balance -550 -130 368 Weight 93.5 kg 103.5 kg Intake: IV 20 10 Invasive Line 3 20 10 Oral 350 1600 358 Output: Urine 900 1750 Uretheral ([place]) 1000 Other: Voiding Method Incontinent Incontinent # Bowel Movements 1 1 - Exam GENERAL: The patient is alert and oriented x3, not in any acute distress. Well developed, well nourished. HEENT: Pupils are round and equally reacting to light. EOMI. No scleral icterus. No conjunctival pallor. Normocephalic, atraumatic. No pharyngeal erythema. No thyromegaly. CARDIOVASCULAR: S1 and S2 present. No murmurs, rubs, or gallops. PULMONARY: Chest is clear to auscultation, no wheezing , no crackles. -ABDOMEN: Soft, nontender, nondistended, normoactive bowel sounds. No palpable organomegaly. Indwelling [place] catheter in place MUSCULOSKELETAL: No joint swelling or deformity. -EXTREMITIES: No cyanosis, clubbing, or pedal edema. bilateral hands and feet in the swollen NEUROLOGICAL: Gross neurological examination did not reveal any focal deficits. SKIN: No rashes. no petechiae. - Labs CBC & Chem 7: 06/21/23 07:18 06/21/23 07:18 Labs: Abnormal Lab Results - Last 24 Hours (Table) 06/21/23 06/21/23 06/21/23 Range/Units 11:19 16:19 20:16 POC Glucose (mg/dL) 153 H 141 H 185 H (70-110) mg/dL 06/22/23 Range/Units 05:56 POC Glucose (mg/dL) 164 H (70-110) mg/dL Microbiology - Last 24 Hours (Table) 06/18/23 18:29 Urine Culture - Preliminary Urine,Voided Gram Neg Bacilli Enterococcus faecalis Assessment and Plan Assessment: * Non-ST elevated CO * Acute on chronic kidney disease stage IV with hyperkalemia * Metabolic acidosis * Diabetes mellitus type 2 * Acute on chronic congestive heart failure * Anemia of chronic kidney disease * To urinary retention with [place] catheter in place Plan: * In regards to non-ST elevated CO, cardiology consulted continue aspirin, Lipitor, Imdur * Regards to hyperkalemia and chronic kidney disease nephrology consulted patient , pt is started on hemodialysis on 06/20 * In regards to diabetes mellitus Accu-Cheks every 4 hours, correctional insulin ordered will patient n.p.o. monitor for hypoglycemia * In regards to acute on chronic congestive heart failure follow-up echocardiogram ordered patient given Lasix * In regards to urinary retention continue [place] catheter, continue Flomax * Status is full code * DVT and GI prophylaxis Prognosis is guarded
[2023-06-22 11:17] LABS: Glucose,Whole Blood 145 mg/dL (70-110)
--- NOTE | 2023-06-22 12:09 | P.PN ---
Subjective HISTORY OF PRESENT ILLNESS: This is a 72-year-old male who was admitted to the hospital secondary to non- STEMI. He underwent cardiac catheterization on 06/16/2023. Cardiac catheterization revealed normal filling pressures. No gradient. Right coronary artery is dominant. Circumflex is ectopic, comes from the right coronary artery. LAD has minor irregularities, noncritical disease but the mid LAD onwards the vessel tapers to a mild diffuse disease throughout. The diagonal and septal branches are free of significant disease. [place] RCA is dominant. No significant disease. PDA has a 60% narrowing. PDA smaller. PLV is larger. No significant disease. Due to patient's anatomy, medical management was recommended. Examined this way at the bedside. Patient had a mild episode of chest discomfort this morning but at the time of examination he denies any chest pain or pressure. He denies any shortness of breath. Patient's creatinine continues to worsen with a creatinine of 5.0 today. Plan is to begin hemodialysis after vascular access is obtained. 06/22/2023 Patient examined this morning at the bedside. Patient denies chest pain or pressure. He denies shortness of breath. Patient had a dialysis catheter placed and is currently undergoing hemodialysis this morning. Vital signs are stable. Patient remains on IV Lasix per nephrology. PHYSICAL EXAM: VITAL SIGNS: Reviewed. GENERAL: Well-developed in no acute distress. NECK: Supple. No JVD or thyromegaly LUNGS: Respirations even and unlabored. Lungs essentially clear to auscultation bilaterally. HEART: Regular rate and rhythm. S1 and S2 heard. EXTREMITIES: Normal range of motion. No clubbing or cyanosis. Peripheral pulses intact. No lower extremity edema ASSESSMENT: Non-STEMI Coronary artery disease with medical management recommended secondary to diffi cult anatomy Acute kidney injury Chronic kidney disease Hypertension Hyperlipidemia Diabetes PLAN: Continue current cardiac medications Add Plavix 75 mg daily Hemodialysis per nephrology Further recommendations pending patient course Nurse practitioner note has been reviewe Imdurd by physician. Signing provider agrees with the documented findings, assessment, and plan of care documented by [employer] INST[employer]ER as a scribe. Objective - Vital Signs Vital signs: Vital Signs Temp 98.4 F 06/22/23 04:00 Pulse 56 L 06/22/23 11:58 Resp 18 06/22/23 11:58 BP 156/65 06/22/23 11:58 Pulse Ox 97 06/22/23 11:58 FiO2 Intake & Output 06/21/23 06/22/23 06/22/23 18:59 06:59 18:59 Intake Total 350 1620 368 Output Total 900 1750 Balance -550 -130 368 Weight 93.5 kg 103.5 kg Intake: IV 20 10 Invasive Line 3 20 10 Oral 350 1600 358 Output: Urine 900 1750 Uretheral ([place]) 1000 Other: Voiding Method Incontinent Incontinent # Bowel Movements 1 1 - Labs CBC & Chem 7: 06/21/23 07:18 06/21/23 07:18 Labs: Abnormal Lab Results - Last 24 Hours (Table) 06/21/23 06/21/23 06/22/23 Range/Units 16:19 20:16 05:56 POC Glucose (mg/dL) 141 H 185 H 164 H (70-110) mg/dL 06/22/23 Range/Units 11:14 POC Glucose (mg/dL) 145 H (70-110) mg/dL Microbiology - Last 24 Hours (Table) 06/18/23 18:29 Urine Culture - Preliminary Urine,Voided Gram Neg Bacilli Enterococcus faecalis
[2023-06-22] MEDS: ISOSORBIDE MONONITRATE ER 30 MG TAB.ER.24H PO SCH (12:58)
--- NOTE | 2023-06-22 13:19 | P.PN ---
Subjective patient is seen for follow-up for chronic kidney disease and acute kidney injury. Started renal replacement therapy on 06/22/2023 for persistent hyperkalemia, worsening renal function and persistent volume overload. Patient is seen on hemodialysis, tolerating treatment well. Objective - Vital Signs Vital signs: Vital Signs Temp 98.9 F 06/22/23 12:45 Pulse 58 L 06/22/23 12:45 Resp 18 06/22/23 12:45 BP 154/75 06/22/23 12:45 Pulse Ox 97 06/22/23 11:58 FiO2 Intake & Output 06/21/23 06/22/23 06/22/23 18:59 06:59 18:59 Intake Total 350 1620 768 Output Total 900 1750 1400 Balance -550 -130 -632 Weight 93.5 kg 103.5 kg Intake: IV 20 10 Invasive Line 3 20 10 Oral 350 1600 358 Hemodialysis 400 Output: Urine 900 1750 Uretheral ([place]) 1000 Hemodialysis 1400 Other: Voiding Method Incontinent Incontinent Incontinent # Bowel Movements 1 1 - Exam patient is awake, comfortable, no acute distress Alert oriented 3 Examination of the heart S1 and S2 Examination of the lungs bilateral breath sounds are heard Abdomen is soft nontender Examination of the lower extremities shows edema 1+ bilaterally CASH POSTER exam grossly intact right IJ permacath - Labs CBC & Chem 7: 06/21/23 07:18 06/21/23 07:18 Labs: Abnormal Lab Results - Last 24 Hours (Table) 06/21/23 06/21/23 06/22/23 Range/Units 16:19 20:16 05:56 POC Glucose (mg/dL) 141 H 185 H 164 H (70-110) mg/dL 06/22/23 Range/Units 11:14 POC Glucose (mg/dL) 145 H (70-110) mg/dL Microbiology - Last 24 Hours (Table) 06/18/23 18:29 Urine Culture - Preliminary Urine,Voided Gram Neg Bacilli Enterococcus faecalis Assessment and Plan Assessment: 1. Chronic kidney disease stage IV with baseline creatinine in the range of 3- 3.5. 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 2. Hyperkalemia secondary to chronic kidney disease and metabolic acidosis. Was also taking lisinopril. now discontinued. 3. Non-ST elevated myocardial infarction being followed by cardiology. status post cardiac catheterization 06/18/2023 with no plans for intervention at this time. 4. Metabolic acidosis secondary to IV fluids and chronic kidney disease. 5. Anemia of chronic kidney disease. Iron deficiency noted. 6. Fluid overload. 7. Urinary retention with chronic [place] catheter. On Flomax. 8. Hypertension with chronic kidney disease. Stable. 9. Chronic diastolic CHF and moderate to severe mitral regurgitation. 10. Acute kidney injury secondary to cardiorenal syndrome. also component of c ontrast nephropathy. started renal replacement therapy on 06/22/2023 due to worsening renal function, persistent volume overload and persistent hyperkalemia. Plan: patient will need to continue with hemodialysis as outpatient. Hemodialysis again in a.m.
[2023-06-22 16:10] LABS: Glucose,Whole Blood 155 mg/dL (70-110)
[2023-06-22 20:02] LABS: Glucose,Whole Blood 143 mg/dL (70-110)
[2023-06-23 05:53] LABS: Glucose,Whole Blood 159 mg/dL (70-110)
--- NOTE | 2023-06-23 10:48 | P.PN ---
Subjective HISTORY OF PRESENT ILLNESS: This is a 72-year-old male who was admitted to the hospital secondary to non- STEMI. He underwent cardiac catheterization on 06/16/2023. Cardiac catheterization revealed normal filling pressures. No gradient. Right coronary artery is dominant. Circumflex is ectopic, comes from the right coronary artery. LAD has minor irregularities, noncritical disease but the mid LAD onwards the vessel tapers to a mild diffuse disease throughout. The diagonal and septal branches are free of significant disease. [place] RCA is dominant. No significant disease. PDA has a 60% narrowing. PDA smaller. PLV is larger. No significant disease. Due to patient's anatomy, medical management was recommended. Examined this way at the bedside. Patient had a mild episode of chest discomfort this morning but at the time of examination he denies any chest pain or pressure. He denies any shortness of breath. Patient's creatinine continues to worsen with a creatinine of 5.0 today. Plan is to begin hemodialysis after vascular access is obtained. 06/22/2023 Patient examined this morning at the bedside. Patient denies chest pain or pressure. He denies shortness of breath. Patient had a dialysis catheter placed and is currently undergoing hemodialysis this morning. Vital signs are stable. Patient remains on IV Lasix per nephrology. 06/23/2023 Patient examined this morning at bedside. Patient currently denies chest pain or pressure. He denies shortness of breath. Patient underwent hemodialysis yesterday and tolerated well. He is supposed to have another hemodialysis session today. Vital signs are stable. Plans are underway for discharge to ECF. PHYSICAL EXAM: VITAL SIGNS: Reviewed. GENERAL: Well-developed in no acute distress. NECK: Supple. No JVD or thyromegaly LUNGS: Respirations even and unlabored. Lungs essentially clear to auscultation bilaterally. HEART: Regular rate and rhythm. S1 and S2 heard. EXTREMITIES: Normal range of motion. No clubbing or cyanosis. Peripheral pulses intact. No lower extremity edema ASSESSMENT: Non-STEMI Coronary artery disease with medical management recommended secondary to difficult anatomy Acute kidney injury Chronic kidney disease Hypertension Hyperlipidemia Diabetes PLAN: Continue current cardiac medications Hemodialysis per nephrology Patient is currently stable from a cardiac standpoint Discharge to ECF when medically cleared Further recommendations pending patient course Nurse practitioner note has been reviewe Imdurd by physician. Signing provider agrees with the documented findings, assessment, and plan of care documented by LICENSED INVESTMENT SALES ASSISTANT as a scribe. Objective - Vital Signs Vital signs: Vital Signs Temp 97.8 F 06/23/23 08:00 Pulse 67 06/23/23 08:49 Resp 18 06/23/23 08:49 BP 179/59 06/23/23 08:00 Pulse Ox 94 L 06/23/23 08:00 FiO2 Intake & Output 06/22/23 06/23/23 06/23/23 18:59 06:59 18:59 Intake Total 1014 358 Output Total 2125 1425 Balance -1111 -1425 358 Intake: IV 20 Invasive Line 3 20 Oral 594 358 Hemodialysis 400 Output: Urine 725 1425 Hemodialysis 1400 Other: Voiding Method Incontinent Incontinent Indwelling Catheter - Labs CBC & Chem 7: 06/21/23 07:18 06/21/23 07:18 Labs: Abnormal Lab Results - Last 24 Hours (Table) 06/22/23 06/22/23 06/22/23 Range/Units 11:14 16:09 20:00 POC Glucose (mg/dL) 145 H 155 H 143 H (70-110) mg/dL 06/23/23 Range/Units 05:52 POC Glucose (mg/dL) 159 H (70-110) mg/dL Microbiology - Last 24 Hours (Table) 06/18/23 18:29 Urine Culture - Final Urine,Voided Acinetobacter tonja/haemol Enterococcus faecalis
[2023-06-23 11:21] LABS: Glucose,Whole Blood 209 mg/dL (70-110)
--- NOTE | 2023-06-23 12:02 | P.PN ---
Subjective patient is seen for follow-up for chronic kidney disease and acute kidney injury. Started renal replacement therapy on 06/22/2023 for persistent hyperkalemia, worsening renal function and persistent volume overload. patient tolerated hemodialysis well yesterday with UF of 1.4 L. Scheduled for hemodialysis again today. No significant complaints. Objective - Vital Signs Vital signs: Vital Signs Temp 97.5 F L 06/23/23 11:42 Pulse 62 06/23/23 11:42 Resp 14 06/23/23 11:42 BP 166/66 06/23/23 11:42 Pulse Ox 90 L 06/23/23 11:42 FiO2 Intake & Output 06/22/23 06/23/23 06/23/23 18:59 06:59 18:59 Intake Total 1014 358 Output Total 2125 1425 Balance -1111 -1425 358 Intake: IV 20 Invasive Line 3 20 Oral 594 358 Hemodialysis 400 Output: Urine 725 1425 Hemodialysis 1400 Other: Voiding Method Incontinent Incontinent Indwelling Catheter - Exam patient is awake, comfortable, no acute distress Alert oriented 3 Examination of the heart S1 and S2 Examination of the lungs bilateral breath sounds are heard Abdomen is soft nontender Examination of the lower extremities shows edema 1+ bilaterally, chronic skin changes. 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 Chronic kidney disease stage IV with baseline creatinine in the range of 3- 3.5. 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 Started hemodialysis on 06/22/2023 2. Hyperkalemia secondary to chronic kidney disease and metabolic acidosis. Was also taking lisinopril. now discontinued. 3. Non-ST elevated myocardial infarction being followed by cardiology. status post cardiac catheterization 06/18/2023 with no plans for intervention at this time. 4. Metabolic acidosis secondary to IV fluids and chronic kidney disease. 5. Anemia of chronic kidney disease. Iron deficiency noted. 6. Fluid overload. 7. Urinary retention with chronic [place] catheter. On Flomax. 8. Hypertension with chronic kidney disease. Stable. 9. Chronic diastolic CHF and moderate to severe mitral regurgitation. 10. Acute kidney injury secondary to cardiorenal syndrome. also component of contrast nephropathy. started renal replacement therapy on 06/22/2023 due to worsening renal function, persistent volume overload and persistent hyperkalem ia. Plan: patient will need to continue with hemodialysis as outpatient. Hemodialysis again in a.m.
--- NOTE | 2023-06-23 14:53 | P.PN ---
Subjective Progress Note Date: 06/23/23 This is a pleasant 72-year-old male with history of chronic kidney disease stage IV patient Presents to the hospital with significant lower extremity edema. He has been diuresed with IV Lasix and has been started on hemodialysis on June 21, 2023 due to worsening renal function. He has a right chest permacath in place. Patient will be dialyzed again today. His lower extremity edema is improving. Arrangements are being made for discharge to a nursing home facility for outpatient hemodialysis. Review of Systems Constitutional: Denied any fatigue denied any fever. Cardio vascular: denied any chest pain, palpitations Gastrointestinal: denied any nausea, vomiting, diarrhea Pulmonary: Denied any shortness of breath cough Neurologic denied any new focal deficits All inpatient medications were reviewed and appropriate changes in these medications as dictated in the interval history and assessment and plan. PHYSICAL EXAMINATION: GENERAL: The patient is alert and oriented x3, not in any acute distress. Well developed, well nourished. HEENT: Pupils are round and equally reacting to light. EOMI. No scleral icterus. No conjunctival pallor. Normocephalic, atraumatic. No pharyngeal erythema. No thyromegaly. CARDIOVASCULAR: S1 and S2 present. No murmurs, rubs, or gallops. PULMONARY: Chest is clear to auscultation, no wheezing or crackles. ABDOMEN: Soft, nontender, nondistended, normoactive bowel sounds. No palpable organomegaly. MUSCULOSKELETAL: No joint swelling or deformity. EXTREMITIES: No cyanosis, clubbing, or pedal edema. NEUROLOGICAL: Gross neurological examination did not reveal any focal deficits. SKIN: No rashes. Assessment and Plan -Acute NSTEMI s/p cardiac catheterization; patient has multiple blockages which will be medical managed and has been started on plavix -Acute on chronic kidney disease stage IV with hyperkalemia -Cardiorenal syndrome with worsening creatinine patient was initiated on hemodialysis -Diabetes Mellitus type 2 continue with accuchecks ACHS with sliding scale insulin -Acute on chronic congestive heart failure patient is being diuresed with IV lasix -Peripheral edema secondary to volume overload improving with IV lasix and recommend to wrap lower extremities with KRISS bandage bilaterally. -Anemia of Chronic Disease -Urinary Retention with goodwin catheter in place patient is continued on flomax. GI prophylaxis DVT prophylaxis Full Code The impression and plan of care has been dictated by Brittany Landin, Nurse Practitioner as directed. Dr. Miah MD I have performed a history and physical examination and medical decision making of this patient, discussed the same with the dictator, and agree with the dictators assessment and plan as written, documented as a scribe. Based on total visit time, I have performed more than 50% of this visit. Objective - Vital Signs Vital signs: Vital Signs Temp 97.5 F L 06/23/23 11:42 Pulse 62 06/23/23 11:42 Resp 14 06/23/23 11:42 BP 166/66 06/23/23 11:42 Pulse Ox 90 L 06/23/23 11:42 FiO2 Intake & Output 06/22/23 06/23/23 06/23/23 18:59 06:59 18:59 Intake Total 1014 358 Output Total 2125 1425 Balance -1111 -1425 358 Intake: IV 20 Invasive Line 3 20 Oral 594 358 Hemodialysis 400 Output: Urine 725 1425 Hemodialysis 1400 Other: Voiding Method Incontinent Incontinent Indwelling Catheter - Labs CBC & Chem 7: 06/21/23 07:18 06/21/23 07:18 Labs: Abnormal Lab Results - Last 24 Hours (Table) 06/22/23 06/22/23 06/23/23 Range/Units 16:09 20:00 05:52 POC Glucose (mg/dL) 155 H 143 H 159 H (70-110) mg/dL 06/23/23 Range/Units 11:20 POC Glucose (mg/dL) 209 H (70-110) mg/dL Microbiology - Last 24 Hours (Table) 06/18/23 18:29 Urine Culture - Final Urine,Voided Acinetobacter tonja/haemol Enterococcus faecalis Assessment and Plan Time with Patient: Less than 30
[2023-06-23 16:14] LABS: Glucose,Whole Blood 165 mg/dL (70-110)
[2023-06-23] MEDS: CLOPIDOGREL 75 MG TAB PO SCH (17:41)
[2023-06-23 20:01] LABS: Glucose,Whole Blood 152 mg/dL (70-110)
[2023-06-23] MEDS: FUROSEMIDE 10 MG/ML 10 ML VIAL IV SCH (20:48)
[2023-06-24 06:00] LABS: Glucose,Whole Blood 151 mg/dL (70-110)
[2023-06-24 09:49] LABS: African American GFR (CKD) 23 (>60 ml/min/1.73 sqM); Anion Gap 4 mmol/L; Blood Urea Nitrogen 44 mg/dL (9-20); Calcium 8.2 mg/dL (8.4-10.2); Carbon Dioxide 26 mmol/L (22-30); Chloride 104 mmol/L (98-107); Glucose 123 mg/dL (74-99); Non-African American GFR(CKD) 20 (>60 ml/min/1.73 sqM); Potassium 5.1 mmol/L (3.5-5.1); Sodium 134 mmol/L (137-145)
[2023-06-24 11:24] LABS: Glucose,Whole Blood 161 mg/dL (70-110)
--- NOTE | 2023-06-24 11:38 | P.PN ---
Subjective HISTORY OF PRESENT ILLNESS: This is a 72-year-old male who was admitted to the hospital secondary to non- STEMI. He underwent cardiac catheterization on 06/16/2023. Cardiac catheterization revealed normal filling pressures. No gradient. Right coronary artery is dominant. Circumflex is ectopic, comes from the right coronary artery. LAD has minor irregularities, noncritical disease but the mid LAD onwards the vessel tapers to a mild diffuse disease throughout. The diagonal and septal branches are free of significant disease. [place] RCA is dominant. No significant disease. PDA has a 60% narrowing. PDA smaller. PLV is larger. No significant disease. Due to patient's anatomy, medical management was recommended. Examined this way at the bedside. Patient had a mild episode of chest discomfort this morning but at the time of examination he denies any chest pain or pressure. He denies any shortness of breath. Patient's creatinine continues to worsen with a creatinine of 5.0 today. Plan is to begin hemodialysis after vascular access is obtained. 06/22/2023 Patient examined this morning at the bedside. Patient denies chest pain or pressure. He denies shortness of breath. Patient had a dialysis catheter placed and is currently undergoing hemodialysis this morning. Vital signs are stable. Patient remains on IV Lasix per nephrology. 06/23/2023 Patient examined this morning at bedside. Patient currently denies chest pain or pressure. He denies shortness of breath. Patient underwent hemodialysis yesterday and tolerated well. He is supposed to have another hemodialysis session today. Vital signs are stable. Plans are underway for discharge to ECF. 06/24/2023 Patient examined this morning at the bedside. Patient denies chest pain or pressure. He denies any shortness of breath. Vital signs are stable. Blood pressures are elevated with a systolic in the 160s. PHYSICAL EXAM: VITAL SIGNS: Reviewed. GENERAL: Well-developed in no acute distress. NECK: Supple. No JVD or thyromegaly LUNGS: Respirations even and unlabored. Lungs essentially clear to auscultation bilaterally. HEART: Regular rate and rhythm. S1 and S2 heard. EXTREMITIES: Normal range of motion. No clubbing or cyanosis. Peripheral puls es intact. No lower extremity edema ASSESSMENT: Non-STEMI Coronary artery disease with medical management recommended secondary to difficult anatomy Acute kidney injury Chronic kidney disease Hypertension Hyperlipidemia Diabetes PLAN: Continue current cardiac medications Increase amlodipine to 10 mg daily. Continue to monitor blood pressure Hemodialysis per nephrology Patient is currently stable from a cardiac standpoint Discharge to ECF when medically cleared Further recommendations pending patient course Nurse practitioner note has been reviewe Rigoberto by physician. Signing provider a grees with the documented findings, assessment, and plan of care documented by PERSONAL TRAINER as a scribe. Objective - Vital Signs Vital signs: Vital Signs Temp 97.8 F 06/23/23 19:38 Pulse 62 06/24/23 04:00 Resp 18 06/24/23 04:00 BP 163/67 06/24/23 04:00 Pulse Ox 91 L 06/24/23 09:43 FiO2 Intake & Output 06/23/23 06/24/23 06/24/23 18:59 06:59 18:59 Intake Total 1534 118 Output Total 3800 1500 725 Balance -2266 -1500 -607 Intake: Oral 1134 118 Hemodialysis 400 Output: Urine 1400 1500 725 Hemodialysis 2400 Other: Voiding Method Indwelling Catheter Indwelling Catheter # Bowel Movements 1 - Labs CBC & Chem 7: 06/21/23 07:18 06/24/23 08:25 Labs: Abnormal Lab Results - Last 24 Hours (Table) 06/23/23 06/23/23 06/24/23 Range/Units 16:13 19:59 05:59 Sodium (137-145) mmol/L BUN (9-20) mg/dL Creatinine (0.66-1.25) mg/dL Glucose (74-99) mg/dL POC Glucose (mg/dL) 165 H 152 H 151 H (70-110) mg/dL Calcium (8.4-10.2) mg/dL 06/24/23 06/24/23 Range/Units 08:25 11:23 Sodium 134 L (137-145) mmol/L BUN 44 H (9-20) mg/dL Creatinine 3.00 H (0.66-1.25) mg/dL Glucose 123 H (74-99) mg/dL POC Glucose (mg/dL) 161 H (70-110) mg/dL Calcium 8.2 L (8.4-10.2) mg/dL
--- NOTE | 2023-06-24 12:09 | P.PN ---
Subjective patient is seen for follow-up for chronic kidney disease and acute kidney injury. Started renal replacement therapy on 06/22/2023 for persistent hyperkalemia, worsening renal function and persistent volume overload. patient tolerated hemodialysis well yesterday with UF of 2.4 L. Scheduled for hemodialysis again today. No significant complaints. Objective - Vital Signs Vital signs: Vital Signs Temp 97.8 F 06/23/23 19:38 Pulse 62 06/24/23 04:00 Resp 18 06/24/23 04:00 BP 163/67 06/24/23 04:00 Pulse Ox 91 L 06/24/23 09:43 FiO2 Intake & Output 06/23/23 06/24/23 06/24/23 18:59 06:59 18:59 Intake Total 1534 118 Output Total 3800 1500 725 Balance -2266 -1500 -607 Intake: Oral 1134 118 Hemodialysis 400 Output: Urine 1400 1500 725 Hemodialysis 2400 Other: Voiding Method Indwelling Catheter Indwelling Catheter # Bowel Movements 1 - Exam patient is awake, comfortable, no acute distress Alert oriented 3 Examination of the heart S1 and S2 Examination of the lungs bilateral breath sounds are heard Abdomen is soft nontender Examination of the lower extremities shows edema 1+ bilaterally, chronic skin changes. 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 Chronic kidney disease stage IV with baseline creatinine in the range of 3- 3.5. 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 Started hemodialysis on 06/22/2023 2. Hyperkalemia secondary to chronic kidney disease and metabolic acidosis. Was also taking lisinopril. now discontinued. 3. Non-ST elevated myocardial infarction being followed by cardiology. status post cardiac catheterization 06/18/2023 with no plans for intervention at this time. 4. Metabolic acidosis secondary to IV fluids and chronic kidney disease. 5. Anemia of chronic kidney disease. Iron deficiency noted. 6. Fluid overload. 7. Urinary retention with chronic [place] catheter. On Flomax. 8. Hypertension with chronic kidney disease. Stable. 9. Chronic diastolic CHF and moderate to severe mitral regurgitation. 10. Acute kidney injury secondary to cardiorenal syndrome. also component of contrast nephropathy. started renal replacement therapy on 06/22/2023 due to worsening renal function, persistent volume overload and persistent hyperkalemia. Plan: patient will need to continue with hemodialysis as outpatient. Hemodialysis again in a.m. okay to discharge tomorrow after dialysis and patient will resume outpatient dialysis on a Wednesday schedule.
[2023-06-24] MEDS: amLODIPine 5 MG TAB PO STA (12:31)
--- NOTE | 2023-06-24 13:34 | P.PN ---
Subjective Progress Note Date: 06/24/23 This is a pleasant 72-year-old male with history of chronic kidney disease stage IV patient Presents to the hospital with significant lower extremity edema. He has been diuresed with IV Lasix and has been started on hemodialysis on June 21, 2023 due to worsening renal function. He has a right chest permacath in place. Patient will be dialyzed again today. His lower extremity edema is improving. Arrangements [facility]. 06/24/2023 Patient evaluated today on the stepdown unit. Underwent hemodialysis yesterday with 2.5 L off. Continues with 1+ lower extremity edema and recommending to wrap lower extremities with KRISS bandage bilaterally. Continues on IV lasix Q12h increased to 60 mg. Creatinine improving down to 3.00 today. Plan for outpatient hemodialysis set up for //wed schedule and cannot start outpatient until wednesday. Plan is for on discharge. Review of Systems Constitutional: Denied any fatigue denied any fever. Cardio vascular: denied any chest pain, palpitations Gastrointestinal: denied any nausea, vomiting, diarrhea Pulmonary: Denied any shortness of breath cough Neurologic denied any new focal deficits All inpatient medications were reviewed and appropriate changes in these medi cations as dictated in the interval history and assessment and plan. PHYSICAL EXAMINATION: GENERAL: The patient is alert and oriented x3, not in any acute distress. Well developed, well nourished. HEENT: Pupils are round and equally reacting to light. EOMI. No scleral icterus. No conjunctival pallor. Normocephalic, atraumatic. No pharyngeal erythema. No thyromegaly. CARDIOVASCULAR: S1 and S2 present. No murmurs, rubs, or gallops. PULMONARY: Chest is clear to auscultation, no wheezing or crackles. ABDOMEN: Soft, nontender, nondistended, normoactive bowel sounds. No palpable organomegaly. MUSCULOSKELETAL: No joint swelling or deformity. EXTREMITIES: No cyanosis, clubbing, or pedal edema. NEUROLOGICAL: Gross neurological examination did not reveal any focal deficits. SKIN: No rashes. Assessment and Plan -Acute NSTEMI s/p cardiac catheterization; patient has multiple blockages which will be medical managed and has been started on plavix -Acute on chronic kidney disease stage IV with hyperkalemia -Cardiorenal syndrome with worsening creatinine patient was initiated on hemodialysis -Hypertension uncontrolled; amlodipine started and nephrology has also added metolazone. -Diabetes Mellitus type 2 continue with accuchecks ACHS with sliding scale insulin -Acute on chronic congestive heart failure patient is being diuresed with IV lasix -Peripheral edema secondary to volume overload improving with IV lasix and recommend to wrap lower extremities with KRISS bandage bilaterally. -Anemia of Chronic Disease -Urinary Retention with goodwin catheter in place patient is continued on flomax. GI prophylaxis DVT prophylaxis Full Code Plan to undergo hemodialysis tomorrow with plans to discharge to [facility] after. Patient set up for outpatient hemodialysis Wednesday and can begin Wednesday of next week outpatient. Chair time is at 0600. The impression and plan of care has been dictated by Brittany Landin, Nurse Practitioner as directed. Dr. Miah MD I have performed a history and physical examination and medical decision making of this patient, discussed the same with the dictator, and agree with the dictators assessment and plan as written, documented as a scribe. Based on total visit time, I have performed more than 50% of this visit. Objective - Vital Signs Vital signs: Vital Signs Temp 97.5 F L 06/24/23 13:04 Pulse 68 06/24/23 13:04 Resp 18 06/24/23 13:04 BP 158/70 06/24/23 13:04 Pulse Ox 93 L 06/24/23 13:04 FiO2 Intake & Output 06/23/23 06/24/23 06/24/23 18:59 06:59 18:59 Intake Total 1534 118 Output Total 3800 1500 725 Balance -2266 -1500 -607 Intake: Oral 1134 118 Hemodialysis 400 Output: Urine 1400 1500 725 Hemodialysis 2400 Other: Voiding Method Indwelling Catheter Indwelling Catheter Indwelling Catheter # Bowel Movements 1 - Labs CBC & Chem 7: 06/21/23 07:18 06/24/23 08:25 Labs: Abnormal Lab Results - Last 24 Hours (Table) 06/23/23 06/23/23 06/24/23 Range/Units 16:13 19:59 05:59 Sodium (137-145) mmol/L BUN (9-20) mg/dL Creatinine (0.66-1.25) mg/dL Glucose (74-99) mg/dL POC Glucose (mg/dL) 165 H 152 H 151 H (70-110) mg/dL Calcium (8.4-10.2) mg/dL 06/24/23 06/24/23 Range/Units 08:25 11:23 Sodium 134 L (137-145) mmol/L BUN 44 H (9-20) mg/dL Creatinine 3.00 H (0.66-1.25) mg/dL Glucose 123 H (74-99) mg/dL POC Glucose (mg/dL) 161 H (70-110) mg/dL Calcium 8.2 L (8.4-10.2) mg/dL Assessment and Plan Time with Patient: Less than 30
[2023-06-24 15:02] VITALS: BMI 27.0
[2023-06-24 16:35] LABS: Glucose,Whole Blood 128 mg/dL (70-110)
[2023-06-24 20:13] LABS: Glucose,Whole Blood 181 mg/dL (70-110)
[2023-06-24] MEDS: ZINC OXIDE PASTE (Z-GUARD) 1 APPLIC TOPICAL PRN (20:34)
[2023-06-25] MEDS: ONDANSETRON 4 MG/2 ML VIAL IVP PRN (05:57)
[2023-06-25 06:07] LABS: Glucose,Whole Blood 140 mg/dL (70-110)
--- NOTE | 2023-06-25 10:31 | P.PN ---
Subjective patient is seen for follow-up for chronic kidney disease stage IV and acute kidney injury. Started renal replacement therapy on 06/22/2023 for persistent hyperkalemia, worsening renal function and persistent volume overload. patient tolerated hemodialysis well yesterday with UF of 2.4 L. seen on hemodialysis today. Complaining off nausea this morning and chest discomfort. Objective - Vital Signs Vital signs: Vital Signs Temp 98.1 F 06/25/23 08:15 Pulse 69 06/25/23 08:15 Resp 16 06/25/23 08:15 BP 174/71 06/25/23 08:15 Pulse Ox 92 L 06/25/23 08:15 FiO2 Intake & Output 06/24/23 06/25/23 06/25/23 18:59 06:59 18:59 Intake Total 1058 10 Output Total 5125 1950 Balance -4066 Weight 103.5 kg Intake: IV 10 Invasive Line 5 10 Oral 658 Hemodialysis 400 Output: Urine 2725 1950 Hemodialysis 2400 Other: Voiding Method Indwelling Catheter Indwelling Catheter Indwelling Catheter - Exam patient is awake, comfortable, no acute distress Alert oriented 3 Examination of the heart S1 and S2 Examination of the lungs bilateral breath sounds are heard Abdomen is soft nontender Examination of the lower extremities shows edema 1+ bilaterally, chronic skin changes. 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 Chronic kidney disease stage IV with baseline creatinine in the range of 3- 3.5. 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 Started hemodialysis on 06/22/2023 2. Hyperkalemia secondary to chronic kidney disease and metabolic acidosis. Was also taking lisinopril. now discontinued. 3. Non-ST elevated myocardial infarction being followed by cardiology. status post cardiac catheterization 06/18/2023 with no plans for intervention at this time. 4. Metabolic acidosis secondary to IV fluids and chronic kidney disease. 5. Anemia of chronic kidney disease. Iron deficiency noted. 6. Fluid overload. 7. Urinary retention with chronic [place] catheter. On Flomax. 8. Hypertension with chronic kidney disease. Stable. 9. Chronic diastolic CHF and moderate to severe mitral regurgitation. 10. Acute kidney injury secondary to cardiorenal syndrome. also component of contrast nephropathy. started renal replacement therapy on 06/22/2023 due to worsening renal function, persistent volume overload and persistent hyperkalemia. Plan: Hemodialysis again in a.m if patient is not discharged. He will be maintained on a Wednesday schedule as outpatient.
[2023-06-25 11:20] LABS: Glucose,Whole Blood 123 mg/dL (70-110)
[2023-06-25] MEDS: amLODIPine 10 MG TAB PO SCH (12:06)
[2023-06-25] MEDS: metOLazone 5 MG TAB PO SCH (12:06)
[2023-06-25] MEDS: cloNIDine HCL 0.1 MG TAB PO SCH (12:06)
[2023-06-25] MEDS: ISOSORBIDE MONONITRATE ER 30 MG TAB.ER.24H PO STA (12:06)
[2023-06-25] MEDS: FAMOTIDINE 20 MG TAB PO SCH (12:06)
--- NOTE | 2023-06-25 12:14 | P.PN ---
Subjective HISTORY OF PRESENT ILLNESS: This is a 72-year-old male who was admitted to the hospital secondary to non- STEMI. He underwent cardiac catheterization on 06/16/2023. Cardiac catheterization revealed normal filling pressures. No gradient. Right coronary artery is dominant. Circumflex is ectopic, comes from the right coronary artery. LAD has minor irregularities, noncritical disease but the mid LAD onwards the vessel tapers to a mild diffuse disease throughout. The diagonal and septal branches are free of significant disease. [place] RCA is dominant. No significant disease. PDA has a 60% narrowing. PDA smaller. PLV is larger. No significant disease. Due to patient's anatomy, medical management was recommended. Examined this way at the bedside. Patient had a mild episode of chest discomfort this morning but at the time of examination he denies any chest pain or pressure. He denies any shortness of breath. Patient's creatinine continues to worsen with a creatinine of 5.0 today. Plan is to begin hemodialysis after vascular access is obtained. 06/22/2023 Patient examined this morning at the bedside. Patient denies chest pain or pressure. He denies shortness of breath. Patient had a dialysis catheter placed and is currently undergoing hemodialysis this morning. Vital signs are stable. Patient remains on IV Lasix per nephrology. 06/23/2023 Patient examined this morning at bedside. Patient currently denies chest pain or pressure. He denies shortness of breath. Patient underwent hemodialysis yesterday and tolerated well. He is supposed to have another hemodialysis session today. Vital signs are stable. Plans are underway for discharge to [facility]. 06/24/2023 Patient examined this morning at the bedside. Patient denies chest pain or pressure. He denies any shortness of breath. Vital signs are stable. Blood pressures are elevated with a systolic in the 160s. 06/25/2023 Patient examined this morning the bedside. Patient states he is not feeling well this morning. He reports he has had the dry heaves most of the night. He also reports having an episode of chest pain which has since resolved. Patien t's blood pressures remain elevated. He is currently undergoing hemodialysis. PHYSICAL EXAM: VITAL SIGNS: Reviewed. GENERAL: Well-developed in no acute distress. NECK: Supple. No JVD or thyromegaly LUNGS: Respirations even and unlabored. Lungs essentially clear to auscultation bilaterally. HEART: Regular rate and rhythm. S1 and S2 heard. EXTREMITIES: Normal range of motion. No clubbing or cyanosis. Peripheral pulses intact. No lower extremity edema ASSESSMENT: Non-STEMI Coronary artery disease with medical management recommended secondary to difficult anatomy Acute kidney injury Chronic kidney disease Hypertension Hyperlipidemia Diabetes PLAN: Continue current cardiac medications Increase Imdur to 60 mg daily Add Catapres 0.1 mg 3 times daily for optimal blood pressure control Continue to monitor blood pressure Hemodialysis per nephrology Further recommendations pending patient course Nurse practitioner note has been reviewe Imdurd by physician. Signing provider agrees with the documented findings, assessment, and plan of care documented by QUALITY ASSURANCE INTERN as a scribe. Objective - Vital Signs Vital signs: Vital Signs Temp 98.4 F 06/25/23 11:45 Pulse 66 06/25/23 11:45 Resp 14 06/25/23 11:45 BP 170/82 06/25/23 11:45 Pulse Ox 92 L 06/25/23 08:15 FiO2 Intake & Output 06/24/23 06/25/23 06/25/23 18:59 06:59 18:59 Intake Total 1058 10 400 Output Total 5125 1950 1825 Balance -4067 -1940 -1425 Weight 103.5 kg Intake: IV 10 Invasive Line 5 10 Oral 658 Hemodialysis 400 400 Output: Urine 2725 1950 425 Hemodialysis 2400 1400 Other: Voiding Method Indwelling Catheter Indwelling Catheter Indwelling Catheter - Labs CBC & Chem 7: 06/21/23 07:18 06/24/23 08:25 Labs: Abnormal Lab Results - Last 24 Hours (Table) 06/24/23 06/24/23 06/25/23 Range/Units 16:33 20:10 06:05 POC Glucose (mg/dL) 128 H 181 H 140 H (70-110) mg/dL 06/25/23 Range/Units 11:19 POC Glucose (mg/dL) 123 H (70-110) mg/dL
[2023-06-25] MEDS: PANTOPRAZOLE 40 MG/10 ML VIAL IVP SCH (14:32)
--- NOTE | 2023-06-25 15:16 | P.PN ---
Subjective Progress Note Date: 06/25/23 This is a pleasant 72-year-old male with history of chronic kidney disease stage IV patient Presents to the hospital with significant lower extremity edema. He has been diuresed with IV Lasix and has been started on hemodialysis on June 21, 2023 due to worsening renal function. He has a right chest permacath in place. Patient will be dialyzed again today. His lower extremity edema is improving. Arrangements are being made for discharge to a care home facility for outpatient hemodialysis. 06/24/2023 Patient evaluated today on the stepdown unit. Underwent hemodialysis yesterday with 2.5 L off. Continues with 1+ lower extremity edema and recommending to wrap lower extremities with KRISS bandage bilaterally. Continues on IV lasix Q12h increased to 60 mg. Creatinine improving down to 3.00 today. Plan for outpatient hemodialysis set up for //wed schedule and cannot start outpatient until wednesday. Plan is for [facility] on discharge. 06/25/2023 Patient is evaluated today on the stepdown unit. Underwent hemodialysis today with next scheduled session for Wednesday on an outpatient basis. Patient did experience an episode of dry heaving with burning like sensation in the epigastric region and left sided chest wall pain. It has since resolved. Cardiology has increased. Imdur and also added a Catapres patch. Will be monitored overnight on the cardiac telemetry and possible discharge tomorrow tomorrow. Review of Systems Constitutional: Denied any fatigue denied any fever. Cardio vascular: denied any chest pain, palpitations Gastrointestinal: denied any nausea, vomiting, diarrhea Pulmonary: Denied any shortness of breath cough Neurologic denied any new focal deficits All inpatient medications were reviewed and appropriate changes in these medications as dictated in the interval history and assessment and plan. PHYSICAL EXAMINATION: GENERAL: The patient is alert and oriented x3, not in any acute distress. Well developed, well nourished. HEENT: Pupils are round and equally reacting to light. EOMI. No scleral icterus. No conjunctival pallor. Normocephalic, atraumatic. No pharyngeal erythema. No thyromegaly. CARDIOVASCULAR: S1 and S2 present. No murmurs, rubs, or gallops. PULMONARY: Chest is clear to auscultation, no wheezing or crackles. ABDOMEN: Soft, nontender, nondistended, normoactive bowel sounds. No palpable organomegaly. MUSCULOSKELETAL: No joint swelling or deformity. EXTREMITIES: No cyanosis, clubbing, or pedal edema. NEUROLOGICAL: Gross neurological examination did not reveal any focal deficits. SKIN: No rashes. Assessment and Plan -Acute NSTEMI s/p cardiac catheterization; patient has multiple blockages which will be medical managed and has been started on plavix -Acute on chronic kidney disease stage IV with hyperkalemia -Cardiorenal syndrome with worsening creatinine patient was initiated on hemodialysis -Hypertension uncontrolled; amlodipine started and nephrology has also added metolazone. -Diabetes Mellitus type 2 continue with accuchecks ACHS with sliding scale insulin -Acute on chronic congestive heart failure patient is being diuresed with IV lasix -Peripheral edema secondary to volume overload improving with IV lasix and recommend to wrap lower extremities with KRISS bandage bilaterally. -Anemia of Chronic Disease -Urinary Retention with goodwin catheter in place patient is continued on flomax. GI prophylaxis DVT prophylaxis Full Code Be monitored overnight with increase in Imdur and the addition of a Catapres patch for improved blood pressure control. He has also been covered on IV Protonix twice a day. Possible discharge tomorrow tomorrow. Patient set up for outpatient hemodialysis Wednesday and can begin Wednesday of next week outpatient. Chair time is at 0600. The impression and plan of care has been dictated by Brittany Landin, Nurse Practitioner as directed. Dr. Miah MD I have performed a history and physical examination and medical decision making of this patient, discussed the same with the dictator, and agree with the dictators assessment and plan as written, documented as a scribe. Based on total visit time, I have performed more than 50% of this visit. Objective - Vital Signs Vital signs: Vital Signs Temp 98.2 F 06/25/23 14:00 Pulse 55 L 06/25/23 14:00 Resp 16 06/25/23 14:00 BP 141/67 06/25/23 14:00 Pulse Ox 92 L 06/25/23 14:00 FiO2 Intake & Output 06/24/23 06/25/23 06/25/23 18:59 06:59 18:59 Intake Total 1058 10 400 Output Total 5125 1950 0385 Balance -5475 -3199 -8737 Weight 103.5 kg Intake: IV 10 Invasive Line 5 10 Oral 658 Hemodialysis 400 400 Output: Urine 2725 1950 425 Hemodialysis 2400 1400 Other: Voiding Method Indwelling Catheter Indwelling Catheter Indwelling Catheter - Labs CBC & Chem 7: 06/21/23 07:18 06/24/23 08:25 Labs: Abnormal Lab Results - Last 24 Hours (Table) 06/24/23 06/24/23 06/25/23 Range/Units 16:33 20:10 06:05 POC Glucose (mg/dL) 128 H 181 H 140 H (70-110) mg/dL 06/25/23 Range/Units 11:19 POC Glucose (mg/dL) 123 H (70-110) mg/dL Assessment and Plan Time with Patient: Less than 30
[2023-06-25 16:17] LABS: Glucose,Whole Blood 114 mg/dL (70-110)
[2023-06-25 18:53] LABS: Glucose,Whole Blood 130 mg/dL (70-110)
[2023-06-25 19:53] LABS: Glucose,Whole Blood 139 mg/dL (70-110)
[2023-06-26 06:00] LABS: Glucose,Whole Blood 150 mg/dL (70-110)
[2023-06-26 08:13] VITALS: RESP 18; TEMP 98.1
[2023-06-26] MEDS: ISOSORBIDE MONONITRATE ER 60 MG TAB.ER.24H PO SCH (08:32)
[2023-06-26 11:51] LABS: Glucose,Whole Blood 138 mg/dL (70-110)
[2023-06-26] MEDS: MAG HYDROX/AL HYDROX/SIMETH 30 ML CUP PO STA (11:53)
--- NOTE | 2023-06-26 13:22 | P.PN ---
Subjective Progress Note Date: 06/26/23 Patient is seen for follow-up for chronic kidney disease stage IV and acute kidney injury. Started renal replacement therapy on 06/22/2023 for persistent hyperkalemia, worsening renal function and persistent volume overload. Patient was seen while on hemodialysis today tolerating well and plan for discharge to subacute rehab after completion. Patient is awake, comfortable, no acute distress Alert oriented 3 Examination of the heart S1 and S2 Examination of the lungs bilateral breath sounds are heard Abdomen is soft nontender Examination of the lower extremities shows edema 1+ bilaterally, chronic skin changes. RAW PRODUCTS DIRECTOR exam grossly intact right IJ permacath Objective - Vital Signs Vital signs: Vital Signs Temp 98.1 F 06/26/23 07:53 Pulse 54 L 06/26/23 07:53 Resp 18 06/26/23 07:53 BP 149/69 06/26/23 07:53 Pulse Ox 93 L 06/26/23 07:53 FiO2 Intake & Output 06/25/23 06/26/23 06/26/23 18:59 06:59 18:59 Intake Total 400 600 Output Total 3425 400 Balance -3025 200 Intake: Oral 600 Hemodialysis 400 Output: Urine 2024 400 Hemodialysis 1400 Other: Voiding Method Indwelling Catheter Indwelling Catheter Indwelling Catheter - Labs CBC & Chem 7: 06/21/23 07:18 06/24/23 08:25 Labs: Abnormal Lab Results - Last 24 Hours (Table) 06/25/23 06/25/23 06/25/23 Range/Units 16:16 18:51 19:51 POC Glucose (mg/dL) 114 H 130 H 139 H (70-110) mg/dL 06/26/23 Range/Units 05:58 POC Glucose (mg/dL) 150 H (70-110) mg/dL Assessment and Plan Plan: 1. Chronic kidney disease stage IV with baseline creatinine in the range of 3- 3.5. 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 Started hemodialysis on 06/22/2023 2. Hyperkalemia secondary to chronic kidney disease and metabolic acidosis. Was also taking lisinopril. now discontinued. 3. Non-ST elevated myocardial infarction being followed by cardiology. status post cardiac catheterization 06/18/2023 with no plans for intervention at this time. 4. Metabolic acidosis secondary to IV fluids and chronic kidney disease. 5. Anemia of chronic kidney disease. Iron deficiency noted. 6. Fluid overload. 7. Urinary retention with chronic [place] catheter. On Flomax. 8. Hypertension with chronic kidney disease. Stable. 9. Chronic diastolic CHF and moderate to severe mitral regurgitation. 10. Acute kidney injury secondary to cardiorenal syndrome. also component of contrast nephropathy. started renal replacement therapy on 06/22/2023 due to worsening renal function, persistent volume overload and persistent hyperkalemia. Plan: Hemodialysis planned again today. He will be maintained on a Wednesday schedule as outpatient, chair time secured Clear for discharge after HD today.
--- NOTE | 2023-06-26 13:42 | PN ---
PROGRESS NOTE SUBJECTIVE: Matthew is a 72-year-old gentleman who was admitted to hospital with [id number] elevation PR, underwent cardiac catheterization and was advised medical therapy. Subsequently developed renal failure and is currently being dialyzed for the same. He is feeling better today. OBJECTIVE: GENERAL: Comfortable at rest. VITAL SIGNS: Stable. CHEST: Reveals good air entry bilaterally. HEART: Reveals first and second heart sounds. Systolic murmur at the apex. ABDOMEN: Soft. EXTREMITIES: Did not reveal any edema. Peripheral pulses are felt. MEDICATIONS: The patient is on, 1. Aspirin. 2. Norvasc. 3. Lipitor. 4. Catapres. 5. Lasix. 6. Insulin. 7. Lopressor. ASSESSMENT: Coronary artery disease, on medical therapy. Renal failure, on hemodialysis. PLAN: I will continue him on his current medications. MMODL / IJN: [id number] /
--- NOTE | 2023-06-26 13:49 | P.DS ---
Providers Date of admission: 06/16/23 21:01 Attending physician: Chris Ferraro MD Consults: 06/16/23 21:00 Consult Physician Urgent Consulting Provider: Michael Dunbar Consult Reason/Comments: nstemi Do you want consulting provider notified?: Already Contacted 06/17/23 09:05 Consult Physician Routine Consulting Provider: Edinson Wang Consult Reason/Comments: DIETER Do you want consulting provider notified?: Yes 06/21/23 09:24 Consult Physician Stat Consulting Provider: Mart Kramer Consult Reason/Comments: hemodialysis permacath placement Do you want consulting provider notified?: Yes Primary care physician: [facility] Course: Final Diagnosis -Acute NSTEMI s/p cardiac catheterization; patient has multiple blockages which will be medical managed -Acute on chronic kidney disease stage IV with hyperkalemia -Cardiorenal syndrome with worsening creatinine patient was initiated on hemodialysis -Hypertension uncontrolled; amlodipine started and nephrology has also added metolazone. -Diabetes Mellitus type 2 continue with accuchecks ACHS with sliding scale insulin -Acute on chronic congestive heart failure patient is being diuresed with IV lasix -Peripheral edema secondary to volume overload improving with IV lasix and recommend to wrap lower extremities with KRISS bandage bilaterally. -Anemia of Chronic Disease with underlying iron deficiency -Urinary Retention with goodwin catheter in place patient is continued on flomax. Full code Discharge Disposition Patient is stable for discharge to subacute rehabilitation center at [facility]. Patient set up for outpatient hemodialysis Wednesday and can begin Wednesday of next week outpatient. Chair time is at 0600. Patient has been placed on plavix for management of his coronary artery disease. Patient to resume his home dose of torsemide and to continue on metolazone as well. Recommend to repeat labs in 2 to 3 days. Patient needs to follow up with his usual opthmologist in [facility] for treatment of his glaucoma, states he has an appt made in the next week. Hospital Course This is a pleasant 72-year-old male with history of chronic kidney disease stage IV, hypertension, diabetes mellitus, heart failure, anemia, presents to the hospital with significant lower extremity edema as well as chest discomfort. He was admitted for NSTEMI, with cardiology and nephrology consultations. He underwent cardiac catheterization revealing normal filling pressures. No gradient. Right coronary artery is dominant. Circumflex is ectopic, comes from the right coronary artery. LAD has minor irregularities, noncritical disease but the mid LAD onwards the vessel tapers to a mild diffuse disease throughout. The diagonal and septal branches are free of significant disease. [place] RCA is dominant. No significant disease. PDA has a 60% narrowing. PDA smaller. PLV is larger. No significant disease. Due to patient's anatomy, medical management was recommended. Echocardiogram reveals an EF of 50-55% with mod erate MR, mild left atrial dilatation, elevated LA pressures, and mid to basal inferior wall hypokinesia. He has been diuresed with IV Lasix and has been started on hemodialysis on June 21, 2023 due to worsening renal function. He has a right chest permacath in place. His lower extremity edema is improving. Continues with 1+ lower extremity edema and recommending to wrap lower extremities with KRISS bandage bilaterally. Arrangements are being made for discharge to a halfway facility for outpatient hemodialysis. Creatinine today is 3.00. He is not having any chest pain, shortness of breath. No nausea, vomiting, or diarrhea. He is tolerating diet. Did have an episode of chest pain on the and imdur was increased by cardiology. He is hemodynamically stable. Please see medication reconciliation for a list of current medications. Thank you for allowing us to participate in the care of this patient. The impression and plan of care has been dictated by Brittany Landin, Nurse Practitioner as directed. Dr. Miah MD I have performed a history and physical examination and medical decision making of this patient, discussed the same with the dictator, and agree with the dic tators assessment and plan as written, documented as a scribe. Based on total visit time, I have performed more than 50% of this visit. Patient Condition at Discharge: Fair Plan - Discharge Summary Discharge Rx Participant: No New Discharge Prescriptions: New Isosorbide Mononitrate ER [Imdur] 60 mg PO DAILY tab Metoprolol Tartrate [Lopressor] 12.5 mg PO DAILY tab Nitroglycerin Sl Tabs [Nitrostat] 0.4 mg SUBLINGUAL Q5M PRN tab PRN Reason: Chest Pain Clopidogrel [Plavix] 75 mg PO DAILY tab Sodium Bicarbonate Tab 650 mg PO BID tab metOLazone [Zaroxolyn] 5 mg PO DAILY tab cloNIDine HCL [Catapres] 0.1 mg PO TID tab Continue Insulin Glargine,Hum.rec.anlog [Lantus Solostar Pen] 10 unit SQ DAILY@1200 Ergocalciferol (Vitamin D2) [Drisdol (50,000 Iu)] 1,250 mcg PO QMONTHLY hydrALAZINE HCL [Apresoline] 100 mg PO TID Insulin Lispro [humaLOG Kwikpen] See Protocol SQ TID-W/MEALS amLODIPine [Norvasc] 10 mg PO DAILY Tamsulosin [Flomax] 0.4 mg PO DAILY Torsemide [Demadex] 20 mg PO DAILY carvediloL [Coreg] 6.25 mg PO BID Atorvastatin [Lipitor] 40 mg PO HS Aspirin EC [Ecotrin Low Dose] 81 mg PO DAILY Discontinued Isosorbide Mononitrate ER [Imdur] 30 mg PO DAILY metOLazone [Zaroxolyn] 2.5 mg PO COLEMAN lisinopriL [Prinivil] 10 mg PO DAILY Potassium Chloride ER [K-Dur 10] 10 meq PO DAILY Magnesium Oxide [Mag-Ox] 400 mg PO BID Discharge Medication List Insulin Glargine,Hum.rec.anlog [Lantus Solostar Pen] 10 unit SQ DAILY@1200 09/30/21 [History] Insulin Lispro [humaLOG Kwikpen] See Protocol SQ TID-W/MEALS 02/24/22 [History] Ergocalciferol (Vitamin D2) [Drisdol (50,000 Iu)] 1,250 mcg PO QMONTHLY 01/14/23 [History] Tamsulosin [Flomax] 0.4 mg PO DAILY 01/14/23 [History] Torsemide [Demadex] 20 mg PO DAILY 01/14/23 [History] amLODIPine [Norvasc] 10 mg PO DAILY 01/14/23 [History] Aspirin EC [Ecotrin Low Dose] 81 mg PO DAILY 05/01/23 [History] Atorvastatin [Lipitor] 40 mg PO HS 05/01/23 [History] carvediloL [Coreg] 6.25 mg PO BID 05/01/23 [History] hydrALAZINE HCL [Apresoline] 100 mg PO TID 06/16/23 [History] Clopidogrel [Plavix] 75 mg PO DAILY tab 04/06/24 [Rx] Isosorbide Mononitrate ER [Imdur] 60 mg PO DAILY tab 06/26/23 [Rx] Metoprolol Tartrate [Lopressor] 12.5 mg PO DAILY tab 06/26/23 [Rx] Nitroglycerin Sl Tabs [Nitrostat] 0.4 mg SUBLINGUAL Q5M PRN tab 06/26/23 [Rx] Sodium Bicarbonate Tab 650 mg PO BID tab 06/26/23 [Rx] cloNIDine HCL [Catapres] 0.1 mg PO TID tab 06/26/23 [Rx] metOLazone [Zaroxolyn] 5 mg PO DAILY tab 06/26/23 [Rx] Follow up Appointment(s)/Referral(s): Madeline Aldana MD [Primary Care Provider] - 1-2 days Edinson Wang DO [STAFF PHYSICIAN] - 1 Week [facility] Nurse, [NON-STAFF] - Jorge Dennison MD [STAFF PHYSICIAN] - 1 Week Ambulatory/Diagnostic Orders: Basic Metabolic Panel [LAB.AMB] Location: None Selected Complete Blood Count w/diff [LAB.AMB] Time Frame: 3 Days, Location: None Selected Activity/Diet/Wound Care/Special Instructions: Hemodialysis at [facility] - Wednesday, , Wednesday @0600 - first date of dialysis 06/29/23 Discharge Disposition: TRANSFER TO SNF/ECF
[2023-06-26 14:01] VITALS: BP 102/53; PULSE 57
== END 2023-06-26 16:52 | DRG 280 ==
LOC: EC 17:43 → 3SCARD 21:01 → 4SSUR 06-25 22:40
PROVIDERS: ADMIT Internal Medicine; ATTEND Internal Medicine
PROC: B2111ZZ Fluoroscopy of Multiple Coronary Arteries using Low Osmolar Contrast (ICD-10-PCS; principal; 2023-06-18 12:00)
PROC: 4A023N7 Measurement of Cardiac Sampling and Pressure, Left Heart, Percutaneous Approach (ICD-10-PCS; principal; 2023-06-18 12:00)
PROC: 02HV33Z Insertion of Infusion Device into Superior Vena Cava, Percutaneous Approach (ICD-10-PCS; 2023-06-21 18:05)
PROC: 5A1D70Z Performance of Urinary Filtration, Intermittent, Less than 6 Hours Per Day (ICD-10-PCS; 2023-06-22)
DX: I21.4 Non-ST elevation (NSTEMI) myocardial infarction (principal); N17.0 Acute kidney failure with tubular necrosis; I13.0 Hypertensive heart and chronic kidney disease with heart failure and stage 1 through stage 4 chronic kidney disease, or unspecified chronic kidney disease; I50.32 Chronic diastolic (congestive) heart failure; N18.4 Chronic kidney disease, stage 4 (severe); Q24.5 Malformation of coronary vessels; I25.10 Atherosclerotic heart disease of native coronary artery without angina pectoris; I34.0 Nonrheumatic mitral (valve) insufficiency; E11.40 Type 2 diabetes mellitus with diabetic neuropathy, unspecified; E11.22 Type 2 diabetes mellitus with diabetic chronic kidney disease; E66.9 Obesity, unspecified; T50.8X5A Adverse effect of diagnostic agents, initial encounter; N14.11 Contrast-induced nephropathy; K21.9 Gastro-esophageal reflux disease without esophagitis; D63.1 Anemia in chronic kidney disease; E78.5 Hyperlipidemia, unspecified; E87.5 Hyperkalemia; Z87.01 Personal history of pneumonia (recurrent); Z79.82 Long term (current) use of aspirin; Z79.899 Other long term (current) drug therapy; Z86.19 Personal history of other infectious and parasitic diseases; Z68.27 Body mass index [BMI] 27.0-27.9, adult
CPT/HCPCS: 36415; 36558; 71045; 71046; 76770; 76937; 77001; 80048; 80053; 80061; 81001; 82728; 83036; 83540; 83550; 83735; 83880; 84132; 84484; 85025; 85027; 85379; 85610; 85730; 86706; 87077; 87086; 87186; 87340; 90935; 93005; 93306; 93458; 94760; 96365; 96366; 96375; 96376; 99291

== ENCOUNTER → 2024-03-03 | Day surgery (SDC) | payer MEDICARE, OTHER ==
[~2024-03-03] MED LIST changes: -LACTATED RINGERS 1,000 ML IV SCH; +PROPOFOL 10 MG/ML 20 ML VIAL IV ONE
[2024-03-03] MEDS: IV FLUID CONTINUATION 1,000 ML IV ONE ×3 (09:11→11:17)
[2024-03-03 09:43] VITALS: RESP 16; TEMP 97.8
[2024-03-03] MEDS: LACTATED RINGERS 1,000 ML IV SCH (09:47)
[2024-03-03 09:49] LABS: Glucose,Whole Blood 179 mg/dL (70-110)
--- NOTE | 2024-03-03 11:38 | P.PCN ---
Date of Procedure: 03/03/24 Procedure(s) Performed: BRIEF HISTORY: Patient is a 73-year-old pleasant white male scheduled for an elective colonoscopy as a part of screening for colon cancer. PROCEDURE PERFORMED: Colonoscopy with snare polypectomy. PREOPERATIVE DIAGNOSIS: Screening for colon cancer. IV sedation per Anesthesia. PROCEDURE: After informed consent was obtained, the patient, was brought into the endoscopy unit. IV sedation was administered by Anesthesia under continuous monitoring. Digital rectal examination was normal. Initially the Olympus CF-160 flexible video colonoscope was then inserted in the rectum, gradually advanced into the cecum without any difficulty. Careful examination was performed as the scope was gradually being withdrawn. Ileocecal valve and the appendiceal orifice were visualized and appeared normal. Prep was poor in several areas of the colon. Mucosa of the cecum had a 1 cm polyp removed by snare polypectomy. In the transverse colon there was a 1 cm polyp removed by hot snare polypectomy. In the descending colon there was a 5 mm polyp removed by cold snare polypectomy. Mucosa sigmoid colon, and rectum appeared normal. There was a 5 mm polyp removed by cold snare polypectomy. Retroflexion was performed in the rectum and no lesions were seen. The patient tolerated the procedure well. IMPRESSION: 1 cm cecal polyp status post snare polypectomy 1 cm transverse colon polyp status post snare polypectomy 5 mm descending colon polyp status post snare polyp 5 millimeter rectal polyp status post snare polypectomy RECOMMENDATIONS: Findings of this examination were discussed with the patient as well as his family. He was advised to with the biopsy results. If the biop sy was adenoma he can have repeat colonoscopy in 3 years..
[2024-03-03 11:56] LABS: Glucose,Whole Blood 187 mg/dL (70-110)
[2024-03-03] MEDS: hydrALAZINE HCL 20 MG/ML 1 ML VIAL IVP STA (12:25)
[2024-03-03 13:09] VITALS: PULSE 67
[2024-03-03 13:26] VITALS: BP 169/74
== END ==
LOC: ORWHC2ENDO 08:32
PROVIDERS: ATTEND Internal Medicine Gastroenterology
DX: Z12.11 Encounter for screening for malignant neoplasm of colon (principal); D12.0 Benign neoplasm of cecum; D12.3 Benign neoplasm of transverse colon; D12.4 Benign neoplasm of descending colon; D12.8 Benign neoplasm of rectum; K40.90 Unilateral inguinal hernia, without obstruction or gangrene, not specified as recurrent; I11.0 Hypertensive heart disease with heart failure; E78.5 Hyperlipidemia, unspecified; I50.9 Heart failure, unspecified; N28.9 Disorder of kidney and ureter, unspecified; G60.9 Hereditary and idiopathic neuropathy, unspecified; Z99.2 Dependence on renal dialysis; Z79.82 Long term (current) use of aspirin; Z79.02 Long term (current) use of antithrombotics/antiplatelets; Z79.4 Long term (current) use of insulin; Z79.899 Other long term (current) drug therapy
CPT/HCPCS: 88305; 45385; J0360; J2704

== ENCOUNTER → 2024-07-27 | Outpatient (CLI) | payer OTHER ==
--- NOTE | 2024-07-27 14:58 | BD ---
EXAMINATION TYPE: Axial Bone Density DATE OF EXAM: 07/27/2024 CLINICAL HISTORY: 73 years old Male. ICD-10 CODE: Z13.820 ENCOUNTER FOR SCREENING FOR OSTEOPOROSIS , Additional History: Height: 6'5" Weight: 215lbs FRAX RISK QUESTIONS: Alcohol (3 or more units per day): No Family History (Parent hip fracture): No Glucocorticoids (More than 3mos): Patient states, unknown, possibly during dialysis (Ex: prednisone, prednisolone, methylprednisolone, dexamethasone, and hydrocortisone). History of Fracture in Adulthood: Yes Secondary Osteoporosis: 1. Type 1 Diabetes: No 2. Hyperthyroidism: No 3. Menopause before 45: N/A 4. Malnutrition: No 5. Chronic liver disease: No Rheumatoid Arthritis: No Current Tobacco Use: No RISK FACTORS HISTORY OF: Hip Fracture (Right/Left): No Spine Fracture: No History of Wrist Fracture: No Surgery to Spine/Hip(right/left)/Wrist (right/left): No MEDICATIONS: Thyroid Medications: No Osteoporosis Medications: No EXAM MEASUREMENTS: Bone mineral densitometry was performed using the [employer] System. Bone mineral density as measured about the Lumbar spine is: ----- L1-L4(G/cm2): 1.040 T Score Values are as follows: ----- L1: -1.4 ----- L2: -1.3 ----- L3: -0.7 ----- L4: -1.3 ----- L1-L4: -1.2 Z Score Values are as follows: ----- L1: -1.7 ----- L2: -1.7 ----- L3: -1.1 ----- L4: -1.7 ----- L1-L4: -1.5 Baseline @MPH Bone mineral density about the R hip (g/cm2): 0.641 Bone mineral density about the L hip (g/cm2): 0.663 T Score values are as follows: -----R Neck: -2.8 -----L Neck: -2.6 -----R Total: -2.9 -----L Total: -2.7 Z Score values are as follows: -----R Neck: -2.3 -----L Neck: -2.1 -----R Total: -2.7 -----L Total: -2.6 Baseline @MPH FRAX%s: The graph provided illustrates a 20.2% chance for a major osteoporotic fx and a 9.3% chance f or the hips probability for fx in 10 years time. IMPRESSION: Osteoporosis (T Score less than -2.5). There is increased fracture risk and therapy is usually indicated based on age. Re-Screen 1-2 years. NOTE: T-SCORE=SD OF THE YOUNG ADULT MEAN. [facility], , 07/27/2024 2:56 PM
== END | disposition home or self-care (01) ==
LOC: RADBDWWP 12:48
PROVIDERS: ATTEND Internal Medicine Hospice and Palliative Medicine
DX: Z13.820 Encounter for screening for osteoporosis (principal); M81.0 Age-related osteoporosis without current pathological fracture; M85.88 Other specified disorders of bone density and structure, other site
CPT/HCPCS: 77080